=== PATIENT | female | born 1970 | race Caucasian/White ===

== ENCOUNTER 2024-05-28 20:03 | Inpatient (IN) ==
--- OUTSIDE RECORDS SUMMARY | 2024-05-28 20:19 | External Medical Summary | Summary of Care ---
Author Name Unknown Organization [facility] Address [address] [place] [address] Phone [phone] Care Team Providers Care City Planning Engineer Name Role Phone Karlie Thrasher DO Primary Care Provider Reason for Visit * Reason Comments eRx-Medication Refill Encounter Details Date Type Department Care Team (Late st Contact Info) Description 05/20/2024 Refill Family Practice [facility] [address] [place] [address] Karlie Thrasher DO [address] [facility] [place] [address] Allergies Active Allergy Reactions Criticality Noted Date Comments Clindamycin Hives 02/19/2014 documented as of this encounter (statuses as of 05/22/2024) Medications Medication Sig Dispensed Refills Start Date End Date Status Lisinopril-hydro CHLOROthiazide 10-12.5 MG Oral Tablet 1 Tablet. 04/23/2023 Active Folic Acid 1 MG Oral TabletIndication s:Polymyositis with myopathy (HCC),Folic acid deficiency Take 1 Tablet by mouth in the morning. 90 Tablet 3 01/12/2024 Active Zinc 15 66 MG Oral Tablet (Zinc Sulfate)Indicati ons:Zinc deficiency 1 tablet daily 90 Tablet 1 01/12/2024 Active rOPINIRole HCl 1 MG Oral Tablet (Requip)Indicati ons:RLS (restless legs syndrome) TAKE 1 TABLET BY MOUTH TWICE DAILY 180 Tablet 1 04/19/2024 Active Methotrexate Sodium 2.5 MG Oral TabletIndication s:Polymyositis with myopathy (HCC) TAKE 6 TABLET BY MOUTH ONCE WEEKLY 24 Tablet 04/25/2024 Active Vitamin D3 1.25 MG (39561 UT) Oral CapsuleIndicatio ns:Vitamin D deficiency Take 1 Capsule by mouth once a week. 6 Capsule 1 05/08/2024 Active Gabapentin 300 MG Oral Capsule (Neurontin)Indic ations:Polymyosi tis with myopathy (HCC),Myalgia Take 2 Capsules by mouth in the morning and 2 Capsules at noon and 2 Capsules before bedtime. 180 Capsule 5 05/08/2024 Active LORazepam 0.5 MG Oral Tablet (Ativan)Indicati ons:Severe anxiety with panic Take 1 Tablet by mouth daily as needed for Anxiety. 30 Tablet 05/08/2024 Active Pantoprazole Sodium 40 MG Oral Tablet Delayed Release (Protonix)Indica tions:Polymyosit is with myopathy (HCC),Proximal muscle weakness TAKE 1 TABLET BY MOUTH EVERY MORNING 90 Tablet 05/22/2024 Active DULoxetine HCl 60 MG Oral Capsule Delayed Release Particles (Cymbalta) TAKE 1 CAPSULE BY MOUTH ONCE DAILY DO NOT CRUSH, CHEW, AND/OR DIVIDE 30 Capsule 5 05/22/2024 Active DULoxetine HCl 60 MG Oral Capsule Delayed Release Particles (Cymbalta) TAKE 1 CAPSULE BY MOUTH ONCE DAILY DO NOT CRUSH, CHEW, AND/OR DIVIDE 30 Capsule 1 03/20/2024 4 Discontinued documented as of this encounter (statuses as of 05/22/2024) Active Problems Problem Noted Date Diagnosed Date 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 On prednisone therapy 07/16/2022 Leukocytosis 07/16/2022 Elevated alkaline phosphatase level 07/16/2022 Varicose veins of both lower extremities Hyperlipidemia 07/16/2022 Unspecified adrenocortical insufficiency Vitamin D deficiency 07/16/2022 Moderate episode of recurrent major depressive d isorder 07/16/2022 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 Primary osteoarthritis of both first carpometaca rpal joints 07/06/2018 HTN, goal below 140/90 12/17/2015 History of tobacco use 06/19/2011 Family history of cardiovascular disease 003 Overview: ICD-10 update of inactive term FAM HX-DIABETES MELLITUS 01/22/2003 documented as of this encounter (statuses as of 05/22/2024) Resolved Problems Problem Noted Date Diagnosed Date Resolved Date Prediabetes 07/16/2022 09/16/2023 Whiplash 04/21/2017 10/11/2017 Lightheaded 06/19/2011 10/11/2017 Depression 01/22/2003 08/05/2020 documented as of this encounter (statuses as of 05/22/2024) Immunizations Name Administration Dates Next Due PPD 02/10/2010,08/15/2009 documented as of this encounter Social History Tobacco Use Types Packs/Day Years Used Date Smoking Tobacco: Former Cigarettes 1 20 Smokeless Tobacco: Never Comments:started age 23 Alcohol Use Standard Drinks/Week Comments Yes 0 (1 standard drink = 0.6 oz pur e alcohol) 1-2 /week PHQ-2 Answer Date Recorded PHQ-2 Score -1 08/07/2018 Utilities Answer Date Recorded Do you have trouble paying y our heating, water, or electric bill? (Adult - for ages 18 years and over) Not on file 03/21/2024 Is your family able to pay t he heat, water, or electric bill? (Household - for ages 0-17 years) Not on file 03/21/2024 Does your family have access to good internet? (Household - for ages 0-17 years) Not on file 03/21/2024 Social Connections Answer Date Recorded How often do you feel lonely or isolated from those around you? (Adult - for ages 18 years and over) Not on file 03/21/2024 Sex and Gender Information Value Date Recorded Sex Assigned at Not on file Gender Identity Not on file Sexual Orientation Not on file Job Start Date Occupation Industry Not on file Not on file Not on file documented as of this encounter Functional Status Functional Status Response Date of Assess ment Do you have serious difficul ty walking or climbing stairs? (5 years old or older) Yes 03/16/2023 documented as of this encounter Miscellaneous Notes * Telephone Encounter - Sindhu Esquivel [facility] - 05/22/2024 8:39 PM EDTSigned Prescriptions: Disp Refills DULoxetine HCl 60 MG Oral Capsule Delayed *30 Cap*5 Sig: TAKE 1 CAPSULE BY MOUTH ONCE DAILY DO NOT CRUSH, CHEW, AND/OR DIVIDE Authorizing Provider: KARLIE THRASHER Ordering User: SINDHU ESQUIVEL * Telephone Encounter - Interface, [facility] - 05/22/2024 5:54 PM EDT Pending Prescriptions: Disp Refills DULoxetine HCl 60 MG Oral Capsule Delayed *30 Cap*0 Sig: TAKE 1CAPSULE BY MOUTH ONCE DAILY DO NOT CRUSH, CHEW, AND/OR DIVIDE documented in this encounter Plan of Treatment Upcoming Encounters Date Type Department Care Team (Late st Contact Info) Description 11/09/2024 9:40 AM EST Office Visit [facility] [address] [address] Anika Cervantes CRNP [address] [place] [address] 05/08/2025 11:40 AM EDT Office Visit [facility] [address] [address] Karlie Thrasher, [address] [place] [address] Health Maintenance Due Date Last Done Comments COVID-19 Vaccine (#1) 1975 Pneumococcal Vaccine: Pediatrics (0 to 5 Years) and At-Risk Patients (6 to 64 Years) (1 of 2 - PCV) 1976 Hepatitis B Vaccine (1 of 3 - 19+ 3-dose series) 1989 Zoster Vaccines (1 of 2) 1989 HPV/Co-Test 2000 DTaP,Tdap,and Td Vaccines (1 - Tdap) 07/13/2003 07/12/2003 Mammogram 2010 Cervical Cancer Screening 12/31/2012 Pap Smear 12/31/2012 12/31/2009, 12/31/2009 Cologuard 2015 Colonoscopy 2015 Colorectal Cancer Screening 2015 Fecal Occult Blood Test 2015 Sigmoidoscopy 2015 Depression Monitoring 10/11/2018 10/11/2017 Albumin/Creatinine Ratio 09/02/2023 09/02/2020 Influenza Vaccine (FLU shot) (#1) 2024 GFR 12/20/2024 12/21/2023, 09/04, 08/30/2023, Additional history exists Diabetes Screening 12/20/2026 12/21/2023, 0 12/21/2023, 09/28/2023, Additional history exists Lipid Panel 10/14/2027 10/14/2022, 08/06, 02/19/2003 HPV (Gardasil) Vaccine Aged Out No lo nger eligible based on patient's age to complete this topic MENINGOCOCCAL (MENACTRA/MENVEO) Aged Out No longer eligible based on patient's age to complete this topic documented as of this encounter Medical Devices Not on filedocumented as of this encounter Advance Directives * Full Code (Latest Code Status on File) Date Activated Date Inactivated Comments 03/15/2023 6:23 PM 03/16/2023 9:54 PM This order r eflects the patients wishes and were consensually agreed upon. Question Answer Comments Discussion of Advance Directives occurred with: Patient * Full Code Date Activated Date Inactivated Comments 09/13/2020 1:50 PM 09/13/2020 6:30 PM This order reflects the patients wishes and were consensually agreed upon. Question Answer Comments Discussion of Advance Directives occurred with: Patient Does the patient have a Living Will? No Does the patient have Health Care Power of Attor solo? No Care Teams City Planning Engineer Relationship Specialty Start Date End Date Karlie Thrasher DO [address] [place] [address] PCP - General Family Medicine 09/12/22 documented as of this encounter
--- OUTSIDE RECORDS SUMMARY | 2024-05-28 20:19 | External Medical Summary | Summary of Care ---
Author Name Unknown Organization [facility] Address [address] [place] [address] Phone [phone] Care Team Providers Care Manager Customer Name Role Phone Karlie Thrasher DO Primary Care Provider Reason for Referral * Evaluate & Treat - Unlimited Visits (Within 3 days (urgent)) - Authorized Specialty Diagnoses / Procedures Referred By Russell crandall Referred To Contact Physical Therapy / Physical Medicine And Rehab Diagnoses Polymyositis with myopathy (HCC) Bilateral foot-drop Ambulatory dysfunction Karlie Thrasher DO [address] [place] [address] Referral ID Status Reason Start Date Expiration Date Visits Requested Visits Authorized [id number] Authorized Specialty Services Required 05/08/[phone] Question Answer Referral Priority Within 3 days (urgent) Where should this appointment be scheduled? Leila Comments Needs home based PT for now as she is non-ambulatory Please refer to energy rehab Encounter Details Date Type Department Care Team (Latest Contact Info) Description 05/08/2024 9:40 AM EDT Telemedicine Family Practice [facility] [address] [place] [address] Karlie Thrasher DO [address] [place] [address] Polymyositis with myopathy (HCC)*; Iatrogenic Laya's syndrome (HCC); Mixed hyperlipidemia; HTN, goal below 140/90; Unspecified adrenocortical insufficiency (HCC); Moderate episode of recurrent major depressive disorder (HCC); Bilateral foot-drop; Ambulatory dysfunction; Vitamin D deficiency; Myalgia; Severe anxiety with panic Allergies Active Allergy Reactions Criticality Noted Date Comments Clindamycin Hives 02/19/2014 documented as of this encounter (statuses as of 05/08/2024) Medications Medication Sig Dispensed Refills Start Date End Date Status Lisinopril-hydro CHLOROthiazide 10-12.5 MG Oral Tablet 1 Tablet. 04/23/2023 Active Folic Acid 1 MG Oral TabletIndication s:Polymyositis with myopathy (HCC),Folic acid deficiency Take 1 Tablet by mouth in the morning. 90 Tablet 3 01/12/2024 Active Zinc 15 66 MG Oral Tablet (Zinc Sulfate)Indicati ons:Zinc deficiency 1 tablet daily 90 Tablet 1 01/12/2024 Active Pantoprazole Sodium 40 MG Oral Tablet Delayed Release (Protonix)Indica tions:Polymyosit is with myopathy (HCC),Proximal muscle weakness TAKE 1 TABLET BY MOUTH EVERY MORNING 90 Tablet 02/17/2024 Active DULoxetine HCl 60 MG Oral Capsule Delayed Release Particles (Cymbalta) TAKE 1 CAPSULE BY MOUTH ONCE DAILY DO NOT CRUSH, CHEW, AND/OR DIVIDE 30 Capsule 1 03/20/2024 Active rOPINIRole HCl 1 MG Oral Tablet (Requip)Indicati ons:RLS (restless legs syndrome) TAKE 1 TABLET BY MOUTH TWICE DAILY 180 Tablet 1 04/19/2024 Active Methotrexate Sodium 2.5 MG Oral TabletIndication s:Polymyositis with myopathy (HCC) TAKE 6 TABLET BY MOUTH ONCE WEEKLY 24 Tablet 04/25/2024 Active Vitamin D3 1.25 MG (11061 UT) Oral CapsuleIndicatio ns:Vitamin D deficiency Take [...] needed for Anxiety. 30 Tablet 05/08/2024 Active Gabapentin 300 MG Oral Capsule (Neurontin)Indic ations:Polymyosi tis with myopathy (HCC),Myalgia Take 1 Capsule by mouth in the morning and 1 Capsule at noon and 1 Capsule before bedtime. 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 On prednisone therapy 07/16/2022 Leukocytosis [...] as of this encounter (statuses as of 05/08/2024) Resolved Problems Problem Noted Date Diagnosed Date Resolved Date Prediabetes 07/16/2022 09/16/2023 Whiplash 04/21/2017 10/11/2017 Lightheaded 06/19/2011 10/11/2017 Depression 01/22/2003 08/05/2020 documented as of this encounter (statuses as of 05/08/2024) Immunizations Name Administration Dates Next Due PPD 02/10/2010,08/15/2009 TD - Tetanus/Diptheria (ADULT) 07/12/2003 documented as of this encounter Social History [...] Yes 03/16/2023 documented as of this encounter Progress Notes * Karlie Thrasher, - 05/08/2024 9:32 AM EDT Images from the original note were not included. Assessment and Plan Polymyositis with myopathy (HCC) Ongoing and difficult for her From a pain and function standpoint Needs ankle braces, PT and f/u with neuro - DURABLE MEDICAL EQUIPMENT - PHYSICAL THERAPY REFERRAL OP - Gabapentin 300 MG Oral Capsule (Neurontin); Take 2 Capsules by mouth in the morning and 2 Capsules at noon and 2 Capsules before bedtime. Iatrogenic Laya's syndrome (HCC) stable Mixed hyperlipidemia monitoring HTN, goal below 140/90 Stable at home Unspecified adrenocortical insufficiency (HCC) stable Moderate episode of recurrent major depressive disorder (HCC) Doing well on current dosing of cymbalta Which has helped with mood and pain Bilateral foot-drop - DURABLE MEDICAL EQUIPMENT - PHYSICAL THERAPY REFERRAL OP Ambulatory dysfunction - DURABLE MEDICAL EQUIPMENT - PHYSICAL THERAPY REFERRAL OP Vitamin D deficiency - Vitamin D3 1.25 MG (69181 UT) Oral Capsule; Take 1 Capsule by mouth once a week. Myalgia - Gabapentin 300 MG Oral Capsule (Neurontin); Take 2 Capsules by mouth in the morning and 2 Capsules at noon and 2 Capsules before bedtime. History of Present Illness Kaylin Caban is a 54 year old female that presents for No chief complaint on file. Has been having significant ongoing weakness And inability to walk lately given the bad foot drop And overall weakness - on methotrexate still Still off of prednisone Pain is mostly in the knee where she has the hardware in her leg Will be following up with neurology in May Knows she needs to restart physical therapy Because she is homebound right now But the pain is so significant after therapy Will need home bound PT Was measured for ankle braces at the hospital But never got the AFO ankle braces for her foot drop Overall pain is hard to deal with on a daily basis Wondering if she can take 2 of the gabapentin 3 times daily Physical Exam There were no vitals filed for this visit. Wrap-Up Follow-up: Return in about 6 months (around 11/08/2024). | Check-out note: Every 6 month f/u Every other with AP is ok Needs DME referral for braces Time: Total time today was 42 minutes excluding any time spent in the performance of separately billed services. Telemedicine: Patient location: HOME. I was in a hospital or clinic location. After connecting through televideo,patient was verified with two unique identifiers. Patient (or authorized legal help desk representative) was then informed that this was a Telemedicine visit and being conducted confidentially over secure lines. Methods to assure confidentiality were taken. Patient acknowledged consent and understanding of pr ivacy and security of the Telemedicine visit. The patient agreed to participate. documented in this encounter Miscellaneous Notes * Addendum Note - Karlie Thrasher DO - 05/08/2024 9:54 AM EDTAddended by: KARLIE THRASHER on: 05/08/2024 09:54 AM Modules accepted: Orders documented in this encounter Plan of Treatment Upcoming Encounters Date Type Department Care Team (Late st Contact Info) Description 05/16/2024 1:40 PM EDT [facility] [address] [place] [place] [address] Saulo Lal, DO [address] [place] [address] 05/22/2024 2:30 PM EDT Imaging Radiology, [place] [id number] [facility] [place] [address] Scheduled Referrals Name Type Priority Associated Diagnoses Orde r Schedule PHYSICAL THERAPY REFERRAL OP Referral Within 3 days (urgent) Polymyositis with myopathy (HCC) Bilateral foot-drop Ambulatory dysfunction Ordered: 05/08/2024 Health Maintenance Due Date Last Done Comments [...] Not on filedocumented as of this encounter Visit Diagnoses Diagnosis Polymyositis with myopathy (HCC)- Primary Polymyositis Iatrogenic Laya's syndrome (HCC) Laya's syndrome Mixed hyperlipidemia HTN, goal below 140/90 Unspecified essential hypertension Unspecified adrenocortical insufficiency (HCC) Moderate episode of recurrent major depressive disorder (HCC) Bilateral foot-drop Other acquired deformity of ankle and foot Ambulatory dysfunction Vitamin D deficiency Unspecified vitamin D deficiency Myalgia Mylagia and myositis, unspecified Severe anxiety with panic documented in this encounter Advance Directives * Full Code [...] Power of Attor solo? No Care Teams Manager Customer Relationship Specialty Start Date End Date Karlie Thrasher DO [address] [place] [address] PCP - General Family Medicine 09/12/22 documented as of this encounter"
--- OUTSIDE RECORDS SUMMARY | 2024-05-28 20:19 | External Medical Summary | Summary of Care ---
Author Name Unknown Organization [facility] Address [address] [place] [address] Phone [phone] Care Team Providers Care Legal Stenographer Name Role Phone Petey Thrasher Primary Care Provider Reason for Visit * Reason Onset Date Comments Appointment 05/19/2024 dexa Encounter Details Date Type Department Care Team (Late st Contact Info) Description 05/19/2024 [facility] [address] [facility] [place] [address] Junior Peralta MD [address] [place], [place] [address] Appointment (dexa) Allergies Active Allergy Reactions Criticality Noted Date Comments Clindamycin Hives 02/19/2014 documented as of this encounter (statuses as of 05/19/2024) Medications Medication Sig Dispensed Refills Start Date End Date Status Lisinopril-hydroCHL OROthiazide 10-12.5 MG Oral Tablet 1 Tablet. 04/23/2023 Active Folic Acid 1 MG Oral TabletIndications:P olymyositis with myopathy (HCC),Folic acid deficiency Take 1 Tablet by mouth in the morning. 90 Tablet 3 01/12/2024 Active Zinc 15 66 MG Oral Tablet (Zinc Sulfate)Indications :Zinc deficiency 1 tablet daily 90 Tablet 1 01/12/2024 Active Pantoprazole Sodium 40 MG Oral Tablet Delayed Release (Protonix)Indicatio ns:Polymyositis with myopathy (HCC),Proximal muscle weakness TAKE 1 TABLET BY MOUTH EVERY MORNING 90 Tablet 02/17/2024 Active DULoxetine HCl 60 MG Oral Capsule Delayed Release Particles (Cymbalta) TAKE 1 CAPSULE BY MOUTH ONCE DAILY DO NOT CRUSH, CHEW, AND/OR DIVIDE 30 Capsule 1 03/20/2024 Active rOPINIRole HCl 1 MG Oral Tablet (Requip)Indications :RLS (restless legs syndrome) TAKE 1 TABLET BY MOUTH TWICE DAILY 180 Tablet 1 04/19/2024 Active Methotrexate Sodium 2.5 MG Oral TabletIndications:P olymyositis with myopathy (HCC) TAKE 6 TABLET BY MOUTH ONCE WEEKLY 24 Tablet 04/25/2024 Active Vitamin D3 1.25 MG (18107 UT) Oral CapsuleIndications: Vitamin D deficiency Take 1 Capsule by mouth once a week. 6 Capsule 1 05/08/2024 Active Gabapentin 300 MG Oral Capsule (Neurontin)Indicati ons:Polymyositis with myopathy (HCC),Myalgia Take 2 Capsules by mouth in the morning and 2 Capsules at noon and 2 Capsules before bedtime. 180 Capsule 5 05/08/2024 Active LORazepam 0.5 MG Oral Tablet (Ativan)Indications :Severe anxiety with panic Take 1 Tablet by mouth daily as needed for Anxiety. 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 Primary osteoarthritis of both first carpometaca rpal joints 07/06/2018 HTN, goal below 140/90 12/17/2015 History of tobacco use 06/19/2011 Family history of cardiovascular disease 003 Overview: ICD-10 update of inactive term FAM HX-DIABETES MELLITUS 01/22/2003 documented as of this encounter (statuses as of 05/19/2024) Resolved Problems Problem Noted Date Diagnosed Date Resolved Date Prediabetes 07/16/2022 09/16/2023 Whiplash 04/21/2017 10/11/2017 Lightheaded 06/19/2011 10/11/2017 Depression 01/22/2003 08/05/2020 documented as of this encounter (statuses as of 05/19/2024) Immunizations Name Administration Dates Next Due PPD [...] encounter Miscellaneous Notes * Telephone Encounter - Sandrita Lang, [place] - 05/19/2024 2:38 PM EDT Patient is returning a call to say that she doesn't have a pacemaker or anything like that in her, but she is in a wheelchair and cannot walk at all and has anxiety about getting up on the table. I spoke to jermaine who is here today and relayed message. The tech informed me that they do not have a lift or anything to help get patient up on the table. She would need to provide help to get her on table, or needs to be scheduled at a hospital where they have a lift. I called patient and didn't get ananswer, so left a detailed message with all this information on vmail and gave her the appointment line to cancel/reschedule appointment as needed. documented in this encounter Plan of Treatment Upcoming Encounters Date Type Department Care Team (Late st Contact Info) Description 05/22/2024 2:30 PM EDT Imaging Radiology, [address] [place] [address] 11/09/2024 9:40 AM EST Office Visit [facility] [address] [place] [address] Anika Cervantes CRNP [address] [place] [address] 05/08/2025 11:40 AM EDT Office Visit [facility] [address] [place] [address] Petey Thrasher DO [address] [place] [address] Health Maintenance Due Date Last Done Comments [...] Power of Attor solo? No Care Teams Legal Stenographer Relationship Specialty Start Date End Date Petey Thrasher DO [address] [place] [address] PCP - General Family Medicine 09/12/22 documented as of this encounter
--- OUTSIDE RECORDS SUMMARY | 2024-05-28 20:19 | External Medical Summary | Summary of Care ---
Author Name Unknown Organization [facility] Address [address] [place] [address] Phone [phone] Care Team Providers Care Cnc Machinist Name Role Phone Petey Thrasher Primary Care Provider Reason for Visit * Reason Comments eRx-Medication Refill Encounter Details Date Type Department Care Team (Late st Contact Info) Description 04/24/2024 Refill Neurology [facility] Natalie [place] [address] [place] [address] Saulo Lal DO [address] [place] [address] Polymyositis with myopathy (HCC) Allergies Active Allergy Reactions Criticality Noted Date Comments Clindamycin Hives 02/19/2014 documented as of this encounter (statuses as of 04/25/2024) Medications Medication Sig Dispensed Refills Start Date End Date Status Lisinopril-hydroC HLOROthiazide 10-12.5 MG Oral Tablet 1 Tablet. 04/23/2023 Active Folic Acid 1 MG Oral TabletIndications :Polymyositis with myopathy (HCC),Folic acid deficiency Take 1 Tablet by mouth in the morning. 90 Tablet 3 01/12/2024 Active Zinc 15 66 MG Oral Tablet (Zinc Sulfate)Indicatio ns:Zinc deficiency 1 tablet daily 90 Tablet 1 01/12/2024 Active Pantoprazole Sodium 40 MG Oral Tablet Delayed Release (Protonix)Indicat ions:Polymyositis with myopathy (HCC),Proximal muscle weakness TAKE 1 TABLET BY MOUTH EVERY MORNING 90 Tablet 02/17/2024 Active DULoxetine HCl 60 MG Oral Capsule Delayed Release Particles (Cymbalta) TAKE 1 CAPSULE BY MOUTH ONCE DAILY DO NOT CRUSH, CHEW, AND/OR DIVIDE 30 Capsule 1 03/20/2024 Active Gabapentin 300 MG Oral Capsule (Neurontin)Indica tions:Polymyositi s with myopathy (HCC),Myalgia Take 1 Capsule by mouth in the morning and 1 Capsule at noon and 1 Capsule before bedtime. 90 Capsule 04/18/2024 Active rOPINIRole HCl 1 MG Oral Tablet (Requip)Indicatio ns:RLS (restless legs syndrome) TAKE 1 TABLET BY MOUTH TWICE DAILY 180 Tablet 1 04/19/2024 Active Methotrexate Sodium 2.5 MG Oral TabletIndications :Polymyositis with myopathy (HCC) TAKE 6 TABLET BY MOUTH ONCE WEEKLY 24 Tablet 04/25/2024 Active Methotrexate Sodium 2.5 MG Oral TabletIndications :Polymyositis with myopathy (HCC) Take 6 Tablets by mouth once a week. 24 Tablet 2 01/26/2024 04/25/2024 Discontinued documented as of this encounter (statuses as of 04/25/2024) Active Problems Problem Noted Date Diagnosed Date [...] as of this encounter (statuses as of 04/25/2024) Resolved Problems Problem Noted Date Diagnosed Date Resolved Date Prediabetes 07/16/2022 09/16/2023 Whiplash 04/21/2017 10/11/2017 Lightheaded 06/19/2011 10/11/2017 Depression 01/22/2003 08/05/2020 documented as of this encounter (statuses as of 04/25/2024) Immunizations Name Administration Dates Next Due PPD [...] encounter Miscellaneous Notes * Telephone Encounter - Saulo Lal DO - 04/25/2024 1:37 PM EDT Signed Prescriptions: Disp Refills Methotrexate Sodium 2.5 MG Oral Tablet 24 Tab*0 Sig: TAKE 6 TABLET BY MOUTH ONCE WEEKLY Authorizing Provider: SAULO LAL * Telephone Encounter - Meghan Woodruff, [facility] - 04/25/2024 1:22 PM EDT Pending Prescriptions: Disp Refills Methotrexate Sodium 2.5 MG Oral Tablet [Ph*24 Tab*0 Sig: TAKE 6 TABLET BY MOUTH ONCE WEEKLY * Telephone Encounter - Cristian Nguyen, [facility] - 04/25/2024 1:18 PM EDTPending Prescriptions: Disp Refills Methotrexate Sodium 2.5 MG Oral Tablet [Ph*24 Tab*0 Sig: TAKE 6TABLET BY MOUTH ONCE WEEKLY documented in this encounter Plan of Treatment Upcoming Encounters Date Type Department Care Team (Late st Contact Info) Description 04/29/2024 4:00 PM EDT Telemedicine Family Practice [facility] [address] [address] Petey Thrasher DO [address] [place] [address] 05/16/2024 1:40 PM EDT Office Visit Neurology [facility] [place] [address] [place] [address] Saulo Lal DO [address] [place] [address] 05/22/2024 2:30 PM EDT Imaging Radiology, [address] [place] [address] Health Maintenance Due Date Last Done Comments [...] encounter Visit Diagnoses Diagnosis Polymyositis with myopathy (HCC) Polymyositis documented in this encounter Advance Directives * [...] Power of Attor solo? No Care Teams Cnc Machinist Relationship Specialty Start Date End Date Petey Thrasher DO [address] [address] PCP - General Family Medicine 09/12/22 documented as of this encounter
--- OUTSIDE RECORDS SUMMARY | 2024-05-28 20:19 | External Medical Summary | Summary of Care ---
Author Name Unknown Organization [facility] Address [address] [place] [address] Phone [phone] Care Team Providers Care Revenue Cycle Specialist Name Role Phone Petey Thrasher Primary Care Provider Reason for Visit * Reason Comments eRx-Medication Refill Encounter Details Date Type Department Care Team (Late st Contact Info) Description 05/20/2024 Refill Neurology [facility] [address] [place] [address] Saulo Lal DO [address] [place] [address] Polymyositis with myopathy (HCC); Proximal muscle weakness Allergies Active Allergy Reactions Criticality Noted Date [...] tablet daily 90 Tablet 1 01/12/2024 Active DULoxetine HCl 60 MG Oral Capsule [...] Tablet 04/25/2024 Active Vitamin D3 1.25 MG (24392 UT) Oral CapsuleIndicatio ns:Vitamin D deficiency Take [...] MOUTH EVERY MORNING 90 Tablet 05/22/2024 Active Pantoprazole Sodium 40 MG Oral Tablet Delayed Release (Protonix)Indica tions:Polymyosit is with myopathy (HCC),Proximal muscle weakness TAKE 1 TABLET BY MOUTH EVERY MORNING 90 Tablet 02/17/2024 4 Discontinued documented as of this encounter (statuses as of 05/22/2024) Active Problems Problem Noted Date Diagnosed Date 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 On prednisone therapy 07/16/2022 Leukocytosis [...] Telephone Encounter - Saulo Lal DO - 05/22/2024 12:41 PM EDT Signed Prescriptions: Disp Refills Pantoprazole Sodium 40 MG Oral Tablet Lashae*90 Tab*0 Sig: TAKE 1 TABLET BY MOUTH EVERY MORNING Authorizing Provider: SAULO LAL * Telephone Encounter - Pam Bowens LPN - 05/22/2024 9:02 AM EDTPending Prescriptions: Disp Refills Pantoprazole Sodium 40 MG Oral Tablet Lashae*90 Tab*0 Sig: TAKE 1 TABLET BY MOUTH EVERY MORNING * Telephone Encounter - Kerrie Diez - 05/20/2024 7:09 PM EDTPending Prescriptions: Disp Refills Pantoprazole Sodium 40 MG Oral Tablet Lashae*90 Tab*0 Sig: TAKE 1 TABLET BY MOUTH EVERY MORNING * Telephone Encounter - Kerrie Diez - 05/20/2024 7:07 PM EDT Did you pend patient's preferred pharmacy and medication before forwarding?yes [id number] [address] Pending Prescriptions: Disp Refills Pantoprazole Sodium 40 MG Oral Tablet Del*90 Tab*0 Sig: TAKE 1 TABLET BY MOUTH EVERY MORNING Last Visit: 01/12/2024 (in office), 09/07/2023 (telemedicine) Next Visit: Visit date not found If no future appointments scheduled, and last appointment is greater than a year ago, please schedule patient for a follow-up appointment Last date the medication was ordered: 02/17/2024 Is this request for a controlled substance?No Urine Drug Screen:No results found for this or any previous visit. Patient Phone Numbers Labs: Lab Results Component Value Date/Time CREAT 0.6 12/21/2023 12:24 PM CREAT 0.7 09/02/2020 09:53 AM POTASSIUM 4.3 12/21/2023 12:24 PM POTASSIUM 3.0 (L) 09/02/2020 09:52 AM TSH 2.61 05/25/2022 11:01 AM LDLCALC 135 (H) 10/14/2022 10:05 AM LDLCALC 169 (H) 09/02/2020 09:52 AM LDLDIRECT NOT APPLICABLE 09/02/2020 09:52 AM ALT 16 12/21/2023 12:24 PM HGBA1C 4.5 12/21/2023 12:24 PM HGBA1C 4.8 09/02/2020 09:52 AM documented in this encounter Plan of Treatment Upcoming Encounters Date Type Department Care Team (Late st Contact Info) Description 11/09/2024 9:40 AM EST Office Visit [facility] [address] [address] Anika Cervantes CRNP [address] [place] [address] 05/08/2025 11:40 AM EDT Office Visit [facility] [address] [address] Petey Thrasher, DO [address] [place] [address] Health Maintenance Due Date Last Done Comments [...] Diagnoses Diagnosis Polymyositis with myopathy (HCC) Polymyositis Proximal muscle weakness Muscle weakness (generalized) documented in this encounter Advance Directives * [...] Power of Attor solo? No Care Teams Revenue Cycle Specialist Relationship Specialty Start Date End Date Petey Thrasher DO [address] [place] [address] PCP - General Family Medicine 09/12/22 documented as of this encounter
--- OUTSIDE RECORDS SUMMARY | 2024-05-28 20:19 | External Medical Summary | Summary of Care ---
Author Name Unknown Organization [facility] Address [address] [place] [address] Phone [phone] Care Team Providers Care Timber Watchman Name Role Phone Karlie Thrasher DO Primary Care Provider Reason for Referral * Evaluate & Treat - Unlimited Visits (Within 3 days (urgent)) - Authorized Specialty Diagnoses / Procedures Referred By Russell crandall Referred To Contact Physical Therapy / Physical Medicine And Rehab Diagnoses Polymyositis with myopathy (HCC) Bilateral foot-drop Ambulatory dysfunction Karlie Thrasher DO [address] [place] [address] Referral ID Status Reason Start Date Expiration Date Visits Requested Visits Authorized [id number] Authorized Specialty Services Required 05/08/[phone] Question Answer Referral Priority Within 3 days (urgent) Where should this appointment be scheduled? Leila Comments Needs home based PT for now as she is non-ambulatory Please refer to energy rehab Encounter Details Date Type Department Care Team (Latest Contact Info) Description 05/08/2024 9:40 AM EDT Telemedicine Family Practice [facility] [address] [place] [address] Karlie Thrasher DO [address] [place] [address] Polymyositis with myopathy (HCC)*; Iatrogenic Laya's syndrome [...] Tablet 04/25/2024 Active Vitamin D3 1.25 MG (68871 UT) Oral CapsuleIndicatio ns:Vitamin D deficiency Take [...] D deficiency - Vitamin D3 1.25 MG (23195 UT) Oral Capsule; Take 1 Capsule by [...] two unique identifiers. Patient (or authorized legal screening representative) was then informed that this was [...] 05/16/2024 1:40 PM EDT [facility] [address] [place] [address] Saulo Lal, DO [address] [place], [place] [address] 05/22/2024 2:30 PM EDT Imaging Radiology, [place] [id number] [facility] [place] [address] Scheduled Referrals Name Type Priority Associated Diagnoses [...] Power of Attor solo? No Care Teams Timber Watchman Relationship Specialty Start Date End Date Karlie Thrasher DO [address] [place] [address] PCP - General Family Medicine 09/12/22 documented as of this encounter"
--- OUTSIDE RECORDS SUMMARY | 2024-05-28 20:19 | External Medical Summary | Summary of Care ---
Author Name Unknown Organization [facility] Address [address] [place] [address] Phone [phone] Care Team Providers Care Card Folder Name Role Phone Petey Thrasher Primary Care Provider Reason for Visit * Reason Comments eRx-Medication Refill Encounter Details Date Type Department Care Team (Late st Contact Info) Description 05/23/2024 Refill Neurology [facility] [address] [place] [address] Saulo Lal DO [address] [place] [address] Polymyositis with myopathy (HCC) Allergies Active Allergy Reactions Criticality Noted Date Comments Clindamycin Hives 02/19/2014 documented as of this encounter (statuses as of 05/24/2024) Medications Medication Sig Dispensed Refills Start Date [...] TWICE DAILY 180 Tablet 1 04/19/2024 Active Vitamin D3 1.25 MG (18817 UT) Oral CapsuleIndicatio ns:Vitamin D deficiency Take [...] AND/OR DIVIDE 30 Capsule 5 05/22/2024 Active Methotrexate Sodium 2.5 MG Oral TabletIndication s:Polymyositis with myopathy (HCC) TAKE 6 TABLET BY MOUTH ONCE WEEKLY 24 Tablet 5 05/24/2024 Active Methotrexate Sodium 2.5 MG Oral TabletIndication s:Polymyositis with myopathy (HCC) TAKE 6 TABLET BY MOUTH ONCE WEEKLY 24 Tablet 04/25/2024 4 Discontinued documented as of this encounter (statuses as of 05/24/2024) Active Problems Problem Noted Date Diagnosed Date [...] as of this encounter (statuses as of 05/24/2024) Resolved Problems Problem Noted Date Diagnosed Date Resolved Date Prediabetes 07/16/2022 09/16/2023 Whiplash 04/21/2017 10/11/2017 Lightheaded 06/19/2011 10/11/2017 Depression 01/22/2003 08/05/2020 documented as of this encounter (statuses as of 05/24/2024) Immunizations Name Administration Dates Next Due PPD [...] Telephone Encounter - Saulo Lal DO - 05/24/2024 2:04 PM EDT Signed Prescriptions: Disp Refills Methotrexate Sodium 2.5 MG Oral Tablet 24 Tab*5 Sig: TAKE 6 TABLET BY MOUTH ONCE WEEKLY Authorizing Provider: SAULO LAL * Telephone Encounter - Meghan Woodruff, [facility] - 05/24/2024 2:00 PM EDT Pending Prescriptions: Disp Refills Methotrexate Sodium 2.5 MG Oral Tablet 24 Tab*5 Sig: TAKE 6 TABLET BY MOUTH ONCE WEEKLY * Telephone Encounter - Lynda Mckinnon [facility] - 05/24/2024 1:19 PM EDTPending Prescriptions: Disp Refills Methotrexate Sodium 2.5 MG Oral Tablet [Ph*24 Tab*0 Sig: TAKE 6TABLET BY MOUTH ONCE WEEKLY documented in this encounter Plan of Treatment Upcoming Encounters Date Type Department Care Team (Late st Contact Info) Description 11/09/2024 9:40 AM EST Office Visit [address] [place] [address] Anika Cervantes CRNP [address] [place] [address] 05/08/2025 11:40 AM EDT Office Visit Family [facility] [address] [place] [address] Petey Thrasher DO [address] [place] [address] Health Maintenance Due Date Last Done Comments [...] Power of Attor solo? No Care Teams Card Folder Relationship Specialty Start Date End Date Petey Thrasher DO [address] [place] [address] PCP - General Family Medicine 09/12/22 documented as of this encounter
--- OUTSIDE RECORDS SUMMARY | 2024-05-28 20:20 | External Medical Summary | Summary of Care ---
Author Name Unknown Organization [facility] Address [address] [place] [address] Phone [phone] Care Team Providers Care In Home Aide Name Role Phone Petey Thrasher Primary Care Provider Reason for Visit * Reason Comments eRx-Medication Refill Encounter Details Date Type Department Care Team (Late st Contact Info) Description 04/18/2024 Refill Neurology [facility] [place] [address] [place] [address] Saulo Lal DO [address] [place] [address] Polymyositis with myopathy (HCC); Myalgia Allergies Active Allergy Reactions Criticality Noted Date Comments Clindamycin Hives 02/19/2014 documented as of this encounter (statuses as of 04/18/2024) Medications Medication Sig Dispensed Refills Start Date [...] Oral Tablet (Requip)Indicatio ns:RLS (restless legs syndrome) 1 tablet twice daily 60 Tablet 2 01/12/2024 Active Methotrexate Sodium 2.5 MG Oral TabletIndications :Polymyositis with myopathy (HCC) Take 6 Tablets by mouth once a week. 24 Tablet 2 01/26/2024 Active Pantoprazole Sodium 40 MG Oral Tablet [...] Capsule before bedtime. 90 Capsule 04/18/2024 Active Gabapentin 300 MG Oral Capsule (Neurontin)Indica tions:Polymyositi s with myopathy (HCC),Myalgia Take 1 Capsule by mouth in the morning and 1 Capsule at noon and 1 Capsule before bedtime. 90 Capsule 1 01/25/2024 04/18/2024 Discontinued documented as of this encounter (statuses as of 04/18/2024) Active Problems Problem Noted Date Diagnosed Date Iatrogenic Shickshinny's syndrome 07/16/2022 On prednisone therapy 07/16/2022 Leukocytosis [...] as of this encounter (statuses as of 04/18/2024) Resolved Problems Problem Noted Date Diagnosed Date Resolved Date Prediabetes 07/16/2022 09/16/2023 Whiplash 04/21/2017 10/11/2017 Lightheaded 06/19/2011 10/11/2017 Depression 01/22/2003 08/05/2020 documented as of this encounter (statuses as of 04/18/2024) Immunizations Name Administration Dates Next Due PPD [...] Telephone Encounter - Saulo Lal DO - 04/18/2024 5:19 PM EDT Signed Prescriptions: Disp Refills Gabapentin 300 MG Oral Capsule (Neurontin) 90 Cap*0 Sig: Take 1 Capsule by mouth in the morning and 1 Capsule at noon and 1 Capsule before bedtime. Authorizing Provider: SAULO LAL * Telephone Encounter - Pam Bowens LPN - 04/18/2024 2:22 PM EDTPending Prescriptions: Disp Refills Gabapentin 300 MG Oral Capsule [Pharmacy M*90 Cap*0 Sig: Take 1 Capsule by mouth in the morning and 1 Capsule at noon and 1 Capsule before bedtime. * Telephone Encounter - Kerrie Diez two - 04/18/2024 2:02 PM EDTPending Prescriptions: Disp Refills Gabapentin 300 MG Oral Capsule [Pharmacy M*90 Cap*0 Sig: Take 1 Capsule by mouth in the morning and 1 Capsule at noon and 1 Capsule before bedtime. * Telephone Encounter - Chary Inaurelia two - 04/18/2024 2:01 PM EDT Did you pend patient's preferred pharmacy and medication before forwarding?yes Pharmacy: [id number] [facility] Pending Prescriptions: Disp Refills Gabapentin 300 MG Oral Capsule (Neurontin*90 Cap*0 Sig: Take 1 Capsule by mouth in the morning and 1 Capsule at noon and 1 Capsule before bedtime. Last Visit: 01/12/2024 (in office), 09/07/2023 (telemedicine) Next Visit: 05/16/2024 If no future appointments scheduled, and last appointment is greater than a year ago, please schedule patient for a follow-up appointment Last date the medication was ordered: 01/25/2024 Is this request for a controlled substance?No [...] 04/29/2024 4:00 PM EDT Telemedicine Family Practice [facility] [address] [address] Petey Thrasher, [address] [address] 05/16/2024 1:40 PM EDT [facility] [address] [place] [address] Saulo Lal, [address] [place] [address] 05/22/2024 2:30 PM EDT Imaging Radiology, [facility] [address] [facility] [place] [address] Health Maintenance Due Date Last Done Comments [...] Diagnoses Diagnosis Polymyositis with myopathy (HCC) Polymyositis Myalgia Mylagia and myositis, unspecified documented in this encounter Advance Directives * [...] Power of Attor solo? No Care Teams In Home Aide Relationship Specialty Start Date End Date Petey Thrasher DO [address] [place] [address] PCP - General Family Medicine 09/12/22 documented as of this encounter
--- OUTSIDE RECORDS SUMMARY | 2024-05-28 20:20 | External Medical Summary | Summary of Care ---
Author Name Unknown Organization [facility] Address [address] [place] [address] Phone [phone] Care Team Providers Care Logging Engineer Name Role Phone Petey Thrasher Primary Care Provider Reason for Visit * Reason Comments eRx-Medication Refill Encounter Details Date Type Department Care Team (Late st Contact Info) Description 02/15/2024 Refill Neurology [place] [facility] [place] [address] [place] [address] Saulo Lal DO [address] [place] [address] Polymyositis with myopathy (HCC); Proximal muscle weakness Allergies Active Allergy Reactions Criticality Noted Date Comments Clindamycin Hives 02/19/2014 documented as of this encounter (statuses as of 02/17/2024) Medications Medication Sig Dispensed Refills Start Date End Date Status Lisinopril-hydroC HLOROthiazide 10-12.5 MG Oral Tablet 1 Tablet. 0 04/23/2023 Active Folic Acid 1 MG Oral [...] twice daily 60 Tablet 2 01/12/2024 Active DULoxetine HCl 60 MG Oral Capsule Delayed Release Particles (Cymbalta) TAKE 1 CAPSULE BY MOUTH ONCE DAILY DO NOT CRUSH, CHEW, AND/OR DIVIDE 30 Capsule 0 01/24/2024 Active Gabapentin 300 MG Oral Capsule (Neurontin)Indica tions:Polymyositi s with myopathy (HCC),Myalgia Take 1 Capsule by mouth in the morning and 1 Capsule at noon and 1 Capsule before bedtime. 90 Capsule 1 01/25/2024 Active Methotrexate Sodium 2.5 MG Oral TabletIndications :Polymyositis with myopathy (HCC) Take 6 Tablets by mouth once a week. 24 Tablet 2 01/26/2024 Active Pantoprazole Sodium 40 MG Oral Tablet Delayed Release (Protonix)Indicat ions:Polymyositis with myopathy (HCC),Proximal muscle weakness TAKE 1 TABLET BY MOUTH EVERY MORNING 90 Tablet 0 02/17/2024 Active Pantoprazole Sodium 40 MG Oral Tablet Delayed Release (Protonix)Indicat ions:Polymyositis with myopathy (HCC),Proximal muscle weakness take 1 tablet by mouth every morning 90 Tablet 3 02/15/2023 02/17/2024 Discontinued documented as of this encounter (statuses as of 02/17/2024) Active Problems Problem Noted Date Diagnosed Date Iatrogenic [employer]'s syndrome 07/16/2022 On prednisone therapy 07/16/2022 Leukocytosis [...] as of this encounter (statuses as of 02/17/2024) Resolved Problems Problem Noted Date Diagnosed Date Resolved Date Prediabetes 07/16/2022 09/16/2023 Whiplash 04/21/2017 10/11/2017 Lightheaded 06/19/2011 10/11/2017 Depression 01/22/2003 08/05/2020 documented as of this encounter (statuses as of 02/17/2024) Immunizations Name Administration Dates Next Due PPD 02/10/2010,08/15/2009 documented as of this encounter Social History Tobacco Use Types Packs/Day Years Used Date Smoking Tobacco: Former Cigarettes 1 20 Smokeless Tobacco: Never Comments:started age 23 Alcohol Use Standard Drinks/Week Comments Yes 0 (1 standard drink = 0.6 oz pur e alcohol) 1-2 /week PHQ-2 Answer Date Recorded PHQ-2 Score -1 08/07/2018 Sex and Gender Information Value Date Recorded [...] Telephone Encounter - Saulo Lal DO - 02/17/2024 12:37 PM EDT Signed Prescriptions: Disp Refills Pantoprazole Sodium 40 MG Oral Tablet Lashae*90 Tab*0 Sig: TAKE 1 TABLET BY MOUTH EVERY MORNING Authorizing Provider: SAULO LAL * Telephone Encounter - Pam Bowens LPN - 02/17/2024 7:46 AM EDTPending Prescriptions: Disp Refills Pantoprazole Sodium 40 MG Oral Tablet Lashae*90 Tab*0 Sig: take 1 tablet by mouth every morning * Telephone Encounter - Kerrie Diez - 02/16/2024 4:08 PM EDTPending Prescriptions: Disp Refills Pantoprazole Sodium 40 MG Oral Tablet Lashae*90 Tab*0 Sig: take 1 tablet by mouth every morning * Telephone Encounter - Kerrie Diez - 02/16/2024 4:06 PM EDT Did you pend patient's preferred pharmacy and medication before forwarding?yes Pharmacy: [id number] [facility] Pending Prescriptions: Disp Refills Pantoprazole Sodium 40 MG Oral Tablet Del*90 Tab*0 Sig: TAKE 1 TABLET BY MOUTH EVERY MORNING Last Visit: 01/12/2024 (in office), 09/07/2023 (telemedicine) Next Visit: 05/16/2024 If no future appointments scheduled, and last appointment is greater than a year ago, please schedule patient for a follow-up appointment Last date the medication was ordered: 02/15/2023 Is this request for a controlled substance?No [...] 05/16/2024 1:40 PM EDT Office Visit Neurology [facility] [address] [place] [address] Saulo Lal, [address] [place] [address] 05/22/2024 2:30 PM EDT Imaging Radiology, [place] [id number] [facility] [place] [address] Health Maintenance Due Date Last Done Comments COVID-19 Vaccine (#1) 1975 Pneumococcal Vaccine: Pediatrics (0 to 5 Years) and At-Risk Patients (6 to 64 Years) (1 of 2 - PCV) 1976 Hepatitis B (1 of 3 - 19+ 3-dose series) 1989 Zoster Vaccines (1 of 2) 1989 HPV/Co-Test 2000 DTaP,Tdap,and Td Vaccines (1 - Tdap) 07/13/2003 07/12/2003 Mammogram 2010 Cervical Cancer Screening 12/31/2012 Pap Smear 12/31/2012 12/31/2009, 12/31/2009 Cologuard 2015 Colonoscopy 2015 Colorectal Cancer Screening 2015 Fecal Occult Blood Test 2015 Sigmoidoscopy 2015 Albumin/Creatinine Ratio 09/02/2023 09/02/2020 Influenza Vaccine (FLU shot) (Season Ended) 2024 GFR 12/20/2024 12/21/2023, 12/2 03/2023, 08/30/2023, Additional history exists Diabetes Screening 12/20/2026 12/21/2023, 0 12/21/2023, 09/28/2023, Additional history exists Lipid Panel 10/14/2027 10/14/2022, 08/06, 02/19/2003 GARDASIL-HPV IMMUNIZATION SERIES Aged Out No longer eligible based on patient's age to complete this topic MENINGOCOCCAL (MENACTRA/MENVEO) Aged Out No longer eligible based on patient's age to complete this topic documented as of this encounter Medical Devices Not on filedocumented as of this encounter Visit Diagnoses Diagnosis Polymyositis with myopathy (HCC) Polymyositis Proximal muscle weakness Muscle weakness (generalized) documented in this encounter Advance Directives Latest Code Status on File Code Status Date Activated Date Inactivated Comments Full Code 03/15/2023 6:23 PM 03/16/2023 9:54 PM This order reflects the patients wishes and were consensually agreed upon. Question Answer Comments Discussion of Advance Directives occurred with: Patient Code Status History Code Status Date Activated Date Inactivated Comments Full Code 09/13/2020 1:50 PM 09/13/2020 6:30 PM Thi s order reflects the patients wishes and were consensually agreed upon. Question Answer Comments Discussion of Advance Directives occurred with: Patient Does the patient have a Living Will? No Does the patient have Health Care Power of Assistant Kitchen Manager? No Care Teams Logging Engineer Relationship Specialty Start Date End Date Petey Thrasher DO [address] [place] [address] PCP - General Family Medicine 09/12/22 documented as of this encounter
--- OUTSIDE RECORDS SUMMARY | 2024-05-28 20:20 | External Medical Summary | Summary of Care ---
Author Name Unknown Organization [facility] Address [address] [place] [address] Phone [phone] Care Team Providers Care Merchant Tailor Name Role Phone Petey Thrasher Primary Care Provider Reason for Visit * Reason Comments Follow Up Encounter Details Date Type Department Care Team (Late st Contact Info) Description 01/12/2024 11:20 AM EDT Office Visit Neurology [facility] [place] [address] [facility] [place] [address] Saulo Lal DO [address] [facility] [place] [address] Polymyositis with myopathy (HCC)*; Folic acid deficiency; Foot drop, bilateral; Osteoporosis, unspecified osteoporosis type, unspecified pathological fracture presence; Vitamin D deficiency; Zinc deficiency; RLS (restless legs syndrome) Allergies Active Allergy Reactions Criticality Noted Date Comments Clindamycin Hives 02/19/2014 documented as of this encounter (statuses as of 01/12/2024) Medications Medication Sig Dispensed Refills Start Date End Date Status Pantoprazole Sodium 40 MG Oral Tablet Delayed Release (Protonix)Indicat ions:Polymyositis with myopathy (HCC),Proximal muscle weakness take 1 tablet by mouth every morning 90 Tablet 3 02/15/2023 Active Methotrexate Sodium 2.5 MG Oral TabletIndications :Polymyositis with myopathy (HCC) Take 6 Tablets by mouth once a week. 24 Tablet 2 10/27/2023 Active DULoxetine HCl 60 MG Oral Capsule Delayed Release Particles (Cymbalta) TAKE 1 CAPSULE BY MOUTH ONCE DAILY DO NOT CRUSH, CHEW, AND/OR DIVIDE 30 Capsule 0 12/21/2023 Active Gabapentin 300 MG Oral Capsule (Neurontin)Indica tions:Polymyositi s with myopathy (HCC),Myalgia Take 1 Capsule by mouth in the morning and 1 Capsule at noon and 1 Capsule before bedtime. 90 Capsule 0 12/21/2023 Active Lisinopril-hydroC HLOROthiazide 10-12.5 MG Oral Tablet 1 [...] twice daily 60 Tablet 2 01/12/2024 Active Potassium Chloride 20 MEQ Oral PacketIndications :Hypokalemia Take by mouth 40 mEq in the morning. 30 Packet 1 05/01/2022 01/12/2024 Discontinued (Medication List Clean Up) Vitamin D 50 MCG (1999 UT) Oral TabletIndications :Vitamin D deficiency 1 tablet daily 90 Tablet 3 07/16/2022 01/12/2024 Discontinued (Medication List Clean Up) Clotrimazole 10 MG Mouth/Throat Tashi (Mycelex Tashi)Indication s:Oral thrush Take 1 Lozenge by mouth in the morning and 1 Lozenge at noon and 1 Lozenge before bedtime. Allow tablet to slowly dissolve in your mouth. 90 Tashi 3 10/28/2022 01/12/2024 Discontinued (Medication List Clean Up) Triamterene-HCTZ 37.5-25 MG Oral Tablet (Maxzide-25)Indic ations:Polymyosit is with myopathy (HCC),Leg swelling Take 1/2 tablet by mouth daily for 2 weeks then increase to 1 tablet by mouth daily. 90 Tablet 3 03/02/2023 01/12/2024 Discontinued (Medication List Clean Up) predniSONE 10 MG Oral Tablet (Deltasone) Take 3 Tablets by mouth in the morning. Do not start before March 17, 2023. 30 Tablet 1 03/17/2023 01/12/2024 Discontinued (Medication List Clean Up) Vitamin B-12 1000 MCG Oral Tablet (Cyanocobalamin) Take 1 Tablet by mouth in the morning. Do not start before March 17, 2023. 90 Tablet 0 03/17/2023 01/12/2024 Discontinued (Medication List Clean Up) LORazepam 0.5 MG Oral Tablet (Ativan)Indicatio ns:Anxiety state Take 1 Tablet by mouth in the morning and 1 Tablet at noon and 1 Tablet before bedtime. 8 Tablet 0 09/13/2023 01/12/2024 Discontinued (Medication List Clean Up) Lisinopril 10 MG Oral Tablet (Prinivil)Indicat ions:HTN, goal below 140/80 Take 1 Tablet by mouth daily. In the morning. 90 Tablet 3 11/03/2023 01/12/2024 Discontinued (Medication List Clean Up) documented as of this encounter (statuses as of 01/12/2024) Active Problems Problem Noted Date Diagnosed Date [...] as of this encounter (statuses as of 01/12/2024) Resolved Problems Problem Noted Date Diagnosed Date Resolved Date Prediabetes 07/16/2022 09/16/2023 Whiplash 04/21/2017 10/11/2017 Lightheaded 06/19/2011 10/11/2017 Depression 01/22/2003 08/05/2020 documented as of this encounter (statuses as of 01/12/2024) Immunizations Name Administration Dates Next Due PPD 02/10/2010,08/15/2009 documented as of this encounter Social History Tobacco Use Types Packs/Day Years Used Date Smoking Tobacco: Former Cigarettes 1 20 Smokeless Tobacco: Never Tobacco Cessation:Counseling Given: Not Answered Comments:started age 23 Alcohol Use Standard Drinks/Week [...] on file documented as of this encounter Last Filed Vital Signs Vital Sign Reading Time Taken Comments Blood Pressure 148/98 01/12/2024 11:25 AM EDT Pulse 102 01/12/2024 11:25 AM EDT Temperature 36.4 C (97.6 F) 01/12/2024 11:25 AM E DT Respiratory Rate 20 01/12/2024 11:25 AM EDT Oxygen Saturation 99% 01/12/2024 11:25 AM EDT Inhaled Oxygen Concentration - - Weight - - Height - - Body Mass Index - - documented in this encounter Functional Status Functional Status Response Date of Assess ment Do you have serious difficul ty walking or climbing stairs? 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 She presents alone today. I last saw her in September of 2023. She was admitted to the hospital in 2022 hospital for acuterespiratory failure/septic shock and was intubated. This was a prolonged hospital stay in which shewas discharged to acute rehab. I have not yet seen her since she was discharged. In the interim perhospital chart review she did develop worsening weakness in her legs which was presumed due to a critical illness polyneuropathy/myopathy. She is no longer on prednisone. She is on methotrexate and following with [facility]. She remains on methotrexate. Her speech and swallowing are good. Her strength in her upper extremities is also good. She had recent lab work which showed a normal CK level. She has in a wheelchair unable to walk due to bilateral footdrop. She does have persistent pain in her lower extremities as well that is worse at night and improved with moving. She is on gabapentin for pain. Physical therapy does seem to help or exacerbates pain per discussion with the patient thisafternoon. She has not taking folic acid with her methotrexate unclear why this was stopped. HOME MEDICATIONS : Current Outpatient Medications Medication Sig Dispense Refill Potassium Chloride 20 MEQ Oral Packet Take by mouth 40 mEq in the morning. 30 Packet 1 Vitamin D 50 MCG (1999 UT) Oral Tablet 1 tablet daily 90 Tablet 3 Clotrimazole 10 MG Mouth/Throat Tashi (Mycelex Tashi) Take 1 Lozenge by mouth in the morning and 1 Lozenge at noon and 1 Lozenge before bedtime. Allow tablet to slowly dissolve in your mouth. 90 Tashi 3 Pantoprazole Sodium 40 MG Oral Tablet Delayed Release (Protonix) take 1 tablet by mouth every morning 90 Tablet 3 Triamterene-HCTZ 37.5-25 MG Oral Tablet (Maxzide-25) Take 1/2 tablet by mouth daily for 2 weeks then increase to 1 tablet by mouth daily. 90 Tablet 3 predniSONE 10 MG Oral Tablet (Deltasone) Take 3 Tablets by mouth in the morning. Do not start before March 17, 2023. 30 Tablet 1 Vitamin B-12 1000 MCG Oral Tablet (Cyanocobalamin) Take 1 Tablet by mouth in the morning. Do not start before March 17, 2023. 90 Tablet 0 LORazepam 0.5 MG Oral Tablet (Ativan) Take 1 Tablet by mouth in the morning and 1 Tablet at noon and 1 Tablet before bedtime. 8 Tablet 0 Methotrexate Sodium 2.5 MG Oral Tablet Take 6 Tablets by mouth once a week. 24 Tablet 2 Lisinopril 10 MG Oral Tablet (Prinivil) Take 1 Tablet by mouth daily. In the morning. 90 Tablet 3 DULoxetine HCl 60 MG Oral Capsule Delayed Release Particles (Cymbalta) TAKE 1 CAPSULE BY MOUTH ONCEDAILY DO NOT CRUSH, CHEW, AND/OR DIVIDE 30 Capsule 0 Gabapentin 300 MG Oral Capsule (Neurontin) Take 1 Capsule by mouth in the morning and 1 Capsule at noon and 1 Capsule before bedtime. 90 Capsule 0 No current facility-administered medications for this visit. Review of patient's allergies indicates: Allergen Reactions Clindamycin Hives PHYSICAL EXAMINATION: BP 148/98 (BP Site: Left Arm, BP Position: Sitting, BP Cuff Size: Regular) | Pulse 102 | Temp 36.4C (97.6 F) (Tympanic) | Resp 20 | LMP 02/05/2010 | SpO2 99% Patient was seen and examined this morning in clinic. She is awake alert oriented person place and time. She appears in no acute distress. She is sitting upright in her wheelchair. She is following all commands. Her speech is clear. Her face symmetric. No ptosis eyes are midline. Extraocular muscles are intact. Tongue is midline without abrasion. No skin rash. She is moving her upper extremities well with no limited range of motion. Muscle strength testing in the upper extremities 5/5 with negative Juliano sign. She has no ataxia with [id number] testing. Sensation is intact to light touch. Her neck is supple. She is normal breathing effort. She is severe bilateral footdrop as well as some muscle atrophy involving the legs. She is hip flexion weakness in his 4+ out of 5 which appears improved since previous. Sensation is reduced to light touch below the knees. She is unable to ambulate. LABORATORY: Labs reviewed and pertinent findings are indicated below: Component Latest Ref Rng & Units 12/02/2021 JOANNE-1 AB <11 SI <11 PL-7 AB <11 SI <11 PL-12 AB <11 SI <11 EJ AB <11 SI <11 OJ AB <11 SI <11 SRP AB <11 SI <11 NY-2 ALPHA AB <11 SI <11 NY-2 BETA AB <11 SI <11 MDA5 Ab <11 SI <11 TIF1 Gamma Ab <11 SI <11 NXP-2 AB <11 SI <11 CK 26 - 192 U/L 504 (H) 25-Hydroxy Vitamin D >19 ng/mL 25 ANTI-PM/SCL-100 (EIA) SEE BELOW HMGCR AB (IGG) <20 CU <2 Component Latest Ref Rng 12/21/2023 BUN 6 - 20 mg/dL 12 Creatinine 0.5 - 1.0 mg/dL 0.6 Estimated Glomerular Filtration Rate >=60 mL/min >90 Sodium 135 - 146 mmol/L 135 Potassium 3.5 - 5.1 mmol/L 4.3 Chloride 98 - 107 mmol/L 99 CO2 22 - 32 mmol/L 19 (L) Anion Gap 7 - 15 mmol/L 17 (H) Glucose 70 - 120 mg/dL 104 Albumin 3.8 - 5.0 g/dL 4.2 AST 10 - 35 U/L 23 Alkaline Phosphatase 35 - 130 U/L 85 Bilirubin, Total <=1.2 mg/dL 0.3 Calcium 8.4 - 10.2 mg/dL 9.9 Protein 6.0 - 8.3 g/dL 6.9 ALT 10 - 35 U/L 16 JOANNE-1 AB <11 SI <11 PL-7 AB <11 SI <11 PL-12 AB <11 SI <11 EJ AB <11 SI <11 OJ AB <11 SI <11 SRP AB <11 SI <11 NY-2 Alpha AB <11 SI <11 NY-2 Beta AB <11 SI <11 MDA5 Ab <11 SI <11 TIF1 Gamma Ab <11 SI <11 NXP-2 AB <11 SI <11 Normal/Abnormal Normal Normal Immunofixation Interpretation This result contains rich text formatting which cannot be displayed here. Hemoglobin A1C 4.0 - 5.6 % 4.5 Estimated Average Glucose <126 mg/dL 82 c-ANCA Negative Negative p-ANCA Negative Negative ESR <30 mm/hour 16 CK 26 - 192 U/L 29 Cortisol 2.5 - 19.5 ug/dL 5.8 COPPER 70 - 175 mcg/dL 64 (L) ZINC 60 - 130 mcg/dL 74 Magnesium 1.5 - 2.6 mg/dL 1.7 Phosphorus 2.5 - 4.8 mg/dL 3.2 Legend: (L) Low (H) High Review of prior Diagnostic Tests: EMG performed on 12/23/2022: Abnormal study. This electrodiagnostic study Is most consistent with followin. Small motor unit action potentials with early recruitment pattern with fibrillation potentials and/or positive sharp wave seen in the right tibialis anterior muscle are consistent with patient's known inflammatory polymyositis/myopathy. 2. Suggestive of a mild axonal sensory polyneuropathy. 3. Focal slowing (ie focal demyelination) of the right ulnar nerve across the elbow. Muscle biopsy performed on 09/13/2020: Abnormal. This was performed of the right quadriceps muscle.Biopsy showed myopathic changes with rare foci of inflammation suggestive of polymyositis. EMG on 08/28/2020 Per Report: Impression: Abnormal study. This electrodiagnostic study shows evidence of followin. Suggestive of a possible myopathy as there was increased insertional activity noted in several muscles as well as low amplitude motor unit action potentials and early recruitment in the iliopsoas muscle. 2. Mild focal slowing of the left ulnar nerve across the elbow consistent with focal demyelination. 3. Suggestive of mild axonal length-dependent polyneuropathy. EMG on 04/30/2021 Per Report: Impression: Abnormal study. This electrodiagnostic study shows evidence of followin. Several muscles in the left lower extremity demonstrated small motor unit action potentials withearly recruitment suggestive of a myopathy. 2. Mild focal slowing of the left ulnar nerve across the elbow consistent with focal demyelination. Review of prior Radiology Studies: IMPRESSION / PLAN: Kaylin was seen today for follow up. Diagnoses and all orders for this visit: Polymyositis with myopathy (HCC) - Folic Acid 1 MG Oral Tablet; Take 1 Tablet by mouth in the morning. - CBC WITH WBC DIFFERENTIAL - FOLIC ACID - DURABLE MEDICAL EQUIPMENT - XR KNEE 1-2 VIEWS - CYTOSOLIC 5'-NUCLEOTIDASE 1A (CN-1A) ANTIBODY (IGG) Folic acid deficiency - Folic Acid 1 MG Oral Tablet; Take 1 Tablet by mouth in the morning. 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 She is no longer on prednisone due to some complications including weight gain as well as elevated bloodsugars. There was also concern about prednisone contributing to a steroid myopathy. She also was tried on IVIG in the past with no improvement. Genetic testing was negative for limb-girdle muscular dystrophy. Paraneoplastic panel was negative. Patient previously had CT chest abdomen pelvis which showed no signs of malignancy. Plan: 1. Recommend continue methotrexate 15 mg weekly for polymyositis which appears well-controlled as her hip flexion weakness appears improved from previous as well as her muscle strength testing in theupper extremities is reassuring. Recent CK level was normal. Will defer on restarting steroids. Recommend restarting folic acid as it was unclear why this was stopped particularly while using methotrexate. 2. Will obtain an x-ray of the right knee due to a painful or possible bone fragment versus lipoma versus calcium deposit on the medial border of the right knee. Pending results of the x-ray may needto consider referral to orthopedics. 3. In regards to her pain/paresthesias or myalgias will continue current dose of gabapentin. I am concerned that restless leg may be contributing. Will start Requip 1 mg twice daily. 4. Recent lab work showed zinc deficiency will start a zinc tablet daily for a few months. Will recheck seeing when I see her back in clinic. 5. Vitamin-D deficiency which was previously noted. She was previously on vitamin-D supplement although stopped. Will recheck a vitamin-D level. Will also arrange for a DEXA scan given the prolonged use of steroids in the past as well as vitamin-D deficiency. 6. Neuropathy with bilateral footdrop presumed secondary to critical illness. Recommend AFOs. Will defer on follow-up EMG at this point. Will get labs today including a folic acid level. Will arrange for follow-up in 4-5 months. Saulo Lal DO After connecting to the patient via telephone, the patient was identified by name and date of . Patient was then informed that this was a telephone call only visit. The patient agreed to participate. Total call duration was 65 minutes. documented in this encounter Nursing Notes * Pam Bowens LPN - 01/12/2024 11:22 AM EDT Patient verified identity by spelling of last name and date. Chief Complaint Patient presents with Follow Up documented in this encounter Plan of Treatment Upcoming Encounters Date Type Department Care Team (Late st Contact Info) Description 05/16/2024 1:40 PM EDT Office Visit Neurology [facility] [address] [place] [address] Saulo Lal, DO [address] [place] [address] 05/22/2024 2:30 PM EDT Imaging Radiology, [place] [id number] [facility] [place] [address] Pending Results Name Type Priority Associated Diagnoses Date /Time FOLIC ACID Lab Routine Polymyositis with myopathy (HCC) Folic acid deficiency Foot drop, bilateral 01/12/2024 12:25 PM EDT XR KNEE 1-2 VIEWS Medical Imaging Routine Polymyositis with myopathy (HCC) Folic acid deficiency Foot drop, bilateral 01/12/2024 12:20 PM EDT 25-HYDROXY VITAMIN D Lab Routine Vitamin D deficiency 01/12/2024 12:25 PM EDT CYTOSOLIC 5'-NUCLEOTIDASE 1A (CN-1A) ANTIBODY (IGG) Lab Routine Polymyositis with myopathy (HCC) 01/12/2024 12:25 PM EDT Scheduled Orders Name Type Priority Associated Diagnoses Orde r Schedule DEXA SCAN/BONE MINERAL AXIAL Medical Imaging Routine Osteoporosis, unspecified osteoporosis type, unspecified pathological fracture presence Ordered: 01/12/2024 Health Maintenance Due Date Last Done Comments [...] shot) (Season Ended) 2024 GFR 12/20/2024 12/21/2023, 09/04, 08/30/2023, Additional [...] Not on filedocumented as of this encounter Procedures Procedure Name Priority Date/Time Associated Diagnosis Comments DIFFERENTIAL, AUTOMATED Routine 01/12/2024 12:25 PM EDT Polymyositis with myopathy (HCC) Folic acid deficiency Foot drop, bilateral CBC Routine 01/12/2024 12:25 PM EDT Polymyositis with myopathy (HCC) Folic acid deficiency Foot drop, bilateral CBC Routine 01/12/2024 12:25 PM EDT Polymyositis with myopathy (HCC) Folic acid deficiency Foot drop, bilateral documented in this encounter Results * (ABNORMAL) DIFFERENTIAL, AUTOMATED (01/12/2024 12:25 PM EDT) WBC 7.25 4.00 - 10.80 K/uL 01/12/2024 12:32 PM EDT [facility] 56-02 Neutrophils % 35.8(L) 40.0 - 75.0 % 01/12/2024 12:32 PM EDT [facility] 56- Lymphocytes % 57.8(H) 18.0 - 42.0 % 01/12/2024 12:32 PM EDT [facility] 56- Monocytes % 4.4 1.0 - 11.0 % 01/12/2024 12:32 PM EDT [facility] 56- Eosinophils % 1.7 0.0 - 6.0 % 01/12/2024 12:32 PM EDT [facility] 56- Basophils % 0.3 0.0 - 2.0 % 01/12/2024 12:32 PM EDT [facility] 56- Absolute Neutrophils 2.60 1.80 - 7.70 K/uL 01/12/2024 12:32 PM EDT [facility] 56- Absolute Lymphocytes 4.19 1.00 - 4.80 K/ul 01/12/2024 12:32 PM EDT [facility] 56- Absolute Monocytes 0.32 0.00 - 1.10 K/uL 01/12/2024 12:32 PM EDT [facility] 56-02 Absolute Eosinophils 0.12 0.00 - 0.70 K/uL 01/12/2024 12:32 PM EDT [facility] 56-02 Absolute Basophils 0.02 0.00 - 0.20 K/uL 01/12/2024 12:32 PM EDT [facility] 56-02 Blood Venous blood specimen / Unknown Venipuncture / Unknown 01/12/2024 12:25 PM EDT 01/12/2024 12:25 PM EDT Saulo Lal DO LAB BLOOD OR DERABLES [facility] [address]- [address] [place] [address] * CBC (01/12/2024 12:25 PM EDT) WBC 7.25 4.00 - 10.80 K/uL 01/12/2024 12:32 PM EDT [facility] 56- RBC 3.62 3.85 - 5.15 M/uL 01/12/2024 12:32 PM EDT [facility] 56 HGB 12.9 12.0 - 15.3 g/dL 01/12/2024 12:[address]T [address] HCT 37.8 36.0 - 45.2 % 01/12/2024 12:32 PM EDT [facility] 56 MCV 104.4 81.5 - 97.5 fL 01/12/2024 12:[address]T [address] MCH 35.6 27.0 - 34.0 pg 01/12/2024 12:32 PM EDT [address] MCHC 34.1 32.0 - 36.0 g/dL 01/12/2024 12:32 PM EDT [address] RDW 14.0 11.5 - 15.5 % 01/12/2024 12:[address]T [address] PLT 204 140 - 400 K/uL 01/12/2024 12:32 PM EDT [address] MPV 8.8 6.6 - 11.1 fL 01/12/2024 12:32 PM EDT [place] [id number] Blood Venous blood specimen / Unknown Venipuncture / Unknown 01/12/2024 12:25 PM EDT 01/12/2024 12:25 PM EDT Saulo Lal DO LAB BLOOD OR DERABLES [place] [address] [place], [place] [id number] documented in this encounter Visit Diagnoses Diagnosis Polymyositis with myopathy (HCC)- Primary Polymyositis Folic acid deficiency Other B-complex deficiencies Foot drop, bilateral Other acquired deformity of ankle and foot Osteoporosis, unspecified osteoporosis type, unspecified pathological fracture presence Vitamin D deficiency Unspecified vitamin D deficiency Zinc deficiency Mineral deficiency, not elsewhere classified RLS (restless legs syndrome) Restless legs syndrome (RLS) documented in this encounter Advance Directives Latest [...] the patient have Health Care Power of Survey Research Manager? No Care Teams Merchant Tailor Relationship Specialty Start Date End Date Petey Thrasher DO [address] [place] [address] PCP - General Family Medicine 09/12/22 documented as of this encounter"
--- OUTSIDE RECORDS SUMMARY | 2024-05-28 20:20 | External Medical Summary | Summary of Care ---
Author Name Unknown Organization [facility] Address [address] [place] [address] Phone [phone] Care Team Providers Care Hearing Aid Consultant Name Role Phone Petye Thrasher Primary Care Provider Encounter Details Date Type Department Care Team (Late st Contact Info) Description 01/18/2024 Patient Reported Data Patient Survey Ortho [facility] Allergies Active Allergy Reactions Criticality Noted Date Comments Clindamycin Hives 02/19/2014 documented as of this encounter (statuses as of 01/18/2024) Medications Medication Sig Dispensed Refills Start Date End Date Status Pantoprazole Sodium 40 MG Oral Tablet Delayed Release (Protonix)Indication s:Polymyositis with myopathy (HCC),Proximal muscle weakness take 1 tablet by mouth every morning 90 Tablet 3 02/15/2023 Active Methotrexate Sodium 2.5 MG Oral TabletIndications:Po lymyositis with myopathy (HCC) Take 6 Tablets by mouth once a week. 24 Tablet 2 10/27/2023 Active DULoxetine HCl 60 MG Oral Capsule Delayed Release Particles (Cymbalta) TAKE 1 CAPSULE BY MOUTH ONCE DAILY DO NOT CRUSH, CHEW, AND/OR DIVIDE 30 Capsule 0 12/21/2023 Active Gabapentin 300 MG Oral Capsule (Neurontin)Indicatio ns:Polymyositis with myopathy (HCC),Myalgia Take 1 Capsule by mouth in the morning and 1 Capsule at noon and 1 Capsule before bedtime. 90 Capsule 0 12/21/2023 Active Lisinopril-hydroCHLO ROthiazide 10-12.5 MG Oral Tablet 1 Tablet. 0 04/23/2023 Active Folic Acid 1 MG Oral TabletIndications:Po lymyositis with myopathy (HCC),Folic acid deficiency Take 1 Tablet by mouth in the morning. 90 Tablet 3 01/12/2024 Active Zinc 15 66 MG Oral Tablet (Zinc Sulfate)Indications: Zinc deficiency 1 tablet daily 90 Tablet 1 01/12/2024 Active rOPINIRole HCl 1 MG Oral Tablet (Requip)Indications: RLS (restless legs syndrome) 1 tablet twice daily 60 Tablet 2 01/12/2024 Active documented as of this encounter (statuses as of 01/18/2024) Active Problems Problem Noted Date Diagnosed Date [...] as of this encounter (statuses as of 01/18/2024) Resolved Problems Problem Noted Date Diagnosed Date Resolved Date Prediabetes 07/16/2022 09/16/2023 Whiplash 04/21/2017 10/11/2017 Lightheaded 06/19/2011 10/11/2017 Depression 01/22/2003 08/05/2020 documented as of this encounter (statuses as of 01/18/2024) Immunizations Name Administration Dates Next Due PPD [...] Yes 03/16/2023 documented as of this encounter Plan of Treatment Upcoming Encounters Date Type Department Care Team (Late st Contact Info) Description 01/20/2024 10:30 AM EDT Office Visit Orthopaedics [facility] [address] [place] [address] William Del Rio PA-C [address] [place] [address] 05/16/2024 1:40 PM EDT Office Visit Neurology [facility] [address] [place] [address] Saulo Lal, [address] [place] [address] 05/22/2024 2:30 PM EDT Imaging Radiology, [place] [address] [facility] [place] [address] Health Maintenance Due Date Last Done Comments [...] filedocumented as of this encounter Advance Directives Latest Code Status [...] the patient have Health Care Power of Mail Sorter? No Care Teams Hearing Aid Consultant Relationship Specialty Start Date End Date Petey Thrasher DO [address] [place] [address] PCP - General Family Medicine 09/12/22 documented as of this encounter
--- OUTSIDE RECORDS SUMMARY | 2024-05-28 20:20 | External Medical Summary | Summary of Care ---
Author Name Unknown Organization [facility] Address [address] [place] [address] Phone [phone] Care Team Providers Care Operations Associate Name Role Phone Petey Thrasher Primary Care Provider Reason for Visit * Reason Comments Outpatient Testing Encounter Details Date Type Department Care Team (Late st Contact Info) Description 01/12/2024 11:50 AM EDT Laboratory Laboratory [facility] [place] [address] [place] [address] [place], [address] [place] [address] Arrived Allergies Active Allergy Reactions Criticality Noted Date [...] 05/16/2024 1:40 PM EDT Office Visit Neurology [facility] [place] [address] Saulo Lal, DO [facility] [place] [address] 05/22/2024 2:30 PM EDT Imaging Radiology, [place] [address]6880 [facility] [place] [address] Health Maintenance Due Date Last Done Comments [...] the patient have Health Care Power of Communications Assistant? No Care Teams Operations Associate Relationship Specialty Start Date End Date Petey Thrasher DO [address] [place] [address] PCP - General Family Medicine 09/12/22 documented as of this encounter
--- OUTSIDE RECORDS SUMMARY | 2024-05-28 20:20 | External Medical Summary | Summary of Care ---
Author Name Unknown Organization [facility] Address [address] [place] [address] Phone [phone] Care Team Providers Care Scrap Drop Engineer Name Role Phone Karlie Thrasher DO Primary Care Provider Reason for Visit * Reason Comments eRx-Medication Refill Encounter Details Date Type Department Care Team (Late st Contact Info) Description 03/19/2024 Refill Family Practice [facility] [place] [address] Karlie Thrasher DO 132 [facility] [place] [address] Allergies Active Allergy Reactions Criticality Noted Date Comments Clindamycin Hives 02/19/2014 documented as of this encounter (statuses as of 03/20/2024) Medications Medication Sig Dispensed Refills Start Date [...] twice daily 60 Tablet 2 01/12/2024 Active Gabapentin 300 MG Oral Capsule (Neurontin)Indica [...] AND/OR DIVIDE 30 Capsule 1 03/20/2024 Active DULoxetine HCl 60 MG Oral Capsule Delayed Release Particles (Cymbalta) TAKE 1 CAPSULE BY MOUTH ONCE DAILY DO NOT CRUSH, CHEW, AND/OR DIVIDE 30 Capsule 02/21/2024 03/20/2024 Discontinued documented as of this encounter (statuses as of 03/20/2024) Active Problems Problem Noted Date Diagnosed Date 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 07/16/2022 Leukocytosis [...] as of this encounter (statuses as of 03/20/2024) Resolved Problems Problem Noted Date Diagnosed Date Resolved Date Prediabetes 07/16/2022 09/16/2023 Whiplash 04/21/2017 10/11/2017 Lightheaded 06/19/2011 10/11/2017 Depression 01/22/2003 08/05/2020 documented as of this encounter (statuses as of 03/20/2024) Immunizations Name Administration Dates Next Due PPD [...] encounter Miscellaneous Notes * Telephone Encounter - Dariana Watkins RPh - 03/20/2024 12:15 PM EDTSigned Prescriptions: Disp Refills DULoxetine HCl 60 MG Oral Capsule Delayed *30 Cap*1 Sig: TAKE 1 CAPSULE BY MOUTH ONCE DAILY DO NOT CRUSH, CHEW, AND/OR DIVIDEAuthorizing Provider: KARLIE THRASHER User: DARIANA WATKINS * Telephone Encounter - Dariana Watkins RPh - 03/20/2024 12:15 PM EDT RX authorized. 1 refills given until upcoming appt. 04/29/2024 Dariana Alfaro, PharmD Clinical Pharmacist [facility] ([facility]) [phone] 03/20/2024 12:15 PM documented in this encounter Plan of Treatment Upcoming Encounters Date Type Department Care Team (Late st Contact Info) Description 04/29/2024 4:00 PM EDT Telemedicine [facility] [address] [place] [address] Karlie Thrasher, DO [address] [place] [address] 05/16/2024 1:40 PM EDT Office Visit Neurology [facility] [address] [place] [address] Saulo Lal, DO [address] [place] [address] 05/22/2024 2:30 PM EDT Imaging Radiology, [place] [address] [facility] [place] [address] Health Maintenance Due Date Last Done Comments [...] Power of Attor solo? No Care Teams Scrap Drop Engineer Relationship Specialty Start Date End Date Karlie Thrasher DO [address] [place] [address] PCP - General Family Medicine 09/12/22 documented as of this encounter
--- OUTSIDE RECORDS SUMMARY | 2024-05-28 20:20 | External Medical Summary | Summary of Care ---
Author Name Unknown Organization [facility] Address [address] [place] [address] Phone [phone] Care Team Providers Care Manager Of Procurement Name Role Phone Petey Thrasher DO Primary Care Provider Reason for Visit * Reason Onset Date Comments Forms Request 10/25/2023 Encounter Details Date Type Department Care Team (Late st Contact Info) Description 10/25/[address] [facility] [address] [facility] [place] [address] Petey Thrasher DO 132 [facility] [place] [address] Forms Request Allergies Active Allergy Reactions Criticality Noted Date Comments Clindamycin Hives 02/19/2014 documented as of this encounter (statuses as of 01/24/2024) Medications Medication Sig Dispensed Refills Start Date End Date Status Pantoprazole Sodium 40 MG Oral Tablet Delayed Release (Protonix)Indications :Polymyositis with myopathy (HCC),Proximal muscle weakness take 1 tablet by mouth every morning 90 Tablet 3 02/15/2023 Active documented as of this encounter (statuses as of 01/24/2024) Active Problems Problem Noted Date Diagnosed Date 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 07/16/2022 Leukocytosis [...] as of this encounter (statuses as of 01/24/2024) Resolved Problems Problem Noted Date Diagnosed Date Resolved Date Prediabetes 07/16/2022 09/16/2023 Whiplash 04/21/2017 10/11/2017 Lightheaded 06/19/2011 10/11/2017 Depression 01/22/2003 08/05/2020 documented as of this encounter (statuses as of 01/24/2024) Immunizations Name Administration Dates Next Due PPD 02/10/2010,08/15/2009 documented as of this encounter Social History Tobacco Use Types Packs/Day Years Used Date Smoking Tobacco: Every Day Cigarettes 1 20 Smokeless Tobacco: Never Comments:started [...] encounter Miscellaneous Notes * Telephone Encounter - Vicki Hi LPN - 11/01/2023 2:30 PM EST Received FMLA forms. Pt along with her , Junior Caban FMLA placed on Dr. Thrasher's desk for review. * Telephone Encounter - Anitra Walton LPN - 10/28/2023 4:31 PM EST These were to be sent to [facility]. Have you received? * Telephone Encounter - Sandrita Mendez OSA - 10/25/2023 5:29 PM EST Please fill out Forms for FMLA. Please fax to [phone]. When complete. I will be sending them through the varnishing unit tool setter. documented in this encounter Plan of Treatment Upcoming Encounters Date Type Department Care Team (Late st Contact Info) Description 05/16/2024 1:40 PM EDT Office Visit Neurology [facility] [address] [facility] [place], [place] [address] Saulo Lal, DO 200 [facility] [place] [address] 05/22/2024 2:30 PM EDT Imaging Radiology, [place] [address] [facility] [place] [address] Health Maintenance Due Date Last Done Comments [...] the patient have Health Care Power of Outpatient Case Manager? No Care Teams Manager Of Procurement Relationship Specialty Start Date End Date Petey Thrasher DO [address] [place] [address] PCP - General Family Medicine 09/12/22 documented as of this encounter
--- OUTSIDE RECORDS SUMMARY | 2024-05-28 20:20 | External Medical Summary | Summary of Care ---
Author Name Unknown Organization [facility] Address [address] [place] [address] Phone [phone] Care Team Providers Care Matcher Leather Parts Name Role Phone Petey Thrasher Primary Care Provider Encounter Details Date [...] 01/20/2024 10:30 AM EDT Office Visit Orthopaedics [facility] [address] [place] [address] William Del Rio PA-C [address] [place] [address] 05/16/2024 1:40 PM EDT Office Visit Neurology [facility] [address] [place] [address] Saulo Lal, [address] [place] [address] 05/22/2024 2:30 PM EDT Imaging Radiology, [place] [id number] [facility] [place] [address] Health Maintenance Due Date Last Done Comments [...] the patient have Health Care Power of Training Professional? No Care Teams Matcher Leather Parts Relationship Specialty Start Date End Date Petey Thrasher DO [address] [place] [address] PCP - General Family Medicine 09/12/22 documented as of this encounter
--- OUTSIDE RECORDS SUMMARY | 2024-05-28 20:20 | External Medical Summary | Summary of Care ---
Author Name Unknown Organization [facility] Address [address] [place] [address] Phone [phone] Care Team Providers Care Dye Weigher Helper Name Role Phone Petey Thrasher Primary Care Provider Reason for Visit * Reason Comments eRx-Medication Refill Encounter Details Date Type Department Care Team (Late st Contact Info) Description 01/26/2024 Refill Neurology [facility] [place] [address] [place] [address] Saulo Lal DO [address] [place] [address] Polymyositis with myopathy (HCC) Allergies Active Allergy Reactions Criticality Noted Date Comments Clindamycin Hives 02/19/2014 documented as of this encounter (statuses as of 01/27/2024) Medications Medication Sig Dispensed Refills Start Date End Date Status Pantoprazole Sodium 40 MG Oral Tablet Delayed Release (Protonix)Indication s:Polymyositis with myopathy (HCC),Proximal muscle weakness take 1 tablet by mouth every morning 90 Tablet 3 02/15/2023 Active Lisinopril-hydroCHLO ROthiazide 10-12.5 MG Oral Tablet [...] 01/24/2024 Active Gabapentin 300 MG Oral Capsule (Neurontin)Indicatio ns:Polymyositis with myopathy (HCC),Myalgia Take 1 Capsule by mouth in the morning and 1 Capsule at noon and 1 Capsule before bedtime. 90 Capsule 1 01/25/2024 Active Methotrexate Sodium 2.5 MG Oral TabletIndications:Po lymyositis with myopathy (HCC) Take 6 Tablets by mouth once a week. 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 07/16/2022 Leukocytosis [...] as of this encounter (statuses as of 01/27/2024) Resolved Problems Problem Noted Date Diagnosed Date Resolved Date Prediabetes 07/16/2022 09/16/2023 Whiplash 04/21/2017 10/11/2017 Lightheaded 06/19/2011 10/11/2017 Depression 01/22/2003 08/05/2020 documented as of this encounter (statuses as of 01/27/2024) Immunizations Name Administration Dates Next Due PPD [...] encounter Miscellaneous Notes * Telephone Encounter - Esau Olson RPh - 01/27/2024 10:46 AM EDT Refused Prescriptions: Disp Refills Methotrexate Sodium 2.5 MG Oral Tablet 24 Tab*0 Sig: Take 6 Tablets by mouth once a week.Refused By: ESAU OLSON for Refusal: Too soon documented in this encounter Plan of Treatment Upcoming Encounters Date Type Department Care Team (Late st Contact Info) Description 05/16/2024 1:40 PM EDT Office Visit Neurology [facility] [address] [place] [address] [address] Saulo Lal DO [address] [place] [address] [address] 05/22/2024 2:30 PM EDT Imaging Radiology, [place] [address] [facility] [place] [address] Health Maintenance Due Date Last Done Comments [...] Polymyositis documented in this encounter Advance Directives Latest [...] the patient have Health Care Power of Optical Fabrication Technician? No Care Teams Dye Weigher Helper Relationship Specialty Start Date End Date Petey Thrasher DO [address] [place] [address] PCP - General Family Medicine 09/12/22 documented as of this encounter
--- OUTSIDE RECORDS SUMMARY | 2024-05-28 20:20 | External Medical Summary | Summary of Care ---
Author Name Unknown Organization [facility] Address [address] [place] [address] Phone [phone] Care Team Providers Care Appliance Service Supervisor Name Role Phone Petey Thrasher Primary Care Provider Encounter Details Date Type Department Care Team (Late st Contact Info) Description 01/25/2024 Refill Neurology [facility] [place] [address] [place] [address] Saulo Lal DO [address] [place] [address] Polymyositis with myopathy (HCC); Myalgia Allergies Active Allergy Reactions Criticality Noted Date Comments Clindamycin Hives 02/19/2014 documented as of this encounter (statuses as of 01/25/2024) Medications Medication Sig Dispensed Refills Start Date End Date Status Pantoprazole Sodium 40 MG Oral Tablet Delayed Release (Protonix)Indicat ions:Polymyositis with myopathy (HCC),Proximal muscle weakness take 1 tablet by mouth every morning 90 Tablet 3 02/15/2023 Active Methotrexate Sodium 2.5 MG Oral TabletIndications :Polymyositis with myopathy (HCC) Take 6 Tablets by mouth once a week. 24 Tablet 2 10/27/2023 Active Lisinopril-hydroC HLOROthiazide 10-12.5 MG Oral Tablet [...] before bedtime. 90 Capsule 1 01/25/2024 Active Gabapentin 300 MG Oral Capsule (Neurontin)Indica tions:Polymyositi s with myopathy (HCC),Myalgia Take 1 Capsule by mouth in the morning and 1 Capsule at noon and 1 Capsule before bedtime. 90 Capsule 0 12/21/2023 01/25/2024 Discontinued (Refill) documented as of this encounter (statuses as of 01/25/2024) Active Problems Problem Noted Date Diagnosed Date [...] as of this encounter (statuses as of 01/25/2024) Resolved Problems Problem Noted Date Diagnosed Date Resolved Date Prediabetes 07/16/2022 09/16/2023 Whiplash 04/21/2017 10/11/2017 Lightheaded 06/19/2011 10/11/2017 Depression 01/22/2003 08/05/2020 documented as of this encounter (statuses as of 01/25/2024) Immunizations Name Administration Dates Next Due PPD [...] Telephone Encounter - Saulo Lal DO - 01/25/2024 3:15 PM EDT Signed Prescriptions: Disp Refills Gabapentin 300 MG Oral Capsule (Neurontin) 90 Cap*1 Sig: Take 1Capsule by mouth in the morning and 1 Capsule at noon and 1 Capsule before bedtime.Authorizing Provider: SAULO LAL documented in this encounter Plan of Treatment Upcoming Encounters Date Type Department Care Team (Late st Contact Info) Description 05/16/2024 1:40 PM EDT Office Visit Neurology [facility] [address] [place] [address] [address] Saulo Lal DO [address] [place] [address] [address] 05/22/2024 2:30 PM EDT Imaging Radiology, [place] [address] [facility] [place] [address] Health Maintenance Due Date Last Done Comments [...] unspecified documented in this encounter Advance Directives Latest [...] the patient have Health Care Power of Gas Combustion Engineer? No Care Teams Appliance Service Supervisor Relationship Specialty Start Date End Date Petey Thrasher DO [address] [place] [address] PCP - General Family Medicine 09/12/22 documented as of this encounter
--- OUTSIDE RECORDS SUMMARY | 2024-05-28 20:20 | External Medical Summary | Summary of Care ---
Author Name Unknown Organization [facility] Address [address] [place] [address] Phone [phone] Care Team Providers Care Electronic Equipment Repairmen Name Role Phone Karlie Thrasher DO Primary Care Provider Reason for Visit * Reason Comments eRx-Medication Refill Encounter Details Date Type Department Care Team (Late st Contact Info) Description 01/21/2024 Refill [facility] [place] [address] Karlie Thrasher DO [address] [place] [address] Allergies Active Allergy Reactions Criticality Noted Date [...] a week. 24 Tablet 2 10/27/2023 Active Gabapentin 300 MG Oral Capsule (Neurontin)Indica [...] AND/OR DIVIDE 30 Capsule 0 01/24/2024 Active DULoxetine HCl 60 MG Oral Capsule Delayed Release Particles (Cymbalta) TAKE 1 CAPSULE BY MOUTH ONCE DAILY DO NOT CRUSH, CHEW, AND/OR DIVIDE 30 Capsule 0 12/21/2023 01/24/2024 Discontinued documented as of this encounter (statuses [...] encounter Miscellaneous Notes * Telephone Encounter - Breanne Brown plisse machine operator - 01/24/2024 10:01 AM EDT Received message from [facility] regarding patient needing appointment. Call Placed, Left message on voicemail to call back and schedule appointment. Thank you, Breanne Brown Truck Loader And Unloader [facility] 01/24/2024, 10:01 AM * Telephone Encounter - Amy Raphael [facility] - 01/24/2024 7:00 AM EDTSigned Prescriptions: Disp Refills DULoxetine HCl 60 MG Oral Capsule Delayed *30 Cap*0 Sig: TAKE 1 CAPSULE BY MOUTH ONCE DAILY DO NOT CRUSH, CHEW, AND/OR DIVIDE Authorizing Provider: KARLIE THRASHER Ordering User: AMY RAPHAEL * Telephone Encounter - Amy Raphael RPh - 01/24/2024 7:00 AM EDT 2nd attempt Please contact patient so that an appointment can be scheduled with her PRIMARY CARE provider. Refill authorized to hold patient over in the mean time. Last Visit: 11/22/2018 (in office), 10/28/2022 (telemedicine) Next Visit: Visit date not found Thank you, Amy Raphael, PharmD. Clinical Pharmacist [facility] ([facility]) (formerly Telepharmacy) 01/24/2024, 7:00 AM * Telephone Encounter - Interface, E-Rx Ss Inbound - 01/23/2024 4:15 PM EDT Pending Prescriptions: Disp Refills DULoxetine HCl 60 MG Oral Capsule Delayed *30 Cap*0 Sig: TAKE 1CAPSULE BY MOUTH ONCE DAILY DO NOT CRUSH, CHEW, AND/OR DIVIDE documented in this encounter Plan of Treatment Upcoming Encounters Date Type Department Care Team (Late st Contact Info) Description 05/16/2024 1:40 PM EDT Office Visit Neurology [facility] [address] [place], [place] [address] Saulo Lal DO [address] [place] [address] 05/22/2024 2:30 PM EDT Imaging Radiology, [address] [place] [address] Health Maintenance Due Date Last Done Comments [...] the patient have Health Care Power of Steam Shovel Oiler? No Care Teams Electronic Equipment Repairmen Relationship Specialty Start Date End Date Karlie Thrasher DO [address] [place] [address] PCP - General Family Medicine 09/12/22 documented as of this encounter
--- OUTSIDE RECORDS SUMMARY | 2024-05-28 20:20 | External Medical Summary | Summary of Care ---
Author Name Unknown Organization [facility] Address [address] [place] [address] Phone [phone] Care Team Providers Care Mobile Home Park Manager Name Role Phone Petey Thrasher Primary Care [...] 01/20/2024 10:30 AM EDT Office Visit Orthopaedics [facility] [address] [place] [address] William Del Rio PA-C [address] [place] [address] 05/16/2024 1:40 PM EDT Office Visit Neurology [facility] [address] [place] [address] Saulo Lal, [address] [place] [address] 05/22/2024 2:30 PM EDT Imaging Radiology, [place] [id number] [facility] [place] [address] Health Maintenance Due Date Last Done Comments [...] the patient have Health Care Power of Credit Charge Authorizer? No Care Teams Mobile Home Park Manager Relationship Specialty Start Date End Date Petey Thrasher DO [address] [place] [address] PCP - General Family Medicine 09/12/22 documented as of this encounter
--- OUTSIDE RECORDS SUMMARY | 2024-05-28 20:20 | External Medical Summary | Summary of Care ---
Author Name Unknown Organization [facility] Address [address] [place] [address] Phone [phone] Care Team Providers Care Home Fire Alarm Installer Name Role Phone Karlie Thrasher DO Primary Care Provider Reason for Visit * Reason Comments eRx-Medication Refill Encounter Details Date Type Department Care Team (Late st Contact Info) Description 02/18/2024 Refill Family Practice [facility] [address] [place] [address] Karlie Thrasher DO [address] [place] [address] HTN, goal below 140/90* Allergies Active Allergy Reactions Criticality Noted Date Comments Clindamycin Hives 02/19/2014 documented as of this encounter (statuses as of 02/21/2024) Medications Medication Sig Dispensed Refills Start Date [...] CRUSH, CHEW, AND/OR DIVIDE 30 Capsule 02/21/2024 Active DULoxetine HCl 60 MG Oral Capsule Delayed Release Particles (Cymbalta) TAKE 1 CAPSULE BY MOUTH ONCE DAILY DO NOT CRUSH, CHEW, AND/OR DIVIDE 30 Capsule 01/24/2024 02/21/2024 Discontinued documented as of this encounter (statuses as of 02/21/2024) Active Problems Problem Noted Date Diagnosed Date [...] as of this encounter (statuses as of 02/21/2024) Resolved Problems Problem Noted Date Diagnosed Date Resolved Date Prediabetes 07/16/2022 09/16/2023 Whiplash 04/21/2017 10/11/2017 Lightheaded 06/19/2011 10/11/2017 Depression 01/22/2003 08/05/2020 documented as of this encounter (statuses as of 02/21/2024) Immunizations Name Administration Dates Next Due PPD [...] encounter Miscellaneous Notes * Telephone Encounter - Tracie Perkins truck unloader - 02/21/2024 8:08 AM EDT Received message from [facility] regarding patient needing appointment and labs. Call Placed, Left messageon voicemail advising of required labs and to call back for an appointment. Thank you for your assistance Tracie Perkins Consultant [employer] [facility] (Former[facility]) 02/21/2024,8:08 AM * Telephone Encounter - Sindhu Esquivel [facility] - 02/21/2024 6:46 AM EDTSigned Prescriptions: Disp Refills DULoxetine HCl 60 MG Oral Capsule Delayed *30 Cap*0 Sig: TAKE 1 CAPSULE BY MOUTH ONCE DAILY DO NOT CRUSH, CHEW, AND/OR DIVIDE Authorizing Provider: KARLIE THRASHER Ordering User: SINDHU ESQUIVEL * Telephone Encounter - Sindhu Esquivel RPh - 02/21/2024 6:45 AM EDT 3rd attempt Provided 30 days supply with 0 refill. Per refill protocol patient should have albumin/creatinine on file within past year. Reviewed AMP report, Care Gaps/Health Maintenance, medications list, and for any routine labs typically ordered for this patient. Lab orders placed. Please contact patient to schedule office visit with PRIMARY CARE and advise of labs for URINE specimen (patient will have to be able to void to provide sample). Last Visit: 11/22/2018 (in office), 10/28/2022 (telemedicine) Next Visit: Visit date not found Thank you, Sindhu Esquivel, PharmD Clinical Pharmacist [facility] ([facility] (Former[facility]) [phone] 02/21/2024, 6:45 AM * Telephone Encounter - Interface, [facility] - 02/20/2024 4:18 PM EDT Pending Prescriptions: Disp Refills DULoxetine HCl 60 MG Oral Capsule Delayed *30 Cap*0 Sig: TAKE 1CAPSULE BY MOUTH ONCE DAILY DO NOT CRUSH, CHEW, AND/OR DIVIDE documented in this encounter Plan of Treatment Upcoming Encounters Date Type Department Care Team (Late st Contact Info) Description 05/16/2024 1:40 PM EDT Office Visit Neurology [facility] [address] [facility] [place] [address] Saulo Lal, DO [address] [place] [address] 05/22/2024 2:30 PM EDT Imaging Radiology, [facility] [address] [facility] [place] [address] Scheduled Orders Name Type Priority Associated Diagnoses Orde r Schedule ALBUMIN / CREATININE RATIO, URINE Lab Routine HTN, goal below 140/90 Expected: 02/21/2024, Expires: 02/20/2025 Health Maintenance Due Date Last Done Comments [...] as of this encounter Visit Diagnoses Diagnosis HTN, goal below 140/90- Primary Unspecified essential hypertension documented in this encounter Advance Directives * [...] Power of Attor solo? No Care Teams Home Fire Alarm Installer Relationship Specialty Start Date End Date Karlie Thrasher DO [address] [place] [address] PCP - General Family Medicine 09/12/22 documented as of this encounter
--- OUTSIDE RECORDS SUMMARY | 2024-05-28 20:20 | External Medical Summary | Summary of Care ---
Author Name Unknown Organization [facility] Address [address] [place] [address] Phone [phone] Care Team Providers Care After School Teacher Name Role Phone Petey Thrasher Primary Care Provider Reason for Visit * Reason Onset Date Comments MyCode Consent 01/12/2024 Encounter Details Date Type Department Care Team (Late st Contact Info) Description 01/12/2024 Orders Only Outcomes Research Department [address] [place], [place] [id number] Reynaldo Wolff CHRA MyCode Research Other*[id number]* Allergies Active Allergy Reactions Criticality Noted Date Comments Clindamycin Hives 02/19/2014 documented as of this encounter (statuses as of 01/12/2024) Medications Medication Sig Dispensed Refills Start Date End Date Status Potassium Chloride 20 MEQ Oral PacketIndications:Hy pokalemia Take by mouth 40 mEq in the morning. 30 Packet 1 05/01/2022 Active Vitamin D 50 MCG (1999) Oral TabletIndications:Vi tamin D deficiency 1 tablet daily 90 Tablet 3 07/16/2022 Active Clotrimazole 10 MG Mouth/Throat Tashi (Mycelex Tashi)Indications:O ral thrush Take 1 Lozenge by mouth in the morning and 1 Lozenge at noon and 1 Lozenge before bedtime. Allow tablet to slowly dissolve in your mouth. 90 Tashi 3 10/28/2022 Active Pantoprazole Sodium 40 MG Oral Tablet Delayed Release (Protonix)Indication s:Polymyositis with myopathy (HCC),Proximal muscle weakness take 1 tablet by mouth every morning 90 Tablet 3 02/15/2023 Active Triamterene-HCTZ 37.5-25 MG Oral Tablet (Maxzide-25)Indicati ons:Polymyositis with myopathy (HCC),Leg swelling Take 1/2 tablet by mouth daily for 2 weeks then increase to 1 tablet by mouth daily. 90 Tablet 3 03/02/2023 Active predniSONE 10 MG Oral Tablet (Deltasone) Take 3 Tablets by mouth in the morning. Do not start before March 17, 2023. 30 Tablet 1 03/17/2023 Active Vitamin B-12 1000 MCG Oral Tablet (Cyanocobalamin) Take 1 Tablet by mouth in the morning. Do not start before March 17, 2023. 90 Tablet 0 03/17/2023 Active LORazepam 0.5 MG Oral Tablet (Ativan)Indications: Anxiety state Take 1 Tablet by mouth in the morning and 1 Tablet at noon and 1 Tablet before bedtime. 8 Tablet 0 09/13/2023 Active Methotrexate Sodium 2.5 MG Oral TabletIndications:Po lymyositis with myopathy (HCC) Take 6 Tablets by mouth once a week. 24 Tablet 2 10/27/2023 Active Lisinopril 10 MG Oral Tablet (Prinivil)Indication s:HTN, goal below 140/80 Take 1 Tablet by mouth daily. In the morning. 90 Tablet 3 11/03/2023 Active DULoxetine HCl 60 MG Oral Capsule Delayed Release Particles (Cymbalta) TAKE 1 CAPSULE BY MOUTH ONCE DAILY DO NOT CRUSH, CHEW, AND/OR DIVIDE 30 Capsule 0 12/21/2023 Active Gabapentin 300 MG Oral Capsule (Neurontin)Indicatio ns:Polymyositis with myopathy (HCC),Myalgia Take 1 Capsule by mouth in the morning and 1 Capsule at noon and 1 Capsule before bedtime. 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 documented in this encounter Plan of Treatment Upcoming Encounters Date Type Department Care Team (Late st Contact Info) Description 01/12/2024 11:20 AM EDT Office Visit Neurology [facility] [place] [address] [place] [address] Saluo Lal, [address] [facility] [place] [address] Arrived Scheduled Orders Name Type Priority Associated Diagnoses Orde r Schedule MYCODE INITIAL ADULT Lab Routine MyCode Research Other*[id number] Expected: 01/12/2024 (Approximate), Expires: 01/31/2025 Health Maintenance Due Date Last Done Comments [...] exists Lipid Panel 10/14/2027 10/14/2022, 08/06, 02/19/2003 LUNG CANCER SCREENING - USE SMARTSET [id number] Completed 09/04/2020 GARDASIL-HPV IMMUNIZATION SERIES Aged Out No longer eligible based on patient's age to complete this topic MENINGOCOCCAL (MENACTRA/MENVEO) Aged Out No longer eligible based on patient's age to complete this topic documented as of this encounter Medical Devices Not on filedocumented as of this encounter Visit Diagnoses Diagnosis MyCode Research Other*[id number]- Primary documented in this encounter Advance Directives Latest [...] the patient have Health Care Power of Purchasing Administrative Assistant? No Care Teams After School Teacher Relationship Specialty Start Date End Date Petey Thrasher DO [address] [place] [address] PCP - General Family Medicine 09/12/22 documented as of this encounter
--- OUTSIDE RECORDS SUMMARY | 2024-05-28 20:20 | External Medical Summary | Summary of Care ---
Author Name Unknown Organization [facility] Address [address] [place] [address] Phone [phone] Care Team Providers Care Director Of Hemophilia Name Role Phone Petey Thrasher Primary Care Provider Reason for Visit * Reason Onset Date Comments Forms Request 03/22/2024 Encounter Details Date Type Department Care Team (Late st Contact Info) Description 03/22/2024 Telephone Neurology [facility] [place] [address] [place] [address] Saulo Lal DO [address] [place] [address] Forms Request Allergies Active Allergy Reactions Criticality Noted Date Comments Clindamycin Hives 02/19/2014 documented as of this encounter (statuses as of 03/27/2024) Medications Medication Sig Dispensed Refills Start Date End Date Status Lisinopril-hydroCHLO ROthiazide 10-12.5 MG Oral Tablet 1 Tablet. 04/23/2023 [...] 01/12/2024 Active Gabapentin 300 MG Oral Capsule (Neurontin)Indicatio [...] (Protonix)Indication s:Polymyositis with myopathy (HCC),Proximal muscle weakness TAKE 1 TABLET BY MOUTH EVERY MORNING 90 Tablet 02/17/2024 Active DULoxetine HCl 60 MG Oral Capsule Delayed Release Particles (Cymbalta) TAKE 1 CAPSULE BY MOUTH ONCE DAILY DO NOT CRUSH, CHEW, AND/OR DIVIDE 30 Capsule 1 03/20/2024 Active documented as of this encounter (statuses as of 03/27/2024) Active Problems Problem Noted Date Diagnosed Date Iatrogenic Parlin's syndrome 07/16/2022 On prednisone therapy 07/16/2022 Leukocytosis [...] as of this encounter (statuses as of 03/27/2024) Resolved Problems Problem Noted Date Diagnosed Date Resolved Date Prediabetes 07/16/2022 09/16/2023 Whiplash 04/21/2017 10/11/2017 Lightheaded 06/19/2011 10/11/2017 Depression 01/22/2003 08/05/2020 documented as of this encounter (statuses as of 03/27/2024) Immunizations Name Administration Dates Next Due PPD [...] Telephone Encounter - Saulo Lal DO - 03/27/2024 1:53 PM EDT Completed on 03/24/24. * Telephone Encounter - Pam Bowens LPN - 03/22/2024 8:22 AM EDT Disability paperwork received. Filled out and placed on Dr. Lal's desk for completion and signature. documented in this encounter Plan of Treatment Upcoming Encounters Date Type Department Care Team (Late st Contact Info) Description 04/29/2024 4:00 PM EDT Telemedicine Family Practice [facility] [address] [place] [address] Petey Thrasher, DO [address] [place] [address] 05/16/2024 1:40 PM EDT Office Visit Neurology [facility] [address] [place] [address] Saulo Lal, DO [address] [place] [address] 05/22/2024 2:30 PM EDT Imaging Radiology, [facility] [address] [facility] [place] [address] Health Maintenance Due Date Last Done Comments [...] Power of Attor solo? No Care Teams Director Of Hemophilia Relationship Specialty Start Date End Date Petey Thrasher DO [address] [place] [address] PCP - General Family Medicine 09/12/22 documented as of this encounter
--- OUTSIDE RECORDS SUMMARY | 2024-05-28 20:20 | External Medical Summary | Summary of Care ---
Author Name Unknown Organization [facility] Address [address] [place] [address] Phone [phone] Care Team Providers Care Subassembler Name Role Phone Petey Thrasher Primary Care Provider Reason for Visit * Reason Comments NEW PATIENT Right knee * Evaluate & Treat - Unlimited Visits (Within 10 days (routine)) - Pending Review Specialty Diagnoses / Procedures Referred By Russell crandall Referred To Contact Orthopaedic Surgery / Orthopedics Diagnoses Chronic pain of right knee Osteonecrosis (HCC) Saulo Lal DO [address] [place] [address] Referral ID Status Reason Start Date Expiration Date Visits Requested Visits Authorized [id number] Pending Review Specialty Services Required 01/18/[phone] Encounter Details Date Type Department Care Team (Late st Contact Info) Description 01/20/2024 10:30 AM EDT Office Visit Orthopaed[facility] [address] [facility] [address] William Del Rio PA-C [address] [place] [address] Exposed orthopaedic hardware (HCC)* Allergies Active Allergy Reactions Criticality Noted Date Comments Clindamycin Hives 02/19/2014 documented as of this encounter (statuses as of 01/20/2024) Medications Medication Sig Dispensed Refills Start Date [...] as of this encounter (statuses as of 01/20/2024) Active Problems Problem Noted Date Diagnosed Date [...] as of this encounter (statuses as of 01/20/2024) Resolved Problems Problem Noted Date Diagnosed Date Resolved Date Prediabetes 07/16/2022 09/16/2023 Whiplash 04/21/2017 10/11/2017 Lightheaded 06/19/2011 10/11/2017 Depression 01/22/2003 08/05/2020 documented as of this encounter (statuses as of 01/20/2024) Immunizations Name Administration Dates Next Due PPD [...] as of this encounter Progress Notes * William Del Rio PA-C - 01/20/2024 10:29 AM EDT Subjective Kaylin Caban is a 53 year old female. Chief Complaint Patient presents with NEW PATIENT Right knee HPI: New patient referred regarding right knee pain. Has a history of ACL reconstruction [address] Jacqueline perez from [facility]. States she had an uneventful postoperative course. She does state that she feels a localized area that is protruding on the anteromedial aspect of her proximal tibia. Reviewing her radiographs this is likely consistent with her tibial screw fixation. She denies little discomfort of the actual joint line. Denies any swelling or redness. She ishistory of polymyositis and has been wheelchair bound over the past year and nonweightbearing. She states she has not lost her range of motion but has lost a notable amount of muscle mass therefore his just now appreciating the protruding screw head. States it is painful for her at rest. She is inquiring about treatment possibilities. Denies any calf pain. We did update x-rays today as we only had two views previously and require a total of four views for the knee. The patient is in agreement. 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 24 Tablet 2 DULoxetine HCl 60 MG Oral Capsule Delayed Release Particles (Cymbalta) TAKE 1 CAPSULE BY MOUTH ONCEDAILY DO NOT CRUSH, CHEW, AND/OR DIVIDE 30 Capsule 0 Gabapentin 300 MG Oral Capsule (Neurontin) Take 1 Capsule by mouth in the morning and 1 Capsule at noon and 1 Capsule before bedtime. 90 Capsule 0 Lisinopril-hydroCHLOROthiazide 10-12.5 MG Oral Tablet 1 Tablet. Folic Acid 1 MG Oral Tablet Take 1 Tablet by mouth in the morning. 90 Tablet 3 Zinc 15 66 MG Oral Tablet (Zinc Sulfate) 1 tablet daily 90 Tablet 1 rOPINIRole HCl 1 MG Oral Tablet (Requip) 1 tablet twice daily 60 Tablet 2 No current facility-administered medications for this visit. Past Medical History: Diagnosis Date Anxiety state Depression 01/22/2003 Depressive disorder, not elsewhere classified Fam hx-cardiovas dis NEC Family history of diabetes mellitus History of tobacco use 06/19/2011 S/P ACL repair right knee Past Surgical History: Procedure Laterality Date CARPAL TUNNEL SURGERY 12/02/2014 bilateral DENTAL SURGERY PROCEDURE NEC Dental Surgery Procedure LAPAROSCOPY; CHOLECYSTECTOMY 10/04/1991 Cholecystectomy, Laproscopic LIGATE/CUT OVIDUCT(S) MUSCLE BIOPSY, DEEP 09/13/2020 right upper leg MUSCLE BIOPSY, DEEP Right 09/13/2020 BIOPSY MUSCLE DEEP performed by Desi Hickman MD at [facility] PAP SCREEN 01/29/2004 WNL REPAIR OF KNEE LIGAMENT/CAPSULE 10/04/1993 Knee Repair Cruciate Ligament Review of patient's allergies indicates: Allergen Reactions Clindamycin Hives Family History Problem Relation Age of Onset Heart Disorder Mother Valve problem Heart Disorder Father CAD, CABG @ 62--- 02/17 at 82. Heart Disorder Brother CAD, [place] @ 38 & 54. No Past Hx Sister Cancer Aunt (Unspecified) Heart Disorder Grandfather (Paternal) Diabetes Father Cancer Mother leukemia, AML Arthritis Mother Family Status Relation Status Mo Fa Bro Alive Sis Alive Ezio Alive Son Alive Bro (Not Specified) Sis (Not Specified) AUNT (Not Specified) PGFA (Not Specified) Social History Socioeconomic History Marital status: Spouse name: Junior Number of children: 2 Years of education: 14 Highest education level: Not on file Occupational History Comment: [employer] Tobacco Use Smoking status: Former Current packs/day: 1.00 Average packs/day: 1 pack/day for 20.0 years (20.0 ttl pk-yrs) Types: Cigarettes Smokeless tobacco: Never Tobacco comments: started age 23 Substance and Sexual Activity Alcohol use: Yes Comment: 1-2 /week Drug use: No Sexual activity: Yes Partners: Male control/protection: Surgical Other Topics Concern Not on file Social History Narrative Bankruptcy family 2016. Social Determinants of Health Financial Resource Strain: Not on file Food Insecurity: Not on file Transportation Needs: Not on file Physical Activity: Not on file Stress: Not on file Social Connections: Not on file Intimate Partner Violence: Not on file Housing Stability: Not on file Objective LMP 02/05/2010 complete review of systems negative General: alert and oriented x3 female, no acute distress, appears currently stated age, pleasant, well nourished, utilizing a wheelchair Skin: Right knee and lower extremity does reveal rather notable amount of atrophy throughout the thigh and lower leg, the right knee does not reveal any erythema, effusion, ecchymosis, abrasion, laceration, skin breakdown otherwise. Surgical scars from her ACL are well healed over Neurovascular: Right lower extremity is neurovascularly intact with good sensation strength throughout, calf supple nontender, toes were mobile, noted footdrop patient reports has been present over the past year secondary to her polymyositis Musculoskeletal: Right knee ROM 0-120, minimal jointline tenderness, subtle crepitation noted in PFJ, femoral condyles and tibial plateau are not overly tender. I do appreciate a localized area protrusion over the anteromedial aspect of the tibia consistent with the location of tibial screw fixation for bone plug. I do not appreciate any loosening. Ligamentously stable regarding cruciate and collateral ligaments. Extensor mechanism intact. No obvious cystic change or masses the popliteal fossa.Pes anserine bursa and patellar tendon nontender. Hip and ankle atraumatic X-rays of the right knee three views including AP lateral and sunrise view reveal well-preserved joint spaces tricompartmental. There is no evidence of loose bodies. Plain film radiographs do not reveal any type of advanced degeneration such as osteoarthritis. No acute findings such as fracture disl ocation or subluxation. Unable to identify any type of obvious cystic changes or masses in the bone. Official radiology report to follow accordingly and we listed in the patient's chart under imaging. ASSESSMENT/PLAN: Chronic pain of right knee (Primary) - XR KNEE 4 OR MORE VIEWS Impression: History of right knee ACL reconstruction, protruding tibial screw, underlying secondaryosteoarthritis Plan: Today 's findings were discussed with the patient. They were educated regarding their diagnosis. Multiple treatment options discussed and agreed upon, including utilizing conservative treatments with topical modalities, including lidocaine patches and topical Voltaren gel. Patient may also benefit from thermal modalities and continued physical therapy. Again, the patient is working towards improving some of the affects from the polymyositis with physical therapy. There was concern for removing the tibial screw, such as fracture of hardware, bony injury and worsening of current symptoms.The patient is in agreement. She would like to follow up on as-needed basis and I feel that is appropriate. Continue with Neurology in terms of investigating and or treating the weakness and atrophy in her lower extremities. The patient has no other questions or concerns. Pleased with today 's care. Call sooner if needed. This chart was completed in part utilizing [employer] Speech Voice Recognition Software. Grammatical errors, random word insertions, prounoun errors, and incomplete sentences are an occasional consequence of this system due to software limitations, ambient noise, and hardware issues. Any formal questions or concerns about the content, text, or information contained within the body of this dictation should be directly addressed to the provider for clarification. William Del Rio PA-C documented in this encounter Nursing Notes * Tracey Almaraz MED ASSIST - 01/20/2024 10:14 AM EDT Patient presents today for right knee pain for 2 years. documented in this encounter Plan of Treatment Upcoming Encounters Date Type Department Care Team (Late st Contact Info) Description 05/16/2024 1:40 PM EDT Office Visit Neurology [facility] [address] [place] [address] Saulo Lal, DO [address] [place] [address] 05/22/2024 2:30 PM EDT Imaging Radiology, [address] [place] [address] Health Maintenance Due Date Last Done Comments [...] Procedure Name Priority Date/Time Associated Diagnosis Comments XR KNEE 4 OR MORE VIEWS Routine 01/20/2024 10:28 AM EDT documented in this encounter Results * XR KNEE 4 OR MORE VIEWS (01/20/2024 10:28 AM EDT) Anatomical Region Laterality Modality Knee, Lower Extremity Computed R adiography 01/20/2024 10:4 2 AM EDT Impressions 01/20/2024 10:39 AM EDT IMPRESSION Postoperative and degenerative findings as above. Narrative 01/20/2024 10:39 AM EDT EXAM XR KNEE 4 OR MORE VIEWS-RT 01/20/2024 10:28 am HISTORY Provided clinical history: "pain" TECHNIQUE Four views of the right knee were obtained. The left knee is also included on the Merchant view. COMPARISON Right knee radiographs dated January 12, 2024. FINDINGS Right knee: Status post anterior cruciate ligament reconstruction, with metallic interference screws in the tibial and femoral tunnels. Tricompartmental osteoarthritis, fnvn-dy-qswmysrm in the medial and patellofemoral compartments. Patchy areas of mixed subchondral sclerosis and lucency in the femoral condyles, tibial plateau, and patella appear degenerative in nature. There is no fracture or bone lesion. No joint effusion. Left knee: Lmzm-qo-iujlhydf patellofemoral osteoarthritis on the Merchant view. Patchy subchondral sclerosis and lucency is similar to the contralateral side and likely degenerative. No visible fracture or bone lesion. Procedure Note Montana Kraft MD - 01/20/2024 EXAM XR KNEE 4 OR MORE VIEWS-RT 01/20/2024 10:28 am HISTORY Provided clinical history: "pain" TECHNIQUE Four views of the right knee were obtained. The left knee is alsoincluded on the Merchant view. COMPARISON Right knee radiographs dated January 12, 2024. FINDINGS Right knee: Status post anterior cruciate ligament reconstruction, with metallicinterference screws in the tibial and femoral tunnels. Tricompartmentalosteoarthritis, mfls-al-jdqvzvwb in the medial and patellofemoralcompartments. Patchy areas of mixed subchondral sclerosis and lucency inthe femoral condyles, tibial plateau, and patella appear degenerative innature. There is no fracture or bone lesion. No joint effusion. Left knee: Axut-ys-ubmtjomp patellofemoral osteoarthritis on the Merchant view.Patchy subchondral sclerosis and lucency is similar to the contralateralside and likely degenerative. No visible fracture or bone lesion. IMPRESSION IMPRESSION Postoperative and degenerative findings as above. William Del Rio PA-C RADIOLOGY (RAD GENERAL) documented in this encounter Visit Diagnoses Diagnosis Exposed orthopaedic hardware (HCC)- Primary Other mechanical complication of other internal orthopedic device, implant, and graft documented in this encounter Advance Directives Latest [...] the patient have Health Care Power of Oncology Coordinator? No Care Teams Subassembler Relationship Specialty Start Date End Date Petey Thrasher DO [address] [place] [address] PCP - General Family Medicine 09/12/22 documented as of this encounter
--- OUTSIDE RECORDS SUMMARY | 2024-05-28 20:20 | External Medical Summary | Summary of Care ---
Author Name Unknown Organization [facility] Address [address] [place] [address] Phone [phone] Care Team Providers Care Cost Control Analyst Name Role Phone Petey Thrasher Primary Care [...] 01/20/2024 10:30 AM EDT Office Visit Orthopaedics [facility] [address] [place] [address] William Del Rio PA-C [address] [place] [address] 05/16/2024 1:40 PM EDT Office Visit Neurology [facility] [address] [place] [address] Saulo Lal, [address] [place] [address] 05/22/2024 2:30 PM EDT Imaging Radiology, [place] [address] [facility] [place] [address] Health Maintenance Due Date Last Done Comments [...] the patient have Health Care Power of Packing Room Inspector? No Care Teams Cost Control Analyst Relationship Specialty Start Date End Date Petey Thrasher DO [address] [place] [address] PCP - General Family Medicine 09/12/22 documented as of this encounter
--- OUTSIDE RECORDS SUMMARY | 2024-05-28 20:20 | External Medical Summary | Summary of Care ---
Author Name Unknown Organization [facility] Address [address] [place] [address] Phone [phone] Care Team Providers Care Utility Manager Name Role Phone Petey Thrasher Primary Care Provider Reason for Visit * Reason Comments eRx-Medication Refill Encounter Details Date Type Department Care Team (Late st Contact Info) Description 04/18/2024 Refill Neurology [facility] [place] [address] [place] [address] Saulo Lal DO [address] [place] [address] RLS (restless legs syndrome) Allergies Active Allergy Reactions Criticality Noted Date Comments Clindamycin Hives 02/19/2014 documented as of this encounter (statuses as of 04/19/2024) Medications Medication Sig Dispensed Refills Start Date End Date Status Lisinopril-hydroC HLOROthiazide 10-12.5 MG Oral Tablet 1 Tablet. 04/23/2023 Active Folic Acid 1 MG Oral TabletIndications :Polymyositis with myopathy (HCC),Folic acid deficiency Take 1 Tablet by mouth in the morning. 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 07/16/2022 Leukocytosis [...] as of this encounter (statuses as of 04/19/2024) Resolved Problems Problem Noted Date Diagnosed Date Resolved Date Prediabetes 07/16/2022 09/16/2023 Whiplash 04/21/2017 10/11/2017 Lightheaded 06/19/2011 10/11/2017 Depression 01/22/2003 08/05/2020 documented as of this encounter (statuses as of 04/19/2024) Immunizations Name Administration Dates Next Due PPD [...] encounter Miscellaneous Notes * Telephone Encounter - Lynda Mckinnon [facility] - 04/19/2024 1:28 PM EDTSigned Prescriptions: Disp Refills rOPINIRole HCl 1 MG Oral Tablet (Requip) 180 Ta*1 Sig: TAKE 1 TABLET BY MOUTH TWICE DAILYAuthorizing Provider: SAULO LAL User: LYNDA MCKINNON N * Telephone Encounter - Kerrie Diez sherry - 04/18/2024 7:34 PM EDTPending Prescriptions: Disp Refills rOPINIRole HCl 1 MG Oral Tablet [Pharmacy *60 Tab*0 Sig: TAKE 1 TABLET BY MOUTH TWICE DAILY * Telephone Encounter - Kerrie Diez [facility] - 04/18/2024 7:33 PM EDT Did you pend patient's preferred pharmacy and medication before forwarding?yes Pharmacy: [id number] [address] [facility] Pending Prescriptions: Disp Refills rOPINIRole HCl 1 MG Oral Tablet (Requip) *60 Tab*0 Sig: TAKE 1 TABLET BY MOUTH TWICE DAILY Last Visit: 01/12/2024 (in office), 09/07/2023 (telemedicine) Next Visit: 05/16/2024 If no future appointments scheduled, and last appointment is greater than a year ago, please schedule patient for a follow-up appointment Last date the medication was ordered: 01/12/2024 Is this request for a controlled substance?No [...] 04/29/2024 4:00 PM EDT Telemedicine Family Practice [facility] [address] [place] [address] Petey Thrasher, DO [address] [place] [address] 05/16/2024 1:40 PM EDT Office Visit Neurology [facility] [address] [place] [address] Saulo Lal, DO [address] [facility] [place] [address] 05/22/2024 2:30 PM EDT Imaging Radiology, [place] [id number] [facility] [place] [address] Health Maintenance Due Date Last Done Comments [...] as of this encounter Visit Diagnoses Diagnosis RLS (restless legs syndrome) Restless legs syndrome (RLS) documented in this encounter Advance Directives * [...] Power of Attor solo? No Care Teams Utility Manager Relationship Specialty Start Date End Date Petey Thrasher DO [address] [place] [address] PCP - General Family Medicine 09/12/22 documented as of this encounter
--- OUTSIDE RECORDS SUMMARY | 2024-05-28 20:20 | External Medical Summary ---
Author Name Unknown Address Unknown Organization : Laboratory Report Ordering Provider Test Date Status DORITA HBUBARD 01/12/2024 12:25:50 Final Observation Date Value Abnormality Reference (Units ) Status CN 1A AB (IGG) 01/12/2024 12:25:50 <5 (Unit s) Final Reference Range:
<15: NEGATIVE
15-19: BORDERLINE
> OR = 20: POSITIVE
The cN-1A Ab assay is a useful aid for the
diagnosis of inclusion body myositis (IBM). The
analytical sensitivity of this assay is 35-70%,
based on published reports. In our internal
validation study with 120 healthy adult subjects,
1.7% had a positive cN-1A Ab result and 6.7% had
an equivocal result. However, published reports
and our own internal studies suggest that patients
with Sjogren's syndrome, systemic lupus
erythematosus, dermatomyositis (DM), or
polymyositis (PM), are significantly more likely
to have a positive cN-1A Ab result. In contrast,
patients presenting clinically with IBM rarely
produce autoantibodies associated with a diagnosis
of DM or PM. Therefore, cN-1A Ab results must be
interpreted in context with other details of the
patient's clinical evaluation.
This test was developed and its analytical
performance characteristics have been determined
by [employer]. It has not been cleared or
approved by FDA. This assay has been validated
pursuant to the CLIA regulations and is used for
clinical purposes.
Test performed by [employer] [facility]
[address],
[place] [address]

Electrical Accessories I Assembler: Toyin Ochoa MD,PHD,BONNIE
Test Reported by Joanie Whiteside,
[facility],
[address] [place], [place]
Alok Pacheco M.D., Ph.D., Director of Laboratories
, [facility] [id number] Performing Location
--- OUTSIDE RECORDS SUMMARY | 2024-05-28 20:20 | External Medical Summary | Summary of Care ---
Author Name Unknown Organization [facility] Address [address] [place] [address] Phone [phone] Care Team Providers Care Bight Maker Name Role Phone Peety Thrasher Primary Care Provider Reason for Visit * Reason Onset Date Comments Medication Refill 01/26/2024 Encounter Details Date Type Department Care Team (Late st Contact Info) Description 01/26/2024 Refill Neurology [facility] [address] [place] [address] Sauol Lal DO [address] [place] [address] Polymyositis with myopathy (HCC) Allergies Active Allergy Reactions Criticality Noted Date Comments Clindamycin Hives 02/19/2014 documented as of this encounter (statuses as of 01/26/2024) Medications Medication Sig Dispensed Refills Start Date End Date Status Pantoprazole Sodium 40 MG Oral Tablet Delayed Release (Protonix)Indicat ions:Polymyositis with myopathy (HCC),Proximal muscle weakness take 1 tablet by mouth every morning 90 Tablet 3 02/15/2023 Active Lisinopril-hydroC HLOROthiazide 10-12.5 MG Oral Tablet [...] a week. 24 Tablet 2 01/26/2024 Active Methotrexate Sodium 2.5 MG Oral TabletIndications :Polymyositis with myopathy (HCC) Take 6 Tablets by mouth once a week. 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 On prednisone therapy 07/16/2022 Leukocytosis [...] as of this encounter (statuses as of 01/26/2024) Resolved Problems Problem Noted Date Diagnosed Date Resolved Date Prediabetes 07/16/2022 09/16/2023 Whiplash 04/21/2017 10/11/2017 Lightheaded 06/19/2011 10/11/2017 Depression 01/22/2003 08/05/2020 documented as of this encounter (statuses as of 01/26/2024) Immunizations Name Administration Dates Next Due PPD [...] Telephone Encounter - Saulo Lal DO - 01/26/2024 8:40 AM EDT Signed Prescriptions: Disp Refills Methotrexate Sodium 2.5 MG Oral Tablet 24 Tab*2 Sig: Take 6 Tablets by mouth once a week. Authorizing Provider: SAULO LAL * Telephone Encounter - Pam Bowens LPN - 01/26/2024 8:07 AM EDTPending Prescriptions: Disp Refills Methotrexate Sodium 2.5 MG Oral Tablet 24 Tab*2 Sig: Take 6 Tablets by mouth once a week. documented in this encounter Plan of Treatment Upcoming Encounters Date Type Department Care Team (Late st Contact Info) Description 05/16/2024 1:40 PM EDT Office Visit Neurology [facility] [address] [facility] [place] [address] Saulo Lal, DO [address] [facility] [place] [address] 05/22/2024 2:30 PM EDT Imaging Radiology, [address] [place] [address] Health Maintenance Due Date Last Done Comments [...] the patient have Health Care Power of Contract Technical Writer? No Care Teams Bight Maker Relationship Specialty Start Date End Date Petey Thrasher DO [address] [place] [address] PCP - General Family Medicine 09/12/22 documented as of this encounter
--- OUTSIDE RECORDS SUMMARY | 2024-05-28 20:21 | External Medical Summary ---
Author Name Unknown Address Unknown Organization : Laboratory Report Ordering Provider Test Date Status DORITA HUBBARD 12/21/2023 12:24:29 Final Observation Date Value Abnormality Reference (Units ) Status JOANNE-1 AB 12/21/2023 12:24:29 <11 <11 (SI) Final PL-7 AB 12/21/2023 12:24:29 <11 <11 (SI) Final PL-12 AB 12/21/2023 12:24:29 <11 <11 (SI) Final EJ AB 12/21/2023 12:24:29 <11 <11 (SI) Final OJ AB 12/21/2023 12:24:29 <11 <11 (SI) Final SRP AB 12/21/2023 12:24:29 <11 <11 (SI) Final WI-2 ALPHA AB 12/21/2023 12:24:29 <11 <11 (S I) Final WI-2 BETA AB 12/21/2023 12:24:29 <11 <11 (SI ) Final MDA5 AB 12/21/2023 12:24:29 <11 <11 (SI) Final TIF1 GAMMA AB 12/21/2023 12:24:29 <11 <11 (S I) Final NXP-2 AB 12/21/2023 12:24:29 <11 <11 (SI) Final Myositis-specific autoantibo dies (MSAs) are highly
selective, generally mutually exclusive, and are
associated with a particular clinical phenotype
within the myositis spectrum.
Anti-synthetase syndrome is associated with MSAs
to cytoplasmic enzymes and tRNAs involved with the
synthesis of proteins. Target antigens include
Joanne-1, PL-7, PL-12, EJ, and OJ. Clinically,
anti-synthetase syndrome is primarily
characterized by myositis and lung inflammation.
Dermatomyositis is associated with MSAs to SRP,
Mi-2A, Mi- 2B, and clinically this disease is
characterized by myositis in association with a
rash. Additionally, MSAs to MDA5 (MYVT219) have
been identified in patients with clinically
amyopathic dermatomyositis and rapidly progressive
lung disease. MSAs to TIF1-y and NXP-2,
collectively, are seen in >40% of children with
dermatomyositis and appear to identify those with
more severe disease. Finally, TIF1-y Ab has been
reported in adults with dermatomyositis and is
associated with malignancy, but not in children.
SRP Ab has also been associated with necrotizing
myopathy, a disease with unique histological
features and an aggressive clinical course.
This test was developed and its analytical
performance characteristics have been determined
by [facility]. It has not been cleared or
approved by the FDA. This assay has been validated
pursuant to the CLIA regulations and is used for
clinical purposes.
Test performed by:
[facility]
[address] [facility]
[place] [address]

[phone]
Avionics Integration Engineer: Toni Soto M.D.
Test Reported by [employer] [employer],
[facility],
[address] [place], [place]
Alok Pacheco M.D., Ph.D., Director of Laboratories
, CLIA [id number] Performing Location
--- OUTSIDE RECORDS SUMMARY | 2024-05-28 20:21 | External Medical Summary | Summary of Care ---
Author Name Unknown Organization [facility] Address [address] [place] [address] Phone [phone] Care Team Providers Care Primary Care Nurse Practitioner Name Role Phone Petey Thrasher Primary Care Provider Encounter Details Date Type Department Care Team (Late st Contact Info) Description 12/14/2023 Orders Only PATIENT PORTAL DO NOT DELETE THIS DEPT USED BY [facility] [id number] Allergies Active Allergy Reactions Criticality Noted Date Comments Clindamycin Hives 02/19/2014 documented as of this encounter (statuses as of 12/14/2023) Medications Medication Sig Dispensed Refills Start Date End Date Status Potassium Chloride 20 MEQ Oral PacketIndications:Hy pokalemia Take by mouth 40 mEq in the morning. 30 Packet 1 05/01/2022 Active Vitamin D 50 MCG (1999 [place]) Oral TabletIndications:Vi tamin D deficiency 1 tablet [...] 17, 2023. 90 Tablet 0 03/17/2023 Active DULoxetine HCl 60 MG Oral Capsule Delayed Release Particles (Cymbalta) Take 1 Capsule by mouth in the morning. Do not cut, crush or chew. 30 Capsule 5 03/22/2023 Active LORazepam 0.5 MG Oral Tablet (Ativan)Indications: [...] the morning. 90 Tablet 3 11/03/2023 Active Gabapentin 300 MG Oral Capsule (Neurontin)Indicatio ns:Polymyositis with myopathy (HCC),Myalgia TAKE 1 CAPSULE BY MOUTH THREE TIMES A DAY 90 Capsule 0 11/04/2023 Active documented as of this encounter (statuses as of 12/14/2023) Active Problems Problem Noted Date Diagnosed Date Iatrogenic [place]'s syndrome 07/16/2022 On prednisone therapy 07/16/2022 Leukocytosis [...] as of this encounter (statuses as of 12/14/2023) Resolved Problems Problem Noted Date Diagnosed Date Resolved Date Prediabetes 07/16/2022 09/16/2023 Whiplash 04/21/2017 10/11/2017 Lightheaded 06/19/2011 10/11/2017 Depression 01/22/2003 08/05/2020 documented as of this encounter (statuses as of 12/14/2023) Immunizations Name Administration Dates Next Due PPD [...] as of this encounter Plan of Treatment Health Maintenance Due Date Last Done Comments [...] Occult Blood Test 2015 Sigmoidoscopy 2015 Depression Screening 10/11/2018 10/11/2017 Influenza Vaccine (FLU shot) (#1) 2023 Albumin/Creatinine Ratio 09/02/2023 09/02/2020 GFR 09/28/2024 09/28/2023, 08/05, 08/16/2023, Additional history exists Diabetes Screening 09/28/2026 09/28/2023, 1 10/30/2022, 08/16/2023, Additional history exists Lipid Panel 10/14/2027 10/14/2022, 08/06, 02/19/2003 LUNG CANCER SCREENING - USE SMARTSET 60586 Completed 09/04/2020 GARDASIL-HPV IMMUNIZATION SERIES Aged Out [...] the patient have Health Care Power of Shrimp Header? No Care Teams Primary Care Nurse Practitioner Relationship Specialty Start Date End Date Petey Thrasher DO [address] [address] PCP - General Family Medicine 09/12/22 documented as of this encounter
--- OUTSIDE RECORDS SUMMARY | 2024-05-28 20:21 | External Medical Summary ---
Author Name Unknown Address Unknown Organization K01:[place] [facility] [place] [address] [place] [address] Laboratory Report Ordering Provider Test Date Status DORITA HUBBARD 12/21/2023 12:24:29 Final Observation Date Value Abnormality Reference (Units ) Status Neutrophil cytoplasmic Ab [Presence] in Serum by Immunofluorescence 12/21/2023 12:24:29 Negative Negative Final Neutrophil cytoplasmic Ab [Presence] in Serum by Immunofluorescence 12/21/2023 12:24:29 Negative Negative Final Negative for ANCA. Performing Location LABORATORY [facility] - [address] [place] [address]
--- OUTSIDE RECORDS SUMMARY | 2024-05-28 20:21 | External Medical Summary ---
Author Name Unknown Address Unknown Organization K09:LABORATORY [facility] [address] [place] [address] Laboratory Report Ordering Provider Test Date Status DORITA HUBBARD 12/21/2023 12:24:29 Final Observation Date Value Abnormality Reference (Units ) Status BUN 12/21/2023 12:24:29 12 6-20 (mg/dL) Final Creatinine 12/21/2023 12:24:29 0.6 0.5-1.0 (mg/dL) Final Glomerular filtration rate/1.73 sq M.predicted [Volume Rate/Area] in Serum, Plasma or Blood by Creatinine-based formula (CKD-EPI) 12/21/2023 12:24:29 >90 >=60 (mL/min) Final eGFR is calculated based on the CKD-EPI 2020 equation SODIUM 12/21/2023 12:24:29 135 135-146 (m mol/L) Final Potassium 12/21/2023 12:24:29 4.3 3.5-5.1 (m mol/L) Final Cl 12/21/2023 12:24:29 99 98-107 (mm ol/L) Final CO2 12/21/2023 12:24:29 19 Below low normal 22- 32 (mmol/L) Final Anion gap 12/21/2023 12:24:29 17 Above high normal 7- 15 (mmol/L) Final Glucose 12/21/2023 12:24:29 104 70-120 (mg /dL) Final Albumin 12/21/2023 12:24:29 4.2 3.8-5.0 (g /dL) Final AST (Aspartate aminotransferase) 12/21/2023 12:24:29 23 10-35 (U/L) Fin al Alk Phos 12/21/2023 12:24:29 85 35-130 (U/ L) Final Bilirubin, Total 12/21/2023 12:24:29 0.3 <=1 .2 (mg/dL) Final Calcium 12/21/2023 12:24:29 9.9 8.4-10.2 ( mg/dL) Final Protein 12/21/2023 12:24:29 6.9 6.0-8.3 (g /dL) Final ALT (Alanine aminotransferase) 12/21/2023 12:24:29 16 10-35 (U/L) Jean weinstein Performing Location LABORATORY [facility] [address] [place] [address]
--- OUTSIDE RECORDS SUMMARY | 2024-05-28 20:21 | External Medical Summary ---
Author Name Unknown Address Unknown Organization : Laboratory Report Ordering Provider Test Date Status DORITA HUBBARD 12/21/2023 12:24:29 Final Observation Date Value Abnormality Reference (Units ) Status Zinc, level 12/21/2023 12:24:29 74 60-130 ( mcg/dL) Final This test was developed and its analytical performance
characteristics have been determined by [facility] [place]. It has
not been cleared or approved by the U.S. Food and Drug
Administration. This assay has been validated pursuant
to the CLIA regulations and is used for clinical
purposes.

Test Performed at:
[facility]
[address] [facility]
[place] [address]
Alok Pacheco M.D., Ph.D.,Director of Laboratories Performing Location
--- OUTSIDE RECORDS SUMMARY | 2024-05-28 20:21 | External Medical Summary | Summary of Care ---
Author Name Unknown Organization [facility] Address [address] [place] [address] Phone [phone] Care Team Providers Care Environmental Engineer Scientist Name Role Phone ePtey Thrasher DO Primary Care Provider Reason for Visit * Reason Onset Date Comments Advice 12/20/2023 [facility] paperwork Encounter Details Date Type Department Care Team ([facility] st Contact Info) Description 12/20/2023 Telephone [facility] Practice [facility] [address] [facility] [address] [facility] [address] [facility] [address] Advice ([facility] paperwork) Allergies Active Allergy Reactions Criticality Noted Date Comments Clindamycin Hives 02/19/2014 documented as of this encounter (statuses as of 12/20/2023) Medications Medication Sig Dispensed Refills Start Date [...] as of this encounter (statuses as of 12/20/2023) Active Problems Problem Noted Date Diagnosed Date [...] as of this encounter (statuses as of 12/20/2023) Resolved Problems Problem Noted Date Diagnosed Date Resolved Date Prediabetes 07/16/2022 09/16/2023 Whiplash 04/21/2017 10/11/2017 Lightheaded 06/19/2011 10/11/2017 Depression 01/22/2003 08/05/2020 documented as of this encounter (statuses as of 12/20/2023) Immunizations Name Administration Dates Next Due PPD [...] Telephone Encounter - Vicki Hi LPN - 12/20/2023 4:33 PM EDT Spoke with Kaylin clemente: FMLA forms. Per Dr. Thrasher, FMLA has been done in past through Dr. Lal for Polymyositis as she sees him for this. Contacted his nurse, Tomasa Valenzuela and she gave fax # [phone] Lal to complete. Also contacted pt's Junior's PCP for his FMLA as pt may need completed by his PCP, Dr. Desai for Hx ofCaesar Urbanet . Spoke with Bailey Oneal, Dr. Desai's nurse and form faxed to [phone] for completion through PCP. Pt notified. * Telephone Encounter - Vicki Hi LPN - 12/20/2023 1:22 PM EDT Attempted to contact pt's , Junior. Unable to leave message. /No voice mailbox set up Contacted to discuss need/clarification for FMLA paperwork. Will discuss with Dr. Thrasher. * Telephone Encounter - Ester Tabares RN - 12/20/2023 12:03 PM EDT Pt transferred to me with questions about FMLA paperwork. It looks the like it was sent over along with his paperwork for Dr Thrasher to sign on 11/01. He reports it never made it to HR and now he is in danger of losing his job. documented in this encounter Plan of Treatment Upcoming Encounters Date Type Department Care Team (Late st Contact Info) Description 12/21/2023 8:50 AM EDT Laboratory Lab [place] [place] [address] [place] [address] [facility] [place] [address] [place] [address] Health Maintenance Due Date Last Done Comments [...] 02/19/2003 LUNG CANCER SCREENING - USE SMARTSET 23467 Completed 09/04/2020 GARDASIL-HPV IMMUNIZATION SERIES Aged Out [...] the patient have Health Care Power of Garment Manufacturer? No Care Teams Environmental Engineer Scientist Relationship Specialty Start Date End Date Petey Thrasher DO [address] [address] PCP - General Family Medicine 09/12/22 documented as of this encounter
--- OUTSIDE RECORDS SUMMARY | 2024-05-28 20:21 | External Medical Summary ---
Author Name Unknown Address Unknown Organization K01:LABORATORY [facility] [place] [facility] [address] [facility] [address] Laboratory Report Ordering Provider Test Date Status DORITA HUBBARD 12/21/2023 12:24:29 Final Observation Date Value Abnormality Reference (Units ) Status Erythrocyte sedimentation rate by Photometric method 12/21/2023 12:24:29 16 <30 (mm/hour) Final Performing Location LABORATORY [facility] [place] - [address] [place] [address]
--- OUTSIDE RECORDS SUMMARY | 2024-05-28 20:21 | External Medical Summary ---
Author Name Unknown Address Unknown Organization : Laboratory Report Ordering Provider Test Date Status DORITA HUBBARD 12/21/2023 12:24:29 Final Observation Date Value Abnormality Reference (Units ) Status SENSORIMOTOR NEUROPATHY PROFILE W/ RECOMBX(R)-COMP 12/21/2023 12:24:29 SEE BELOW Final TESTS--------- ----RESULTS--------UNITS--REF. RANGE---
SUMMARY INTERPRETATION
NEGATIVE
This panel of tests did not identify any positive results.
INTERPRETIVE RESULTS TABLE

Inter pretive Result Table

TEST: anti-GALOP
METHODOLOGY: TRISHA
INTERPRETATION: Negative
TECHNICAL RESULT: 2406
REFERENCE RANGE: Negative <10,000 Positive >=10,[address]: anti-GM1
METHODOLOGY: RTISHA
INTERPRETATION: Negative
TECHNICAL RESULT: 1:3,200
REFERENCE RANGE: Negative <=1:3200, Positive >1:3200

NARGIS T: anti-asialo GM1
METHODOLOGY: TRISHA
INTERPRETATION: Negative
TECHNICAL RESULT: <1:6,400
REFERENCE RANGE: Negative <=1:6400, Positive >1:6400

NARGIS T: anti-GD1b
METHODOLOGY: TRISHA
INTERPRETATION: Negative
TECHNICAL RESULT: <1:6,400
REFERENCE RANGE: Negative <=1:6400, Positive >1:6400

NARGIS T: anti-GD1a
METHODOLOGY: TRISHA
INTERPRETATION: Negative
TECHNICAL RESULT: <1:100
REFERENCE RANGE: Negative <1:100, Positive >=1:100

NARGIS T: anti-Hu
METHODOLOGY: Nanoliter scale immunoassay
INTERPRETATION: Negative
TECHNICAL RESULT: <1:100
REFERENCE RANGE: Serum <1:100

TEST : anti-Sulfatide
METHODOLOGY: TRISHA
INTERPRETATION: Negative
TECHN ICAL RESULT: anti-Sulfatide IgG <1:2,000;
anti-Sulfatide IgM <1:2,000
REFERENCE RANGE: Negative <1:2000, Borderline, Positive
>=1:2000
---------
TEST: anti-SGPG
METHODOLOGY: TRISHA
INTERPRETATION: Positive
TECHNICAL RESULT: 1:6,400
REFERENCE RANGE: Negative <=1:3200, Positive >1:3200

NARGIS T: anti-MAG
METHODOLOGY: TRISHA
INTERPRETATION: Negative
TECHNICAL RESULT: <1:1,600
REFERENCE RANGE: Negative <=1:1600, Positive >1:1600

TEST: anti-MAG
METHODOLOGY: Western
INTERPRETATION: Negative
TECHNICAL RESULT: No abnormal levels of antibodies detected
REFERENCE RANGE: Negative

--
COMMENTS
Comm ents: The likelihood that this individual's clinical
symptoms are associated with these antibodies has been
reduced. However, this test result does not rule out an
autoimmune etiology for the neurological symptoms associated
with peripheral neuropathy.
If the SGPG and/or MAG TRISHA is positive or inconclusive in
the context of a negative MAG Western blot the result is
considered negative.
Recommendations:
Health care providers, please contact the [facility]
Client Services Department at if you wish to
consult with a Online Producer regarding this test
result.
GD1a Antibody (IgG) was performed by:
[facility]
[address] [place] [address]
Background information: The antibodies in this profile have
been associated with autoimmune peripheral neuropathies
including Guillain-Marble syndrome (GBS), distal acquired
demyelinating symmetric neuropathy (DADS).
Method: Detection of antibodies was performed by Enzyme
Linked Immunosorbent Assay (TRISHA) methodology, automated
nanoliter scale immunoassay, and western blot methodology.
Detection of GALOP autoantibodies was determined by the
evaluation of IgM antibodies to GSC (a physiologic
combination of GM1, sulfatide, and cholesterol), GGC (a
physiologic combination GM1, galactocerebroside and
cholesterol) and histone antigens individually. Elevated
levels of IgM antibodies to GSC are considered specific for
GALOP when the levels of GGC and histone antibodies fall
within the normal reference range. An elevated level of GSC
antibodies in the context of an elevated GGC, and/or histone
is considered polyreactive and may not represent a true
positive result for GALOP (denoted by an asterisk (*) in the
interpretive results table). Samples in the borderline range
for Sulfatide have an elevated level of anti-sulfatide
antibodies on the screen assay, but the level of antibodies
is below the positive cut off value.
Limitations of analysis: Although rare, false positive or
false negative results may occur in any of the methods used.
Specifically the western blot allows only for discriminating
between presence and absence of non-conformational
antibodies targeted against the antigen. Also, the variable
transfer rates and reagent effectiveness may affect the
signal intensity of the response; and affinity of
individuals' antibodies for any given antigen cannot be
measured using western blot methodology. All results should
be interpreted in the context of clinical findings, relevant
history, and other laboratory data.
Background References:
1. Tess, T, et al. (2005) J Neurosci Res 80: 1-17. (PMID:
71910848)
2. Alfred K, et al. (2009) Glycobiology 19: 676-92. (PMID:
23060727)
3. Blanca, N, et al. (1999) J Neurol Sci 168: 121-6. (PMID:
68072650)
4. Scarlet H, et al. (1992) Eur Neurol 32: 28-31. (PMID:
[id number])
5. David Camara et al. (1994) J Neurosci Res 38: 134-41.
(PMID: [id number])
6. Kashif N, et al. (1979) N Engl J Med 303: 618-21. (PMID:
4176823)
7. MATEUSZ Ahmadi et al. (2010) Neurology 74: 406- 12.
(PMID: 57871278)
GD1a Antibody (IgG) was developed and its analytical
performance characteristics have been determined by [facility]. It has
not been cleared or approved by FDA. This assay has been
validated pursuant to the CLIA regulations and is used for
clinical purposes.
This test was developed and its analytical performance
characteristics have been determined by [facility].
It has not been cleared or approved by the U.S. Food and
Drug Administration. This assay has been validated pursuant
to the CLIA regulations and is used for clinical purposes.
Laboratory oversight provided by Anshul Manuel M.D.,
Ph.D., CLIA license cas[place], [facility] (CLIA#
[id number])
Testing performed at:
[facility] [address] [place] [id number]
Test performed by [facility]
[address] [place] [address]
[address] [place] [address]

Wooden Boat Builder: Anshul Manuel M.D., Ph.D. Performing Location
--- OUTSIDE RECORDS SUMMARY | 2024-05-28 20:21 | External Medical Summary ---
Author Name Unknown Address Unknown Organization : Laboratory Report Ordering Provider Test Date Status DORITA HUBBARD 12/21/2023 12:24:29 Final Observation Date Value Abnormality Reference (Units ) Status Copper 12/21/2023 12:24:29 64 Below low normal 70- 175 (mcg/dL) Final This test was developed and its analytical performance
characteristics have been determined by [facility]
[place] It has
not been cleared or approved by the U.S. Food and Drug
Administration. This assay has been validated pursuant
to the CLIA regulations and is used for clinical
purposes.

Test Performed at:
[facility]
[address] [facility]
[place] [address]
Alok Pacheco M.D., Ph.D.,Director of Laboratories Performing Location
--- OUTSIDE RECORDS SUMMARY | 2024-05-28 20:21 | External Medical Summary | Summary of Care ---
Author Name Unknown Organization [facility] Address [address] [place] [address] Phone [phone] Care Team Providers Care Telephone Mechanic Name Role Phone Petey Thrasher DO Primary Care Provider Reason for Visit * Reason Onset Date Comments Health Maintenance 12/03/2023 Encounter Details Date Type Department Care Team (Late st Contact Info) Description 12/03/2023 Telephone Family Practice [facility] [address] [facility] [place] [address] Petey Thrasher DO [address] [facility] [place] [address] Health Maintenance Allergies Active Allergy Reactions Criticality Noted Date Comments Clindamycin Hives 02/19/2014 documented as of this encounter (statuses as of 12/03/2023) Medications Medication Sig Dispensed Refills Start Date [...] as of this encounter (statuses as of 12/03/2023) Active Problems Problem Noted Date Diagnosed Date 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 * Telephone Encounter - Nellie Clay LPN - 12/03/2023 9:23 AM EST Care Gaps Comprehensive Care Outreach Last Office/Telemedicine Visit: 11/22/2018 (in office), 10/28/2022 (telemedicine) Next Office Visit: Visit date not found Hemoglobin AIC Results: Lab Results Component Value Date/Time HEMOGLOBIN A1C - [facility] 5.6 08/16/2023 08:41 AM HEMOGLOBIN A1C - [facility] 5.9 (H) 05/18/2023 12:16 PM HEMOGLOBIN A1C - [facility] 6.4 (H) 11/19/2022 01:40 PM HEMOGLOBIN A1C - [facility] 4.8 09/02/2020 09:52 AM BP Readings from Last 1 Encounters: 03/16/23 105/68 Reviewed Health Maintenance below: Health Maintenance Topic Date Due COVID-19 Vaccine (1) Never done Pneumococcal Vaccine: Pediatrics (0 to 5 Years) and At-Risk Patients (6 to 64 Years) (1 of 2 - PCV)Never done Hepatitis B (1 of 3 - 19+ 3-dose series) Never done Zoster Vaccines (1 of 2) Never done DTaP,Tdap,and Td Vaccines (1 - Tdap) 07/13/2003 Mammogram Never done Cervical Cancer Screening 12/31/2012 Colorectal Cancer Screening Never done Depression Screening 10/11/2018 Influenza Vaccine (FLU shot) (1) Never done Albumin/Creatinine Ratio 09/02/2023 Ov Mamm Pap colon Care Gap Outreach Action Taken: Left message documented in this encounter Plan of Treatment Health Maintenance [...] 02/19/2003 LUNG CANCER SCREENING - USE SMARTSET 89799 Completed 09/04/2020 GARDASIL-HPV IMMUNIZATION SERIES Aged Out [...] the patient have Health Care Power of Family Consumer Science Teacher? No Care Teams Telephone Mechanic Relationship Specialty Start Date End Date Petey Thrasher DO [address] [place] [address] PCP - General Family Medicine 09/12/22 documented as of this encounter
--- OUTSIDE RECORDS SUMMARY | 2024-05-28 20:21 | External Medical Summary ---
Author Name Unknown Address Unknown Organization K01:LABORATORY [facility] [place] - [address] [place] [address] Laboratory Report Ordering Provider Test Date Status DORITA HUBBARD 12/21/2023 12:24:29 Final Observation Date Value Abnormality Reference (Units ) Status HbA1C 12/21/2023 12:24:29 4.5 4.0-5.6 (% ) Final The use of HbA1c to monitor glycemic status is based on normal hemoglobin and HbA composition. This test should not be used in patients with abnormal hemoglobin that affects the half life of the red blood cell or the in vivo glycation rates. Glucose, estimated average 12/21/2023 12:24:29 82 <126 (mg/dL) Final Performing Location LABORATORY [facility] [place] - [address] [place] [address]
--- OUTSIDE RECORDS SUMMARY | 2024-05-28 20:21 | External Medical Summary | Summary of Care ---
Author Name Unknown Organization [facility] Address [address] [place] [address] Phone [phone] Care Team Providers Care Veneer Cutter Name Role Phone Petey Thrasher DO Primary Care Provider Reason for Visit * Reason Onset Date Comments Health Maintenance 12/03/2023 Encounter Details Date Type Department Care Team (Late st Contact Info) Description 12/03/[address] [facility] [address] [facility] [place] [address] Petey Thrasher DO [address] [facility] [place] [address] Health Maintenance Allergies Active Allergy Reactions Criticality [...] Problems Problem Noted Date Diagnosed Date Iatrogenic [place]'s syndrome 07/16/2022 On prednisone therapy 07/16/2022 Leukocytosis [...] 02/19/2003 LUNG CANCER SCREENING - USE SMARTSET 31499 Completed 09/04/2020 GARDASIL-HPV IMMUNIZATION SERIES Aged Out [...] the patient have Health Care Power of Advertising Coordinator? No Care Teams Veneer Cutter Relationship Specialty Start Date End Date Petey Thrasher DO [address] [place] [address] PCP - General Family Medicine 09/12/22 documented as of this encounter
--- OUTSIDE RECORDS SUMMARY | 2024-05-28 20:21 | External Medical Summary ---
Author Name Unknown Address Unknown Organization [id number]:[facility] [place] [facility] - [address] [facility] [address] [place] [address] Laboratory Report Ordering Provider Test Date Status DORITA HUBBARD 12/21/2023 12:24:29 Final Observation Date Value Abnormality Reference (Units ) Status CK 12/21/2023 12:24:29 29 26-192 (U/ L) Final Performing Location [facility] - [address] [place] [address]
--- OUTSIDE RECORDS SUMMARY | 2024-05-28 20:21 | External Medical Summary ---
Author Name Unknown Address Unknown Organization K09:[facility] [place] [address] Laboratory Report Ordering Provider Test Date Status DORITA HUBBARD 01/12/2024 12:25:50 Final Observation Date Value Abnormality Reference (Units ) Status SYNC LEUKOCYTES IN BLOOD BY AUTOMATED COUNT 01/12/2024 12:25:50 7.25 4.00-10.80 (K/uL) Final Segs 01/12/2024 12:25:50 35.8 Below low normal 40.0-75.0 (%) Final Lymphs % 01/12/2024 12:25:50 57.8 Above high normal 18.0-42.0 (%) Final Monos 01/12/2024 12:25:50 4.4 1.0-11.0 (%) Final Eosinophils 01/12/2024 12:25:50 1.7 0.0-6.0 (%) Final Basos 01/12/2024 12:25:50 0.3 0.0-2.0 (%) Final Absolute Segs 01/12/2024 12:25:50 2.60 1.80-7.70 (K/uL) Final Lymphs, absolute 01/12/2024 12:25:50 4.19 1.00-4.80 (K/ul) Final Monos, Abs 01/12/2024 12:25:50 0.32 0.00-1.10 (K/uL) Final Eos, Abs 01/12/2024 12:25:50 0.12 0.00-0.70 (K/uL) Final Basos, Abs 01/12/2024 12:25:50 0.02 0.00-0.20 (K/uL) Final Performing Location [facility] [place] [address] [place] [address]
--- OUTSIDE RECORDS SUMMARY | 2024-05-28 20:21 | External Medical Summary | Summary of Care ---
Author Name Unknown Organization [facility] Address [address] [place] [address] Phone [phone] Care Team Providers Care Chalker Soles Name Role Phone Petey Thrasher DO Primary Care Provider Reason for Visit * Reason Onset Date Comments Medication Refill 12/20/2023 Encounter Details Date Type Department Care Team (Late st Contact Info) Description 12/20/2023 Refill Family Practice [facility] [address] [facility] [place] [address] Petey Thrasher DO [address] [facility] [place] [address] Polymyositis with myopathy (HCC); Myalgia Allergies Active Allergy Reactions Criticality Noted Date Comments Clindamycin Hives 02/19/2014 documented as of this encounter (statuses as of 12/21/2023) Medications Medication Sig Dispensed Refills Start Date End Date Status Potassium Chloride 20 MEQ Oral PacketIndications :Hypokalemia Take by mouth 40 mEq in the morning. 30 Packet 1 05/01/2022 Active Vitamin D 50 MCG (1999 UT) Oral TabletIndications :Vitamin D deficiency 1 tablet daily 90 Tablet 3 07/16/2022 Active Clotrimazole 10 MG Mouth/Throat Tashi (Mycelex Tashi)Indication [...] 02/15/2023 Active Triamterene-HCTZ 37.5-25 MG Oral Tablet (Maxzide-25)Indic ations:Polymyosit [...] 03/22/2023 Active LORazepam 0.5 MG Oral Tablet (Ativan)Indicatio ns:Anxiety state Take 1 Tablet by mouth in the morning and 1 Tablet at noon and 1 Tablet before bedtime. 8 Tablet 0 09/13/2023 Active Methotrexate Sodium 2.5 MG Oral TabletIndications :Polymyositis with myopathy (HCC) Take 6 Tablets by mouth once a week. 24 Tablet 2 10/27/2023 Active Lisinopril 10 MG Oral Tablet (Prinivil)Indicat ions:HTN, goal below 140/80 Take 1 Tablet by mouth daily. In the morning. 90 Tablet 3 11/03/2023 Active Gabapentin 300 MG Oral Capsule (Neurontin)Indica tions:Polymyositi s with myopathy (HCC),Myalgia Take 1 Capsule by mouth in the morning and 1 Capsule at noon and 1 Capsule before bedtime. 90 Capsule 0 12/21/2023 Active Gabapentin 300 MG Oral Capsule (Neurontin)Indica tions:Polymyositi s with myopathy (HCC),Myalgia TAKE 1 CAPSULE BY MOUTH THREE TIMES A DAY 90 Capsule 0 11/04/2023 12/20/2023 Discontinued (Refill) documented as of this encounter (statuses as of 12/21/2023) Active Problems Problem Noted Date Diagnosed Date Iatrogenic [place]'s syndrome 07/16/2022 On prednisone therapy 07/16/2022 Leukocytosis [...] as of this encounter (statuses as of 12/21/2023) Resolved Problems Problem Noted Date Diagnosed Date Resolved Date Prediabetes 07/16/2022 09/16/2023 Whiplash 04/21/2017 10/11/2017 Lightheaded 06/19/2011 10/11/2017 Depression 01/22/2003 08/05/2020 documented as of this encounter (statuses as of 12/21/2023) Immunizations Name Administration Dates Next Due PPD [...] Telephone Encounter - Saulo Lal DO - 12/21/2023 6:18 AM EDT Signed Prescriptions: Disp Refills Gabapentin 300 MG Oral Capsule (Neurontin) 90 Cap*0 Sig: Take 1 Capsule by mouth in the morning and 1 Capsule at noon and 1 Capsule before bedtime. Authorizing Provider: SAULO LAL * Telephone Encounter - Belle Gillis LPN - 12/20/2023 6:09 PM EDTPending Prescriptions: Disp Refills Gabapentin 300 MG Oral Capsule (Neurontin) 90 Cap*0 Sig: Take 1 Capsule by mouth in the morning and 1 Capsule at noon and 1 Capsule before bedtime. * Telephone Encounter - Angie Barnard OSA - 12/20/2023 5:31 PM EDT Did you pend patient's preferred pharmacy and medication before forwarding?yes Pharmacy: [id number] [address] [place] Pending Prescriptions: Disp Refills Gabapentin 300 MG Oral Capsule (Neurontin)90 Cap*0 Sig: Take 1 Capsule by mouth in the morning and 1 Capsule at noon and 1 Capsule before bedtime. Last Visit: 11/22/2018 (in office), 10/28/2022 (telemedicine) Next Visit: Visit date not found If no future appointments scheduled, and last appointment is greater than a year ago, please schedule patient for a follow-up appointment Last date the medication was ordered: 11.04.2023 Is this request for a controlled substance?No Urine Drug Screen:No results found for this or any previous visit. Patient Phone Numbers Labs: Lab Results Component Value Date/Time CREAT 0.6 09/28/2023 12:24 PM CREAT 0.7 09/02/2020 09:53 AM POTASSIUM 4.2 09/28/2023 12:24 PM POTASSIUM 3.0 (L) 09/02/2020 09:52 AM TSH 2.61 05/25/2022 11:01 AM LDLCALC 135 (H) 10/14/2022 10:05 AM LDLCALC 169 (H) 09/02/2020 09:52 AM LDLDIRECT NOT APPLICABLE 09/02/2020 09:52 AM ALT 8 (L) 08/30/2023 08:54 AM HGBA1C 5.6 08/16/2023 08:41 AM HGBA1C 4.8 09/02/2020 09:52 AM documented in this encounter Plan of Treatment Upcoming Encounters Date Type Department Care Team (Late st Contact Info) Description 12/21/2023 8:50 AM EDT Laboratory Lab Mobile Phlebotomy [facility] [address] [place] [address] [facility] [place] [facility] Draw [address] [place] [address] Polymyositis with myopathy (HCC); Critical illness neuropathy (HCC) Health Maintenance Due Date Last Done Comments [...] 02/19/2003 LUNG CANCER SCREENING - USE SMARTSET 90862 Completed 09/04/2020 GARDASIL-HPV IMMUNIZATION SERIES Aged Out No longer eligible based on patient's age to complete this topic MENINGOCOCCAL (MENACTRA/MENVEO) Aged Out No longer eligible based on patient's age to complete this topic documented as of this encounter Medical Devices Not on filedocumented as of this encounter Visit Diagnoses Diagnosis Polymyositis with myopathy (HCC) Polymyositis Myalgia Mylagia and myositis, unspecified Polymyositis with myopathy (HCC) Polymyositis Critical illness neuropathy (HCC) Critical illness polyneuropathy documented in this encounter Advance Directives Latest [...] the patient have Health Care Power of Bacon Skinner? No Care Teams Chalker Soles Relationship Specialty Start Date End Date Petey Thrasher DO [address] [place] [address] PCP - General Family Medicine 09/12/22 documented as of this encounter
--- OUTSIDE RECORDS SUMMARY | 2024-05-28 20:21 | External Medical Summary ---
Author Name Unknown Address Unknown Organization K09:[facility] [place] [address] Laboratory Report Ordering Provider Test Date Status DORITA HUBBARD 01/12/2024 12:25:50 Final Observation Date Value Abnormality Reference (Units ) Status WBC, Total 01/12/2024 12:25:50 7.25 4.00-10.8 0 (K/uL) Final RBC 01/12/2024 12:25:50 3.62 3.85-5.15 (M/uL) Final Hemoglobin 01/12/2024 12:25:50 12.9 12.0-15.3 (g/dL) Final HCT 01/12/2024 12:25:50 37.8 36.0-45.2 (%) Final MCV 01/12/2024 12:25:50 104.4 81.5-97.5 (fL) Final MCH 01/12/2024 12:25:50 35.6 27.0-34.0 (pg) Final MCHC 01/12/2024 12:25:50 34.1 32.0-36.0 (g/dL) Final RDW 01/12/2024 12:25:50 14.0 11.5-15.5 (%) Final Platelets 01/12/2024 12:25:50 204 140-400 (K /uL) Final MPV 01/12/2024 12:25:50 8.8 6.6-11.1 ( fL) Final Performing Location [facility] [place] [address]
--- OUTSIDE RECORDS SUMMARY | 2024-05-28 20:21 | External Medical Summary ---
Author Name Unknown Address Unknown Organization K09:[facility] [place] [address] Laboratory Report Ordering Provider Test Date Status DORITA HUBBARD 12/21/2023 12:24:29 Final Observation Date Value Abnormality Reference (Units ) Status Phosphate 12/21/2023 12:24:29 3.2 2.5-4.8 (m g/dL) Final Performing Location [facility] [place] [address] [place] [address]
--- OUTSIDE RECORDS SUMMARY | 2024-05-28 20:21 | External Medical Summary ---
Author Name Unknown Address Unknown Organization K09:[facility] [place] [address] Laboratory Report Ordering Provider Test Date Status DORITA HUBBARD 12/21/2023 12:24:29 Final Observation Date Value Abnormality Reference (Units ) Status Magnesium 12/21/2023 12:24:29 1.7 1.5-2.6 (m g/dL) Final Performing Location [facility] [place] [address]
--- OUTSIDE RECORDS SUMMARY | 2024-05-28 20:21 | External Medical Summary ---
Author Name Unknown Address Unknown Organization K01:LAB[facility]ATORY [facility] [place] - [address] [place] [address] Laboratory Report Ordering Provider Test Date Status DORITA HUBBARD 01/12/2024 12:25:50 Final Observation Date Value Abnormality Reference (Units ) Status Folic Acid 01/12/2024 12:25:50 3.8 Below low normal >4 .5 (ng/mL) Final Performing Location [facility] - [address] [place] [address]
--- OUTSIDE RECORDS SUMMARY | 2024-05-28 20:21 | External Medical Summary | Summary of Care ---
Author Name Unknown Organization [facility] Address [address] [place] [address] Phone [phone] Care Team Providers Care Disposal Operator Name Role Phone Karlie Thrasher DO Primary Care Provider Reason for Visit * Reason Comments eRx-Medication Refill Encounter Details Date Type Department Care Team (Late st Contact Info) Description 12/17/2023 Refill Family Practice [facility] [address] [place] [address] [facility] [place] [address] Allergies Active Allergy Reactions Criticality Noted Date Comments Clindamycin Hives 02/19/2014 documented as of this encounter (statuses as of 12/21/2023) Medications Medication Sig Dispensed Refills Start Date End Date Status Potassium Chloride 20 MEQ Oral PacketIndicatio ns:Hypokalemia Take by mouth 40 mEq in the morning. 30 Packet 1 05/01/2022 Active Vitamin D 50 MCG (1999) Oral TabletIndicatio ns:Vitamin D deficiency 1 tablet daily 90 Tablet 3 07/16/2022 Active Clotrimazole 10 MG Mouth/Throat Tashi (Mycelex Tashi)Indicati ons:Oral thrush Take 1 Lozenge by mouth in the morning and 1 Lozenge at noon and 1 Lozenge before bedtime. Allow tablet to slowly dissolve in your mouth. 90 Tashi 3 10/28/2022 Active Pantoprazole Sodium 40 MG Oral Tablet Delayed Release (Protonix)Indic ations:Polymyos itis with myopathy (HCC),Proximal muscle weakness take 1 tablet by mouth every morning 90 Tablet 3 02/15/2023 Active Triamterene-HCT Z 37.5-25 MG Oral Tablet (Maxzide-25)Ind ications:Polymy ositis with myopathy (HCC),Leg swelling Take 1/2 tablet by mouth daily for 2 weeks then increase to 1 tablet by mouth daily. 90 Tablet 3 03/02/2023 Active predniSONE 10 MG Oral Tablet (Deltasone) Take 3 Tablets by mouth in the morning. Do not start before March 17, 2023. 30 Tablet 1 03/17/2023 Active Vitamin B-12 1000 MCG Oral Tablet (Cyanocobalamin ) Take 1 Tablet by mouth in the morning. Do not start before March 17, 2023. 90 Tablet 0 03/17/2023 Active LORazepam 0.5 MG Oral Tablet (Ativan)Indicat ions:Anxiety state Take 1 Tablet by mouth in the morning and 1 Tablet at noon and 1 Tablet before bedtime. 8 Tablet 0 09/13/2023 Active Methotrexate Sodium 2.5 MG Oral TabletIndicatio ns:Polymyositis with myopathy (HCC) Take 6 Tablets by mouth once a week. 24 Tablet 2 10/27/2023 Active Lisinopril 10 MG Oral Tablet (Prinivil)Indic ations:HTN, goal below 140/80 Take 1 Tablet by mouth daily. In the morning. 90 Tablet 3 11/03/2023 Active DULoxetine HCl 60 MG Oral Capsule Delayed Release Particles (Cymbalta) TAKE 1 CAPSULE BY MOUTH ONCE DAILY DO NOT CRUSH, CHEW, AND/OR DIVIDE 30 Capsule 0 12/21/2023 Active DULoxetine HCl 60 MG Oral Capsule Delayed Release Particles (Cymbalta) Take 1 Capsule by mouth in the morning. Do not cut, crush or chew. 30 Capsule 5 03/22/2023 4 Discontinued Gabapentin 300 MG Oral Capsule (Neurontin)Amira cations:Polymyo sitis with myopathy (HCC),Myalgia TAKE 1 CAPSULE BY MOUTH THREE TIMES A DAY 90 Capsule 0 11/04/2023 4 Discontinued(Refi ll) documented as of this encounter (statuses as [...] encounter Miscellaneous Notes * Telephone Encounter - Karlie Thrasher DO - 12/21/2023 8:02 AM EDT Signed Prescriptions: Disp Refills DULoxetine HCl 60 MG Oral Capsule Delayed *30 Cap*0 Sig: TAKE 1 CAPSULE BY MOUTH ONCE DAILY DO NOT CRUSH, CHEW, AND/OR DIVIDE Authorizing Provider: KARLIE THRASHER * Telephone Encounter - Jayda Gonzalez PHARM Tech - 12/20/2023 12:23 PM EDT Pending Prescriptions: Disp Refills DULoxetine HCl 60 MG Oral Capsule Delayed *30 Cap*0 Sig: TAKE 1 CAPSULE BY MOUTH ONCE DAILY DO NOT CRUSH, CHEW, AND/OR DIVIDE * Telephone Encounter - Jayda Gonzalez collector of internal revenue - 12/20/2023 12:23 PM EDT Received message from [facility] regarding patient needing appointment. Placed call to patient to advise. Pt was agreeable to set up appointment but did not want to schedule at this time. Patient advised they will call back to set up appointment. Thank you, Jadya Gonzalez [facility] Overnight Houseperson II [facility] ([facility] (formerly Telepharmacy) 12/20/2023,12:23 PM * Telephone Encounter - Erika Quigley [facility] - 12/20/2023 9:43 AM EDTPending Prescriptions: Disp Refills DULoxetine HCl 60 MG Oral Capsule Delayed *30 Cap*0 Sig: TAKE 1 CAPSULE BY MOUTH ONCE DAILY DO NOT CRUSH, CHEW, AND/OR DIVIDE * Telephone Encounter - Erika Quigley [facility] - 12/20/2023 9:42 AM EDT Please contact patient so that an appointment can be scheduled with her PRIMARY CARE provider before this refill can be authorized. After contacting patient, please forward request to Karlie Thrasher DO. Pending Prescriptions: Disp Refills DULoxetine HCl 60 MG Oral Capsule Delayed*30 Cap*0 Sig: TAKE 1 CAPSULE BY MOUTH ONCE DAILY DO NOT CRUSH, CHEW, AND/OR DIVIDE Patient has cancelled the last 4 OV Last Visit: 07/16/2022 (in office), 10/28/2022 (telemedicine) Next Visit: Visit date not found Thank you, Erika Quigley [facility] Clinical Pharmacist [facility] ([facility]) (formerly Telepharmacy) 12/20/23 9:42 AM [phone] * Telephone Encounter - Erika Quigley [facility] - 12/20/2023 9:41 AM EDT Did you pend patient's preferred pharmacy and medication before forwarding?yes [id number] [address] Pending Prescriptions: Disp Refills DULoxetine HCl 60 MG Oral Capsule Delayed*30 Cap*0 Sig: TAKE 1 CAPSULE BY MOUTH ONCE DAILY DO NOT CRUSH, CHEW, AND/OR DIVIDE Last Visit: 11/22/2018 (in office), 10/28/2022 (telemedicine) Next Visit: Visit date not found If no future appointments scheduled, and last appointment is greater than a year ago, please schedule patient for a follow-up appointment Last date the medication was ordered: 03/22/2023 Is this request for a controlled substance?No [...] 08:41 AM HGBA1C 4.8 09/02/2020 09:52 AM * Telephone Encounter - Interface, [facility] Inbound - 12/19/2023 4:00 PM EDT Pending Prescriptions: Disp Refills DULoxetine HCl 60 MG Oral Capsule Delayed *30 Cap*0 Sig: TAKE 1CAPSULE BY MOUTH ONCE DAILY DO NOT CRUSH, CHEW, AND/OR DIVIDE documented in this encounter Plan of Treatment Upcoming Encounters Date Type Department Care Team (Late st Contact Info) Description 12/21/2023 8:50 AM EDT Laboratory Lab Mobile Phlebotomy [facility] [address] [place] [address] [facility] [place] Draw [address] [place] [address] Polymyositis with myopathy (HCC); Critical illness neuropathy [...] 02/19/2003 LUNG CANCER SCREENING - USE SMARTSET 80720 Completed 09/04/2020 GARDASIL-HPV IMMUNIZATION SERIES Aged Out [...] the patient have Health Care Power of Dry Plasterer? No Care Teams Disposal Operator Relationship Specialty Start Date End Date Karlie Thrasher DO [address] [place] [address] PCP - General Family Medicine 09/12/22 documented as of this encounter
--- OUTSIDE RECORDS SUMMARY | 2024-05-28 20:21 | External Medical Summary ---
Author Name Unknown Address Unknown Organization K01:LAB[facility]ATORY [facility] [place] [address] [place] [address] Laboratory Report Ordering Provider Test Date Status DORITA HUBBARD 12/21/2023 12:24:29 Final Observation Date Value Abnormality Reference (Units ) Status Cortisol 12/21/2023 12:24:29 5.8 2.5-19.5 ( ug/dL) Final AM Reference Range: 4.8 - 19 .5 ug/dL
PM Reference Range: 2.5 - 11.9 ug/dL Performing Location [facility] [place] [place] [address]
[2024-05-28 20:31] LABS: Basophils # (auto) 0.06 K/uL (0.00-0.20); Basophils % (auto) 0.4 %; Eosinophils # (auto) 0.03 K/uL (0.00-0.50); Eosinophils % (auto) 0.2 %; Hematocrit (blood only) 41.9 % (37.0-47.0); Hemoglobin 13.8 g/dl (12.0-16.0); Immature Granulocytes % (auto) 0.7 %; Lymphocytes # (auto) 4.87 K/uL (1.20-3.40); Mean Corpuscular Hemoglobin 33.3 pg (25.0-34.0); Mean Corpuscular Hgb Conc 32.9 g/dL (32.0-36.0); Mean Platelet Volume 9.2 fL (9.4-12.4); Monocytes # (auto) 1.43 K/uL (0.11-0.59); Neutrophils # (auto) 7.84 K/uL (1.40-6.50); Neutrophils % (auto) 54.7 %; Nucleated RBC # (auto) 0.05 K/uL (0.00-0.12); Nucleated RBC % (auto) 0.3 %; Platelet Count 322 K/uL (130-400); RDW Coefficient of Variation 15.7 % (11.5-14.5); RDW Standard Deviation 58.8 fL (36.4-46.3); Red Blood Count 4.15 M/uL (4.20-5.40); White Blood Count 14.33 K/ul (4.8-10.8)
[2024-05-28 20:38] LABS: INR 1.1 (0.9-1.1); Partial Thromboplastin Ratio 0.8; Partial Thromboplastin Time 22 Seconds (21-31); Prothrombin Time 12.3 Seconds (9.0-12.0)
[2024-05-28 20:47] LABS: Albumin Globulin Ratio 1.1 (0.9-2); Albumin Level 3.8 gm/dl (3.4-5.0); BUN Creatinine Ratio 33.3 (10-20); Bilirubin,Total 1.2 mg/dl (0.2-1.0); Calcium 9.5 mg/dl (8.6-10.3); Creatinine Clr Calc Pharmacy 92.6 ml/min; Est GFR (African American) 95.4 ml/min; Est GFR (Non-African American) 82.3 ml/min; Globulin 3.4 gm/dl (2.5-4.0); Potassium 3.3 mmol/L (3.5-5.1); Total Protein 7.2 gm/dl (6.0-8.3)
[2024-05-28 20:56] LABS: Troponin I High Sensitivity 61.9 pg/ml (0-14)
[2024-05-28 21:01] LABS: iSTAT Creatinine 0.8 mg/dl (0.6-1.3); iSTAT Hemoglobin 15.3 g/dl (12.0-16.0); iSTAT Ionized Calcium 1.06 mmol/l (1.12-1.32); iSTAT Potassium 3.2 mmol/L (3.3-5.0)
[2024-05-28 21:08] LABS: Base Excess VBG 2.3 mEq/L; HCO3 VBG 27 mmol/L; Oxygen Saturation VBG < 60.0 %; PCO2 VBG 39 mmHg (38-50); PO2 VBG 24 mmHg; pH VBG 7.44 (7.36-7.41)
[2024-05-28] MEDS: OPTIRAY 320 125ml IV ONE (21:10)
[2024-05-28 21:30] LABS: Adenovirus PCR Not Detected (NotDetected); Bordetella parapertussis PCR Not Detected (NotDetected); Bordetella pertussis PCR Not Detected (NotDetected); Chlamydia pneumoniae PCR Not Detected (NotDetected); Coronavirus 229E PCR Not Detected (NotDetected); Coronavirus CoV-2 (COVID19)PCR Not Detected (NotDetected); Coronavirus HKU1 PCR Not Detected (NotDetected); Coronavirus NL63 PCR Not Detected (NotDetected); Coronavirus OC43PCR Not Detected (NotDetected); Human Metapneumovirus PCR Not Detected (NotDetected); Influenza A PCR Not Detected (NotDetected); Influenza B PCR Not Detected (NotDetected); Mycoplasma pneumoniae PCR Not Detected (NotDetected); Parainfluenza Virus 1 PCR Not Detected (NotDetected); Parainfluenza Virus 2 PCR Not Detected (NotDetected); Parainfluenza Virus 3 PCR Not Detected (NotDetected); Parainfluenza Virus 4 PCR Not Detected (NotDetected); Respiratory Syncytial VirusPCR Not Detected (NotDetected); Rhinovirus/Enterovirus PCR Not Detected (NotDetected)
[2024-05-28] MEDS: FUROSEMIDE 40 MG/4 ML VIAL IV ONE (21:52)
--- NOTE | 2024-05-28 22:05 | CT Scan Report ---
Exam(s): CTA CHEST IV Amt: 16 ML OPTIRAY 320 EXAM: CT Angiography Chest With Intravenous Contrast CLINICAL HISTORY: Reason for exam: ro PE. TECHNIQUE: Axial computed tomographic angiography images of the chest with intravenous contrast. Automated exposure control was utilized for the study. A dose lowering technique was utilized adhering to the principles of ALARA. MIP reconstructed images were created and reviewed. COMPARISON: No relevant prior studies available. FINDINGS: Limitations: Exam limited secondary to patient respiratory motion. Pulmonary arteries: Unremarkable. No pulmonary embolism. Aorta: No acute findings. No thoracic aortic aneurysm. Lungs: Diffuse groundglass opacity scattered throughout the lungs bilaterally. Pleural space: Unremarkable. No significant effusion. No pneumothorax. Heart: Unremarkable. No cardiomegaly. No significant pericardial effusion. No evidence of RV dysfunction. Mediastinum: Numerous nonpathologically enlarged mediastinal lymph nodes. Right hilar lymphadenopathy measuring 2 cm. Bones/joints: No acute fracture. No dislocation. Soft tissues: Unremarkable. Lymph nodes: See above. IMPRESSION: Exam limited as described above No pulmonary embolus Multifocal pneumonia with reactive lymphadenopathy in the mediastinum and right hilum Electronically signed by: Blaine Betancourt MD 05/28/24 22:04 PM
[2024-05-28] MEDS: PIPERACILLIN/TAZOBACTAM 4.5 GM/120 ML BAG IV ONE (22:26)
--- NOTE | 2024-05-28 22:36 | CT Scan Report ---
Exam(s): CT ABDOMEN + PELVIS With Contrast IV Amt: 116 ML OPTIRAY 320 EXAM: CT Abdomen and Pelvis With Intravenous Contrast CLINICAL HISTORY: Reason for exam: abd pain ro perf. TECHNIQUE: Axial computed tomography images of the abdomen and pelvis with intravenous contrast. Automated exposure control was utilized for the study. A dose lowering technique was utilized adhering to the principles of ALARA. CONTRAST: Patient received 116 ML OPTIRAY 320 of IV contrast COMPARISON: 04/04/2023 FINDINGS: Lung bases: Left lower lobe atelectasis. ABDOMEN: Liver: Fatty infiltration of liver. Gallbladder and bile ducts: Postoperative changes prior cholecystectomy. No ductal dilation. Pancreas: Unremarkable. No mass. No ductal dilation. Spleen: Unremarkable. No splenomegaly. Adrenals: Unremarkable. No mass. Kidneys and ureters: No hydronephrosis. No renal or ureteral calculi. Stomach and bowel: Unremarkable. No obstruction. No mucosal thickening. PELVIS: Appendix: No findings to suggest acute appendicitis. Bladder: Tiny right-sided bladder calculus present new when compared to prior exam may represent a recently passed ureteral stone. Reproductive: Unremarkable as visualized. ABDOMEN and PELVIS: Intraperitoneal space: Unremarkable. No free air. No significant fluid collection. Bones/joints: Chronic L3 and L1 superior endplate compression fractures. No dislocation. Soft tissues: Unremarkable. Vasculature: Unremarkable. No abdominal aortic aneurysm. Lymph nodes: Unremarkable. No enlarged lymph nodes. IMPRESSION: No acute findings in the abdomen or pelvis. Electronically signed by: Blaine Betancourt MD 05/28/24 22:36 PM
[2024-05-28] MEDS ORDERED: methylPREDNISolone 40 MG in SYRINGE 0 ML IV ONE (22:52)
[2024-05-28 23:12] LABS: Troponin I High Sensitivity 61.9 pg/ml (0-14)
[2024-05-28 23:21] LABS: Magnesium 1.8 mg/dl (1.7-2.4)
[2024-05-28] MEDS: methylPREDNISolone 125 MG/2 ML VIAL IV STA (23:41)
[2024-05-28] MEDS: LEVALBUTEROL 1.25 MG/3 ML NEB NEB STA (23:41)
[2024-05-28] MEDS: IPRATROPIUM BROMIDE NEB SOLN 0.02% 0.5MG/2.5ML VIAL INH STA (23:41)
[2024-05-28] MEDS: DOXYCYCLINE HYCLATE 100 MG in DEXTROSE 5% MINI-B 100 ML IV STA (23:42)
[2024-05-28] MEDS: POTASSIUM CHLORIDE / WTR 10 MEQ/100 ML PLCT IV SCH (23:42)
[2024-05-28] MEDS: ALBUMIN 25% 12.5 GM/50 ML VIAL IV STA (23:42)
[2024-05-28] MEDS: BENZONATATE 100 MG CAPSULE PO STA (23:42)
--- NOTE | 2024-05-28 23:52 | History & Physical Report ---
Date of Service May 28, 2024 Assessment & Plan (1) Acute hypoxemic respiratory failure: Plan: Multifactorial Severe sepsis (SIRS plus lactic acidosis) secondary to community-acquired pneumonia, immunocompromised patient (history of polymyositis on methotrexate) Possible CHF, underlying pulmonary hypertension Hypertension, BP stable hyperlipidemia, on statin Rx prediabetes, hemoglobin A1c of 5.4 last March 2024 Hypokalemia secondary to decreased p.o. intake secondary illness past tobacco abuse Admit to PCU Supplemental O2 Solu-Medrol 1 dose for now given hypoxemia resulting from pneumonia, nebs stat CS, cefepime and doxycycline Follow lactic acid response to albumin (Guideline recommended 30 cc/kg IBW fluid bolus administration over 3 hours currently precluded by concomitant pulmonary congestion.) Hold methotrexate for now given active infection TTE, cardiology consult re: possible CHF DVT prophylaxis. Lovenox subcu Full code Patient requests for daughter to be given updates regarding care. Ms. Meghan Caban, contact #[phone]. Total critical care time was 45 minutes. Text document was generated using [employer] voice recognition software. It may contain grammatical or spelling errors. Kindly contact undersigned for clarification of any documentation item in question. History of Present Illness Chief Complaint: Worsening cough, shortness of breath Primary Care Provider: Petey Thrasher DO History obtained from patient and records. Medical history significant for hypertension, hyperlipidemia, pulmonary hypertension, polymyositis currently on methotrexate, prediabetes, anxiety/mood disorder, past tobacco abuse. Last confinement April 2023 for septic shock secondary to infected perianal wounds, multifocal pneumonia. 1 week history of dry cough symptoms later noted to be junky. Not sure about sick contacts. Poor appetite. Denies chest pain or fluid retention. Patient unsure about fluid retention. Worsening shortness of breath. O2 sats 50s upon EMS arrival at home. Patient brought to ER for evaluation. Zosyn and Lasix administered at the ER. Medical History as above Surgical History : Carpal tunnel surgery, dental surgery, cholecystectomy, BTL, muscle biopsy, knee surgery Family History : DM, heart disease, leukemia Personal/Social history : Past tobacco abuse, occasional EtOH intake, disabled Allergies Allergy/AdvReac Type Severity Reaction Status Date / Time clindamycin Allergy Hives Verified 05/28/24 23:44 Home Medications Medication Instructions Recorded Confirmed Type Vitamin D Cap 50,000 unit PO .WEEKLY 05/28/24 05/28/24 History duloxetine 60 mg capsule,delayed 60 mg PO DAILY 05/28/24 05/28/24 History release folic acid 1 mg tablet 1 mg PO DAILY 05/28/24 05/28/24 History gabapentin 300 mg capsule 600 mg PO TID 05/28/24 05/28/24 History lisinopril 10 mg tablet 10 mg PO DAILY 05/28/24 05/28/24 History lorazepam 0.5 mg tablet 0.5 mg PO DAILY PRN Anxiety 05/28/24 05/28/24 History methotrexate sodium 2.5 mg tablet 15 mg PO .QTUES 05/28/24 05/28/24 History pantoprazole 40 mg tablet,delayed 40 mg PO QAM 05/28/24 05/28/24 History release ropinirole 1 mg tablet 1 mg PO BID 05/28/24 05/28/24 History zinc sulfate 66 mg tablet 66 mg PO DAILY 05/28/24 05/28/24 History Past Med/Surg History Problem List (Updated 05/29/24 @ 05:41 by Feliciano Pereira MD) Acute hypoxemic respiratory failure Pneumonia (Acute) CHF (congestive heart failure) (Acute) Hypoxia (Acute) Shock Open wound of female genital organ Diarrhea (Acute) Cellulitis (Acute) Acute hypotension (Acute) History of knee surgery History of dental surgery History of carpal tunnel release Polymyositis Medical History Major depressive disorder Anxiety disorder Hypertension Diverticulitis Urinary tract infection HAL (acute kidney injury) Sepsis Neutropenic fever Surgical History History of laparoscopic cholecystectomy Family History Mother Heart disease Cancer Father Heart disease Diabetes Brother Heart disease Social History Smoking Status: Former smoker Tobacco Type: Cigarettes Cigarettes Per Day: 30; Smoking End Date: 04/04/23; Second Hand Exposure: No; Hx Alcohol Use: No Hx Substance Use: No Preferred Language: Iraqi Communication Ability: Effective Health Program Director Required: No Beliefs That Will Affect Care: None Current Living Situation: Spouse Other Information That Helps Us Care for You: No Feels Safe at Home: Yes Safety Concerns: Feels Safe At This Time Assistive Devices: Wheelchair Review of Systems Review of Systems: As per HPI, all other systems reviewed and negative Physical Exam Physical Exam: GENERAL: Obese, incessant coughing, respiratory distress SKIN: Normal color, warm HEENT: [place] palpebral conjunctivae, no ptosis, dry buccal mucosa, O2 mask in place NECK : Supple, no tenderness CHEST : Decreased breath sounds tachycardic, occasional expiratory wheezes, no tenderness HEART : RRR, no obvious murmurs ABDOMEN: Some distention, nontender EXTREMITIES : No LE swelling/tenderness, no other conspicuous deformities noted NEUROLOGIC : Coherent, no facial asymmetry, no other gross focality Results & Data Results & Data Vital Signs (Past 12 Hours) Vital Signs Temp Pulse Pulse Resp BP BP Pulse Ox 05/28/24 23:00 125 H 24 127/89 92 05/28/24 22:44 90 05/28/24 22:39 96 05/28/24 21:40 98 05/28/24 21:26 97 05/28/24 21:25 98 05/28/24 21:25 98 05/28/24 21:25 113 H 30 H 107/74 98 05/28/24 20:16 37.4 C 131 H 36 H 136/101 H 99 05/28/24 20:16 05/28/24 20:11 124 H O2 Del Method O2 Flow Rate 05/28/24 23:00 Oxymask 05/28/24 22:44 Oxymask 6 05/28/24 22:39 Oxymask 10 05/28/24 21:40 Oxymask, Non-rebreather 15 05/28/24 21:26 Non-rebreather 15 05/28/24 21:25 Non-rebreather 15 05/28/24 21:25 Non-rebreather 15 05/28/24 21:25 Non-rebreather 15 05/28/24 20:16 Non-rebreather 15 05/28/24 20:16 Non-rebreather 15 05/28/24 20:11 Laboratory Results Laboratory Results WBC 14.33 K/ul (4.8-10.8) H 05/28/24 20:12 RBC 4.15 M/uL (4.20-5.40) L 05/28/24 20:12 Hgb 13.8 g/dl (12.0-16.0) 05/28/24 20:12 POC Hgb 15.3 g/dl (12.0-16.0) 05/28/24 20:49 Hct 41.9 % (37.0-47.0) 05/28/24 20:12 POC Hct 45 % (37-47) 05/28/24 20:49 MCV 101.0 fL (80.0-100.0) H 05/28/24 20:12 MCH 33.3 pg (25.0-34.0) 05/28/24 20:12 MCHC 32.9 g/dL (32.0-36.0) 05/28/24 20:12 RDW Std Deviation 58.8 fL (36.4-46.3) H 05/28/24 20:12 RDW Coeff of Kristine 15.7 % (11.5-14.5) H 05/28/24 20:12 Plt Count 322 K/uL (130-400) 05/28/24 20:12 MPV 9.2 fL (9.4-12.4) L 05/28/24 20:12 Immature Gran % (Auto) 0.7 % 05/28/24 20:12 Neut % (Auto) 54.7 % 05/28/24 20:12 Lymph % (Auto) 34.0 % 05/28/24 20:12 [place] % (Auto) 10.0 % 05/28/24 20:12 Eos % (Auto) 0.2 % 05/28/24 20:12 Baso % (Auto) 0.4 % 05/28/24 20:12 Neut # (Auto) 7.84 K/uL (1.40-6.50) H 05/28/24 20:12 Lymph # (Auto) 4.87 K/uL (1.20-3.40) H 05/28/24 20:12 [place] # (Auto) 1.43 K/uL (0.11-0.59) H 05/28/24 20:12 Eos # (Auto) 0.03 K/uL (0.00-0.50) 05/28/24 20:12 Baso # (Auto) 0.06 K/uL (0.00-0.20) 05/28/24 20:12 Immature Gran # (Auto) 0.10 K/uL (0.01-0.20) 05/28/24 20:12 Absolute Nucleated RBC 0.05 K/uL (0.00-0.12) 05/28/24 20:12 Nucleated RBC % (auto) 0.3 % 05/28/24 20:12 PT 12.3 Seconds (9.0-12.0) H 05/28/24 20:12 INR 1.1 (0.9-1.1) 05/28/24 20:12 APTT 22 Seconds (21-31) 05/28/24 20:12 PTT Ratio 0.8 05/28/24 20:12 VBG pH 7.44 (7.36-7.41) H 05/28/24 20:43 VBG pCO2 39 mmHg (38-50) 05/28/24 20:43 VBG pO2 24 mmHg 05/28/24 20:43 VBG HCO3 27 mmol/L 05/28/24 20:43 VBG O2 Saturation < 60.0 % 05/28/24 20:43 VBG Base Excess 2.3 mEq/L 05/28/24 20:43 POC Sodium 134 mmol/L (135-144) L 05/28/24 20:49 Sodium 132 mmol/L (136-145) L 05/28/24 20:12 POC Potassium 3.2 mmol/L (3.3-5.0) L 05/28/24 20:49 Potassium 3.3 mmol/L (3.5-5.1) L 05/28/24 20:12 POC Chloride 96 mmol/L (101-112) L 05/28/24 20:49 Chloride 94 mmol/L (98-107) L 05/28/24 20:12 Carbon Dioxide 24 mmol/L (21-32) 05/28/24 20:12 POC Total CO2 24 mmol/L (24-31) 05/28/24 20:49 Anion Gap 14 (3-11) H 05/28/24 20:12 POC Anion Gap 18.0 mmol/L (16-25) 05/28/24 20:49 POC BUN 24 mg/dl (7-18) H 05/28/24 20:49 BUN 27 mg/dl (6-23) H 05/28/24 20:12 Creatinine 0.81 mg/dl (0.6-1.2) 05/28/24 20:12 POC Creatinine 0.8 mg/dl (0.6-1.3) 05/28/24 20:49 Est Cr Clr Drug Dosing 92.6 ml/min 05/28/24 20:12 Est GFR ( Amer) 95.4 ml/min 05/28/24 20:12 Est GFR (Non-Af Amer) 82.3 ml/min 05/28/24 20:12 BUN/Creatinine Ratio 33.3 (10-20) H 05/28/24 20:12 Glucose 131 mg/dl (70-99(Fasting)) H 05/28/24 20:12 POC Glucose (other) 128 mg/dl (70-99) H 05/28/24 20:49 Calcium 9.5 mg/dl (8.6-10.3) 05/28/24 20:12 POC Ioniz Calcium Tenisha 1.06 mmol/l (1.12-1.32) L 05/28/24 20:49 Magnesium 1.8 mg/dl (1.7-2.4) 05/28/24 22:03 Total Bilirubin 1.2 mg/dl (0.2-1.0) H 05/28/24 20:12 AST 46 U/L (13-39) H 05/28/24 20:12 ALT 19 U/L (7-52) 05/28/24 20:12 Alkaline Phosphatase 149 U/L (34-104) H 05/28/24 20:12 Troponin I High Sens 61.9 pg/ml (0-14) H* 05/28/24 22:03 B-Natriuretic Peptide 732 pg/ml (0-100) H 05/28/24 20:12 Total Protein 7.2 gm/dl (6.0-8.3) 05/28/24 20:12 Albumin 3.8 gm/dl (3.4-5.0) 05/28/24 20:12 Globulin 3.4 gm/dl (2.5-4.0) 05/28/24 20:12 Albumin/Globulin Ratio 1.1 (0.9-2) 05/28/24 20:12 Adenovirus (PCR) Not Detected (NotDetected) 05/28/24 20:12 B. pertussis DNA (PCR) Not Detected (NotDetected) 05/28/24 20:12 B.parapertussis DNA PCR Not Detected (NotDetected) 05/28/24 20:12 C. pneumoniae DNA (PCR) Not Detected (NotDetected) 05/28/24 20:12 Coronavirus OC43 (PCR) Not Detected (NotDetected) 05/28/24 20:12 Coronavirus HKU1 (PCR) Not Detected (NotDetected) 05/28/24 20:12 Coronavirus 229E (PCR) Not Detected (NotDetected) 05/28/24 20:12 SARS-CoV-2 (PCR) Not Detected (NotDetected) 05/28/24 20:12 Coronavirus NL63 (PCR) Not Detected (NotDetected) 05/28/24 20:12 Human Metapneumovir PCR Not Detected (NotDetected) 05/28/24 20:12 Influenza Type A (PCR) Not Detected (NotDetected) 05/28/24 20:12 Influenza Type B (PCR) Not Detected (NotDetected) 05/28/24 20:12 M. pneumoniae (PCR) Not Detected (NotDetected) 05/28/24 20:12 Parainfluenza 1 (PCR) Not Detected (NotDetected) 05/28/24 20:12 Parainfluenza 2 (PCR) Not Detected (NotDetected) 05/28/24 20:12 Parainfluenza 3 (PCR) Not Detected (NotDetected) 05/28/24 20:12 Parainfluenza 4 (PCR) Not Detected (NotDetected) 05/28/24 20:12 RSV (PCR) Not Detected (NotDetected) 05/28/24 20:12 Entero/Rhino (PCR) Not Detected (NotDetected) 05/28/24 20:12 Impressions Abdomen/Pelvis CT 05/28/24 20:38 Exam(s): CT ABDOMEN + PELVIS With Contrast IV Amt: 116 ML OPTIRAY 320 EXAM: CT Abdomen and Pelvis With Intravenous Contrast CLINICAL HISTORY: Reason for exam: abd pain ro perf. TECHNIQUE: Axial computed tomography images of the abdomen and pelvis with intravenous contrast. Automated exposure control was utilized for the study. A dose lowering technique was utilized adhering to the principles of ALARA. CONTRAST: Patient received 116 ML OPTIRAY 320 of IV contrast COMPARISON: 04/04/2023 FINDINGS: Lung bases: Left lower lobe atelectasis. ABDOMEN: Liver: Fatty infiltration of liver. Gallbladder and bile ducts: Postoperative changes prior cholecystectomy. No ductal dilation. Pancreas: Unremarkable. No mass. No ductal dilation. Spleen: Unremarkable. No splenomegaly. Adrenals: Unremarkable. No mass. Kidneys and ureters: No hydronephrosis. No renal or ureteral calculi. Stomach and bowel: Unremarkable. No obstruction. No mucosal thickening. PELVIS: Appendix: No findings to suggest acute appendicitis. Bladder: Tiny right-sided bladder calculus present new when compared to prior exam may represent a recently passed ureteral stone. Reproductive: Unremarkable as visualized. ABDOMEN and PELVIS: Intraperitoneal space: Unremarkable. No free air. No significant fluid collection. Bones/joints: Chronic L3 and L1 superior endplate compression fractures. No dislocation. Soft tissues: Unremarkable. Vasculature: Unremarkable. No abdominal aortic aneurysm. Lymph nodes: Unremarkable. No enlarged lymph nodes. IMPRESSION: No acute findings in the abdomen or pelvis. Electronically signed by: Blaine Betancourt MD 05/28/24 22:36 PM Chest CTA 05/28/24 20:38 Exam(s): CTA CHEST IV Amt: 16 ML OPTIRAY 320 EXAM: CT Angiography Chest With Intravenous Contrast CLINICAL HISTORY: Reason for exam: ro PE. TECHNIQUE: Axial computed tomographic angiography images of the chest with intravenous contrast. Automated exposure control was utilized for the study. A dose lowering technique was utilized adhering to the principles of ALARA. MIP reconstructed images were created and reviewed. COMPARISON: No relevant prior studies available. FINDINGS: Limitations: Exam limited secondary to patient respiratory motion. Pulmonary arteries: Unremarkable. No pulmonary embolism. Aorta: No acute findings. No thoracic aortic aneurysm. Lungs: Diffuse groundglass opacity scattered throughout the lungs bilaterally. Pleural space: Unremarkable. No significant effusion. No pneumothorax. Heart: Unremarkable. No cardiomegaly. No significant pericardial effusion. No evidence of RV dysfunction. Mediastinum: Numerous nonpathologically enlarged mediastinal lymph nodes. Right hilar lymphadenopathy measuring 2 cm. Bones/joints: No acute fracture. No dislocation. Soft tissues: Unremarkable. Lymph nodes: See above. IMPRESSION: Exam limited as described above No pulmonary embolus Multifocal pneumonia with reactive lymphadenopathy in the mediastinum and right hilum Electronically signed by: Blaine Betancourt MD 05/28/24 22:04 PM Diagnostic Findings Chest x-ray as per my interpretation elevated right hemidiaphragm, cardiomegaly, congestion EKG as per my interpretation :Rate 120, sinus tachycardia, normal axis, nonspecific T wave abnormalities
[2024-05-29] MEDS ORDERED: BENZONATATE 100 MG CAPSULE PO PRN (00:44)
[2024-05-29] MEDS ORDERED: ACETAMINOPHEN 325 MG TAB PO PRN (00:44)
[2024-05-29 01:09] LABS: Thyroid Stimulating Hormone 0.693 uIu/ml (0.300-4.500)
[2024-05-29] MEDS: MAGNESIUM SULFATE / D5W 1 GM/100 ML BAG IV STA (01:12)
[2024-05-29] MEDS: ALBUMIN 25% 12.5 GM/50 ML VIAL IV STA (01:19)
--- NOTE | 2024-05-29 01:20 | Emergency Department Note ---
History of Present Illness General Chief Complaint: Shortness of Breath/Dyspnea Stated Complaint: SOB, Cough Time Seen by Provider: 05/28/24 20:34 History of Present Illness Provider Complaint: shortness of breath Onset (ago): week(s) (1) Severity: severe Consistency/Duration: + progressively worsening Relieved By: + oxygen and + rest Exacerbated By: + lying flat, + exertion and + coughing Associated symptoms: + cough, + orthopnea and + chest congestion; no nausea/vomiting or no abdominal pain Related Data Home oxygen amount: none Home Medications Medication Instructions Recorded Confirmed Type Vitamin D Cap 50,000 unit PO .WEEKLY 05/28/24 05/28/24 History duloxetine 60 mg capsule,delayed 60 mg PO DAILY 05/28/24 05/28/24 History release folic acid 1 mg tablet 1 mg PO DAILY 05/28/24 05/28/24 History gabapentin 300 mg capsule 600 mg PO TID 05/28/24 05/28/24 History lisinopril 10 mg tablet 10 mg PO DAILY 05/28/24 05/28/24 History lorazepam 0.5 mg tablet 0.5 mg PO DAILY PRN Anxiety 05/28/24 05/28/24 History methotrexate sodium 2.5 mg tablet 15 mg PO .QTUES 05/28/24 05/28/24 History pantoprazole 40 mg tablet,delayed 40 mg PO QAM 05/28/24 05/28/24 History release ropinirole 1 mg tablet 1 mg PO BID 05/28/24 05/28/24 History zinc sulfate 66 mg tablet 66 mg PO DAILY 05/28/24 05/28/24 History Allergies Allergy/AdvReac Type Severity Reaction Status Date / Time clindamycin Allergy Hives Verified 05/28/24 23:44 Past Med/Surg History Problem List (Updated 05/29/24 @ 01:20 by Caesar Maria MD) Pneumonia (Acute) CHF (congestive heart failure) (Acute) Hypoxia (Acute) Shock Open wound of female genital organ Diarrhea (Acute) Cellulitis (Acute) Acute hypotension (Acute) History of knee surgery History of dental surgery History of carpal tunnel release Polymyositis Medical History Major depressive disorder Anxiety disorder Hypertension Diverticulitis Urinary tract infection HAL (acute kidney injury) Sepsis Neutropenic fever Surgical History History of laparoscopic cholecystectomy Family History Mother Heart disease Cancer Father Heart disease Diabetes Brother Heart disease Social History Smoking Status: Former smoker Tobacco Type: Cigarettes Cigarettes Per Day: 30; Hx Alcohol Use: Yes Alcohol type: beer, wine and hard liquor Hx Substance Use: No Preferred Language: [place] Communication Ability: Effective Neighborhood Conservation Officer Required: No Beliefs That Will Affect Care: Spiritual Current Living Situation: Spouse Feels Safe at Home: Yes Assistive Devices: Walker and Wheelchair Physical Exam 2 Vital Signs: Vital Signs - 24 hr 05/28/24 20:11 05/28/24 20:16 05/28/24 20:16 Temperature 37.4 C Temperature Source Oral Pulse Rate 124 H 131 H Pulse Rate [Apical ] Respiratory Rate 36 H Respiratory Effort / Characteristics Short of Breath Short of Breath Respiratory Patter n Tachypnea Blood Pressure 136/101 H Blood Pressure [Le ft Arm] Blood Pressure Jill n 112 Blood Pressure Jill n [Left Arm] Pulse Oximetry 99 Oxygen Delivery Me thod Non-rebreather Non-rebreather Oxygen Flow Rate 15 15 Sepsis Recent Feve r Within 48 Hours No Sepsis New/Unexpla ined Change in Men mau Status No Sepsis Action Take n by Nursing No Action Required Oxygen Flow Rate - Titration Pulse Oximetry Pos t Tiitration 05/28/24 21:25 05/28/24 21:25 05/28/24 21:25 Temperature Temperature Source Pulse Rate Pulse Rate [Apical ] 113 H Respiratory Rate 30 H Respiratory Effort / Characteristics Respiratory Patter n Blood Pressure Blood Pressure [Le ft Arm] 107/74 Blood Pressure Jill n Blood Pressure Jill n [Left Arm] 85 Pulse Oximetry 98 98 98 Oxygen Delivery Me thod Non-rebreather Non-rebreather Non-rebreather Oxygen Flow Rate 15 15 15 Sepsis Recent Feve r Within 48 Hours Sepsis New/Unexpla ined Change in Men mau Status Sepsis Action Take n by Nursing Oxygen Flow Rate - Titration Pulse Oximetry Pos t Tiitration 05/28/24 21:26 05/28/24 21:40 05/28/24 22:39 Temperature Temperature Source Pulse Rate Pulse Rate [Apical ] Respiratory Rate Respiratory Effort / Characteristics Respiratory Patter n Blood Pressure Blood Pressure [Le ft Arm] Blood Pressure Jill n Blood Pressure Jill n [Left Arm] Pulse Oximetry 97 98 96 Oxygen Delivery Me thod Non-rebreather Oxymask Non-rebrea ther Oxymask Oxygen Flow Rate 15 15 10 Sepsis Recent Feve r Within 48 Hours Sepsis New/Unexpla ined Change in Men mau Status Sepsis Action Take n by Nursing Oxygen Flow Rate - Titration 10 6 Pulse Oximetry Pos t Tiitration 96 91 05/28/24 22:44 05/28/24 23:00 Temperature Temperature Source Pulse Rate Pulse Rate [Apical ] 125 H Respiratory Rate 24 Respiratory Effort / Characteristics Respiratory Patter n Blood Pressure Blood Pressure [Le ft Arm] 127/89 Blood Pressure Jill n Blood Pressure Jill n [Left Arm] 101 Pulse Oximetry 90 92 Oxygen Delivery Me thod Oxymask Oxymask Oxygen Flow Rate 6 Sepsis Recent Feve r Within 48 Hours Sepsis New/Unexpla ined Change in Men mau Status Sepsis Action Take n by Nursing Oxygen Flow Rate - Titration 8 Pulse Oximetry Pos t Tiitration 93 Physical Exam: Physical Exam HENT: Exam performed. - Head: Normocephalic and atraumatic. EYES: Conjunctivae and EOM are normal. Right eye exhibits no discharge. Left eye exhibits no discharge. No scleral icterus. NECK: Normal range of motion. Neck supple. No JVD present. CV: Tachycardic rate, regular rhythm, normal heart sounds and intact distal pulses. There is no peripheral edema. Palpable radial pulses bue. PULM/CHEST: Rales bilaterally. ABD: The abdomen is soft. There is no tenderness. NEURO: Motor and sensation grossly intact. SKIN: Skin is warm and dry. He is not diaphoretic. Course Course 2033: The patient was evaluated in room A9. A complete history and physical exam was performed Cardiac monitoring: An order was placed for continuous cardiac monitoring. The monitor shows a rate of 120 with sinus tachycardia rhythm interpreted by me Patient found to be hypoxic on room air for supplemental oxygen was applied which improved the patient's oxygen saturation. 0: Vital signs stable on supplemental oxygen. Labs show leukocytosis of 14.3. VBG shows a venous pH of 7.44 with venous pCO2 of 39. High-sensitivity troponin 61.9. BNP 732. Patient treated with Lasix. CTA of the chest shows no pulmonary embolus it does show multifocal pneumonia. Patient treated with Zosyn. BioFire negative. CT abdomen pelvis is negative. Administered Medications Potassium Chloride (K Ismael / Wtr) 10 meq in 100 mls @ 100 mls/hr IV Q1H BONNIE Stop: 05/29/24 02:59 Last Admin: 05/28/24 23:42 Dose: 100 mls/hr Documented By: AN Discontinued Medications Benzonatate (Benzonatate 100 Mg Capsule) 100 mg PO NOW STA Stop: 05/28/24 23:15 Last Admin: 05/28/24 23:42 Dose: 100 mg Documented By: AN Furosemide (Furosemide 40 Mg/4 Ml Vial) 40 mg IV ONE ONE Stop: 05/28/24 21:44 Last Admin: 05/28/24 21:52 Dose: 40 mg Documented By: AN Piperacillin Sod/Tazobactam Sod (Zosyn) 4.5 gm in 120 mls @ 240 mls/hr IV NOW ONE Stop: 05/28/24 22:43 Last Infusion: 05/29/24 00:01 Dose: Infused Documented By: Admin: 05/28/24 22:26 Dose: 240 mls/hr Documented By: AN Doxycycline Hyclate 100 mg/ (Dextrose) 100 mls @ 50 mls/hr IV NOW STA Stop: 05/29/24 00:55 Last Admin: 05/28/24 23:42 Dose: 50 mls/hr Documented By: AN Albumin Human (Albumin 25%) 12.5 gm in 50 mls @ 50 mls/hr IV ONE STA Stop: 05/29/24 00:01 Last Admin: 05/28/24 23:42 Dose: 50 mls/hr Documented By: AN Ioversol (Optiray 320 125ml) 116 ml IV ONCE ONE Stop: 05/28/24 21:11 Last Admin: 05/28/24 21:10 Dose: 116 ml Documented By: KATIA Ipratropium [employer] (Ipratropium [employer] Neb Soln 0.02% 0.5mg/2.5ml Vial) 0.5 mg INH NOW STA Stop: 05/28/24 22:56 Last Admin: 05/28/24 23:41 Dose: 0.5 mg Documented By: AN Levalbuterol HCl (Levalbuterol 1.25 Mg/3 Ml Neb) 1.25 mg NEB NOW STA Stop: 05/28/24 22:56 Last Admin: 05/28/24 23:41 Dose: 1.25 mg Documented By: AN Methylprednisolone (Methylprednisolone 125 Mg/2 Ml Vial) 40 mg IV ONE STA Stop: 05/28/24 22:56 Last Admin: 05/28/24 23:41 Dose: 40 mg Documented By: AN Medical Decision Making Laboratory Data Attestation: I reviewed the patient's lab results. 05/28/24 20:12 05/28/24 20:12 Lab Results 05/28/24 05/28/24 05/28/24 Range/Units 20:12 20:43 20:49 WBC 14.33 H (4.8-10.8) K/ul RBC 4.15 L (4.20-5.40) M/uL Hgb 13.8 (12.0-16.0) g/dl POC Hgb 15.3 (12.0-16.0) g/dl Hct 41.9 (37.0-47.0) % POC Hct 45 (37-47) % MCV 101.0 H (80.0-100.0) fL MCH 33.3 (25.0-34.0) pg MCHC 32.9 (32.0-36.0) g/dL RDW Std Deviation 58.8 H (36.4-46.3) fL RDW Coeff of Kristine 15.7 H (11.5-14.5) % Plt Count 322 (130-400) K/uL MPV 9.2 L (9.4-12.4) fL Immature Gran % (Auto) 0.7 % Neut % (Auto) 54.7 % Lymph % (Auto) 34.0 % [place] % (Auto) 10.0 % Eos % (Auto) 0.2 % Baso % (Auto) 0.4 % Neut # (Auto) 7.84 H (1.40-6.50) K/uL Lymph # (Auto) 4.87 H (1.20-3.40) K/uL [place] # (Auto) 1.43 H (0.11-0.59) K/uL Eos # (Auto) 0.03 (0.00-0.50) K/uL Baso # (Auto) 0.06 (0.00-0.20) K/uL Immature Gran # (Auto) 0.10 (0.01-0.20) K/uL Absolute Nucleated RBC 0.05 (0.00-0.12) K/uL Nucleated RBC % (auto) 0.3 % PT 12.3 H (9.0-12.0) Seconds INR 1.1 (0.9-1.1) APTT 22 (21-31) Seconds PTT Ratio 0.8 VBG pH 7.44 H (7.36-7.41) VBG pCO2 39 (38-50) mmHg VBG pO2 24 mmHg VBG HCO3 27 mmol/L VBG O2 Saturation < 60.0 % VBG Base Excess 2.3 mEq/L POC Sodium 134 L (135-144) mmol/L Sodium 132 L (136-145) mmol/L POC Potassium 3.2 L (3.3-5.0) mmol/L Potassium 3.3 L (3.5-5.1) mmol/L POC Chloride 96 L (101-112) mmol/L Chloride 94 L (98-107) mmol/L Carbon Dioxide 24 (21-32) mmol/L POC Total CO2 24 (24-31) mmol/L Anion Gap 14 H (3-11) POC Anion Gap 18.0 (16-25) mmol/L POC BUN 24 H (7-18) mg/dl BUN 27 H (6-23) mg/dl Creatinine 0.81 (0.6-1.2) mg/dl POC Creatinine 0.8 (0.6-1.3) mg/dl Est Cr Clr Drug Dosing 92.6 ml/min Est GFR ( Amer) 95.4 ml/min Est GFR (Non-Af Amer) 82.3 ml/min BUN/Creatinine Ratio 33.3 H (10-20) Glucose 131 H (70-99(Fasting)) mg/dl POC Glucose (other) 128 H (70-99) mg/dl Lactate (0.4-2.0) mmol/L Calcium 9.5 (8.6-10.3) mg/dl POC Ioniz Calcium Tenisha 1.06 L (1.12-1.32) mmol/l Magnesium (1.7-2.4) mg/dl Total Bilirubin 1.2 H (0.2-1.0) mg/dl AST 46 H (13-39) U/L ALT 19 (7-52) U/L Alkaline Phosphatase 149 H (34-104) U/L Troponin I High Sens 61.9 H* (0-14) pg/ml B-Natriuretic Peptide 732 H (0-100) pg/ml Total Protein 7.2 (6.0-8.3) gm/dl Albumin 3.8 (3.4-5.0) gm/dl Globulin 3.4 (2.5-4.0) gm/dl Albumin/Globulin Ratio 1.1 (0.9-2) TSH 0.693 (0.300-4.500) uIu/ml Adenovirus (PCR) Not Detected (NotDetected) B. pertussis DNA (PCR) Not Detected (NotDetected) B.parapertussis DNA PCR Not Detected (NotDetected) C. pneumoniae DNA (PCR) Not Detected (NotDetected) Coronavirus OC43 (PCR) Not Detected (NotDetected) Coronavirus HKU1 (PCR) Not Detected (NotDetected) Coronavirus 229E (PCR) Not Detected (NotDetected) SARS-CoV-2 (PCR) Not Detected (NotDetected) Coronavirus NL63 (PCR) Not Detected (NotDetected) Human Metapneumovir PCR Not Detected (NotDetected) Influenza Type A (PCR) Not Detected (NotDetected) Influenza Type B (PCR) Not Detected (NotDetected) M. pneumoniae (PCR) Not Detected (NotDetected) Parainfluenza 1 (PCR) Not Detected (NotDetected) Parainfluenza 2 (PCR) Not Detected (NotDetected) Parainfluenza 3 (PCR) Not Detected (NotDetected) Parainfluenza 4 (PCR) Not Detected (NotDetected) RSV (PCR) Not Detected (NotDetected) Entero/Rhino (PCR) Not Detected (NotDetected) 05/28/24 05/28/24 Range/Units 22:03 23:26 WBC (4.8-10.8) K/ul RBC (4.20-5.40) M/uL Hgb (12.0-16.0) g/dl POC Hgb (12.0-16.0) g/dl Hct (37.0-47.0) % POC Hct (37-47) % MCV (80.0-100.0) fL MCH (25.0-34.0) pg MCHC (32.0-36.0) g/dL RDW Std Deviation (36.4-46.3) fL RDW Coeff of Kristine (11.5-14.5) % Plt Count (130-400) K/uL MPV (9.4-12.4) fL Immature Gran % (Auto) % Neut % (Auto) % Lymph % (Auto) % [place] % (Auto) % Eos % (Auto) % Baso % (Auto) % Neut # (Auto) (1.40-6.50) K/uL Lymph # (Auto) (1.20-3.40) K/uL [place] # (Auto) (0.11-0.59) K/uL Eos # (Auto) (0.00-0.50) K/uL Baso # (Auto) (0.00-0.20) K/uL Immature Gran # (Auto) (0.01-0.20) K/uL Absolute Nucleated RBC (0.00-0.12) K/uL Nucleated RBC % (auto) % PT (9.0-12.0) Seconds INR (0.9-1.1) APTT (21-31) Seconds PTT Ratio VBG pH (7.36-7.41) VBG pCO2 (38-50) mmHg VBG pO2 mmHg VBG HCO3 mmol/L VBG O2 Saturation % VBG Base Excess mEq/L POC Sodium (135-144) mmol/L Sodium (136-145) mmol/L POC Potassium (3.3-5.0) mmol/L Potassium (3.5-5.1) mmol/L POC Chloride (101-112) mmol/L Chloride (98-107) mmol/L Carbon Dioxide (21-32) mmol/L POC Total CO2 (24-31) mmol/L Anion Gap (3-11) POC Anion Gap (16-25) mmol/L POC BUN (7-18) mg/dl BUN (6-23) mg/dl Creatinine (0.6-1.2) mg/dl POC Creatinine (0.6-1.3) mg/dl Est Cr Clr Drug Dosing ml/min Est GFR ( Amer) ml/min Est GFR (Non-Af Amer) ml/min BUN/Creatinine Ratio (10-20) Glucose (70-99(Fasting)) mg/dl POC Glucose (other) (70-99) mg/dl Lactate 2.2 H* (0.4-2.0) mmol/L Calcium (8.6-10.3) mg/dl POC Ioniz Calcium Tenisha (1.12-1.32) mmol/l Magnesium 1.8 (1.7-2.4) mg/dl Total Bilirubin (0.2-1.0) mg/dl AST (13-39) U/L ALT (7-52) U/L Alkaline Phosphatase (34-104) U/L Troponin I High Sens 61.9 H* (0-14) pg/ml B-Natriuretic Peptide (0-100) pg/ml Total Protein (6.0-8.3) gm/dl Albumin (3.4-5.0) gm/dl Globulin (2.5-4.0) gm/dl Albumin/Globulin Ratio (0.9-2) TSH (0.300-4.500) uIu/ml Adenovirus (PCR) (NotDetected) B. pertussis DNA (PCR) (NotDetected) B.parapertussis DNA PCR (NotDetected) C. pneumoniae DNA (PCR) (NotDetected) Coronavirus OC43 (PCR) (NotDetected) Coronavirus HKU1 (PCR) (NotDetected) Coronavirus 229E (PCR) (NotDetected) SARS-CoV-2 (PCR) (NotDetected) Coronavirus NL63 (PCR) (NotDetected) Human Metapneumovir PCR (NotDetected) Influenza Type A (PCR) (NotDetected) Influenza Type B (PCR) (NotDetected) M. pneumoniae (PCR) (NotDetected) Parainfluenza 1 (PCR) (NotDetected) Parainfluenza 2 (PCR) (NotDetected) Parainfluenza 3 (PCR) (NotDetected) Parainfluenza 4 (PCR) (NotDetected) RSV (PCR) (NotDetected) Entero/Rhino (PCR) (NotDetected) Imaging Data Radiologist's Impression: Abdomen/Pelvis CT 05/28/24 20:38 Exam(s): CT ABDOMEN + PELVIS With Contrast IV Amt: 116 ML OPTIRAY 320 EXAM: CT Abdomen and Pelvis With Intravenous Contrast CLINICAL HISTORY: Reason for exam: abd pain ro perf. TECHNIQUE: Axial computed tomography images of the abdomen and pelvis with intravenous contrast. Automated exposure control was utilized for the study. A dose lowering technique was utilized adhering to the principles of ALARA. CONTRAST: Patient received 116 ML OPTIRAY 320 of IV contrast COMPARISON: 04/04/2023 FINDINGS: Lung bases: Left lower lobe atelectasis. ABDOMEN: Liver: Fatty infiltration of liver. Gallbladder and bile ducts: Postoperative changes prior cholecystectomy. No ductal dilation. Pancreas: Unremarkable. No mass. No ductal dilation. Spleen: Unremarkable. No splenomegaly. Adrenals: Unremarkable. No mass. Kidneys and ureters: No hydronephrosis. No renal or ureteral calculi. Stomach and bowel: Unremarkable. No obstruction. No mucosal thickening. PELVIS: Appendix: No findings to suggest acute appendicitis. Bladder: Tiny right-sided bladder calculus present new when compared to prior exam may represent a recently passed ureteral stone. Reproductive: Unremarkable as visualized. ABDOMEN and PELVIS: Intraperitoneal space: Unremarkable. No free air. No significant fluid collection. Bones/joints: Chronic L3 and L1 superior endplate compression fractures. No dislocation. Soft tissues: Unremarkable. Vasculature: Unremarkable. No abdominal aortic aneurysm. Lymph nodes: Unremarkable. No enlarged lymph nodes. IMPRESSION: No acute findings in the abdomen or pelvis. Electronically signed by: Blaine Betancourt MD 05/28/24 22:36 PM Chest CTA 05/28/24 20:38 Exam(s): CTA CHEST IV Amt: 16 ML OPTIRAY 320 EXAM: CT Angiography Chest With Intravenous Contrast CLINICAL HISTORY: Reason for exam: ro PE. TECHNIQUE: Axial computed tomographic angiography images of the chest with intravenous contrast. Automated exposure control was utilized for the study. A dose lowering technique was utilized adhering to the principles of ALARA. MIP reconstructed images were created and reviewed. COMPARISON: No relevant prior studies available. FINDINGS: Limitations: Exam limited secondary to patient respiratory motion. Pulmonary arteries: Unremarkable. No pulmonary embolism. Aorta: No acute findings. No thoracic aortic aneurysm. Lungs: Diffuse groundglass opacity scattered throughout the lungs bilaterally. Pleural space: Unremarkable. No significant effusion. No pneumothorax. Heart: Unremarkable. No cardiomegaly. No significant pericardial effusion. No evidence of RV dysfunction. Mediastinum: Numerous nonpathologically enlarged mediastinal lymph nodes. Right hilar lymphadenopathy measuring 2 cm. Bones/joints: No acute fracture. No dislocation. Soft tissues: Unremarkable. Lymph nodes: See above. IMPRESSION: Exam limited as described above No pulmonary embolus Multifocal pneumonia with reactive lymphadenopathy in the mediastinum and right hilum Electronically signed by: Blaine Betancourt MD 05/28/24 22:04 PM ECG Data Attestation: I personally reviewed and interpreted this ECG as follows: Interpretation: Sinus tachycardia with rate of 125. CT QRS and QTc intervals within normal limits. No ST elevation or ST depression. [facility] Narrative 2033: The patient was evaluated in room A9. A complete history and physical exam was performed Cardiac monitoring: An order was placed for continuous cardiac monitoring. The monitor shows a rate of 120 with sinus tachycardia rhythm interpreted by me Patient found to be hypoxic on room air for supplemental oxygen was applied which improved the patient's oxygen saturation. 2240: Vital signs stable on supplemental oxygen. Labs show leukocytosis of 14.3. VBG shows a venous pH of 7.44 with venous pCO2 of 39. High-sensitivity troponin 61.9. BNP 732. Patient treated with Lasix. CTA of the chest shows no pulmonary embolus it does show multifocal pneumonia. Patient treated with Zosyn. BioFire negative. CT abdomen pelvis is negative. Impression & Plan Hypoxia, CHF (congestive heart failure), Pneumonia Critical Care Time Critical Care Time: Yes Total Critical Care Time: 59 I have personally spent greater than 59 minutes of critical care time in the direct management of this patient. This includes bedside care, interpretation of diagnostic studies, and testing, discussion with consultants, patient, and family members, and other required patient management activities. This 59 minutes is in excess of all separately billable procedures. Discharge Plan Visit Data Chief Complaint: Shortness of Breath/Dyspnea Stated Complaint: SOB, Cough ED Provider: Caesar Maria Discharge Problem: Hypoxia, CHF (congestive heart failure), Pneumonia Patient Disposition: Admitted As Inpatient Discharge Instructions Interventions: ED Discharge Assessment Last Done: 05/29/24 01:03 Discharge Problem: Pneumonia Qualifiers: Pneumonia type: due to unspecified organism Laterality: bilateral Lung location: unspecified part of lung Qualified Code(s): J18.9 - Pneumonia, unspecified organism
[2024-05-29] MEDS: POTASSIUM CHLORIDE PWD 20 MEQ PACK PO STA (02:48)
[2024-05-29 03:01] LABS: Basophils # (auto) 0.04 K/uL (0.00-0.20); Basophils % (auto) 0.4 %; Hemoglobin 11.9 g/dl (12.0-16.0); Immature Granulocytes # (auto) 0.06 K/uL (0.01-0.20); Immature Granulocytes % (auto) 0.6 %; Lymphocytes # (auto) 1.75 K/uL (1.20-3.40); Lymphocytes % (auto) 17.7 %; Mean Corpuscular Hemoglobin 32.6 pg (25.0-34.0); Mean Corpuscular Hgb Conc 32.2 g/dL (32.0-36.0); Mean Corpuscular Volume 101.4 fL (80.0-100.0); Monocytes # (auto) 0.33 K/uL (0.11-0.59); Monocytes % (auto) 3.3 %; Neutrophils # (auto) 7.71 K/uL (1.40-6.50); Platelet Count 242 K/uL (130-400); RDW Coefficient of Variation 15.7 % (11.5-14.5); RDW Standard Deviation 59.4 fL (36.4-46.3); Red Blood Count 3.65 M/uL (4.20-5.40); White Blood Count 9.89 K/ul (4.8-10.8)
[2024-05-29 03:18] LABS: BUN Creatinine Ratio 28.7 (10-20); Calcium 9.4 mg/dl (8.6-10.3); Creatinine Clr Calc Pharmacy 79.1 ml/min; Est GFR (African American) 79.7 ml/min; Est GFR (Non-African American) 68.8 ml/min; Potassium 3.3 mmol/L (3.5-5.1)
[2024-05-29] MEDS: CEFEPIME 2,000 MG in SYRINGE 0 ML IV SCH (05:47)
[2024-05-29] MEDS: oxyCODONE HCL IR 5 MG TAB (IMMEDIATE RELEASE) PO PRN (05:59)
--- NOTE | 2024-05-29 07:47 | XRay Report ---
XR chest 1V not portable HISTORY: Chest pain, nonspecific COMPARISON: Chest 04/17/2023. FINDINGS: Low lung volumes with interstitial thickening and hazy airspace opacities. This has slightl y progressed. Chronic elevation the right hemidiaphragm. The heart remains mildly enlarged. No pneumo thorax. No pleural effusions. IMPRESSION: Interval progression of the interstitial thickening and hazy airspace opacities. This favors a pneumo ce. ACT 112: Negative or not required by law. Electronically signed by: Alok Gonzales M.D. 05/29/2024 7:45 AM
[2024-05-29] MEDS: IPRATROPIUM BROMIDE NEB SOLN 0.02% 0.5MG/2.5ML VIAL INH SCH (07:50)
[2024-05-29] MEDS: LEVALBUTEROL 1.25 MG/3 ML NEB NEB SCH (07:50)
[2024-05-29] MEDS: ENOXAPARIN INJ 40 MG/0.4 ML SYR SQ SCH (08:51)
[2024-05-29] MEDS: DOXYCYCLINE HYCLATE 100 MG CAP PO SCH (08:51)
[2024-05-29 09:19] LABS: Base Excess VBG -0.8 mEq/L; HCO3 VBG 24 mmol/L; Oxygen Saturation VBG 67.8 %; PCO2 VBG 41 mmHg (38-50); PO2 VBG 42 mmHg; pH VBG 7.38 (7.36-7.41)
[2024-05-29 09:49] LABS: BUN Creatinine Ratio 35.4 (10-20); Calcium 9.2 mg/dl (8.6-10.3); Creatinine Clr Calc Pharmacy 94.2 ml/min; Est GFR (African American) 98.4 ml/min; Est GFR (Non-African American) 84.9 ml/min; Potassium 3.8 mmol/L (3.5-5.1)
[2024-05-29] MEDS: PANTOprazole 40 MG TAB PO SCH (09:49)
[2024-05-29] MEDS: FOLIC ACID 1 MG TAB PO SCH (09:49)
[2024-05-29 11:05] LABS: Appearance Urine Cloudy (Clear); Bacteria Urine Automated 1+ (None Seen); Bilirubin Urine Negative (Negative); Blood Urine Negative (Negative); Color Urine Yellow; Epithelial Cell Urine Auto 0-2 /hpf (0-2); Glucose Urine UA Negative (Negative); Ketones Urine Trace (Negative); Leukocyte Esterase Urine Negative (Negative); Nitrite Urine Negative (Negative); Protein Urine Trace (Negative); RBC Urine Automated >20 /hpf (0-2); Specific Gravity Urine > 1.045 (1.000-1.030); Urobilinogen Urine Negative (Negative); WBC Urine Automated 0-5 /hpf (0-5); pH Urine 5.5 (4.5-7.5)
[2024-05-29 11:09] LABS: Amphetamines+Metham, Urine Neg (Neg); Barbiturates, Urine Neg (Neg); Benzodiazepine, Urine Neg (Neg); Cocaine, Urine Neg (Neg); Fentanyl, Urine Neg (Neg); MDMA (Ecstacy), Urine Neg (Neg); Marijuana, Urine Neg (Neg); Methadone, Urine Neg (Neg); Opiate, Urine Neg (Neg); Phencyclidine, Urine Neg (Neg)
--- NOTE | 2024-05-29 11:26 | Cardiology Consultation ---
Date of Consultation May 29, 2024 Assessment & Plan (1) Acute hypoxemic respiratory failure: (2) Multifocal pneumonia: (3) Elevated troponin: (4) Sinus tachycardia: (5) Family history of ischemic heart disease: Plan Complex immunocompromised 54-year-old female admitted with acute hypoxic respiratory failure, multifocal pneumonia. Cardiology consultation requested due to congestive heart failure concerns. History, examination, and imaging without evidence of acute decompensated heart failure. Telemetry notable for sinus tachycardia only. High-sensitivity troponin minimally elevated, asymptomatic, without acute EKG change or symptoms to suggest an acute coronary syndrome. Cardiac risk factors include hypertension, dyslipidemia, history of tobacco abuse, prediabetes, inactivity/obesity, family history. Recommendations: 1. Pneumonia treatment as per Hospitalist 2. Trial low-dose beta-stella therapy, metoprolol succinate 12.5 mg/day 3. Trial aspirin 81 mg/day 4. Consider outpatient pharmacological stress testing once recovered Supervising Physician Co-Signing Physician Notes Attending attestation: Case reviewed with the advanced practitioner. I have personally performed a history and physical examination on the patient. I have reviewed the advanced practitioner's documentation on the date of service referenced in note, and I agree with, and take responsibility for the plan of care. Dillon Frazier DO History of Present Illness Reason for Consultation: Congestive heart failure Requesting Physician: Dr. Pereira Attending Physician: Dr. Mat Buckley MD History of Present Illness Mrs. 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 Patient notes approximately 1 week history of cough, worsening shortness of breath, weakness, decreased appetite. Notes "I thought I had a bout of the flu but it lasted too long." Chest imaging with multifocal pneumonia with reactive lymphadenopathy in the mediastinum and right hilum Patient notes significant improvement with administration of supplemental oxygen on presentation. EKG revealed sinus tachycardia with a ventricular rate of 125 bpm with possible left atrial enlargement, diffuse T wave abnormality. High-sensitivity troponin minimally elevated at 61.9 pg/mL, x 2 Resting echocardiography technically limited, with hyperdynamic LV systolic function, EF 65 to 70% No chest pain, palpitations, orthopnea, PND, lower extremity peripheral edema, near-syncope, or syncope. Patient denies prior cardiac history. She specifically denies history of CAD, OH, CHF, arrhythmia, heart murmur, rheumatic fever, or scarlet fever. Past Medical and Surgical History: Polymyositis History of tobacco abuse Anxiety Depression Status post right knee ACL repair Carpal tunnel Dental surgery Cholecystectomy Tubal ligation Muscle biopsy Family History: Father with old age, underlying CAD, passing at the age of 84. Mother at the age of 74 with leukemia. 1 brother with an OH at 58. 1 sister is alive and well, without cardiac issues. Social history: Reformed smoker having quit in April 2023. No smokeless tobacco. Social alcohol. Disabled, previously working at [employer] x 16 years. Lives in [place] with her , daughter lives a few doors away. Allergies Allergy/AdvReac Type Severity Reaction Status Date / Time clindamycin Allergy Hives Verified 05/28/24 23:44 Home Medications Medication Instructions Recorded Confirmed Type Vitamin D Cap 50,000 unit PO .WEEKLY 05/28/24 05/28/24 History duloxetine 60 mg capsule,delayed 60 mg PO DAILY 05/28/24 05/28/24 History release folic acid 1 mg tablet 1 mg PO DAILY 05/28/24 05/28/24 History gabapentin 300 mg capsule 600 mg PO TID 05/28/24 05/28/24 History lisinopril 10 mg tablet 10 mg PO DAILY 05/28/24 05/28/24 History lorazepam 0.5 mg tablet 0.5 mg PO DAILY PRN Anxiety 05/28/24 05/28/24 History methotrexate sodium 2.5 mg tablet 15 mg PO .QTUES 05/28/24 05/28/24 History pantoprazole 40 mg tablet,delayed 40 mg PO QAM 05/28/24 05/28/24 History release ropinirole 1 mg tablet 1 mg PO BID 05/28/24 05/28/24 History zinc sulfate 66 mg tablet 66 mg PO DAILY 05/28/24 05/28/24 History Patient History Medical History Major depressive disorder Anxiety disorder Hypertension Diverticulitis Urinary tract infection HAL (acute kidney injury) Sepsis Neutropenic fever Surgical History History of laparoscopic cholecystectomy Family History Mother Heart disease Cancer Father Heart disease Diabetes Brother Heart disease Social History Smoking Status: Former smoker Tobacco Type: Cigarettes Cigarettes Per Day: 30; Smoking End Date: 04/04/23; Second Hand Exposure: No; Hx Alcohol Use: No Hx Substance Use: No Preferred Language: Bengali Communication Ability: Effective Riprap Worker Required: No Beliefs That Will Affect Care: None Current Living Situation: Spouse Other Information That Helps Us Care for You: No Feels Safe at Home: Yes Safety Concerns: Feels Safe At This Time Assistive Devices: Wheelchair Review of Systems Review of Systems: Complete review of systems is otherwise as stated above, negative, or noncontributory Physical Exam Physical Exam: General: A&Ox3. NAD. HENT: Normocephalic. Atraumatic. Eyes: PER. Conjunctiva pink, sclera clear. Neck: No carotid bruits. No JVD. No HJR. Heart: Regular, 106 bpm. No murmur. No rub. Lungs: Decreased/diminished at the right base. Right sided rhonchi. No wheeze. Abdomen: +BS. Soft. Nontender. No masses or organomegaly. Extremities: Cold, left more than right. No edema. Limited neurological examination is without focal deficits. Pulses: radial=2/4, posterior tibial=1/4. Results & Data Vital Signs (Past 12 Hours) Vital Signs Temp Pulse Pulse Resp BP Pulse Ox O2 Del Method 05/29/24 07:50 102 H 20 92 Oxymask 05/29/24 07:45 36.6 C 110 H 22 122/84 92 Oxymask 05/29/24 07:15 114 H 05/29/24 07:15 Oxymask 05/29/24 04:44 36.6 C 104 H 22 123/75 95 Oxymask 05/29/24 01:30 Oxymask 05/29/24 01:30 37 C 120 H 123/64 91 Oxymask 05/29/24 01:00 116 H 05/29/24 00:21 121 H 32 H 139/84 95 Oxymask O2 Flow Rate 05/29/24 07:50 10 05/29/24 07:45 11 05/29/24 07:15 05/29/24 07:15 05/29/24 04:44 10 05/29/24 01:30 10 05/29/24 01:30 10 05/29/24 01:00 05/29/24 00:21 10 Laboratory Results Cardiac Enzymes 05/28/24 05/28/24 Range/Units 20:12 22:03 AST 46 H (13-39) U/L Troponin I High Sens 61.9 H* 61.9 H* (0-14) pg/ml B-Natriuretic Peptide 732 H (0-100) pg/ml Coagulation 05/28/24 Range/Units 20:12 PT 12.3 H (9.0-12.0) Seconds APTT 22 (21-31) Seconds B-Natriuretic Peptide 732 H (0-100) pg/ml CBC 05/28/24 05/29/24 Range/Units 20:12 02:38 WBC 14.33 H 9.89 (4.8-10.8) K/ul RBC 4.15 L 3.65 L (4.20-5.40) M/uL Hgb 13.8 11.9 L (12.0-16.0) g/dl Hct 41.9 37.0 (37.0-47.0) % Plt Count 322 242 (130-400) K/uL Neut # (Auto) 7.84 H 7.71 H (1.40-6.50) K/uL Lymph # (Auto) 4.87 H 1.75 (1.20-3.40) K/uL Heard # (Auto) 1.43 H 0.33 (0.11-0.59) K/uL Eos # (Auto) 0.03 0.00 (0.00-0.50) K/uL Baso # (Auto) 0.06 0.04 (0.00-0.20) K/uL Comprehensive Metabolic Panel 05/28/24 05/29/24 05/29/24 Range/Units 20:12 02:38 09:00 Sodium 132 L 132 L 134 L (136-145) mmol/L Potassium 3.3 L 3.3 L 3.8 (3.5-5.1) mmol/L Chloride 94 L 95 L 99 (98-107) mmol/L Carbon Dioxide 24 26 26 (21-32) mmol/L BUN 27 H 27 H 28 H (6-23) mg/dl Creatinine 0.81 0.94 0.79 (0.6-1.2) mg/dl Glucose 131 H 168 H 167 H (70-99(Fasting)) mg/dl Calcium 9.5 9.4 9.2 (8.6-10.3) mg/dl AST 46 H (13-39) U/L ALT 19 (7-52) U/L Alkaline Phosphatase 149 H (34-104) U/L Total Protein 7.2 (6.0-8.3) gm/dl Albumin 3.8 (3.4-5.0) gm/dl Intake and Output 05/28/24 05/29/24 05/29/24 22:59 06:59 14:59 Intake Total 820 / 820 Balance 820 / 820 Intake: IV 820 / 820 Albumin 25% 12.5 gm In 50 ml @ 100 / 100 50 mls/hr IV ONE STA Rx#: [id number] Doxycycline Hyclate 100 mg In 100 / 100 Dextrose 5% Mini-B 100 ml @ 50 mls/hr IV NOW STA Rx#:[id number] Magnesium Sulfate / D5w 1 gm In 100 / 100 100 ml @ 50 mls/hr IV ONE STA Rx#:[id number] Piperacillin/Tazobactam 4.5 gm 120 / 120 In 120 ml @ 240 mls/hr IV NOW ONE Rx#:[id number] Potassium Chloride / Wtr 10 meq 400 / 400 In 100 ml @ 100 mls/hr IV Q1H [facility] Rx#:[id number] Other: # Unmeasured Voids 1 1 Weight 92.3 kg 90.775 kg Weight Measurement Method Built in [facility] Diagnostic Findings May 29, 2024 TTE Interpretation Summary ([facility], Dr. Frazier): Technically limited. Borderline concentric LVH. No regional wall motion abnormalities. Hyperdynamic LV systolic function. LVEF 65 to 70%. RV appears mildly dilated on technically limited visualization. RV systolic function appears grossly normal qualitatively. Doppler assessment of left ventricular diastolic function is indeterminate due to presence of underlying tachycardia. Doppler findings do not suggest pulmonary hypertension Telemetry: Sinus/sinus tachycardia
--- NOTE | 2024-05-29 13:55 | Hospitalist Progress Note ---
Date of Service May 29, 2024 Assessment & Plan (1) Acute hypoxemic respiratory failure: Plan: Acute hypoxic respiratory failure Sepsis Secondary to multifocal pneumonia Immunocompromised state --Chest CTA:No pulmonary embolus. Multifocal pneumonia with reactive lymphadenopathy in the mediastinum and right hilum -- BioFire negative --Lactic acidosis resolved with IV fluids --Procalcitonin 1.3 --Blood cultures pending --Continue cefepime, doxycycline Supplemental oxygen as needed If no clinical improvement, will request pulmonary evaluation Abnormal urinalysis Possible urinary tract infection Urine culture pending Empirically on cefepime as above Sinus tachycardia Elevated troponin, likely demand ischemia secondary to sepsis/hypoxia --ECHO: Borderline concentric LVH. No regional wall motion abnormality. Left ventricle is hyperdynamic. EF 65 to 70%. Right ventricle appears mildly dilated. RV systolic function appears normal. Findings do not suggest pulmonary hypertension. Left ventricular diastolic function is indeterminate due to presence of underlying tachycardia. -- Metoprolol dose increased to 12.5 mg/day --Started on aspirin 81 mg daily Appreciate cardiology input Plan to consider outpatient stress test as able Hyponatremia Hypokalemia Sodium levels improved to 134 Replete electrolytes as needed Monitor Hypertension Resume lisinopril as able Started on metoprolol Monitor Prediabetes Update HbA1c Polymyositis Follows with [facility] neurology On methotrexate weekly Also on folic acid Mood disorder Restless leg syndrome Resume home medications as able Past tobacco abuse As per records DVT Px: Lovenox SQ Code Status Full code Admission and Anticipated Discharge Date Admission Date: May 28, 2024 Subjective Patient is seen and examined at bedside Dyspnea better when compared to yesterday Reports having cough with some expectoration Discussed with cardiology today Discussed with patient's family at bedside Denies any chest pain, nausea, vomiting, abdominal pain Review of Systems Review of Systems: All systems reviewed & are unremarkable except as noted in Subjective Physical Exam Physical Exam: Physical Exam: Vitals chronically appearing signs as noted above General Appearance:Moderately built and nourished, no apparent distress, Head: normocephalic, Atraumatic Eyes: normal inspection, EOMI Neck: supple, Trachea midline Respiratory/Chest: Decreased breath sounds, +minimal crackles, No accessory muscle use Cardiovascular: S1, S2, No murmur Abdomen/GI:Soft, Non tender, Bowel sounds present Extremities/Musculoskeletal:normal inspection, no edema, + LE B/L Atrophic Neurologic/Psych:AAOX3, grossly no focal neurological deficits, B/L LE 3/5 Skin: normal color, warm Results & Data Results & Data Vital Signs (Past 12 Hours) Vital Signs Temp Pulse Pulse Resp BP Pulse Ox O2 Del Method 05/29/24 12:56 102 H 18 90 Oxymask 05/29/24 11:50 36.3 C L 105 H 18 114/75 94 Oxymask 05/29/24 07:50 102 H 20 92 Oxymask 05/29/24 07:45 36.6 C 110 H 22 122/84 92 Oxymask 05/29/24 07:15 114 H 05/29/24 07:15 Oxymask 05/29/24 04:44 36.6 C 104 H 22 123/75 95 Oxymask O2 Flow Rate 05/29/24 12:56 11 05/29/24 11:50 11 05/29/24 07:50 10 05/29/24 07:45 11 05/29/24 07:15 05/29/24 07:15 05/29/24 04:44 10 Laboratory Results Short CBC 05/28/24 05/29/24 Range/Units 20:12 02:38 WBC 14.33 H 9.89 (4.8-10.8) K/ul Hgb 13.8 11.9 L (12.0-16.0) g/dl Hct 41.9 37.0 (37.0-47.0) % Plt Count 322 242 (130-400) K/uL BMP 05/28/24 05/29/24 05/29/24 20:12 02:38 09:00 Sodium 132 L 132 L 134 L Potassium 3.3 L 3.3 L 3.8 Chloride 94 L 95 L 99 Carbon Dioxide BUN 27 H 27 H 28 H Creatinine 0.81 0.94 0.79 Glucose 131 H 168 H 167 H Calcium 9.5 9.4 9.2 Liver Function 05/28/24 Range/Units 20:12 Total Bilirubin 1.2 H (0.2-1.0) mg/dl AST 46 H (13-39) U/L ALT 19 (7-52) U/L Alkaline Phosphatase 149 H (34-104) U/L Albumin 3.8 (3.4-5.0) gm/dl Urine 05/29/24 Range/Units Unknown Urine Color Yellow Urine Appearance Cloudy A (Clear) Urine pH 5.5 (4.5-7.5) Ur Specific Gilman > 1.045 H (1.000-1.030) Urine Protein Trace H (Negative) Urine Glucose (UA) Negative (Negative)
[2024-05-29] MEDS: METOPROLOL SUCC 25MG EXT REL TAB PO SCH (15:06)
[2024-05-29] MEDS: ASPIRIN 81 MG ECTAB PO SCH (15:06)
--- NOTE | 2024-05-30 05:58 | Electrocardiogram Report ---
Test Reason : Blood Pressure : */* mmHG Vent. Rate : 125 BPM Atrial Rate : 125 BPM P-R Int : 122 ms QRS Dur : 82 ms QT Int : 330 ms P-R-T Axes : 27 19 -1 degrees QTcB Int : 476 ms Sinus tachycardia T wave abnormality, consider anterior ischemia Abnormal ECG When compared with ECG of 18-Apr-2023 15:24, Nonspecific T wave abnormality, improved in Lateral leads Confirmed by Rigo Coughlin ([id number]) on 05/30/2024 5:58:22 AM Referred By: REFERRED SELF Confirmed By: Rigo Coughlin
[2024-05-30 06:50] LABS: Hematocrit (blood only) 34.6 % (37.0-47.0); Mean Corpuscular Hgb Conc 31.8 g/dL (32.0-36.0); Mean Corpuscular Volume 103.9 fL (80.0-100.0); Mean Platelet Volume 9.1 fL (9.4-12.4); Platelet Count 245 K/uL (130-400); RDW Coefficient of Variation 15.9 % (11.5-14.5); RDW Standard Deviation 60.3 fL (36.4-46.3); Red Blood Count 3.33 M/uL (4.20-5.40); White Blood Count 8.21 K/ul (4.8-10.8)
[2024-05-30 07:04] LABS: Calcium 9.1 mg/dl (8.6-10.3); Est GFR (African American) 119.1 ml/min; Est GFR (Non-African American) 102.8 ml/min; Potassium 3.5 mmol/L (3.5-5.1)
[2024-05-30 08:27] LABS: Estimated Average Glucose 103 mg/dl; Hemoglobin A1C 5.2 % (4.5-5.6)
[2024-05-30] MEDS: POTASSIUM CHLORIDE CRTAB 20 MEQ TABCR PO ONE (09:26)
--- NOTE | 2024-05-30 09:45 | Cardiology Progress Note ---
Date of Service May 30, 2024 Assessment & Plan (1) Acute hypoxemic respiratory failure: (2) Multifocal pneumonia: (3) Elevated troponin: (4) Sinus tachycardia: (5) Family history of ischemic heart disease: Plan Complex immunocompromised 54-year-old female admitted with acute hypoxic respiratory failure, multifocal pneumonia. Cardiology consultation requested due to congestive heart failure concerns. History, examination, and imaging without evidence of acute decompensated heart failure. Telemetry notable for sinus tachycardia only. High-sensitivity troponin minimally elevated, asymptomatic, without acute EKG change or symptoms to suggest an acute coronary syndrome. Resting echocardiography on May 29, 2024 with hyperdynamic LV systolic function without regional wall motion abnormalities. Cardiac risk factors include hypertension, dyslipidemia, history of tobacco abuse, prediabetes, inactivity/obesity, family history. Recommendations: 1. Pneumonia treatment as per Hospitalist 2. Supplement potassium 3. Increase metoprolol succinate to 25 mg/day. 4. Continue aspirin 81 mg/day 5. Consider outpatient pharmacological stress testing once recovered from the multifocal pneumonia. Admission and Anticipated Discharge Date Admission Date: May 28, 2024 Supervising Physician Co-Signing Physician Notes Attending attestation: Case reviewed with the advanced practitioner. I have personally performed a history and physical examination on the patient. I have reviewed the advanced practitioner's documentation on the date of service referenced in note, and I agree with, and take responsibility for the plan of care. Dillon Frazier, DO Subjective Patient seen and examined. Chart, medications, and telemetry reviewed. Feels better overall, "more cognizant." Notes ongoing cough with difficulty expectorating. No chest pain. No palpitations. Telemetry: Sinus tachycardia May 29, 2024 TTE Interpretation Summary ([facility], Dr. Frazier): Technically limited, adequate for the evaluation of the referral indication. Borderline concentric LVH. No regional wall motion abnormalities. Hyperdynamic LV systolic function, EF 65 to 70%. RV appears mildly dilated on technically limited visualization. RV systolic function grossly normal qualitatively. Doppler assessment of left ventricular diastolic function indeterminate due to presence of underlying tachycardia. Doppler findings do not suggest pulmonary hypertension. Review of Systems Review of Systems: Complete review of systems is otherwise as stated above, negative, or noncontributory Physical Exam Physical Exam: General: A&Ox3. NAD. HENT: Normocephalic. Atraumatic. Eyes: PER. Conjunctiva pink, sclera clear. Neck: No carotid bruits. No JVD. No HJR. Heart: Regular, 110 bpm. No murmur. No rub. Lungs: Decreased/diminished at the left base. No rhonchi. No wheeze. Abdomen: +BS. Soft. Nontender. No masses or organomegaly. Extremities: Cold, left more than right. No edema. Limited neurological examination is without focal deficits. Pulses: radial=2/4, posterior tibial=1/4. Results & Data Vital Signs (Past 12 Hours) Vital Signs Temp Pulse Pulse Resp BP Pulse Ox O2 Del Method 05/30/24 08:29 36.8 C 111 H 28 H 122/81 94 Nasal Cannula 05/30/24 07:26 106 H 05/30/24 07:26 High Flow Nasal Cannula 05/30/24 07:06 110 H 18 96 Nasal Cannula 05/30/24 02:55 36.5 C 102 H 19 121/75 98 High Flow Nasal Cannula 05/30/24 01:52 102 H 24 98 Nasal Cannula 05/29/24 23:37 101 H 05/29/24 23:03 36.7 C 94 H 18 122/85 96 High Flow Nasal Cannula O2 Flow Rate 05/30/24 08:29 6 05/30/24 07:26 05/30/24 07:26 8 05/30/24 07:06 8 05/30/24 02:55 8 05/30/24 01:52 10 05/29/24 23:37 05/29/24 23:03 12 Laboratory Results CBC 05/30/24 Range/Units 05:54 WBC 8.21 (4.8-10.8) K/ul RBC 3.33 L (4.20-5.40) M/uL Hgb 11.0 L (12.0-16.0) g/dl Hct 34.6 L (37.0-47.0) % Plt Count 245 (130-400) K/uL Comprehensive Metabolic Panel 05/29/24 05/30/24 Range/Units 09:00 05:54 Sodium 134 L 132 L (136-145) mmol/L Potassium 3.8 3.5 (3.5-5.1) mmol/L Chloride 99 97 L (98-107) mmol/L Carbon Dioxide 26 25 (21-32) mmol/L BUN 28 H 36 H (6-23) mg/dl Creatinine 0.79 0.61 (0.6-1.2) mg/dl Glucose 167 H 113 H (70-99(Fasting)) mg/dl Calcium 9.2 9.1 (8.6-10.3) mg/dl Intake and Output 05/29/24 05/30/24 05/30/24 22:59 06:59 14:59 Intake Total 800 / 1040 Balance 800 / 1040 Intake: Oral 800 / 1040 Other: # Unmeasured Voids 2 Weight 90.8 kg Weight Measurement Method Built in [facility]
[2024-05-30] MEDS: METOPROLOL SUCC 25MG EXT REL TAB PO ONE (10:24)
[2024-05-30] MEDS ORDERED: LORazepam 0.5 MG TAB PO PRN (11:26)
[2024-05-30] MEDS ORDERED: BENZOCAINE 20% (ORAJEL) 11.9 GM TUBE MT PRN (11:27)
[2024-05-30] MEDS: DULoxetine HCL 60 MG CAP PO SCH (12:28)
[2024-05-30] MEDS: GABAPENTIN 300 MG CAP PO SCH (13:56)
--- NOTE | 2024-05-30 16:45 | Hospitalist Progress Note ---
Date of Service May 30, 2024 Assessment & Plan (1) Acute hypoxemic respiratory failure: Plan: Acute hypoxic respiratory failure Sepsis Secondary to multifocal pneumonia Immunocompromised state --Chest CTA:No pulmonary embolus. Multifocal pneumonia with reactive lymphadenopathy in the mediastinum and right hilum -- BioFire negative --Lactic acidosis resolved with IV fluids --Procalcitonin 1.3 --Blood cultures: Negative to date --Continue cefepime, doxycycline Supplemental oxygen as needed If no clinical improvement, will request pulmonary evaluation Less supplemental oxygen requirement today Continue current management Abnormal urinalysis Possible urinary tract infection Urine culture pending Empirically on cefepime as above Sinus tachycardia Elevated troponin, likely demand ischemia secondary to sepsis/hypoxia --ECHO: Borderline concentric LVH. No regional wall motion abnormality. Left ventricle is hyperdynamic. EF 65 to 70%. Right ventricle appears mildly dilated. RV systolic function appears normal. Findings do not suggest pulmonary hypertension. Left ventricular diastolic function is indeterminate due to presence of underlying tachycardia. --Started on aspirin 81 mg daily Appreciate cardiology input Plan to consider outpatient stress test as able Metoprolol dose increased to 25 mg daily Hyponatremia Hypokalemia Replete electrolytes as needed Monitor Hypertension Resume lisinopril as able Started on metoprolol Monitor Prediabetes Update HbA1c Polymyositis Follows with [facility] neurology On methotrexate weekly Also on folic acid Mood disorder Restless leg syndrome Resume home medications as able Past tobacco abuse As per records DVT Px: Lovenox SQ Code Status Full code Admission and Anticipated Discharge Date Admission Date: May 28, 2024 Subjective Patient is seen and examined at bedside States feeling better today Cough, dyspnea slowly improving Reports aphthous ulcer causing discomfort Denies any chest pain, nausea, vomiting, abdominal pain Review of Systems Review of Systems: All systems reviewed & are unremarkable except as noted in Subjective Physical Exam Physical Exam: Physical Exam: Vitals chronically appearing signs as noted above General Appearance:Moderately built and nourished, no apparent distress, Head: normocephalic, Atraumatic Eyes: normal inspection, EOMI Neck: supple, Trachea midline Respiratory/Chest: Decreased breath sounds, +minimal crackles, No accessory muscle use Cardiovascular: S1, S2, No murmur Abdomen/GI:Soft, Non tender, Bowel sounds present Extremities/Musculoskeletal:normal inspection, no edema, + LE B/L Atrophic Neurologic/Psych:AAOX3, grossly no focal neurological deficits, B/L LE 3/ Skin: normal color, warm Results & Data Results & Data Vital Signs (Past 12 Hours) Vital Signs Temp Pulse Pulse Resp BP Pulse Ox O2 Del Method 05/30/24 16:28 37.0 C 105 H 18 113/68 98 Nasal Cannula 05/30/24 14:26 104 H 05/30/24 12:52 106 H 18 95 Nasal Cannula 05/30/24 12:33 36.3 C L 107 H 20 136/82 94 Nasal Cannula 05/30/24 08:29 36.8 C 111 H 28 H 122/81 94 Nasal Cannula 05/30/24 07:26 106 H 05/30/24 07:26 High Flow Nasal Cannula 05/30/24 07:06 110 H 18 96 Nasal Cannula O2 Flow Rate 05/30/24 16:28 8 05/30/24 14:26 05/30/24 12:52 8 05/30/24 12:33 8 05/30/24 08:29 6 05/30/24 07:26 05/30/24 07:26 8 05/30/24 07:06 8 Laboratory Results Short CBC 05/30/24 Range/Units 05:54 WBC 8.21 (4.8-10.8) K/ul Hgb 11.0 L (12.0-16.0) g/dl Hct 34.6 L (37.0-47.0) % Plt Count 245 (130-400) K/uL BMP 05/30/24 05:54 Sodium 132 L Potassium 3.5 Chloride 97 L Carbon Dioxide 25 BUN 36 H Creatinine 0.61 Glucose 113 H Calcium 9.1
[2024-05-30] MEDS: rOPINIRole HCL 1 MG TABLET PO SCH (20:45)
[2024-05-30] MEDS: guaiFENesin/DEXTROM SYRUP 200MG/20MG 10ML UDC PO PRN (20:49)
[2024-05-31 06:29] LABS: Hematocrit (blood only) 34.4 % (37.0-47.0); Hemoglobin 10.8 g/dl (12.0-16.0); Mean Corpuscular Hemoglobin 32.8 pg (25.0-34.0); Mean Corpuscular Hgb Conc 31.4 g/dL (32.0-36.0); Mean Corpuscular Volume 104.6 fL (80.0-100.0); Mean Platelet Volume 9.3 fL (9.4-12.4); Platelet Count 247 K/uL (130-400); RDW Coefficient of Variation 15.9 % (11.5-14.5); RDW Standard Deviation 61.7 fL (36.4-46.3); Red Blood Count 3.29 M/uL (4.20-5.40); White Blood Count 5.95 K/ul (4.8-10.8)
[2024-05-31 07:09] LABS: Creatinine Clr Calc Pharmacy 122.2 ml/min; Est GFR (African American) 119.1 ml/min; Est GFR (Non-African American) 102.8 ml/min; Potassium 4.3 mmol/L (3.5-5.1)
[2024-05-31] MEDS: METOPROLOL SUCC 25MG EXT REL TAB PO SCH (08:25)
--- NOTE | 2024-05-31 10:04 | Hospitalist Progress Note ---
Date of Service May 31, 2024 Assessment & Plan (1) Acute hypoxemic respiratory failure: Plan: Acute hypoxic respiratory failure Sepsis Secondary to multifocal pneumonia Immunocompromised state --Chest CTA:No pulmonary embolus. Multifocal pneumonia with reactive lymphadenopathy in the mediastinum and right hilum -- BioFire negative --Lactic acidosis resolved with IV fluids --Procalcitonin 1.3 --Blood cultures: Negative to date Currently on cefepime, doxycycline Considering h/o polymyositis, will appreciate Pulm eval and input Patient may need oxygen for dc once stable for dc Cepachol prn for sore throat Abnormal urinalysis Possible urinary tract infection Urine culture had pin point growth, reincubating Empirically on cefepime as above Sinus tachycardia Elevated troponin, likely demand ischemia secondary to sepsis/hypoxia --ECHO: Borderline concentric LVH. No regional wall motion abnormality. Left ventricle is hyperdynamic. EF 65 to 70%. Right ventricle appears mildly dilated. RV systolic function appears normal. Findings do not suggest pulmonary hypertension. Left ventricular diastolic function is indeterminate due to presence of underlying tachycardia. --Started on aspirin 81 mg daily Cardiology recs appreciated Plan to consider outpatient stress test as able once recovered from infection Continue increased Metoprolol succinate 25 mg daily Hyponatremia Monitor electrolytes and replete prn Na 133 today Hypertension Home lisinopril resumed Started on metoprolol as above Prediabetes HbA1c is 5.2 Polymyositis Follows with [facility] neurology On methotrexate weekly Also on folic acid Mood disorder Restless leg syndrome Past tobacco abuse As per records DVT Px: Lovenox SQ Code Status Full code I spent a total of 50 minutes coordinating, documenting and providing care for this patient excluding time spent in performance of separately billed services Admission and Anticipated Discharge Date Admission Date: May 28, 2024 Subjective Patient seen and examined Reports dry cough, shortness of breath Reports sore throat Denied congestion, rhinorrhea, headache, fever, chills, nausea, vomiting. Denied dysuria, freq, urgency Patient is bedbound/wheelchair bound which she stated is due to her polymyositis Physical Exam Constitutional: + well hydrated; no acute distress Eyes: PERRL, conjunctivae normal, anicteric sclerae ENMT: external ear and nose normal, oropharynx normal Respiratory: normal respiratory effort On nasal cannula 5L NC, diminshed breath sounds Cardiovascular: Rate/Rhythm: regular rate and regular rhythm Gastrointestinal (Abdomen): normal bowel sounds, soft, nontender, no hepatosplenomegaly Musculoskeletal: No pedal edema Muscle atrophy in LE Neurologic: PERRL, EOMI, accommodation nl, no face palsy, no dysarthria Psychiatric: A+Ox3, euthymic affect Results & Data Results & Data Vital Signs (Past 12 Hours) Vital Signs Temp Pulse Pulse Resp BP Pulse Ox O2 Del Method 05/31/24 08:13 37.0 C 105 H 21 121/81 91 Nasal Cannula 05/31/24 07:42 108 H 20 97 Nasal Cannula 05/31/24 03:14 36.4 C L 101 H 20 124/83 97 Nasal Cannula 05/31/24 00:22 101 H 18 94 Nasal Cannula 05/30/24 23:00 108 H 05/30/24 22:56 36.6 C 104 H 20 127/89 95 Nasal Cannula O2 Flow Rate 05/31/24 08:13 5 05/31/24 07:42 7 05/31/24 03:14 7 05/31/24 00:22 7 05/30/24 23:00 05/30/24 22:56 7 Laboratory Results Abnormal lab results 05/31/24 Range/Units 05:55 RBC 3.29 L (4.20-5.40) M/uL Hgb 10.8 L (12.0-16.0) g/dl Hct 34.4 L (37.0-47.0) % MCV 104.6 H (80.0-100.0) fL MCHC 31.4 L (32.0-36.0) g/dL RDW Std Deviation 61.7 H (36.4-46.3) fL RDW Coeff of Kristine 15.9 H (11.5-14.5) % MPV 9.3 L (9.4-12.4) fL Sodium 133 L (136-145) mmol/L BUN 25 H (6-23) mg/dl BUN/Creatinine Ratio 41.0 H (10-20) Glucose 103 H (70-99(Fasting)) mg/dl
[2024-05-31] MEDS ORDERED: COUGH DROP (SUGAR FREE) LOZ 24 LOZ/1 BOX BUCCAL PRN (10:05)
[2024-05-31] MEDS: COUGH DROP (SUGAR FREE) LOZ 24 LOZ/1 BOX BUCCAL STA (11:30)
[2024-05-31] MEDS: lisinopril 10 MG TAB PO SCH (11:30)
--- NOTE | 2024-05-31 12:16 | Cardiology Progress Note ---
Date of Service May 31, 2024 Assessment & Plan (1) Acute hypoxemic respiratory failure: (2) Multifocal pneumonia: (3) Elevated troponin: (4) Sinus tachycardia: (5) Family history of ischemic heart disease: Plan Complex immunocompromised 54-year-old female admitted with acute hypoxic respiratory failure, multifocal pneumonia. Cardiology consultation requested due to congestive heart failure concerns. History, examination, and imaging without evidence of acute decompensated heart failure. Telemetry notable for sinus tachycardia. High-sensitivity troponin minimally elevated, asymptomatic, without acute EKG change or symptoms to suggest an acute coronary syndrome. Resting echocardiography on May 29, 2024 with hyperdynamic LV systolic function without regional wall motion abnormalities. Cardiac risk factors include hypertension, dyslipidemia, history of tobacco abuse, prediabetes, inactivity/obesity, family history. Recommendations: 1. Pneumonia treatment as per Hospitalist 2. Continue metoprolol succinate 25 mg/day and aspirin 81 mg/day - Cardiology will sign off; please contact with any questions or concerns. Admission and Anticipated Discharge Date Admission Date: May 28, 2024 Supervising Physician Co-Signing Physician Notes Attending attestation: Case reviewed with the advanced practitioner. I have personally performed a history and physical examination on the patient. I have reviewed the advanced practitioner's documentation on the date of service referenced in note, and I agree with, and take responsibility for the plan of care. Pt with subtle clinical improvement in respiratory status. As hospital stay progresses, it appears presentation likely driven by pulmonary issues and Polymyositis. Relatively mild HS troponin elevation noted on presentation, likely due to myocardial strain in the setting of non cardiac illness. No symptoms suggestive of angina noted. Cardiology to sign off. Call with questions or concerns. Dillon Frazier DO Subjective Patient seen and examined. Chart, medications, and telemetry reviewed. Daughter at bedside. Feeling OK. Ongoing cough, chest congestion. No chest pain. No palpitations. Review of Systems Review of Systems: Complete review of systems is otherwise as stated above, negative, or noncontributory Physical Exam Physical Exam: General: A&Ox3. NAD. HENT: Normocephalic. Atraumatic. Eyes: PER. Conjunctiva pink, sclera clear. Neck: No carotid bruits. No JVD. No HJR. Heart: Regular, 100 bpm. No murmur. No rub. Lungs: Decreased/diminished. Upper expiratory wheezing. Abdomen: +BS. Soft. Nontender. No masses or organomegaly. Extremities: No edema. Limited neurological examination is without focal deficits. Pulses: radial=2/4, posterior tibial=1/4. Results & Data Vital Signs (Past 12 Hours) Vital Signs Temp Pulse Resp BP Pulse Ox O2 Del Method O2 Flow Rate 05/31/24 10:53 Nasal Cannula 5 05/31/24 08:13 37.0 C 105 H 21 121/81 91 Nasal Cannula 5 05/31/24 07:42 108 H 20 97 Nasal Cannula 7 05/31/24 03:14 36.4 C L 101 H 20 124/83 97 Nasal Cannula 7 05/31/24 00:22 101 H 18 94 Nasal Cannula 7 Laboratory Results CBC 05/31/24 Range/Units 05:55 WBC 5.95 (4.8-10.8) K/ul RBC 3.29 L (4.20-5.40) M/uL Hgb 10.8 L (12.0-16.0) g/dl Hct 34.4 L (37.0-47.0) % Plt Count 247 (130-400) K/uL Comprehensive Metabolic Panel 05/31/24 Range/Units 05:55 Sodium 133 L (136-145) mmol/L Potassium 4.3 D (3.5-5.1) mmol/L Chloride 101 (98-107) mmol/L Carbon Dioxide 26 (21-32) mmol/L BUN 25 H (6-23) mg/dl Creatinine 0.61 (0.6-1.2) mg/dl Glucose 103 H (70-99(Fasting)) mg/dl Calcium 9.0 (8.6-10.3) mg/dl Intake and Output 05/30/24 05/31/24 05/31/24 22:59 06:59 14:59 Intake Total 150 / 590 200 / 590 Balance 150 / 589 200 / 589 Intake: Oral 150 / 590 200 / 590 Other: # Unmeasured Voids 1 Weight 91.2 kg Diagnostic Findings Telemetry: Sinus tachycardia May 29, 2024 TTE Interpretation Summary ([facility], Dr. Frazier): Technically limited, adequate for the evaluation of the referral indication. Borderline concentric LVH. No regional wall motion abnormalities. Hyperdynamic LV systolic function, EF 65 to 70%. RV appears mildly dilated on technically limited visualization. RV systolic function grossly normal qualitatively. Doppler assessment of left ventricular diastolic function indeterminate due to presence of underlying tachycardia. Doppler findings do not suggest pulmonary hypertension.
--- NOTE | 2024-05-31 16:13 | Pulmonary Consultation ---
Date of Consultation May 31, 2024 Assessment & Plan (1) Abnormal CT scan, chest: I reviewed serial CT scans which show chronic upper lobe predominant groundglass opacities and emphysematous change. 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 She may also have methotrexate induced lung disease as well. Would recommend holding methotrexate at this time, but continuing folic acid. I did offer the patient bronchoscopy to evaluate for atypical organisms such as fungal organisms and nontuberculous Mycobacterium given her immunocompromise state. Will plan for bronchoscopy on Wednesday. Please keep the patient n.p.o. at midnight. Hold anticoagulation 24 hours prior to bronchoscopy. Will check CK levels and ESR. She would benefit from outpatient PFTs. She likely has an element of COPD given the emphysematous change and extensive tobacco history. (2) Polymyositis: I would recommend the patient transition off methotrexate to a different immunosuppressive therapy such as rituximab or Imuran therapy. I would recom mend that she follow-up with a polymyositis specific clinic such as a clinic at [facility] or [facility]. Will check CK levels to evaluate for active disease. (3) Methotrexate, director long term care, current use: Discontinue methotrexate at this period of time as this can continue to predispose her to pneumonia and cause diffuse alveolar damage. It is not clear that she has responded favorably to methotrexate over the past 6 to 8 months. (4) Hypoxia: Suspect she has chronic hypoxia with superimposed acute hypoxemia. Recommend maintaining euvolemia. Wean oxygen saturations to maintain levels between 90 to 94%. Nursing communication placed. She is currently hyperoxygenated for unclear reasons. Reasonable to treat with empiric antibiotics at this time. (5) History of tobacco use: Patient has approximately a 16-[id number]-lzic smoking history and her CT scan is consistent with emphysematous change. Suspect an element of COPD. Will trial the patient on a LAMA inhaler while in house. Plan Thank you for the consult. Pulmonary will follow with you. History of Present Illness Reason for Consultation: Acute respiratory failure with hypoxia and a history of polymyositis Attending Physician: Lisy Keyes MD History of Present Illness 54-year-old female with a complex history including tobacco abuse of roughly 30 years, 1.5 packs/day and quit 1 year ago, polymyositis diagnosed 3 years ago and on methotrexate therapy for the past 8 months, vitamin D deficiency and hypertension who presented to the hospital with URI type symptoms including cough and mild shortness of breath. Patient feels that her shortness of breath has improved today and her cough is also improving. She is currently on 6 L of low flow oxygen with saturations in the high 90s. She still feels fatigued. She notes that she is essentially bound to a chair or out of bed due to bilateral foot drop and severe bilateral lower extremity weakness. She uses a bedpan at home as she has not able to walk to go to the bathroom due to weakness of her lower extremities. She follows with Dr. Hermosillo of neurology which she notes has placed her on methotrexate therapy. She notes that prior to methotrexate she was on prednisone for several years. She had a chest CTA completed this hospital stay which revealed diffuse groun dglass opacities and interlobular septal thickening. Areas of emphysematous change noted as well. No overt consolidative changes noted. Allergies Allergy/AdvReac Type Severity Reaction Status Date / Time clindamycin Allergy Hives Verified 05/28/24 23:44 Home Medications Medication Instructions Recorded Confirmed Type Vitamin D Cap 50,000 unit PO .WEEKLY 05/28/24 05/28/24 History duloxetine 60 mg capsule,delayed 60 mg PO DAILY 05/28/24 05/28/24 History release folic acid 1 mg tablet 1 mg PO DAILY 05/28/24 05/28/24 History gabapentin 300 mg capsule 600 mg PO TID 05/28/24 05/28/24 History lisinopril 10 mg tablet 10 mg PO DAILY 05/28/24 05/28/24 History lorazepam 0.5 mg tablet 0.5 mg PO DAILY PRN Anxiety 05/28/24 05/28/24 History methotrexate sodium 2.5 mg tablet 15 mg PO .QTUES 05/28/24 05/28/24 History pantoprazole 40 mg tablet,delayed 40 mg PO QAM 05/28/24 05/28/24 History release ropinirole 1 mg tablet 1 mg PO BID 05/28/24 05/28/24 History zinc sulfate 66 mg tablet 66 mg PO DAILY 05/28/24 05/28/24 History Patient History Medical History Major depressive disorder Anxiety disorder Hypertension Diverticulitis Urinary tract infection HAL (acute kidney injury) Sepsis Neutropenic fever Surgical History History of laparoscopic cholecystectomy Family History Mother Heart disease Cancer Father Heart disease Diabetes Brother Heart disease Social History Smoking Status: Former smoker Tobacco Type: Cigarettes Cigarettes Per Day: 30; Smoking End Date: 04/04/23; Second Hand Exposure: No; Hx Alcohol Use: No Hx Substance Use: No Preferred Language: Argentine Communication Ability: Effective Email Administrator Required: No Beliefs That Will Affect Care: None Current Living Situation: Spouse Other Information That Helps Us Care for You: No Feels Safe at Home: Yes Safety Concerns: Feels Safe At This Time Assistive Devices: Hospital Bed and Wheelchair Review of Systems Review of Systems: All systems reviewed & are unremarkable except as noted in HPI & below Physical Exam Physical Exam: Constitutional: Patient appears to be of their stated age. Patient is in no apparent distress. Patient is well-developed. Eyes: Pupils are equal round and reactive to light. Conjunctivae are normal. Anicteric sclera. Ears nose, mouth and throat: Mallampati class 2. Normal posterior oropharynx. Uvula is midline. Neck: Trachea is midline. Visual inspection is normal. Respiratory: Coarse rhonchi bilaterally. No wheezes. No significant tachypnea. Cardiovascular: Regular rate and rhythm. No murmurs. No edema. Gastrointestinal: Normal bowel sounds, soft, nontender and nondistended. No hepatosplenomegaly noted. Musculoskeletal: No cyanosis. Patient is able to move all extremities. Strength is 5 out of 5 in the upper and lower extremities. Skin: No rashes, warm dry and intact. Neurologic: No obvious focal neurological deficits seen. Psychiatric: Alert and oriented x3 with a euthymic affect. Results & Data Results & Data Vital Signs (Past 12 Hours) Vital Signs Temp Pulse Resp BP Pulse Ox O2 Del Method O2 Flow Rate 05/31/24 13:26 101 H 18 98 Nasal Cannula 6 05/31/24 12:17 36.3 C L 101 H 20 115/77 92 Nasal Cannula 5 05/31/24 10:53 Nasal Cannula 5 05/31/24 08:13 37.0 C 105 H 21 121/81 91 Nasal Cannula 5 05/31/24 07:42 108 H 20 97 Nasal Cannula 7 PG Care Time/CCT Total # of Minutes Spent Total Time Spent with Patient: Total time spent is greater than 50% in coordination of care (as documented) at patient's floor/unit and/or counseling patient: Coding Level of Care Code 11496 IN/OBS CONSULT LVL 5,80M Diagnoses Abnormal CT scan, chest R93.89 Polymyositis M33.20 Methotrexate, director long term care, current use Z79.631 Hypoxia R09.02 History of tobacco use Z87.891
[2024-05-31] MEDS: UMECLIDINIUM BROMIDE 62.5MCG/BLISTER 7 PUFFS/INHALER INH SCH (17:47)
[2024-06-01 07:00] LABS: Hematocrit (blood only) 31.6 % (37.0-47.0); Hemoglobin 10.1 g/dl (12.0-16.0); Mean Corpuscular Volume 103.3 fL (80.0-100.0); Mean Platelet Volume 9.4 fL (9.4-12.4); Platelet Count 238 K/uL (130-400); RDW Coefficient of Variation 15.6 % (11.5-14.5); Red Blood Count 3.06 M/uL (4.20-5.40); White Blood Count 5.59 K/ul (4.8-10.8)
[2024-06-01 07:26] LABS: BUN Creatinine Ratio 32.1 (10-20); Calcium 8.6 mg/dl (8.6-10.3); Creatinine Clr Calc Pharmacy 133.9 ml/min; Est GFR (African American) 122.5 ml/min; Est GFR (Non-African American) 105.7 ml/min; Magnesium 1.9 mg/dl (1.7-2.4); Potassium 3.7 mmol/L (3.5-5.1)
--- NOTE | 2024-06-01 09:59 | Pulmonology Progress Note ---
Date of Service June 01, 2024 Assessment & Plan (1) Abnormal CT scan, chest: Plan: I reviewed serial CT scans which show chronic upper lobe predominant groundglass opacities and emphysematous change. 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 She may also have methotrexate induced lung disease as well. Would recommend holding methotrexate at this time, but continuing folic acid. I did offer the patient bronchoscopy to evaluate for atypical organisms such as fungal organisms and nontuberculous Mycobacterium given her immunocompromise state. Patient consents to bronchoscopy. Will plan for bronchoscopy on Wednesday. Please keep the patient n.p.o. at midnight. Hold anticoagulation 24 hours prior to bronchoscopy. CK levels unremarkable. ESR elevated to 66. She would benefit from outpatient PFTs. She likely has an element of COPD given the emphysematous change and extensive tobacco history. (2) Polymyositis: Plan: I would recommend the patient transition off methotrexate to a different immunosuppressive therapy such as rituximab or Imuran therapy. I would recommend that she follow-up with a polymyositis specific clinic such as a clinic at [facility] or [facility]. Will check CK levels to evaluate for active disease. (3) Methotrexate, detention, current use: Plan: Discontinue methotrexate at this period of time as this can continue to predispose her to pneumonia and cause diffuse alveolar damage. It is not clear that she has responded favorably to methotrexate over the past 6 to 8 months. (4) Hypoxia: Plan: Suspect she has chronic hypoxia with superimposed acute hypoxemia. Recommend maintaining euvolemia. Wean oxygen saturations to maintain levels between 90 to 94%. Nursing communication placed. Reasonable to treat with empiric antibiotics at this time. (5) History of tobacco use: Plan: Patient has approximately a 41-kjwc-caal smoking history and her CT scan is consistent with emphysematous change. Suspect an element of COPD. Will trial the patient on a LAMA inhaler while in house. Plan Thank you for the consult. Pulmonary will follow with you. Admission and Anticipated Discharge Date Admission Date: May 28, 2024 Subjective Patient had no new complaints. She did desaturate to the 60s while doing PT. She does endorse an ongoing dry cough. Review of Systems Review of Systems: All systems reviewed & are unremarkable except as noted in HPI & below Physical Exam Physical Exam: Constitutional: Patient appears to be of their stated age. Patient is in no apparent distress. Patient is well-developed. Eyes: Pupils are equal round and reactive to light. Conjunctivae are normal. Anicteric sclera. Ears nose, mouth and throat: Mallampati class 2. Normal posterior oropharynx. Uvula is midline. Neck: Trachea is midline. Visual inspection is normal. Respiratory: Coarse rhonchi bilaterally. No wheezes. No significant tachypnea. Cardiovascular: Regular rate and rhythm. No murmurs. No edema. Gastrointestinal: Normal bowel sounds, soft, nontender and nondistended. No hepatosplenomegaly noted. Musculoskeletal: No cyanosis. Patient is able to move all extremities. Strength is 5 out of 5 in the upper and lower extremities. Skin: No rashes, warm dry and intact. Neurologic: No obvious focal neurological deficits seen. Psychiatric: Alert and oriented x3 with a euthymic affect. Results & Data Results & Data Vital Signs (Past 12 Hours) Vital Signs Temp Pulse Pulse Resp BP Pulse Ox O2 Del Method 06/01/24 07:53 36.7 C 99 H 19 124/81 96 Nasal Cannula 06/01/24 07:50 Nasal Cannula 06/01/24 00:25 37.1 C 99 H 20 112/75 94 Nasal Cannula 05/31/24 23:21 110 H 05/31/24 23:07 37.2 C 106 H 18 129/79 90 Nasal Cannula O2 Flow Rate 06/01/24 07:53 4 06/01/24 07:50 06/01/24 00:25 4 05/31/24 23:21 05/31/24 23:07 4 PG Care Time/CCT Total # of Minutes Spent Total Time Spent with Patient: Total time spent is greater than 50% in coordination of care (as documented) at patient's floor/unit and/or counseling patient: Coding Level of Care Code 93620 SUB INP/OBS CARE 2/35MIN Diagnoses Abnormal CT scan, chest R93.89 Polymyositis M33.20 Methotrexate, detention, current use Z79.631 Hypoxia R09.02 History of tobacco use Z87.891
--- NOTE | 2024-06-01 12:48 | Hospitalist Progress Note ---
Date of Service June 01, 2024 Assessment & Plan (1) Acute hypoxemic respiratory failure: Plan: Acute hypoxic respiratory failure Sepsis Secondary to multifocal pneumonia Immunocompromised state --Chest CTA:No pulmonary embolus. Multifocal pneumonia with reactive lymphadenopathy in the mediastinum and right hilum -- BioFire negative --Lactic acidosis resolved with IV fluids --Procalcitonin 1.3 --Blood cultures: Negative to date Currently on cefepime, doxycycline Pulmonology eval noted Plan for bronchoscopy tomorrow. NPO PMN tonight Patient may need oxygen for dc once stable for dc Cepachol prn for sore throat Urine culture Enterococcus avium 20 000 Denied urinary symptoms Asymptomatic bacteruria Sinus tachycardia Elevated troponin, likely demand ischemia secondary to sepsis/hypoxia --ECHO: Borderline concentric LVH. No regional wall motion abnormality. Left ventricle is hyperdynamic. EF 65 to 70%. Right ventricle appears mildly dilated. RV systolic function appears normal. Findings do not suggest pulmonary hypertension. Left ventricular diastolic function is indeterminate due to presence of underlying tachycardia. --Started on aspirin 81 mg daily Cardiology recs appreciated Plan to consider outpatient stress test as able once recovered from infection Continue Metoprolol succinate 25 mg daily Hyponatremia Monitor electrolytes and replete prn Na 133 today Hypertension Home lisinopril resumed Started on metoprolol as above Prediabetes HbA1c is 5.2 Polymyositis Follows with [facility] neurology On methotrexate weekly. Need to be held while being treated for infection Will benefit from Polymositis specialized clinic Also on folic acid Mood disorder Restless leg syndrome Past tobacco abuse As per records DVT Px: Lovenox SQ on hold for bronchoscopy tomorrow Code Status Full code Updated daughter at bedside I spent a total of 50 minutes coordinating, documenting and providing care for this patient excluding time spent in performance of separately billed services Admission and Anticipated Discharge Date Admission Date: May 28, 2024 Subjective Patient seen and examined Reports dry cough is improved Still has some shortness of breath Oxygen requirement is improving Denied congestion, rhinorrhea, headache, fever, chills, nausea, vomiting. Denied dysuria, freq, urgency Patient is bedbound/wheelchair bound Physical Exam Constitutional: + well hydrated; no acute distress Eyes: PERRL, conjunctivae normal, anicteric sclerae ENMT: external ear and nose normal, oropharynx normal Respiratory: normal respiratory effort On nasal cannula, +rhonchi Cardiovascular: Rate/Rhythm: regular rate and regular rhythm Gastrointestinal (Abdomen): normal bowel sounds, soft, nontender, no hepatosplenomegaly Musculoskeletal: No pedal edema Muscle atrophy in LE Neurologic: PERRL, EOMI, accommodation nl, no face palsy, no dysarthria Psychiatric: A+Ox3, euthymic affect Results & Data Results & Data Vital Signs (Past 12 Hours) Vital Signs Temp Pulse Resp BP Pulse Ox O2 Del Method O2 Flow Rate 06/01/24 10:57 36.6 C 99 H 22 137/88 96 Nasal Cannula 3 06/01/24 07:53 36.7 C 99 H 19 124/81 96 Nasal Cannula 4 06/01/24 07:50 Nasal Cannula Laboratory Results Abnormal lab results 05/31/24 06/01/24 Range/Units 05:54 06:15 RBC 3.06 L (4.20-5.40) M/uL Hgb 10.1 L (12.0-16.0) g/dl Hct 31.6 L (37.0-47.0) % MCV 103.3 H (80.0-100.0) fL RDW Std Deviation 59.0 H (36.4-46.3) fL RDW Coeff of Kristine 15.6 H (11.5-14.5) % ESR 66 H (0-30) mm/hr Sodium 133 L (136-145) mmol/L Creatinine 0.56 L (0.6-1.2) mg/dl BUN/Creatinine Ratio 32.1 H (10-20)
[2024-06-02 06:49] LABS: Hematocrit (blood only) 35.4 % (37.0-47.0); Hemoglobin 11.1 g/dl (12.0-16.0); Mean Corpuscular Hemoglobin 32.6 pg (25.0-34.0); Mean Corpuscular Hgb Conc 31.4 g/dL (32.0-36.0); Mean Corpuscular Volume 104.1 fL (80.0-100.0); Mean Platelet Volume 9.5 fL (9.4-12.4); Platelet Count 282 K/uL (130-400); RDW Coefficient of Variation 15.2 % (11.5-14.5); RDW Standard Deviation 58.6 fL (36.4-46.3); White Blood Count 6.71 K/ul (4.8-10.8)
[2024-06-02 06:55] LABS: BUN Creatinine Ratio 26.8 (10-20); Creatinine Clr Calc Pharmacy 132.9 ml/min; Est GFR (African American) 122.5 ml/min; Est GFR (Non-African American) 105.7 ml/min
--- NOTE | 2024-06-02 13:10 | History & Physical Bridge Note ---
Date of Service June 02, 2024 History & Physical Bridge Note I have examined the patient, reviewed the History & Physical and in the interval since the performance of the History & Physical I have noted the following changes of clinical significance: no changes noted
--- NOTE | 2024-06-02 13:11 | Pre Anesthesia Assessment ---
Date of Service June 02, 2024 Pre Sedation Assessment Vital Signs Temp Pulse Pulse Pulse Resp BP BP 06/02/24 12:34 97 H 14 145/95 H 06/02/24 10:57 36.6 C 93 H 19 123/85 06/02/24 07:31 36.4 C L 99 H 18 124/84 06/02/24 03:44 37.4 C 101 H 19 125/84 06/01/24 23:04 37.1 C 103 H 21 115/78 06/01/24 22:48 108 H 06/01/24 19:54 37.2 C 112 H 21 136/75 06/01/24 19:15 06/01/24 15:03 06/01/24 15:03 37.1 C 108 H 20 133/86 Pulse Ox Pulse Ox Pulse Ox Pulse Ox O2 Del Method O2 Flow Rate O2 Flow Rate 06/02/24 12:34 96 Room Air 06/02/24 10:57 96 Nasal Cannula 3 06/02/24 07:31 95 Nasal Cannula 3 06/02/24 03:44 95 Nasal Cannula 3 06/01/24 23:04 90 High Flow Nasal Cannula 3 06/01/24 22:48 06/01/24 19:54 90 High Flow Nasal Cannula 2 06/01/24 19:15 Nasal Cannula 2 06/01/24 15:03 91 91 64 L 2 06/01/24 15:03 93 Nasal Cannula 2 O2 Flow Rate O2 Flow Rate 06/02/24 12:34 06/02/24 10:57 06/02/24 07:31 06/02/24 03:44 06/01/24 23:04 06/01/24 22:48 06/01/24 19:54 06/01/24 19:15 06/01/24 15:03 3 2 06/01/24 15:03 Cardiovascular RRR, no murmur, no edema Respiratory normal respiratory effort, lungs clear to auscultation Pre-Sedation Airway Assessment Smoking Status: Former smoker Hx Sleep Apnea: No Short, Thick Neck: Yes Thyromental Distance: > or= 3.5 Finger Breadths Oral Cavity: + Dentures Mallampati Class: III ASA: ASA2 NPO Status Date of Last Intake of Fluids: 06/01/24 Date of Last Intake of Solid Food: 06/01/24 Notes The planned sedation has been discussed with the patient. Informed Consent was obtained. I have identified the patient, determined the appropriateness of sedation and have assessed the patient immediately prior to the procedure. All medicine(s) and interventions are by my order.
--- NOTE | 2024-06-02 14:08 | Post Anesthesia Assessment ---
Date of Service June 02, 2024 Post Sedation Assessment Vital Signs Temp Pulse Pulse Pulse Resp BP BP 06/02/24 12:34 97 H 14 145/95 H 06/02/24 10:57 36.6 C 93 H 19 123/85 06/02/24 07:31 36.4 C L 99 H 18 124/84 06/02/24 03:44 37.4 C 101 H 19 125/84 06/01/24 23:04 37.1 C 103 H 21 115/78 06/01/24 22:48 108 H 06/01/24 19:54 37.2 C 112 H 21 136/75 06/01/24 19:15 06/01/24 15:03 06/01/24 15:03 37.1 C 108 H 20 133/86 Pulse Ox Pulse Ox Pulse Ox Pulse Ox O2 Del Method O2 Flow Rate O2 Flow Rate 06/02/24 12:34 96 Room Air 06/02/24 10:57 96 Nasal Cannula 3 06/02/24 07:31 95 Nasal Cannula 3 06/02/24 03:44 95 Nasal Cannula 3 06/01/24 23:04 90 High Flow Nasal Cannula 3 06/01/24 22:48 06/01/24 19:54 90 High Flow Nasal Cannula 2 06/01/24 19:15 Nasal Cannula 2 06/01/24 15:03 91 91 64 L 2 06/01/24 15:03 93 Nasal Cannula 2 O2 Flow Rate O2 Flow Rate 06/02/24 12:34 06/02/24 10:57 06/02/24 07:31 06/02/24 03:44 06/01/24 23:04 06/01/24 22:48 06/01/24 19:54 06/01/24 19:15 06/01/24 15:03 3 2 06/01/24 15:03 Recovery Score Activity: Moves 4 extremities Respiration: Deep Breath/Cough Circulation: +/-20-49% PreAnes Value Consciousness: Fully Awake Oxygen Saturation: O2 needed for >90% Discharge Sedation Level of Care: Fast Track Phase II Post Sedation Plan On clinical assessment, the patient appears to have tolerated the sedation without complications. Patient is recovering as anticipated. Patient will continue to be monitored by nursing and may be discharged when sedation discharge criteria are met per below protocol. Upon Completions of procedure up to 15 minutes continue every 5 minute vital signs and the P.A.R. score; then discharge to a Phase I or Fast Track to Phase II per the following guidelines: * Discharge Patient to appropriate Phase II area if PAR is 8 or greater or return to pre- procedure baseline. The post - procedure orders will be as directed. * If PAR score is less than 8 or not return to pre-procedure baseline then p atient will follow Phase I monitoring till PAR is reached for Phase II. The Phase I may be done in procedure room or may call to secure a Phase I area. * If naloxone or flumazenil are used for reversal, hold in Phase I for continued monitoring from when last reversal dose was given for a minimum of 60 minutes or longer pending the nurse and/or physician discretion of patient condition before discharge to Phase II. Please call the Sedation Physician to re-evaluate and complete post-note for discharge to Phase II area. Do NOT discharge from procedure sedation or Phase 1 until post- sedation evaluation note is complete by procedure /sedation MD Sedation Discharge Instructions to be given to the patient at discharge to home.
--- NOTE | 2024-06-02 14:10 | Procedure Note ---
Procedure Note: Bronchoscopy Procedure PREOPERATIVE DIAGNOSIS: Interstitial lung disease POSTOPERATIVE DIAGNOSIS: Interstitial lung disease PROCEDURE PERFORMED: Flexible fiberoptic bronchoscopy with bronchial washings from the right lower lobe and left upper lobe COMPLICATIONS: None. INDICATION: Rule out infection PROCEDURE: After obtaining an informed consent, the patient was brought to the Bronchoscopy Suite. Timeout performed immediately prior to the procedure. The patient had appropriate oxygen, blood pressure, heart rate, and respiratory rate monitoring applied and monitored continuously throughout the procedure. Supplemental oxygen via nasal cannula as per nursing records was applied to the nasopharynx with adequate saturations achieved. Topical anesthesia with nebulized 1% lidocaine was achieved. Subsequent to this, the patient was premedicated with 5 mg of midazolam and 125 mcg of fentanyl. Bilateral tracheobronchial tree inspection was performed. Scant secretions were suctioned from the bilateral airways. Washings were performed of the left upper lobe and right lower lobe. Patient tolerated procedure well and the scope was withdrawn. Recommendations: Follow cultures, cell counts and cytology from the left upper lobe and right lower lobe washings [facility] [place] Procedure Codes (Charges) Pulmonary/Thoracic Procedure 1: Pulmonary and Thoracic: 50540 Dx bronchoscopy/wash Sedation/Anesthesia Procedure 1: Sedation/Anesthesia: 71870 Mod Sedation by the same physician;Init15 Min Child Age 5 & Up
[2024-06-02] MEDS: fentaNYL citrate PF 100 MCG/2 ML VIAL ONE ×2 (14:39→14:41)
[2024-06-02] MEDS: MIDAZOLAM HCL 5 MG/ML 1 ML VIAL ONE ×2 (14:40→14:42)
--- NOTE | 2024-06-02 15:38 | XRay Report ---
XR chest 1V portable CLINICAL HISTORY: Post Bronchoscopy COMPARISON STUDY: Chest CT May 28, 2024. FINDINGS: There is no pneumothorax status post bronchoscopy. Low lung volumes are again noted with el evation the right hemidiaphragm. There is persistent interstitial thickening. IMPRESSION: 1. No pneumothorax post bronchoscopy. 2. Persistent interstitial thickening. ACT 112: Negative or not required by law. Electronically signed by: Sergio Sierra M.D. 06/02/2024 3:37 PM
[2024-06-02 15:53] LABS: Eosinophil Body Fluid Man 6 %; Fluid Mono/Macrophage 29 %; Lymphocyte Body Fluid Man 7 %; Neutrophil Body Fluid Man 58 %
--- NOTE | 2024-06-02 16:22 | Hospitalist Progress Note ---
Date of Service June 02, 2024 Assessment & Plan (1) Acute hypoxemic respiratory failure: Plan: Acute hypoxic respiratory failure Sepsis Secondary to multifocal pneumonia Immunocompromised state --Chest CTA:No pulmonary embolus. Multifocal pneumonia with reactive lymphadenopathy in the mediastinum and right hilum -- BioFire negative --Lactic acidosis resolved with IV fluids --Procalcitonin 1.3 --Blood cultures: Negative to date Had bronchoscopy today Discussed with Steam Gigger Ok to continue cefepime, doxycycline for today. Will stop tomorrow Patient to follow up with pulm about results of bronch - AFB, culture, fungal smear in lab, BAL for aspergillus/coccidioides/histoplas/PCJ Wean oxygen as tolerated Will do nocturnal pulse ox tonight and plan for dc tomorrow Patient needs to get sleep study outpatient Urine culture Enterococcus avium 20 000 Denied urinary symptoms Asymptomatic bacteruria Sinus tachycardia Elevated troponin, likely demand ischemia secondary to sepsis/hypoxia --ECHO: Borderline concentric LVH. No regional wall motion abnormality. Left ventricle is hyperdynamic. EF 65 to 70%. Right ventricle appears mildly dilated. RV systolic function appears normal. Findings do not suggest pulmonary hypertension. Left ventricular diastolic function is indeterminate due to presence of underlying tachycardia. --Started on aspirin 81 mg daily Cardiology recs appreciated Plan to consider outpatient stress test as able once recovered from infection Continue Metoprolol succinate 25 mg daily Hyponatremia Monitor electrolytes and replete prn Na 134 today Hypertension Continue lisinopril Started on metoprolol as above Prediabetes HbA1c is 5.2 Polymyositis Follows with [facility] neurology On methotrexate weekly. Need to be held while being treated for infection Steam Gigger also recommends follow up with Polymyositis specific clinic. Patient's PCP or Neurologist can help arrange referral Mood disorder Restless leg syndrome Past tobacco abuse As per records DVT Px: Lovenox SQ held for bronchoscopy. Can resume tomorrow Code Status Full code Updated sister at bedside Plan for dc tomorrow AM I spent a total of 50 minutes coordinating, documenting and providing care for this patient excluding time spent in performance of separately billed services Admission and Anticipated Discharge Date Admission Date: May 28, 2024 Subjective Patient seen and examined after Bronchoscopy Reported cough had improved prior to procedure. Denied any chest pain or shortness of breath Denied any other new complaints Physical Exam Constitutional: + well hydrated; no acute distress Eyes: PERRL, conjunctivae normal, anicteric sclerae ENMT: external ear and nose normal, oropharynx normal Respiratory: normal respiratory effort Good air entry bilaterally On nasal cannula Cardiovascular: Rate/Rhythm: regular rate and regular rhythm Gastrointestinal (Abdomen): normal bowel sounds, soft, nontender, no hepatosplenomegaly Musculoskeletal: No pedal edema Muscle atrophy in LE Neurologic: PERRL, EOMI, accommodation nl, no face palsy, no dysarthria Psychiatric: A+Ox3, euthymic affect Results & Data Results & Data Vital Signs (Past 12 Hours) Vital Signs Temp Pulse Pulse Pulse Resp BP BP 06/02/24 15:01 95 H 115/75 06/02/24 14:41 36.5 C 24 115/83 06/02/24 14:35 77 14 123/75 06/02/24 14:23 06/02/24 14:00 77 14 123/75 06/02/24 13:50 77 14 123/75 06/02/24 13:33 97 H 14 115/78 06/02/24 13:28 97 H 14 06/02/24 12:34 97 H 14 145/95 H 06/02/24 10:57 36.6 C 93 H 19 123/85 06/02/24 07:31 36.4 C L 99 H 18 124/84 Pulse Ox O2 Del Method O2 Flow Rate 06/02/24 15:01 87 L Nasal Cannula 3 06/02/24 14:41 87 L Nasal Cannula 2 06/02/24 14:35 92 Room Air 06/02/24 14:23 Oxymask 06/02/24 14:00 92 Room Air 06/02/24 13:50 92 Room Air 06/02/24 13:33 95 Oxymask 6 06/02/24 13:28 95 Oxymask 6 06/02/24 12:34 96 Room Air 06/02/24 10:57 96 Nasal Cannula 3 06/02/24 07:31 95 Nasal Cannula 3 Laboratory Results Abnormal lab results 06/02/24 Range/Units 05:49 RBC 3.40 L (4.20-5.40) M/uL Hgb 11.1 L (12.0-16.0) g/dl Hct 35.4 L (37.0-47.0) % MCV 104.1 H (80.0-100.0) fL MCHC 31.4 L (32.0-36.0) g/dL RDW Std Deviation 58.6 H (36.4-46.3) fL RDW Coeff of Kristine 15.2 H (11.5-14.5) % Sodium 134 L (136-145) mmol/L Creatinine 0.56 L (0.6-1.2) mg/dl BUN/Creatinine Ratio 26.8 H (10-20) Glucose 100 H (70-99(Fasting)) mg/dl
[2024-06-02] MEDS: PROMETHAZINE 6.25 MG/50.25 ML BAG IV PRN (23:34)
[2024-06-03 06:02] LABS: Hemoglobin 11.4 g/dl (12.0-16.0); Mean Corpuscular Hemoglobin 32.9 pg (25.0-34.0); Mean Corpuscular Hgb Conc 31.7 g/dL (32.0-36.0); Mean Corpuscular Volume 103.7 fL (80.0-100.0); Mean Platelet Volume 9.3 fL (9.4-12.4); Platelet Count 291 K/uL (130-400); RDW Coefficient of Variation 15.3 % (11.5-14.5); RDW Standard Deviation 58.4 fL (36.4-46.3); Red Blood Count 3.47 M/uL (4.20-5.40)
[2024-06-03 06:19] LABS: BUN Creatinine Ratio 29.1 (10-20); Calcium 9.1 mg/dl (8.6-10.3); Creatinine Clr Calc Pharmacy 135.3 ml/min; Est GFR (African American) 123.2 ml/min; Est GFR (Non-African American) 106.3 ml/min; Potassium 3.7 mmol/L (3.5-5.1)
--- NOTE | 2024-06-03 08:29 | Pulmonology Progress Note ---
Date of Service June 03, 2024 Assessment & Plan (1) Abnormal CT scan, chest: (2) Polymyositis: (3) Methotrexate, keno terminal operator, current use: (4) Hypoxia: (5) History of tobacco use: Plan CTA chest 05/28/2024 personally reviewed: Patchy groundglass opacities appreciated bilaterally upper and lower lobes Centrilobular emphysema Mild elevation of the right hemidiaphragm No significant mediastinal lymphadenopathy -- Acute hypoxic respiratory failure with abnormal chest CT Patient seems to have some interstitial lung disease/fibrosis of the lung Could be from her underlying polymyositis S/p bronchoscopy 06/02/2024, BAL was mostly neutrophilic Follow-up cultures, follow-up PJP as well as histo blasto and Coccidioides Respiratory bio fire is negative for everything Nasal MRSA negative -- Polymyositis On methotrexate Previously there was thought process that methotrexate could be causing ILD and patient will use it but the recent study said that does not have any significant relevance I still think it is reasonable to see if you are able to change Sinemet suppressive therapy to some other medication Will defer it to neurology/rheumatology --Ex-smoker Approximately [id number] smoking history Plan: Complete the course of antibiotics for total of 5 days Would recommend to be discharged on Spiriva or Incruse inhaler Follow-up [facility] culture Recommend to keep O2 saturation between 90-92%. Outpatient polysomnography could be thought of as well Please note the above document was generated using voice recognition software. It may contain grammatical, syntax or spelling errors.Any formal questions or concerns about the content, text or information contained within the body of this dictation should be directly addressed to the provider for clarification. Admission and Anticipated Discharge Date Admission Date: May 28, 2024 Subjective Patient seen and examined at bedside. Case was discussed with outgoing milk pickup truck driver. At the time of examination patient was saturating 98% on 4 and half liters. I went down to 2 L but she did desaturate to 88% and increase the oxygen to 3 L. RN was also in the room at the time of examination Patient said that she is feeling better. She is coughing less frequently. When she does bring up phlegm is mostly clear Denies any nausea or vomiting Appetite is fair. Has been using incentive spirometry Denies any hemoptysis Review of Systems 2 Review of Systems: All systems reviewed & are unremarkable except as noted in Subjective Physical Exam 2 Physical Exam: Constitutional: No acute distress HEENT: EOMI, PERRLA Respiratory system: Decreased air entry bilaterally, no wheeze, no rhonchi, positive Velcro-like crackles appreciated bilaterally anteriorly and posteriorly CVS: S1-S2 positive, no murmurs or gallops Abdomen: Soft, nontender, nondistended, positive bowel sounds x4 Extremities: +2 pulses bilaterally radialis/ dorsalis pedis, no cyanosis, no edema Neuro: Awake alert oriented x3 Psych: Normal mood and affect G/U: Positive Wilson Skin: no rashes, warm and dry Lymphatic: no cervical or axillary lymphadenopathy Results & Data Results & Data Vital Signs (Past 12 Hours) Vital Signs Temp Pulse Pulse Pulse Resp BP Pulse Ox 06/03/24 08:02 36.6 C 97 H 19 113/79 94 06/03/24 07:39 108 H 06/03/24 05:30 06/03/24 04:00 36.8 C 105 H 21 127/85 92 06/03/24 03:51 105 H 06/03/24 00:33 36.9 C 102 H 21 120/82 90 06/02/24 22:00 99 H 06/02/24 22:00 99 H Pulse Ox O2 Del Method O2 Del Method O2 Flow Rate O2 Flow Rate 06/03/24 08:02 Nasal Cannula 0.5 06/03/24 07:39 06/03/24 05:30 63 L Room Air 06/03/24 04:00 High Flow Nasal Cannula 3 06/03/24 03:51 93 Nasal Cannula 3 06/03/24 00:33 High Flow Nasal Cannula 06/02/24 22:00 06/02/24 22:00 94 Nasal Cannula 1 Laboratory Results 06/03/24 05:44 06/03/24 05:44 PG Care Time/CCT Total # of Minutes Spent Total Time Spent with Patient: Total time spent is greater than 50% in coordination of care (as documented) at patient's floor/unit and/or counseling patient: Coding Level of Care Code 30103 SUB INP/OBS CARE 2/35MIN Diagnoses Abnormal CT scan, chest R93.89 Polymyositis M33.20 Methotrexate, keno terminal operator, current use Z79.631 Hypoxia R09.02 History of tobacco use Z87.891
--- NOTE | 2024-06-03 12:20 | Discharge Summary ---
Date of Service June 04, 2024 Admission HPI Per Admitting Provider History obtained from patient and records. Medical history significant for hypertension, hyperlipidemia, pulmonary hypertension, polymyositis currently on methotrexate, prediabetes, anxiety/mood disorder, past tobacco abuse. Last confinement April 2023 for septic shock secondary to infected perianal wounds, multifocal pneumonia. 1 week history of dry cough symptoms later noted to be junky. Not sure about sick contacts. Poor appetite. Denies chest pain or fluid retention. Patient unsure about fluid retention. Worsening shortness of breath. O2 sats 50s upon EMS arrival at home. Patient brought to ER for evaluation. Zosyn and Lasix administered at the ER. Medical History as above Surgical History : Carpal tunnel surgery, dental surgery, cholecystectomy, BTL, muscle biopsy, knee surgery Family History : DM, heart disease, leukemia Personal/Social history : Past tobacco abuse, occasional EtOH intake, disabled Admission Exam Per Admitting Provider GENERAL: Obese, incessant coughing, respiratory distress SKIN: Normal color, warm HEENT: [place] palpebral conjunctivae, no ptosis, dry buccal mucosa, O2 mask in place NECK : Supple, no tenderness CHEST : Decreased breath sounds tachycardic, occasional expiratory wheezes, no tenderness HEART : RRR, no obvious murmurs ABDOMEN: Some distention, nontender EXTREMITIES : No LE swelling/tenderness, no other conspicuous deformities noted NEUROLOGIC : Coherent, no facial asymmetry, no other gross focality Principal Diagnosis Acute respiratory failure with hypoxia Nocturnal hypoxia Multifocal pneumonia Sinus tachycardia Discharge Exam Constitutional + well hydrated; no acute distress Eyes PERRL, conjunctivae normal, anicteric sclerae ENMT external ear and nose normal, oropharynx normal Respiratory normal respiratory effort On nasal cannula, +crackles Cardiovascular Rate/Rhythm: regular rate and regular rhythm Gastrointestinal (Abdomen) normal bowel sounds, soft, nontender, no hepatosplenomegaly Musculoskeletal No pedal edema Muscle atrophy in LE Neurologic PERRL, EOMI, accommodation nl, no face palsy, no dysarthria Psychiatric A+Ox3, euthymic affect Discharge Data Allergies Allergy/AdvReac Type Severity Reaction Status Date / Time clindamycin Allergy Hives Verified 05/28/24 23:44 Consultations 05/28/24 22:41 ED Decision to Admit Stat 05/29/24 00:44 Consult Cardiology Routine 05/31/24 10:04 Consult Pulmonology Routine Procedures Performed Operation Date: 06/02/24 12:30 Actual Procedures p Bronchoscopy Respiratory - Michelet Garza MD Ordered Studies 05/28/24 20:38 CT abd pelvis IV con only Stat CT angio chest PE protocol Stat Hospital Course (1) Acute hypoxemic respiratory failure: Acute hypoxic respiratory failure Sepsis Secondary to multifocal pneumonia Immunocompromised state --Chest CTA:No pulmonary embolus. Multifocal pneumonia with reactive lymphadenopathy in the mediastinum and right hilum -- BioFire negative --Lactic acidosis resolved with IV fluids --Procalcitonin 1.3 --Blood cultures: Negative to date Had bronchoscopy on 06/02/24 Patient completed 5 days of antibiotic inpatient Patient to follow up with pulm about results of bronch - AFB, culture, fungal smear in lab, BAL for aspergillus/coccidioides/histoplas/PCJ Patient is still requiring 3L of NC at rest. Nocturnal pulse oximetry last night showed significant nocturnal hypoxia Patient required 4L NC to maintain adequate saturation. Patient is wheelchair bound, hence cannot do a 2 step or ambulatory pulse ox assessment Discussed with folding rules printing machine operator Patient needs 3L/min of nasal oxygen during daytime and 4L/min of nasal oxygen when sleeping or at bedtime Patient needs to get sleep study outpatient which her PCP can help arrange Patient is discharged on Incruse 1 inh daily She will follow up with Remote Operations Producer Dr Garza outpatient Urine culture Enterococcus avium 20 000 Denied urinary symptoms Asymptomatic bacteruria Sinus tachycardia Elevated troponin, likely demand ischemia secondary to sepsis/hypoxia --ECHO: Borderline concentric LVH. No regional wall motion abnormality. Left ventricle is hyperdynamic. EF 65 to 70%. Right ventricle appears mildly dilated. RV systolic function appears normal. Findings do not suggest pulmonary hypertension. Left ventricular diastolic function is indeterminate due to presence of underlying tachycardia. Was evaluated by Cardiology Started on aspirin 81 mg daily Was also started on Metoprolol succinate 25 mg daily Plan to consider outpatient stress test as able once recovered from infection Hyponatremia Monitor electrolytes and replete prn Hypertension Continue lisinopril Started on metoprolol as above Prediabetes HbA1c is 5.[address] [facility] neurology On methotrexate weekly. Remote Operations Producer also recommends follow up with Polymyositis specific clinic. Patient's PCP or Neurologist can help arrange referral Mood disorder Restless leg syndrome Total Time Total Time Spent Total Time Spent (In Minutes): 35 Total Time Includes: Examination of the Patient, Discharge Planning, Medication Reconciliation and Communication With Other Providers Discharge Plan Discharge Items Patient Disposition: Home - Self-Care Reason For Visit: RESP FAILURE Discharge Diagnosis: Acute respiratory failure with hypoxia Nocturnal hypoxia Multifocal pneumonia Sinus tachycardia Activity: Resume your previous activity Non-emergency contact: Primary Care Provider and Remote Operations Producer Call non-emergency contact if: you have any medication questions and your symptoms worsen Follow-up/Referrals: Michelet Garza MD [Physician] - (Please call for follow up) Petey Thrasher DO [Primary Care Provider] - Diet: Heart Healthy Addtl Attending Provider Instructions: Mrs Caban You were managed in the hospital for the above listed diagnoses. You completed antibiotics in the hospital. You also had Bronchoscopy. You are being discharged on oxygen at 3L at all times and 4L at bedtime. You will need a sleep study which your Primary Doctor can help arrange. Please ensure follow up with Pulmonology (Lung Doctor) Please discuss with your Doctors about possible follow up with Myositis clinic/center. You were started on Incruse inhaler once a day, aspirin 81mg daily and metoprolol succinate 25mg daily. Please ensure follow up with your Doctor. It was a pleasure taking care of you. Pending Studies at Discharge: Yes (Bronchoscopy tests and cultures) Stand-Alone Forms: My [facility] [place], Smoking Cessation Medications and DC Order Prescriptions: New Incruse Ellipta 62.5 mcg/actuation Blister With Device 1 inh inhalation DAILY Qty: 30 0RF aspirin 81 mg Tablet,Delayed Release (Dr/Ec) 81 mg PO QAM 30 Days Qty: 30 0RF metoprolol succinate 25 mg Tablet Extended Release 24 Hr 25 mg PO QAM 30 Days Qty: 30 0RF Continued ropinirole 1 mg tablet 1 mg PO BID lorazepam 0.5 mg tablet 0.5 mg PO DAILY PRN (Reason: Anxiety) methotrexate sodium 2.5 mg tablet 15 mg PO .QTUES Rx Instructions: WEEKLY ON pantoprazole 40 mg tablet,delayed release (DR/EC) 40 mg PO QAM lisinopril 10 mg tablet 10 mg PO DAILY gabapentin 300 mg capsule 600 mg PO TID Rx Instructions: TAKE AM, NOON & HS folic acid 1 mg tablet 1 mg PO DAILY zinc sulfate 66 mg Tablet 66 mg PO DAILY duloxetine 60 mg capsule,delayed release(DR/EC) 60 mg PO DAILY Vitamin D Cap 50,000 unit PO .WEEKLY Rx Instructions: Take Q Discharge Orders: Discharge Order (Routine); Ordered 06/03/24 Ordered By: Lisy Kennedy/Other Patient Handouts: Using Oxygen Safely Admission Data Admit Date/Time: 05/28/24 23:53 Attending Provider: Lisy Keyes I. Admit Provider: Feliciano Pereira Primary Care Provider: Petey Thrasher Other Providers: Feliciano Pereira; Mat Buckley; Michelet Garza Other Interventions: Discharge Summary Assessment (RN) Last Done: 06/03/24 14:12
--- NOTE | 2024-06-03 15:40 | Hospitalist Progress Note ---
Date of Service June 03, 2024 Assessment & Plan (1) Acute hypoxemic respiratory failure: Plan: Acute hypoxic respiratory failure Sepsis Secondary to multifocal pneumonia Immunocompromised state --Chest CTA:No pulmonary embolus. Multifocal pneumonia with reactive lymphadenopathy in the mediastinum and right hilum -- BioFire negative --Lactic acidosis resolved with IV fluids --Procalcitonin 1.3 --Blood cultures: Negative to date Had bronchoscopy on 06/02/24 Patient completed 5 days of antibiotic inpatient Patient to follow up with pulm about results of bronch - AFB, culture, fungal smear in lab, BAL for aspergillus/coccidioides/histoplas/PCJ Patient is still requiring 3L of NC at rest. Nocturnal pulse oximetry last night showed significant nocturnal hypoxia Patient required 4L NC to maintain adequate saturation. Patient is wheelchair bound, hence cannot do a 2 step or ambulatory pulse ox assessment Discussed with pillow filler Patient needs 3L/min of nasal oxygen during daytime and 4L/min of nasal oxygen when sleeping or at bedtime Patient needs to get sleep study outpatient which her PCP can help arrange Continue Incruse 1 inh daily She will follow up with Pony Work[facility] Dr Garza outpatient Urine culture Enterococcus avium 20 000 Denied urinary symptoms Asymptomatic bacteruria Sinus tachycardia Elevated troponin, likely demand ischemia secondary to sepsis/hypoxia --ECHO: Borderline concentric LVH. No regional wall motion abnormality. Left ventricle is hyperdynamic. EF 65 to 70%. Right ventricle appears mildly dilated. RV systolic function appears normal. Findings do not suggest pulmonary hypertension. Left ventricular diastolic function is indeterminate due to presence of underlying tachycardia. Was evaluated by Cardiology Started on aspirin 81 mg daily Was also started on Metoprolol succinate 25 mg daily Plan to consider outpatient stress test as able once recovered from infection Hyponatremia Monitor electrolytes and replete prn Na 133 today Hypertension Continue lisinopril Started on metoprolol as above Prediabetes HbA1c is 5.2 Polymyositis Follows with [facility] neurology On methotrexate weekly. [facility]er also recommends follow up with Polymyositis specific clinic. Patient's PCP or Neurologist can help arrange referral Mood disorder Restless leg syndrome Patient is ready for discharge today However, CM reported transport is not available till tomorrow morning. Will continue management till tomorrow then. I spent a total of 40 minutes coordinating, documenting and providing care for this patient excluding time spent in performance of separately billed services Admission and Anticipated Discharge Date Admission Date: May 28, 2024 Subjective Patient seen and examined Reports cough Denied any chest pain or shortness of breath Denied any other new complaints Physical Exam Constitutional: + well hydrated; no acute distress Eyes: PERRL, conjunctivae normal, anicteric sclerae ENMT: external ear and nose normal, oropharynx normal Respiratory: normal respiratory effort On nasal cannula at 3L. +crackles Cardiovascular: Rate/Rhythm: regular rate and regular rhythm Gastrointestinal (Abdomen): normal bowel sounds, soft, nontender, no hepatosplenomegaly Musculoskeletal: No pedal edema Atrophic LE Neurologic: PERRL, EOMI, accommodation nl, no face palsy, no dysarthria Psychiatric: A+Ox3, euthymic affect Results & Data Results & Data Vital Signs (Past 12 Hours) Vital Signs Temp Pulse Pulse Pulse Resp BP BP 06/03/24 14:51 36.7 C 63 20 114/75 06/03/24 14:36 103 H 06/03/24 10:28 36.9 C 98 H 18 124/84 06/03/24 09:40 118/79 06/03/24 09:00 06/03/24 08:02 36.6 C 97 H 19 113/79 06/03/24 07:39 108 H 06/03/24 05:30 06/03/24 04:00 36.8 C 105 H 21 127/85 06/03/24 03:51 105 H Pulse Ox Pulse Ox O2 Del Method O2 Del Method O2 Flow Rate O2 Flow Rate 06/03/24 14:51 92 Nasal Cannula 3 06/03/24 14:36 06/03/24 10:28 Nasal Cannula 3 06/03/24 09:40 06/03/24 09:00 High Flow Nasal Cannula 3 06/03/24 08:02 94 Nasal Cannula 0.5 06/03/24 07:39 06/03/24 05:30 63 L Room Air 06/03/24 04:00 92 High Flow Nasal Cannula 3 06/03/24 03:51 93 Nasal Cannula 3 Laboratory Results Abnormal lab results 06/03/24 Range/Units 05:44 RBC 3.47 L (4.20-5.40) M/uL Hgb 11.4 L (12.0-16.0) g/dl Hct 36.0 L (37.0-47.0) % MCV 103.7 H (80.0-100.0) fL MCHC 31.7 L (32.0-36.0) g/dL RDW Std Deviation 58.4 H (36.4-46.3) fL RDW Coeff of Kristine 15.3 H (11.5-14.5) % MPV 9.3 L (9.4-12.4) fL Sodium 133 L (136-145) mmol/L Creatinine 0.55 L (0.6-1.2) mg/dl BUN/Creatinine Ratio 29.1 H (10-20) Glucose 103 H (70-99(Fasting)) mg/dl
[2024-06-03 20:11] VITALS: RESP 18
[2024-06-04 06:20] VITALS: TEMP 97.7
--- NOTE | 2024-06-04 08:36 | Pulmonology Progress Note ---
Date of Service June 04, 2024 Assessment & Plan (1) Abnormal CT scan, chest: (2) Polymyositis: (3) Methotrexate, intermediate, current use: (4) Hypoxia: (5) History of tobacco use: Plan CTA chest 05/28/2024 personally reviewed: Patchy groundglass opacities appreciated bilaterally upper and lower lobes Centrilobular emphysema Mild elevation of the right hemidiaphragm No significant mediastinal lymphadenopathy -- Acute hypoxic respiratory failure with abnormal chest CT Patient seems to have some interstitial lung disease/fibrosis of the lung Could be from her underlying polymyositis S/p bronchoscopy 06/02/2024, BAL was mostly neutrophilic Follow-up cultures, follow-up PJP as well as histo blasto and Coccidioides Respiratory bio fire is negative for everything Nasal MRSA negative Completed the course of antibiotics for total of 5 days -- Polymyositis On methotrexate Previously there was thought process that methotrexate could be causing ILD and patient will use it but the recent study said that does not have any significant relevance I still think it is reasonable to see if you are able to change Sinemet suppressive therapy to some other medication Will defer it to neurology/rheumatology --Ex-smoker Approximately [id number] smoking history Plan: Recommend Spiriva or Incruse on discharge Follow-up [facility] culture Recommend to keep O2 saturation between 90-92%. Outpatient polysomnography could be thought of as well Case was discussed with primary team as well as RN No further recommendation from pulmonary perspective, will sign off Please call directly with any questions Please note the above document was generated using voice recognition software. It may contain grammatical, syntax or spelling errors.Any formal questions or concerns about the content, text or information contained within the body of this dictation should be directly addressed to the provider for clarification. Admission and Anticipated Discharge Date Admission Date: May 28, 2024 Subjective Patient seen and examined at bedside. No acute distress, no adverse events overnight She was saturating 88-89% on 3 L nasal cannula at rest She stated she is feeling better Has been using incentive spirometry Coughing but not bringing up any phlegm, denies any chest congestion Fair appetite, no nausea or vomiting Review of Systems 2 Review of Systems: All systems reviewed & are unremarkable except as noted in Subjective Physical Exam 2 Physical Exam: Constitutional: No acute distress HEENT: EOMI, PERRLA Respiratory system: Decreased air entry bilaterally, no wheeze, no rhonchi, positive Velcro-like crackles appreciated bilaterally anteriorly and posteriorly CVS: S1-S2 positive, no murmurs or gallops Abdomen: Soft, nontender, nondistended, positive bowel sounds x4 Extremities: +2 pulses bilaterally radialis/ dorsalis pedis, no cyanosis, no edema Neuro: Awake alert oriented x3 Psych: Normal mood and affect G/U: Pure wick Wilson Skin: no rashes, warm and dry Lymphatic: no cervical or axillary lymphadenopathy Results & Data Results & Data Vital Signs (Past 12 Hours) Vital Signs Temp Pulse Pulse Resp BP Pulse Ox O2 Del Method 06/04/24 08:30 Nasal Cannula 06/04/24 06:00 36.5 C 101 H 18 122/84 93 High Flow Nasal Cannula 06/04/24 03:11 36.7 C 91 H 18 128/82 95 Room Air 06/03/24 23:04 36.6 C 107 H 18 128/82 92 Room Air 06/03/24 22:00 101 H O2 Flow Rate 06/04/24 08:30 3 06/04/24 06:00 3 06/04/24 03:11 06/03/24 23:04 06/03/24 22:00 Laboratory Results 06/03/24 05:44 06/03/24 05:44 PG Care Time/CCT Total # of Minutes Spent Total Time Spent with Patient: Total time spent is greater than 50% in coordination of care (as documented) at patient's floor/unit and/or counseling patient: Coding Level of Care Code 20309 SUB INP/OBS CARE 2/35MIN Diagnoses Abnormal CT scan, chest R93.89 Polymyositis M33.20 Methotrexate, intermediate, current use Z79.631 Hypoxia R09.02 History of tobacco use Z87.891
[2024-06-04 08:43] VITALS: O2SAT 96
[2024-06-04 11:12] VITALS: BP 118/79; PULSE 97
== END 2024-06-04 12:00 | disposition home or self-care (01) | DRG 871 ==
LOC: ED 20:03 → SUATTDRO 23:53 → 4W 23:53

== ENCOUNTER 2025-05-04 11:43 | Inpatient (IN) ==
--- NOTE | 2025-05-04 11:59 | Emergency Department Note ---
Impression & Plan Acute hyponatremia, Acute alteration in mental status, Hypokalemia, Hypomagnesemia, Hyperammonemia, UTI (urinary tract infection) ED Provider Note NAME: CECILIA KNOX AGE: 55 SEX: F : 1970 ARRIVES VIA: Ambulance INFORMANT: Patient, EMS ED PROVIDER(S): José Miguel Rios DO CHIEF COMPLAINT: Altered mental status HPI: The patient is a 55-year-old female who has a history of hyponatremia who was sent to the emergency department for an evaluation of altered mental status. The patient's daughter states that she has a history of polymyositis. The patient has been using her medications in usual fashion. She denies having any chest pain or difficulty breathing. According to her family she has been very confused and her mental status has been waxing and waning over the course the last several days. There is no reported trauma or fever. ROS: See above HPI for pertinent positives & negatives. A total of 10 systems reviewed and were otherwise negative. PAST MEDICAL HISTORY: See Below PAST SURGICAL HISTORY: See Below FAMILY HISTORY: See Below SOCIAL HISTORY: See Below HOME MEDICATIONS: See Below ALLERGIES: See Below VITALS: See Below PHYSICAL EXAMINATION: GENERAL: The patient is awake and alert. She is somewhat anxious appearing. EYES: The conjunctivae are clear. The pupils are round and reactive. EARS, NOSE, MOUTH AND THROAT: The nose is without any evidence of any deformity. Mucous membranes are dry. NECK: The neck is nontender and supple. RESPIRATORY: Normal respiratory effort is noted there is no evidence of wheezing rhonchi or rales CARDIOVASCULAR: Regular rate and rhythm noted there no murmurs rubs or gallops normal S1 normal S2. GASTROINTESTINAL: The abdomen is soft. Abdomen is nontender. MUSCULOSKELETAL/EXTREMITIES: There is no evidence of gross deformity full range of motion is noted in the hips and shoulders. SKIN: Poor skin turgor was noted. There is no significant pedal edema. NEUROLOGIC: Patient is awake and oriented to person place and situation. She was confused about the time. Strength was symmetric but diminished. There is no facial droop. MEDICAL DECISION MAKING: The patient is a 55-year-old female who presented to the emergency department for altered mental status. The patient does have a history of low sodium in the past. The patient was treated with IV fluids in the emergency department. She also had multiple electrolyte abnormalities. The patient had low potassium as well as low magnesium. I discussed patient's laboratory and radiographic studies with her and her daughter. She was also found to have an elevation in her bilirubin compared to baseline. She may require further imaging but at this time I do feel the patient would not be a good candidate for outpatient management. Blood cultures were drawn initially and the patient was treated with empiric antibiotics. I discussed her condition [facility] They have agreed to evaluate the patient in the emergency department for further management and disposition. Triage Nursing notes reviewed. Prior medical records reviewed Vital Signs: reviewed and remarkable for tachycardia. Differential diagnosis: Infection, hypoglycemia, electrolyte abnormalities, overdose, toxicologic, cardiac sources, intracerebral event, neurologic, trauma, as well as other pathologies. ER treatment provided: See below Diagnostics interpreted by me: ECG: EKG was obtained in the emergency department. My interpretation is sinus tachycardia at 102 bpm. There was no ectopy. Low voltage was noted throughout. There is no acute ST segment abnormalities noted. This was compared to a tracing from May 28, 2024. No changes were noted. Cardiac Monitoring: An order was placed for continuous cardiac monitoring. The monitor shows a rate of 102 bpm with sinus tachycardia. Laboratory studies: As stated above and show below. Imaging studies: See below. Radiographic imaging was reviewed by myself Consultation(s): I discussed this case with Joana who is [facility]-call [facility]. ED COURSE: Procedures: none Critical Care: I have personally spent greater than 40 minutes of critical care time in the direct management of this patient. This includes bedside care, interpretation of diagnostic studies, and testing, discussion with consultants, patient, and family members, and other required patient management activities. This 40 minutes is in excess of all separately billable procedures. Past Med/Surg History Problem List (Updated 05/04/25 @ 15:11 by José Miguel Rios DO) UTI (urinary tract infection) (Acute) Metabolic encephalopathy Hyperammonemia (Acute) Hypomagnesemia (Acute) Hypokalemia (Acute) Acute alteration in mental status (Acute) Acute hyponatremia (Acute) History of tobacco use Methotrexate, halfway, current use Abnormal CT scan, chest Family history of ischemic heart disease Sinus tachycardia Elevated troponin Multifocal pneumonia Acute hypoxemic respiratory failure Pneumonia (Acute) CHF (congestive heart failure) (Acute) Hypoxia (Acute) Shock Open wound of female genital organ Diarrhea (Acute) Cellulitis (Acute) Acute hypotension (Acute) History of knee surgery History of dental surgery History of carpal tunnel release Polymyositis Medical History Major depressive disorder Anxiety disorder Hypertension Diverticulitis Urinary tract infection HAL (acute kidney injury) Sepsis Neutropenic fever Surgical History History of laparoscopic cholecystectomy Family History Mother Heart disease Cancer Father Heart disease Diabetes Brother Heart disease Social History Smoking Status: Former smoker Tobacco Type: Cigarettes Cigarettes Per Day: 30; Second Hand Exposure: No; Hx Alcohol Use: No Hx Substance Use: No Preferred Language: [place] Communication Ability: Effective Software Qa Manager Required: No Beliefs That Will Affect Care: None Current Living Situation: Spouse Feels Safe at Home: Yes Assistive Devices: Hospital Bed and Wheelchair Allergies Allergies Allergy/AdvReac Type Severity Reaction Status Date / Time clindamycin Allergy Hives Verified 07/04/24 15:10 Home Meds Home Medications Medication Instructions Recorded Confirmed duloxetine 60 mg capsule,delayed 60 mg PO DAILY 05/28/24 05/04/25 release folic acid 1 mg tablet 1 mg PO DAILY 05/28/24 05/04/25 gabapentin 300 mg capsule 600 mg PO TID 05/28/24 05/04/25 lisinopril 10 mg tablet 10 mg PO DAILY 05/28/24 05/04/25 lorazepam 0.5 mg tablet 0.5 mg PO DAILY PRN Anxiety 05/28/24 05/04/25 pantoprazole 40 mg tablet,delayed 40 mg PO QAM 05/28/24 05/04/25 release ropinirole 1 mg tablet 1 mg PO BID 05/28/24 05/04/25 cholecalciferol (vitamin D3) 1,250 1,250 mcg PO WK 05/04/25 05/04/25 mcg (50,000 unit) tablet umeclidinium 62.5 mcg/actuation 1 inh inhalation QAM 05/04/25 05/04/25 blister powder for inhalation (Incruse Ellipta) zinc sulfate 66 mg tablet 66 mg PO DAILY 05/04/25 05/04/25 Results & Data (ED) Vital Signs Vital Signs - 24 hr 05/04/25 11:51 05/04/25 12:29 05/04/25 13:00 Temperature 36.8 C Temperature Source Oral Pulse Rate 101 H 103 H 103 H Respiratory Rate 16 25 H Blood Pressure 129/84 105/61 Blood Pressure Mean 99 83 Pulse Oximetry 97 95 Oxygen Delivery Method Room Air Sepsis Recent Fever Within 48 Hours No Sepsis New/Unexplained Change in Mental Status Yes Sepsis Action Taken by Nursing Physician Notified Home Medications Current Medication List: was personally reviewed by me Laboratory Data Attestation: I reviewed the patient's lab results. 05/04/25 12:00 05/04/25 12:00 Lab Results 05/04/25 05/04/25 05/04/25 Range/Units 12:00 12:03 12:49 WBC 8.52 (4.8-10.8) K/ul RBC 2.49 L (4.20-5.40) M/uL Hgb 10.0 L (12.0-16.0) g/dl POC Hgb 10.5 L (12.0-16.0) g/dl Hct 27.5 L (37.0-47.0) % POC Hct 31 L (37-47) % MCV 110.4 H (80.0-100.0) fL MCH 40.2 H (25.0-34.0) pg MCHC 36.4 H (32.0-36.0) g/dL RDW Std Deviation 65.3 H (36.4-46.3) fL RDW Coeff of Kristine 15.9 H (11.5-14.5) % Plt Count 178 (130-400) K/uL MPV 9.9 (9.4-12.4) fL Immature Gran % (Auto) 0.5 % Neut % (Auto) 70.2 % Lymph % (Auto) 22.5 % [place] % (Auto) 6.0 % Eos % (Auto) 0.4 % Baso % (Auto) 0.4 % Reticulocyte % (Auto) 6.83 H (0.50-2.00) % Neut # (Auto) 5.99 (1.40-6.50) K/uL Lymph # (Auto) 1.92 (1.20-3.40) K/uL [place] # (Auto) 0.51 (0.11-0.59) K/uL Eos # (Auto) 0.03 (0.00-0.50) K/uL Baso # (Auto) 0.03 (0.00-0.20) K/uL Reticulocyte # 0.170 H (0.020-0.100) 10^6/uL Immature Gran # (Auto) 0.04 (0.01-0.20) K/uL Polychromasia 2+ Macrocytosis Present Echinocytes 1+ PT 14.3 H (9.0-12.0) Seconds INR 1.4 H (0.9-1.1) APTT 33 H (21-31) Seconds PTT Ratio 1.2 VBG pH 7.52 H (7.36-7.41) VBG pCO2 36 L (38-50) mmHg VBG pO2 27 mmHg VBG HCO3 29 mmol/L VBG O2 Saturation < 60.0 % VBG Base Excess 6.1 mEq/L POC Sodium 123 L (135-144) mmol/L Sodium 122 L (136-145) mmol/L POC Potassium 2.6 L (3.3-5.0) mmol/L Potassium 2.7 L (3.5-5.1) mmol/L POC Chloride 83 L (101-112) mmol/L Chloride 86 L (98-107) mmol/L Carbon Dioxide 27 (21-32) mmol/L POC Total CO2 23 L (24-31) mmol/L Anion Gap 9 (3-11) POC Anion Gap 20.0 (16-25) mmol/L POC BUN < 3 L (7-18) mg/dl BUN 3 L (6-23) mg/dl Creatinine 0.45 L (0.6-1.2) mg/dl POC Creatinine 0.6 (0.6-1.3) mg/dl Est Cr Clr Drug Dosing 164.3 ml/min eGFR 113.54 BUN/Creatinine Ratio 6.7 L (10-20) Glucose 118 H (70-99(Fasting)) mg/dl POC Glucose (other) 114 H (70-99) mg/dl Osmolality 251 L (280-300) mOsm/kg Lactate 2.4 H* (0.4-2.0) mmol/L Calcium 8.4 L (8.6-10.3) mg/dl POC Ioniz Calcium Tenisha 1.04 L (1.12-1.32) mmol/l Magnesium 1.6 L (1.7-2.4) mg/dl Total Bilirubin 5.8 H (0.2-1.0) mg/dl Direct Bilirubin 2.0 H (0-0.2) mg/dl AST 42 H (13-39) U/L ALT 18 (7-52) U/L Alkaline Phosphatase 97 (34-104) U/L Ammonia 78.0 H (18-72) umol/L Lactate Dehydrogenase 217 (86-244) U/L Total Creatine Kinase 30 (26-192) U/L Troponin I High Sens 8.6 (0-14) pg/ml Total Protein 5.8 L (6.0-8.3) gm/dl Albumin 2.9 L (3.4-5.0) gm/dl Procalcitonin 0.13 (0-0.5) ng/ml Urine Color Urine Appearance (Clear) Urine pH (4.5-7.5) Ur Specific [place] (1.000-1.030) Urine Protein (Negative) Urine Glucose (UA) (Negative) Urine Ketones (Negative) Urine Blood (Negative) Urine Nitrite (Negative) Urine Bilirubin (Negative) Urine Urobilinogen (Negative) Ur Leukocyte Esterase (Negative) Urine WBC (Auto) (0-5) /hpf Urine RBC (Auto) (0-2) /hpf U Hyaline Cast (Auto) (0-2) /lpf U Epithel Cells (Auto) (0-2) /hpf Urine Bacteria (Auto) (None Seen) Urine Osmolality (500-800) mOsm/kg Ur Random Sodium mmol/L Urine Comment Urine Opiates Screen (Neg) Ur Methadone, Qual (Neg) Urine Fentanyl Screen (Neg) Urine Barbiturates (Neg) Ur Phencyclidine (PCP) (Neg) U Amphetamin/Meth Scrn (Neg) MDMA (Ecstasy) Screen (Neg) U Benzodiazepines Scrn (Neg) Ur Cocaine Metabolite (Neg) U Marijuana (THC) Screen (Neg) Ethyl Alcohol mg/dL < 10.0 (<10.0) mg/dl 05/04/25 Range/Units 13:20 WBC (4.8-10.8) K/ul RBC (4.20-5.40) M/uL Hgb (12.0-16.0) g/dl POC Hgb (12.0-16.0) g/dl Hct (37.0-47.0) % POC Hct (37-47) % MCV (80.0-100.0) fL MCH (25.0-34.0) pg MCHC (32.0-36.0) g/dL RDW Std Deviation (36.4-46.3) fL RDW Coeff of Kristine (11.5-14.5) % Plt Count (130-400) K/uL MPV (9.4-12.4) fL Immature Gran % (Auto) % Neut % (Auto) % Lymph % (Auto) % [place] % (Auto) % Eos % (Auto) % Baso % (Auto) % Reticulocyte % (Auto) (0.50-2.00) % Neut # (Auto) (1.40-6.50) K/uL Lymph # (Auto) (1.20-3.40) K/uL [place] # (Auto) (0.11-0.59) K/uL Eos # (Auto) (0.00-0.50) K/uL Baso # (Auto) (0.00-0.20) K/uL Reticulocyte # (0.020-0.100) 10^6/uL Immature Gran # (Auto) (0.01-0.20) K/uL Polychromasia Macrocytosis Echinocytes PT (9.0-12.0) Seconds INR (0.9-1.1) APTT (21-31) Seconds PTT Ratio VBG pH (7.36-7.41) VBG pCO2 (38-50) mmHg VBG pO2 mmHg VBG HCO3 mmol/L VBG O2 Saturation % VBG Base Excess mEq/L POC Sodium (135-144) mmol/L Sodium (136-145) mmol/L POC Potassium (3.3-5.0) mmol/L Potassium (3.5-5.1) mmol/L POC Chloride (101-112) mmol/L Chloride (98-107) mmol/L Carbon Dioxide (21-32) mmol/L POC Total CO2 (24-31) mmol/L Anion Gap (3-11) POC Anion Gap (16-25) mmol/L POC BUN (7-18) mg/dl BUN (6-23) mg/dl Creatinine (0.6-1.2) mg/dl POC Creatinine (0.6-1.3) mg/dl Est Cr Clr Drug Dosing ml/min eGFR BUN/Creatinine Ratio (10-20) Glucose (70-99(Fasting)) mg/dl POC Glucose (other) (70-99) mg/dl Osmolality (280-300) mOsm/kg Lactate (0.4-2.0) mmol/L Calcium (8.6-10.3) mg/dl POC Ioniz Calcium Tenisha (1.12-1.32) mmol/l Magnesium (1.7-2.4) mg/dl Total Bilirubin (0.2-1.0) mg/dl Direct Bilirubin (0-0.2) mg/dl AST (13-39) U/L ALT (7-52) U/L Alkaline Phosphatase (34-104) U/L Ammonia (18-72) umol/L Lactate Dehydrogenase (86-244) U/L Total Creatine Kinase (26-192) U/L Troponin I High Sens (0-14) pg/ml Total Protein (6.0-8.3) gm/dl Albumin (3.4-5.0) gm/dl Procalcitonin (0-0.5) ng/ml Urine Color Dark Yellow Urine Appearance Cloudy A (Clear) Urine pH 7.0 (4.5-7.5) Ur Specific [place] 1.007 (1.000-1.030) Urine Protein Negative (Negative) Urine Glucose (UA) Negative (Negative) Urine Ketones Negative (Negative) Urine Blood Negative (Negative) Urine Nitrite Negative (Negative) Urine Bilirubin Negative (Negative) Urine Urobilinogen Positive H (Negative) Ur Leukocyte Esterase 3+ H (Negative) Urine WBC (Auto) 21-50 H (0-5) /hpf Urine RBC (Auto) 3-5 H (0-2) /hpf U Hyaline Cast (Auto) 0-2 (0-2) /lpf U Epithel Cells (Auto) 3-5 H (0-2) /hpf Urine Bacteria (Auto) 4+ H (None Seen) Urine Osmolality 189 L (500-800) mOsm/kg Ur Random Sodium 50 mmol/L Urine Comment Urine Opiates Screen Neg (Neg) Ur Methadone, Qual Neg (Neg) Urine Fentanyl Screen Neg (Neg) Urine Barbiturates Neg (Neg) Ur Phencyclidine (PCP) Neg (Neg) U Amphetamin/Meth Scrn Neg (Neg) MDMA (Ecstasy) Screen Neg (Neg) U Benzodiazepines Scrn Neg (Neg) Ur Cocaine Metabolite Neg (Neg) U Marijuana (THC) Screen Neg (Neg) Ethyl Alcohol mg/dL (<10.0) mg/dl Administered Medications Magnesium Sulfate/Dextrose (Magnesium Sulfate / D5w) 1 gm in 100 mls @ 100 mls/hr IV Q1H BONNIE Stop: 05/04/25 15:12 Last Admin: 05/04/25 14:21 Dose: 100 mls/hr Documented By: Infusion: 05/04/25 14:21 Dose: Infused Documented By: Admin: 05/04/25 13:25 Dose: 100 mls/hr Documented By: MARYAM Discontinued Medications Sodium Chloride (Nss) 1,000 mls @ 999 mls/hr IV .Q1H1M ONE Stop: 05/04/25 13:15 Last Admin: 05/04/25 13:35 Dose: 999 mls/hr Documented By: MARYAM Potassium Chloride (K Ismael / Wtr) 10 meq in 100 mls @ 100 mls/hr IV Q1H BONNIE Stop: 05/04/25 14:29 Last Admin: 05/04/25 14:21 Dose: 100 mls/hr Documented By: Infusion: 05/04/25 14:21 Dose: Infused Documented By: Admin: 05/04/25 13:19 Dose: 100 mls/hr Documented By: MARYAM Imaging Data Attestation: I personally reviewed and interpreted this imaging study as follows: My Impression: 1 view chest x-ray was obtained in the emergency department. My interpretation is no free air or definite infiltrate, final report below. Radiologist's Impression: Chest X-Ray 05/04/25 11:49 XR chest 1V portable CLINICAL HISTORY: Sepsis COMPARISON STUDY: 06/02/2024 FINDINGS: Stable mild cardiomegaly with mild pulmonary vascular congestion. Stable diffuse pulmonary interstitial prominence. No lobar consolidation or pleural effusion. No pneumothorax. IMPRESSION: 1. Stable mild CHF. 2. Stable mild pulmonary interstitial prominence could represent mild pulmonary edema, chronic lung disease, or recurrent acute interstitial pneumonia. ACT 112: Negative or not required by law. Electronically signed by: Rodriguez Kirk M.D. 05/04/2025 12:[address] 05/04/25 11:49 CT SCAN OF THE BRAIN WITHOUT IV CONTRAST CLINICAL HISTORY: Change in mental status. COMPARISON STUDY: No priors. TECHNIQUE: Unenhanced axial CT scan of the brain is performed from the vertex to the skull base. Images are reviewed in the axial, sagittal, and coronal planes. A dose lowering technique was utilized adhering to the principles of ALARA. CT DOSE: 703.85 mGy.cm FINDINGS: Brain parenchyma: The brain parenchyma is normal in appearance. There is no hemorrhage, mass effect, or evidence of acute territorial ischemia by CT criteria. Covarrubias-white matter differentiation is preserved. No extra-axial fluid collection is seen. Ventricles, sulci, cisterns: Normal in configuration. Intracranial vasculature: There is atherosclerotic calcification of the cavernous carotid arteries. Calvarium: Unremarkable. Sinuses and mastoids: There is mild mucosal thickening within the frontal sinuses. The remaining paranasal sinuses are clear. The mastoid air cells are well pneumatized. Orbits: The bony orbits are grossly intact. IMPRESSION: There is no hemorrhage, mass effect, or evidence of acute territorial ischemia by CT criteria. ACT 112: Negative or not required by law. Electronically signed by: Rivas Stokes M.D. 05/04/2025 12:27 PM Discharge Plan Visit Data Chief Complaint: Abnormal Labs/Diagnostic Testing Stated Complaint: CONFUSION ED Provider: José Miguel Rios Discharge Problem: Acute hyponatremia, Acute alteration in mental status, Hypokalemia, Hypomagnesemia, Hyperammonemia, UTI (urinary tract infection) Patient Disposition: Admitted As Inpatient Condition: Fair Discharge Instructions Interventions: ED Discharge Assessment Last Done: 05/04/25 14:15
--- NOTE | 2025-05-04 12:28 | CT Scan Report ---
CT SCAN OF THE BRAIN WITHOUT IV CONTRAST CLINICAL HISTORY: Change in mental status. COMPARISON STUDY: No priors. TECHNIQUE: Unenhanced axial CT scan of the brain is performed from the vertex to the skull base. Imag es are reviewed in the axial, sagittal, and coronal planes. A dose lowering technique was utilized a dhering to the principles of ALARA. CT DOSE: 703.85 mGy.cm FINDINGS: Brain parenchyma: The brain parenchyma is normal in appearance. There is no hemorrhage, mass effect, or evidence of acute territorial ischemia by CT criteria. Covarrubias-white matter differentiation is preser davina. No extra-axial fluid collection is seen. Ventricles, sulci, cisterns: Normal in configuration. Intracranial vasculature: There is atherosclerotic calcification of the cavernous carotid arteries. Calvarium: Unremarkable. Sinuses and mastoids: There is mild mucosal thickening within the frontal sinuses. The remaining para nasal sinuses are clear. The mastoid air cells are well pneumatized. Orbits: The bony orbits are grossly intact. IMPRESSION: There is no hemorrhage, mass effect, or evidence of acute territorial ischemia by CT rita reyez. ACT 112: Negative or not required by law. Electronically signed by: Rivas Stokes M.D. 05/04/2025 12:27 PM
[2025-05-04 12:31] LABS: Hematocrit (blood only) 27.5 % (37.0-47.0); Hemoglobin 10.0 g/dl (12.0-16.0); Immature Granulocytes # (auto) 0.04 K/uL (0.01-0.20); Immature Granulocytes % (auto) 0.5 %; Mean Corpuscular Hemoglobin 40.2 pg (25.0-34.0); Mean Corpuscular Volume 110.4 fL (80.0-100.0); Platelet Count 178 K/uL (130-400); RDW Standard Deviation 65.3 fL (36.4-46.3); Red Blood Count 2.49 M/uL (4.20-5.40); White Blood Count 8.52 K/ul (4.8-10.8)
--- NOTE | 2025-05-04 12:32 | XRay Report ---
XR chest 1V portable CLINICAL HISTORY: Sepsis COMPARISON STUDY: 06/02/2024 FINDINGS: Stable mild cardiomegaly with mild pulmonary vascular congestion. Stable diffuse pulmonary interstitial prominence. No lobar consolidation or pleural effusion. No pneumothorax. IMPRESSION: 1. Stable mild CHF. 2. Stable mild pulmonary interstitial prominence could represent mild pulmonary edema, chronic lung d isease, or recurrent acute interstitial pneumonia. ACT 112: Negative or not required by law. Electronically signed by: Rodriguez Kirk M.D. 05/04/2025 12:31 PM
[2025-05-04 12:49] LABS: Macrocytosis Present; Polychromasia 2+
[2025-05-04 12:59] LABS: Alanine Aminotransferase 18.0 U/L (7-52); Alkaline Phosphatase 97.0 U/L (34-104); Anion Gap 9.0 (3-11); Bilirubin,Total 5.8 mg/dl (0.2-1.0); Blood Urea Nitrogen 3.0 mg/dl (6-23); Calcium 8.4 mg/dl (8.6-10.3); Carbon Dioxide 27.0 mmol/L (21-32); Chloride 86.0 mmol/L (98-107); Creatine Kinase 30.0 U/L (26-192); Creatinine Clr Calc Pharmacy 164.3 ml/min; Glucose 118.0 mg/dl (70-99(Fasting)); Magnesium 1.6 mg/dl (1.7-2.4); Potassium 2.7 mmol/L (3.5-5.1); Sodium 122.0 mmol/L (136-145); Total Protein 5.8 gm/dl (6.0-8.3)
[2025-05-04 13:01] LABS: INR 1.4 (0.9-1.1); Partial Thromboplastin Time 33 Seconds (21-31); Prothrombin Time 14.3 Seconds (9.0-12.0)
[2025-05-04 13:08] LABS: Base Excess VBG 6.1 mEq/L; HCO3 VBG 29 mmol/L; Oxygen Saturation VBG < 60.0 %; PCO2 VBG 36 mmHg (38-50); PO2 VBG 27 mmHg; pH VBG 7.52 (7.36-7.41)
[2025-05-04] MEDS: POTASSIUM CHLORIDE / WTR 10 MEQ/100 ML PLCT IV SCH ×3 (13:19→15:44)
[2025-05-04] MEDS: MAGNESIUM SULFATE / D5W 1 GM/100 ML BAG IV SCH (13:25)
--- NOTE | 2025-05-04 13:26 | History & Physical Report ---
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 Lal), iatrogenic Cushings syndrome, HTN, HLD, depression, chronic anxiety (on ativan prn), neuropathic pain (on gabapentin) who presents for altered mental status likely 2/2 hyponatremia and possible liver failure. #Metabolic Encephalopathy #Hepatic Encephalopathy -all multifactorial due to hyponatremia, hepatic encephalopathy, hypoactive delirium -had Na of 118 outpatient with neurology -could be elemtn of adrenal insuffiency as well Plan: -treat hyponatremia (see below) -start lactulose 10 mg tid -delirium precautions -hold anticholinergic medications, gabapentin, ativan at this time (regularly dispensed ativan but not on tox screen) #Euvolemic Hypoosmolar Hyponatremia #R/o SIADH -Na of 122, serum osmolality of 251, urine Na of 50, and urine osmolality of 189 suggestive of SIADH -unclear cause, could be 2/2 autoimmune conditions, adrenal insufficiency, hypothyroidism, malignancy Plan: -check CTA PE to r/o PE given tachycardia, also to investigate for malignancy -check AM cortisol, TSH -nephrology consult, appreciate recs -fluid restriction, recheck Na after NSS -will start urea pending discussion with nephrology -hold lisinopril #Indirect Bilirubinemia #R/o Liver Failure/Cirrhosis -patient has what appears to be hepatic encephalopathy based on exam and lab findings -last CT abdomen/pelvis in 2023 revealed fatty infiltration of the liver without evidence of cirrhosis -elevated PT/INR, relatively maintained transaminases suggests possible extrahepatic origin of bilirubinemia -differential is broad, hemolysis is highest on differential, along with liver failure/cirrhosis (given bilirubinemia, hepatic encephalopathy, elevated INR), autoimmune hepatitis (given polymyositis), less likely hepatitis, biliary obstruction, Budd Chiari, infiltrative diseases Plan: -CT abdomen/pelvis with contrast ordered -LDH, haptoglobin, reticulocytes ordered, will order further labs pending results -echo will be considered pending above results -GI consult, appreciate recs -ESR/CRP for autoimmune consideration -update: LDH not consistent with hemolysis #Polymyositis #Hx of Adrenal Insufficiency #Hx of Demyelinating Disease -scehduled for outpatient MR head for further workup of demyelinating syndromes -no longer on prednisone or methotrexate due to side effect profile Plan: -if mentation does not improve could consider MR w/ and w/o contrast inpatient -f/u AM cortisol #Hypokalemia #Hypomagnesemia -replenish I spent a total of 90 minutes in direct patient care, including elko-md-agny time with the patient and/or family, reviewing medical records, ordering and reviewing diagnostic tests, and coordinating care with other healthcare providers. This time includes: history taking, physical examination, medical decision making, counseling, ECG interpretation, imaging interpretation, lab interpretation, orders, and education, excluding time spent in the performance of separately billed services. History of Present Illness Chief Complaint: -altered mental status Primary Care Provider: Petey Thrasher, 55 yo female with pmhx of polymyositis c/b myopathy and ILD/methotrexate induced lung changes (follows w/ Dr. Lal), iatrogenic Cushings syndrome, HTN, HLD, depression, chronic anxiety (on ativan prn), neuropathic pain (on gabapentin) who presents for altered mental status. Last visit was in 05/2024 for sepsis 2/2 multifocal CAP. In the ED, noted to have elevated bilirubin, altered, CT head and chest xray unremarkable and grossly unchanged from prior respectively, given fluids and abx, admitted to medicine for further workup. Patient seen and examined at bedside. Daughter who is caregiver and sister present at bedside. Patient alert and orriented x3 but confused/slow to answer. Patient denies nausea, vomiting, diarrhea, pain, other symptoms. Denies SOB, chest pain. Per granddaughter, patient has not been doing well for the few days, worst in the past 24 hours. She states patient has become steadily more confused. Also states her skin coloring has become more yellow/pale in the past 24 hours. Daughter states patient could have taken more medications than normal and she would not know. Daughter states patient has demyelinating lesions on her brain but is unsure the clinical correlation, with a MR brain ordered for further evaluation outpatient. No tobacco use, alcohol use present (per daughter has slowed down significantly past few weeks), no drug use, DNRDNI per discussion with patients caregiver and patient wishes. Allergies Allergy/AdvReac Type Severity Reaction Status Date / Time clindamycin Allergy Hives Verified 07/04/24 15:10 Home Medications Medication Instructions Recorded Confirmed Type duloxetine 60 mg capsule,delayed 60 mg PO DAILY 05/28/24 05/04/25 History release folic acid 1 mg tablet 1 mg PO DAILY 05/28/24 05/04/25 History gabapentin 300 mg capsule 600 mg PO TID 05/28/24 05/04/25 History lisinopril 10 mg tablet 10 mg PO DAILY 05/28/24 05/04/25 History lorazepam 0.5 mg tablet 0.5 mg PO DAILY PRN Anxiety 05/28/24 05/04/25 History pantoprazole 40 mg tablet,delayed 40 mg PO QAM 05/28/24 05/04/25 History release ropinirole 1 mg tablet 1 mg PO BID 05/28/24 05/04/25 History cholecalciferol (vitamin D3) 1,250 1,250 mcg PO WK 05/04/25 05/04/25 History mcg (50,000 unit) tablet umeclidinium 62.5 mcg/actuation 1 inh inhalation QAM 05/04/25 05/04/25 History blister powder for inhalation (Incruse Ellipta) zinc sulfate 66 mg tablet 66 mg PO DAILY 05/04/25 05/04/25 History Past Med/Surg History Problem List (Updated 05/04/25 @ 15:52 by Jose Morris PA-C) Elevated LFTs UTI (urinary tract infection) (Acute) Metabolic encephalopathy Hyperammonemia (Acute) Hypomagnesemia (Acute) Hypokalemia (Acute) Acute alteration in mental status (Acute) Acute hyponatremia (Acute) History of tobacco use Methotrexate, chcf, current use Abnormal CT scan, chest Family history of ischemic heart disease Sinus tachycardia Elevated troponin Multifocal pneumonia Acute hypoxemic respiratory failure Pneumonia (Acute) CHF (congestive heart failure) (Acute) Hypoxia (Acute) Shock Open wound of female genital organ Diarrhea (Acute) Cellulitis (Acute) Acute hypotension (Acute) History of knee surgery History of dental surgery History of carpal tunnel release Polymyositis Medical History Major depressive disorder Anxiety disorder Hypertension Diverticulitis Urinary tract infection HAL (acute kidney injury) Sepsis Neutropenic fever Surgical History History of laparoscopic cholecystectomy Family History Mother Heart disease Cancer Father Heart disease Diabetes Brother Heart disease Social History Smoking Status: Former smoker Tobacco Type: Cigarettes Cigarettes Per Day: 30; Second Hand Exposure: No; Hx Alcohol Use: Yes Alcohol type: hard liquor Hx Substance Use: No Preferred Language: Uzbek Communication Ability: Effective Menswear Salesperson Required: No Beliefs That Will Affect Care: None Current Living Situation: Spouse Other Information That Helps Us Care for You: No Feels Safe at Home: Yes Safety Concerns: Feels Safe At This Time Assistive Devices: Hospital Bed and Wheelchair Review of Systems Review of Systems: -negative unless listed above Physical Exam Physical Exam: Gen: A&O 3 but confused, NAD HEENT: NCAT, EOMI, External ears normal. No rhinorrhea. Moist mucous membranes. Scleral icterus noted Neck: Supple, full range of motion, no observable masses, No meningeal sign. Lungs: No Respiratory distress. CV: tachyardic, regular rhythm, left leg more swollen than right Abdomen: Soft, nondistended, No rebound tenderness. MSK: No joint swelling, no redness. Skin: yellow tinge Neuro: Normal Gait, Grossly intact. Psych: slightly confused, mental slowing noted Results & Data Results & Data Vital Signs (Past 12 Hours) Vital Signs Temp Pulse Resp BP Pulse Ox O2 Del Method 05/04/25 12:29 103 H 05/04/25 11:51 36.8 C 101 H 16 129/84 97 Room Air Laboratory Results -personally reviewed, elevated bilirubin with indirect bilirubin predominance, Na of 122 with urine sodium of 50 and urine osmolality of 189 is consistent with SIADH, Mg 1.6 replenished, K of 2.7 replenishment started, slightly elevated lactic acid noted Medications Administered Magnesium Sulfate/Dextrose (Magnesium Sulfate / D5w) 1 gm in 100 mls @ 100 mls/hr IV Q1H BONNIE Stop: 05/04/25 15:12 Last Admin: 05/04/25 14:21 Dose: 100 mls/hr Documented By: Infusion: 05/04/25 14:21 Dose: Infused Documented By: Admin: 05/04/25 13:25 Dose: 100 mls/hr Documented By: MARYAM
[2025-05-04] MEDS ORDERED: Nursing to Pharmacy Communication SCH (13:30)
[2025-05-04] MEDS: SODIUM CHLORIDE 0.9% 1,000 ML IV ONE (13:35)
[2025-05-04 14:00] LABS: Appearance Urine Cloudy (Clear); Bacteria Urine Automated 4+ (None Seen); Cast Urine Automated 0-2 /lpf (0-2); Glucose Urine UA Negative (Negative); WBC Urine Automated 21-50 /hpf (0-5)
[2025-05-04 14:20] LABS: Reticulocytes # 0.170 10^6/uL (0.020-0.100)
[2025-05-04] MEDS ORDERED: POLYETHYLENE (MIRALAX) 17 GM PACK PO PRN (14:25)
[2025-05-04] MEDS ORDERED: ONDANSETRON INJ 2 MG/ML 2 ML VIAL IV PRN (14:25)
[2025-05-04 14:48] LABS: Amphetamines+Metham, Urine Neg (Neg); MDMA (Ecstacy), Urine Neg (Neg); Marijuana, Urine Neg (Neg)
[2025-05-04] MEDS: ENOXAPARIN INJ 40 MG/0.4 ML SYR SQ SCH (15:44)
[2025-05-04] MEDS: POTASSIUM CHLORIDE 20 MEQ/15 ML UDC PO STA (15:44)
[2025-05-04 15:48] LABS: Anion Gap 10.0 (3-11); Blood Urea Nitrogen 3.0 mg/dl (6-23); Calcium 8.4 mg/dl (8.6-10.3); Carbon Dioxide 25.0 mmol/L (21-32); Chloride 87.0 mmol/L (98-107); Creatinine Clr Calc Pharmacy 160.4 ml/min; Glucose 115.0 mg/dl (70-99(Fasting)); Potassium 2.9 mmol/L (3.5-5.1); Sodium 122.0 mmol/L (136-145)
--- NOTE | 2025-05-04 15:52 | Gastrointestinal Consultation ---
Date of Consultation May 04, 2025 Assessment & Plan (1) Acute alteration in mental status: (2) Elevated LFTs: Plan I suspect that her changes in mental status are likely not related to liver issues. She has significant electrolyte abnormalities and a urinary tract infection. her abnormal LFTs may be related to other active issues. - can check an acetaminophen level. - will await the CT abdomen/pelvis to further evaluate her liver. - will continue to trend LFTs. -Further recommendations to come with Supervising GI provider on medical rounds. Please see co-signature comments. Supervising Physician Co-Signing Physician Notes I saw and examined this patient with our nurse practitioner and agree with her assessment and plan. The predominant liver enzyme that is elevated is her total bilirubin out of proportion to the other transaminases and alkaline phosphatase which are normal and only slightly elevated. I would be concerned about a nonhepatic reason for her hyperbilirubinemia such as hemolysis. Recommend a hemolysis workup. She has no asterixis on exam no past history of cirrhosis to suggest hepatic encephalopathy as a cause for her mental status changes. Await CT scan of the abdomen for further imaging of her liver proceed with hematologic evaluation for hemolysis continue to monitor liver enzymes. History of Present Illness Reason for Consultation: possible liver failure Requesting Physician: Gavin Montelongo MD Attending Physician: Gavin Montelongo MD History of Present Illness Patient is a 55 year old female with a past medical history of polymyositis myopathy and ILD/methotrexate induced lung changes (follows w/ Dr. Lal), iatrogenic Cushings syndrome, HTN, HLD, depression, chronic anxiety (on ativan prn), neuropathic pain (on gabapentin) who presented to the ED for altered mental status likely secondary to hyponatremia. GI asked to see for possible liver failure as there was some abnormalities to her liver panel. patient does have a history of chronic alcohol use and her family states she would drink several shots of vodka daily. Patient tells me that last had a drink 4 weeks ago, though family tells me it is hard to say if this is accurate. she does have access to tylenol at home and it is not clear if she was using this or not. patient is a poor historian given confusion and as such her sister and daughter provide history. she can have some issues with swallowing but is set up to see ENT for this as an outpatient. the rest of the GI ros are unremarkable. Upon work up, her LFTs are as follows: T bili 5.8, D bili 2, AST 42, ALT 18, Alk 97, Nh3 78. INR 1. 8 Na 123, K 2.7, BUN 3, Creatinine 0.45. Allergies Allergy/AdvReac Type Severity Reaction Status Date / Time clindamycin Allergy Hives Verified 07/04/24 15:10 Home Medications Medication Instructions Recorded Confirmed Type duloxetine 60 mg capsule,delayed 60 mg PO DAILY 05/28/24 05/04/25 History release folic acid 1 mg tablet 1 mg PO DAILY 05/28/24 05/04/25 History gabapentin 300 mg capsule 600 mg PO TID 05/28/24 05/04/25 History lisinopril 10 mg tablet 10 mg PO DAILY 05/28/24 05/04/25 History lorazepam 0.5 mg tablet 0.5 mg PO DAILY PRN Anxiety 05/28/24 05/04/25 History pantoprazole 40 mg tablet,delayed 40 mg PO QAM 05/28/24 05/04/25 History release ropinirole 1 mg tablet 1 mg PO BID 05/28/24 05/04/25 History cholecalciferol (vitamin D3) 1,250 1,250 mcg PO WK 05/04/25 05/04/25 History mcg (50,000 unit) tablet umeclidinium 62.5 mcg/actuation 1 inh inhalation QAM 05/04/25 05/04/25 History blister powder for inhalation (Incruse Ellipta) zinc sulfate 66 mg tablet 66 mg PO DAILY 05/04/25 05/04/25 History Patient History Medical History Major depressive disorder Anxiety disorder Hypertension Diverticulitis Urinary tract infection HAL (acute kidney injury) Sepsis Neutropenic fever Surgical History History of laparoscopic cholecystectomy Family History Mother Heart disease Cancer Father Heart disease Diabetes Brother Heart disease Social History Smoking Status: Former smoker Tobacco Type: Cigarettes Cigarettes Per Day: 30; Second Hand Exposure: No; Hx Alcohol Use: Yes Alcohol type: hard liquor Hx Substance Use: No Preferred Language: Bengali Communication Ability: Effective Beating Machine Operator Required: No Beliefs That Will Affect Care: None Current Living Situation: Spouse Other Information That Helps Us Care for You: No Feels Safe at Home: Yes Safety Concerns: Feels Safe At This Time Assistive Devices: Hospital Bed and Wheelchair Review of Systems Review of Systems: could not be obtained. Physical Exam Constitutional: WD/WN, vitals as above Respiratory: normal respiratory effort, lungs clear to auscultation Cardiovascular: Rate/Rhythm: regular rate and regular rhythm Gastrointestinal (Abdomen): normal bowel sounds, soft, nontender, no hepatosplenomegaly Psychiatric: Orientation: alert Affect: euthymic affect Results & Data Vital Signs (Past 12 Hours) Vital Signs Temp Pulse Pulse Resp BP BP Pulse Ox 05/04/25 15:08 97.7 F 99 H 18 100/67 98 05/04/25 15:07 05/04/25 14:15 102 H 18 114/60 95 05/04/25 13:33 106 H 24 05/04/25 13:00 103 H 25 H 105/61 95 05/04/25 12:29 103 H 05/04/25 11:51 98.2 F 101 H 16 129/84 97 O2 Del Method 05/04/25 15:08 Room Air 05/04/25 15:07 Room Air 05/04/25 14:15 Room Air 05/04/25 13:33 05/04/25 13:00 05/04/25 12:29 05/04/25 11:51 Room Air Laboratory Results Laboratory Results - last 48 hr 05/04/25 05/04/25 05/04/25 12:00 12:03 12:49 WBC 8.52 RBC 2.49 L Hgb 10.0 L POC Hgb 10.5 L Hct 27.5 L POC Hct 31 L MCV 110.4 H MCH 40.2 H MCHC 36.4 H RDW Std Deviation 65.3 H RDW Coeff of Kristine 15.9 H Plt Count 178 MPV 9.9 Immature Gran % (Auto) 0.5 Neut % (Auto) 70.2 Lymph % (Auto) 22.5 [place] % (Auto) 6.0 Eos % (Auto) 0.4 Baso % (Auto) 0.4 Reticulocyte % (Auto) 6.83 H Neut # (Auto) 5.99 Lymph # (Auto) 1.92 [place] # (Auto) 0.51 Eos # (Auto) 0.03 Baso # (Auto) 0.03 Reticulocyte # 0.170 H Immature Gran # (Auto) 0.04 Polychromasia 2+ Macrocytosis Present Echinocytes 1+ ESR 23 PT 14.3 H INR 1.4 H APTT 33 H PTT Ratio 1.2 VBG pH 7.52 H VBG pCO2 36 L VBG pO2 27 VBG HCO3 29 VBG O2 Saturation < 60.0 VBG Base Excess 6.1 POC Sodium 123 L Sodium 122 L 122 L POC Potassium 2.6 L Potassium 2.7 L 2.9 L POC Chloride 83 L Chloride 86 L 87 L Carbon Dioxide 27 25 POC Total CO2 23 L Anion Gap 9 10 POC Anion Gap 20.0 POC BUN < 3 L BUN 3 L 3 L Creatinine 0.45 L 0.46 L POC Creatinine 0.6 Est Cr Clr Drug Dosing 164.3 160.4 eGFR 113.54 112.94 BUN/Creatinine Ratio 6.7 L 6.5 L Glucose 118 H 115 H POC Glucose (other) 114 H Osmolality 251 L Lactate 2.4 H* Calcium 8.4 L 8.4 L POC Ioniz Calcium Tenisha 1.04 L Magnesium 1.6 L Total Bilirubin 5.8 H Direct Bilirubin 2.0 H AST 42 H ALT 18 Alkaline Phosphatase 97 Ammonia 78.0 H Lactate Dehydrogenase 217 Total Creatine Kinase 30 Troponin I High Sens 8.6 Total Protein 5.8 L Albumin 2.9 L Procalcitonin 0.13 TSH 2.095 Urine Color Urine Appearance Urine pH Ur Specific Wellman Urine Protein Urine Glucose (UA) Urine Ketones Urine Blood Urine Nitrite Urine Bilirubin Urine Urobilinogen Ur Leukocyte Esterase Urine WBC (Auto) Urine RBC (Auto) U Hyaline Cast (Auto) U Epithel Cells (Auto) Urine Bacteria (Auto) Urine Osmolality Ur Random Sodium Urine Comment Urine Opiates Screen Ur Methadone, Qual Urine Fentanyl Screen Urine Barbiturates Ur Phencyclidine (PCP) U Amphetamin/Meth Scrn MDMA (Ecstasy) Screen U Benzodiazepines Scrn Ur Cocaine Metabolite U Marijuana (THC) Screen Ethyl Alcohol mg/dL < 10.0 05/04/25 05/04/25 13:20 14:51 WBC RBC Hgb POC Hgb Hct POC Hct MCV MCH MCHC RDW Std Deviation RDW Coeff of Kristine Plt Count MPV Immature Gran % (Auto) Neut % (Auto) Lymph % (Auto) [place] % (Auto) Eos % (Auto) Baso % (Auto) Reticulocyte % (Auto) Neut # (Auto) Lymph # (Auto) [place] # (Auto) Eos # (Auto) Baso # (Auto) Reticulocyte # Immature Gran # (Auto) Polychromasia Macrocytosis Echinocytes ESR PT INR APTT PTT Ratio VBG pH VBG pCO2 VBG pO2 VBG HCO3 VBG O2 Saturation VBG Base Excess POC Sodium Sodium POC Potassium Potassium POC Chloride Chloride Carbon Dioxide POC Total CO2 Anion Gap POC Anion Gap POC BUN BUN Creatinine POC Creatinine Est Cr Clr Drug Dosing eGFR BUN/Creatinine Ratio Glucose POC Glucose (other) Osmolality Lactate 2.2 H* Calcium POC Ioniz Calcium Tenisha Magnesium Total Bilirubin Direct Bilirubin AST ALT Alkaline Phosphatase Ammonia Lactate Dehydrogenase Total Creatine Kinase Troponin I High Sens Total Protein Albumin Procalcitonin TSH Urine Color Dark Yellow Urine Appearance Cloudy A Urine pH 7.0 Ur Specific Wellman 1.007 Urine Protein Negative Urine Glucose (UA) Negative Urine Ketones Negative Urine Blood Negative Urine Nitrite Negative Urine Bilirubin Negative Urine Urobilinogen Positive H Ur Leukocyte Esterase 3+ H Urine WBC (Auto) 21-50 H Urine RBC (Auto) 3-5 H U Hyaline Cast (Auto) 0-2 U Epithel Cells (Auto) 3-5 H Urine Bacteria (Auto) 4+ H Urine Osmolality 189 L Ur Random Sodium 50 Urine Comment Urine Opiates Screen Neg Ur Methadone, Qual Neg Urine Fentanyl Screen Neg Urine Barbiturates Neg Ur Phencyclidine (PCP) Neg U Amphetamin/Meth Scrn Neg MDMA (Ecstasy) Screen Neg U Benzodiazepines Scrn Neg Ur Cocaine Metabolite Neg U Marijuana (THC) Screen Neg Ethyl Alcohol mg/dL Coding Level of Care Code 49894 INT INP/OBS CARE 255MIN Diagnoses Acute alteration in mental status R41.82 Elevated LFTs R79.89
[2025-05-04] MEDS: cefTRIAXone SODIUM 2,000 MG/50 ML BAG IV STA (15:53)
[2025-05-04 16:03] LABS: Thyroid Stimulating Hormone 2.095 uIu/ml (0.300-4.500)
[2025-05-04] MEDS: ALBUMIN 25% 25 GM/100 ML VIAL IV SCH (17:35)
[2025-05-04 18:45] LABS: Anion Gap 6.0 (3-11); Blood Urea Nitrogen 2.0 mg/dl (6-23); Calcium 8.1 mg/dl (8.6-10.3); Carbon Dioxide 25.0 mmol/L (21-32); Chloride 92.0 mmol/L (98-107); Creatinine Clr Calc Pharmacy 167.7 ml/min; Glucose 115.0 mg/dl (70-99(Fasting)); Potassium 3.8 mmol/L (3.5-5.1); Sodium 123.0 mmol/L (136-145)
--- NOTE | 2025-05-04 20:03 | Electrocardiogram Report ---
Test Reason : Blood Pressure : */* mmHG Vent. Rate : 102 BPM Atrial Rate : * BPM P-R Int : * ms QRS Dur : 84 ms QT Int : 352 ms P-R-T Axes : * -11 -5 degrees QTcB Int : 459 ms Poor data quality, interpretation may be adversely affected Probable Sinus tachycardia Inferior infarct , age undetermined Cannot rule out Anterior infarct , age undetermined Nonspecific T wave abnormality Abnormal ECG When compared with ECG of 28-May-2024 20:10, Nonspecific T wave abnormality has replaced inverted T waves in Anterior leads Confirmed by Rigo Coughlin ([id number]) on 05/04/2025 8:03:14 PM Referred By: Anika Cervantes Confirmed By: Rigo Coughlin
[2025-05-04] MEDS: OPTIRAY 320 125ml IV ONE (20:25)
[2025-05-04] MEDS: CALCIUM GLUCONATE 1,000 MG/60 ML BAG IV STA (21:13)
[2025-05-04] MEDS: LACTULOSE SYRUP 20 GM/30 ML UDC PO SCH (21:13)
--- NOTE | 2025-05-04 23:12 | CT Scan Report ---
Exam(s): CT ABDOMEN + PELVIS With Contrast IV Amt: 119ML OPTIRAY 320 EXAM: CT Abdomen and Pelvis With Intravenous Contrast CLINICAL HISTORY: Reason for exam: r/o liver failure. TECHNIQUE: Axial computed tomography images of the abdomen and pelvis with intravenous contrast. CTDI is 27 mGy and DLP is 1384.76 mGy-cm. Automated exposure control was utilized for the study. A dose lowering technique was utilized adhering to the principles of ALARA. CONTRAST: Patient received 119ML OPTIRAY 320 of IV contrast COMPARISON: CT 05/28/2024 FINDINGS: ABDOMEN: Liver: Nodular contour of the liver. No focal lesion. Patent portal vein. Gallbladder and bile ducts: Cholecystectomy. No biliary dilatation. Pancreas: Unremarkable. Spleen: Unremarkable. Adrenals: Unremarkable. Kidneys and ureters: Unremarkable. No obstructing stones. No hydronephrosis. Stomach and bowel: Mild colonic mucosal thickening, colitis versus portal colopathy. PELVIS: Appendix: No findings to suggest acute appendicitis. Bladder: Wilson catheter within the bladder which is thick-walled. Stones layering dependently within the bladder on the left. Reproductive: Unremarkable as visualized. ABDOMEN and PELVIS: Intraperitoneal space: Unremarkable. No free air. No significant fluid collection. Bones/joints: Numerous chronic appearing compression fractures in the spine. No acute appearing fracture. Soft tissues: Unremarkable. Vasculature: No aortic aneurysm. Lymph nodes: Unremarkable. IMPRESSION: 1. Cirrhotic liver. 2. Wilson catheter within the bladder which is thick-walled. Correlate for cystitis. 3. Mild colonic mucosal thickening, colitis versus portal colopathy. Electronically signed by: Dorian Thomas MD 05/04/25 23:11 PM
--- NOTE | 2025-05-04 23:16 | CT Scan Report ---
Exam(s): CTA CHEST IV Amt: OPTIRAY 320 119ML EXAM: CT Angiography Chest With Intravenous Contrast CLINICAL HISTORY: Reason for exam: PE. TECHNIQUE: Axial computed tomographic angiography images of the chest with intravenous contrast. CTDI is 28.14 mGy and DLP is 824.38 mGy-cm. Automated exposure control was utilized for the study. A dose lowering technique was utilized adhering to the principles of ALARA. MIP reconstructed images were created and reviewed. COMPARISON: 05/28/2024 FINDINGS: Pulmonary arteries: No pulmonary embolism. Aorta: No acute findings. Normal caliber. No dissection. Lungs: Scattered atelectasis and subpleural reticulation. Pleural space: No pleural effusion. No pneumothorax. Heart: Unremarkable. Bones/joints: No acute fracture. Soft tissues: Unremarkable. Lymph nodes: Unremarkable. IMPRESSION: 1. No pulmonary embolism. 2. Scattered atelectasis and subpleural reticulation. Electronically signed by: Dorian Thomas MD 05/04/25 23:15 PM
--- NOTE | 2025-05-05 07:33 | Gastroenterology Progress Note ---
Date of Service May 05, 2025 Assessment & Plan (1) Cirrhosis: Plan: CT scan confirms cirrhosis. No evidence of ascites. Clinically no significant hepatic decompensation. Awaiting further workup regarding infectious etiology for present symptoms. (2) Elevated LFTs: Plan: Predominantly hyperbilirubinemia with only minimal elevation of transaminases. Could be related to her underlying liver disease however need to exclude nonhepatic causes such as infection or hemolysis. Recommend hematology workup. Await blood and urine culture results. Admission and Anticipated Discharge Date Admission Date: May 04, 2025 Subjective Awake and alert denies abdominal pain shortness of breath or chest pain. Physical Exam Physical Exam: No acute distress Respiratory rate regular Cardiac rhythm regular Abdomen soft nontender Results & Data Results & Data Vital Signs (Past 12 Hours) Vital Signs Temp Pulse Pulse Resp BP Pulse Ox O2 Del Method 05/05/25 02:43 36.7 C 95 H 18 138/79 97 Room Air 05/04/25 22:35 36.7 C 109 H 18 115/75 91 Room Air 05/04/25 22:28 36.4 C L 74 18 151/80 H 93 Room Air 05/04/25 21:45 108 H Laboratory Results Laboratory Results - last 48 hr 05/04/25 05/04/25 05/04/25 12:00 12:03 12:49 WBC 8.52 RBC 2.49 L Hgb 10.0 L POC Hgb 10.5 L Hct 27.5 L POC Hct 31 L MCV 110.4 H MCH 40.2 H MCHC 36.4 H RDW Std Deviation 65.3 H RDW Coeff of Kristine 15.9 H Plt Count 178 MPV 9.9 Immature Gran % (Auto) 0.5 Neut % (Auto) 70.2 Lymph % (Auto) 22.5 Randall % (Auto) 6.0 Eos % (Auto) 0.4 Baso % (Auto) 0.4 Reticulocyte % (Auto) 6.83 H Neut # (Auto) 5.99 Lymph # (Auto) 1.92 Randall # (Auto) 0.51 Eos # (Auto) 0.03 Baso # (Auto) 0.03 Reticulocyte # 0.170 H Immature Gran # (Auto) 0.04 Polychromasia 2+ Macrocytosis Present Echinocytes 1+ ESR 23 PT 14.3 H INR 1.4 H APTT 33 H PTT Ratio 1.2 VBG pH 7.52 H VBG pCO2 36 L VBG pO2 27 VBG HCO3 29 VBG O2 Saturation < 60.0 VBG Base Excess 6.1 POC Sodium 123 L Sodium 122 L 122 L POC Potassium 2.6 L Potassium 2.7 L 2.9 L POC Chloride 83 L Chloride 86 L 87 L Carbon Dioxide 27 25 POC Total CO2 23 L Anion Gap 9 10 POC Anion Gap 20.0 POC BUN < 3 L BUN 3 L 3 L Creatinine 0.45 L 0.46 L POC Creatinine 0.6 Est Cr Clr Drug Dosing 164.3 160.4 eGFR 113.54 112.94 BUN/Creatinine Ratio 6.7 L 6.5 L Glucose 118 H 115 H POC Glucose (other) 114 H Osmolality 251 L Lactate 2.4 H* Calcium 8.4 L 8.4 L POC Ioniz Calcium Tenisha 1.04 L Magnesium 1.6 L Total Bilirubin 5.8 H Direct Bilirubin 2.0 H AST 42 H ALT 18 Alkaline Phosphatase 97 Ammonia 78.0 H Lactate Dehydrogenase 217 Total Creatine Kinase 30 Troponin I High Sens 8.6 C-Reactive Protein 1.67 H Total Protein 5.8 L Albumin 2.9 L Procalcitonin 0.13 TSH 2.095 Random Cortisol 13.70 Urine Color Urine Appearance Urine pH Ur Specific Binford Urine Protein Urine Glucose (UA) Urine Ketones Urine Blood Urine Nitrite Urine Bilirubin Urine Urobilinogen Ur Leukocyte Esterase Urine WBC (Auto) Urine RBC (Auto) U Hyaline Cast (Auto) U Epithel Cells (Auto) Urine Bacteria (Auto) Urine Osmolality Ur Random Sodium Urine Comment Urine Opiates Screen Ur Methadone, Qual Urine Fentanyl Screen Acetaminophen Urine Barbiturates Ur Phencyclidine (PCP) U Amphetamin/Meth Scrn MDMA (Ecstasy) Screen U Benzodiazepines Scrn Ur Cocaine Metabolite U Marijuana (THC) Screen Ethyl Alcohol mg/dL < 10.0 05/04/25 05/04/25 05/04/25 13:20 14:51 16:24 WBC RBC Hgb POC Hgb Hct POC Hct MCV MCH MCHC RDW Std Deviation RDW Coeff of Kristine Plt Count MPV Immature Gran % (Auto) Neut % (Auto) Lymph % (Auto) Randall % (Auto) Eos % (Auto) Baso % (Auto) Reticulocyte % (Auto) Neut # (Auto) Lymph # (Auto) Randall # (Auto) Eos # (Auto) Baso # (Auto) Reticulocyte # Immature Gran # (Auto) Polychromasia Macrocytosis Echinocytes ESR PT INR APTT PTT Ratio VBG pH VBG pCO2 VBG pO2 VBG HCO3 VBG O2 Saturation VBG Base Excess POC Sodium Sodium POC Potassium Potassium POC Chloride Chloride Carbon Dioxide POC Total CO2 Anion Gap POC Anion Gap POC BUN BUN Creatinine POC Creatinine Est Cr Clr Drug Dosing eGFR BUN/Creatinine Ratio Glucose POC Glucose (other) Osmolality Lactate 2.2 H* Calcium POC Ioniz Calcium Tenisha Magnesium Total Bilirubin Direct Bilirubin AST ALT Alkaline Phosphatase Ammonia Lactate Dehydrogenase Total Creatine Kinase Troponin I High Sens C-Reactive Protein Total Protein Albumin Procalcitonin TSH Random Cortisol Urine Color Dark Yellow Urine Appearance Cloudy A Urine pH 7.0 Ur Specific Binford 1.007 Urine Protein Negative Urine Glucose (UA) Negative Urine Ketones Negative Urine Blood Negative Urine Nitrite Negative Urine Bilirubin Negative Urine Urobilinogen Positive H Ur Leukocyte Esterase 3+ H Urine WBC (Auto) 21-50 H Urine RBC (Auto) 3-5 H U Hyaline Cast (Auto) 0-2 U Epithel Cells (Auto) 3-5 H Urine Bacteria (Auto) 4+ H Urine Osmolality 189 L Ur Random Sodium 50 Urine Comment Urine Opiates Screen Neg Ur Methadone, Qual Neg Urine Fentanyl Screen Neg Acetaminophen < 3 L Urine Barbiturates Neg Ur Phencyclidine (PCP) Neg U Amphetamin/Meth Scrn Neg MDMA (Ecstasy) Screen Neg U Benzodiazepines Scrn Neg Ur Cocaine Metabolite Neg U Marijuana (THC) Screen Neg Ethyl Alcohol mg/dL 05/04/25 18:09 WBC RBC Hgb POC Hgb Hct POC Hct MCV MCH MCHC RDW Std Deviation RDW Coeff of Kristine Plt Count MPV Immature Gran % (Auto) Neut % (Auto) Lymph % (Auto) Randall % (Auto) Eos % (Auto) Baso % (Auto) Reticulocyte % (Auto) Neut # (Auto) Lymph # (Auto) Randall # (Auto) Eos # (Auto) Baso # (Auto) Reticulocyte # Immature Gran # (Auto) Polychromasia Macrocytosis Echinocytes ESR PT INR APTT PTT Ratio VBG pH VBG pCO2 VBG pO2 VBG HCO3 VBG O2 Saturation VBG Base Excess POC Sodium Sodium 123 L POC Potassium Potassium 3.8 D POC Chloride Chloride 92 L Carbon Dioxide 25 POC Total CO2 Anion Gap 6 POC Anion Gap POC BUN BUN 2 L Creatinine 0.44 L POC Creatinine Est Cr Clr Drug Dosing 167.7 eGFR 114.16 BUN/Creatinine Ratio 4.5 L Glucose 115 H POC Glucose (other) Osmolality Lactate Calcium 8.1 L POC Ioniz Calcium Tenisha Magnesium Total Bilirubin Direct Bilirubin AST ALT Alkaline Phosphatase Ammonia Lactate Dehydrogenase Total Creatine Kinase Troponin I High Sens C-Reactive Protein Total Protein Albumin Procalcitonin TSH Random Cortisol Urine Color Urine Appearance Urine pH Ur Specific Binford Urine Protein Urine Glucose (UA) Urine Ketones Urine Blood Urine Nitrite Urine Bilirubin Urine Urobilinogen Ur Leukocyte Esterase Urine WBC (Auto) Urine RBC (Auto) U Hyaline Cast (Auto) U Epithel Cells (Auto) Urine Bacteria (Auto) Urine Osmolality Ur Random Sodium Urine Comment Urine Opiates Screen Ur Methadone, Qual Urine Fentanyl Screen Acetaminophen Urine Barbiturates Ur Phencyclidine (PCP) U Amphetamin/Meth Scrn MDMA (Ecstasy) Screen U Benzodiazepines Scrn Ur Cocaine Metabolite U Marijuana (THC) Screen Ethyl Alcohol mg/dL Diagnostic Findings Chest X-Ray 05/04/25 11:49 XR chest 1V portable CLINICAL HISTORY: Sepsis COMPARISON STUDY: 06/02/2024 FINDINGS: Stable mild cardiomegaly with mild pulmonary vascular congestion. Stable diffuse pulmonary interstitial prominence. No lobar consolidation or pleural effusion. No pneumothorax. IMPRESSION: 1. Stable mild CHF. 2. Stable mild pulmonary interstitial prominence could represent mild pulmonary edema, chronic lung disease, or recurrent acute interstitial pneumonia. ACT 112: Negative or not required by law. Electronically signed by: Rodriguez Kirk M.D. 05/04/2025 12:[address] 05/04/25 11:49 CT SCAN OF THE BRAIN WITHOUT IV CONTRAST CLINICAL HISTORY: Change in mental status. COMPARISON STUDY: No priors. TECHNIQUE: Unenhanced axial CT scan of the brain is performed from the vertex to the skull base. Images are reviewed in the axial, sagittal, and coronal planes. A dose lowering technique was utilized adhering to the principles of ALARA. CT DOSE: 703.85 mGy.cm FINDINGS: Brain parenchyma: The brain parenchyma is normal in appearance. There is no hemorrhage, mass effect, or evidence of acute territorial ischemia by CT criteria. Covarrubias-white matter differentiation is preserved. No extra-axial fluid collection is seen. Ventricles, sulci, cisterns: Normal in configuration. Intracranial vasculature: There is atherosclerotic calcification of the cavernous carotid arteries. Calvarium: Unremarkable. Sinuses and mastoids: There is mild mucosal thickening within the frontal sinuses. The remaining paranasal sinuses are clear. The mastoid air cells are well pneumatized. Orbits: The bony orbits are grossly intact. IMPRESSION: There is no hemorrhage, mass effect, or evidence of acute territorial ischemia by CT criteria. ACT 112: Negative or not required by law. Electronically signed by: Rivas Stokes M.D. 05/04/2025 12:27 PM Chest CTA 05/04/25 15:16 Exam(s): CTA CHEST IV Amt: OPTIRAY 320 119ML EXAM: CT Angiography Chest With Intravenous Contrast CLINICAL HISTORY: Reason for exam: PE. TECHNIQUE: Axial computed tomographic angiography images of the chest with intravenous contrast. CTDI is 28.14 mGy and DLP is 824.38 mGy-cm. Automated exposure control was utilized for the study. A dose lowering technique was utilized adhering to the principles of ALARA. MIP reconstructed images were created and reviewed. COMPARISON: 05/28/2024 FINDINGS: Pulmonary arteries: No pulmonary embolism. Aorta: No acute findings. Normal caliber. No dissection. Lungs: Scattered atelectasis and subpleural reticulation. Pleural space: No pleural effusion. No pneumothorax. Heart: Unremarkable. Bones/joints: No acute fracture. Soft tissues: Unremarkable. Lymph nodes: Unremarkable. IMPRESSION: 1. No pulmonary embolism. 2. Scattered atelectasis and subpleural reticulation. Electronically signed by: Dorian Thomas MD 05/04/25 23:15 PM Abdomen/Pelvis CT 05/04/25 20:20 Exam(s): CT ABDOMEN + PELVIS With Contrast IV Amt: 119ML OPTIRAY 320 EXAM: CT Abdomen and Pelvis With Intravenous Contrast CLINICAL HISTORY: Reason for exam: r/o liver failure. TECHNIQUE: Axial computed tomography images of the abdomen and pelvis with intravenous contrast. CTDI is 27 mGy and DLP is 1384.76 mGy-cm. Automated exposure control was utilized for the study. A dose lowering technique was utilized adhering to the principles of ALARA. CONTRAST: Patient received 119ML OPTIRAY 320 of IV contrast COMPARISON: CT 05/28/2024 FINDINGS: ABDOMEN: Liver: Nodular contour of the liver. No focal lesion. Patent portal vein. Gallbladder and bile ducts: Cholecystectomy. No biliary dilatation. Pancreas: Unremarkable. Spleen: Unremarkable. Adrenals: Unremarkable. Kidneys and ureters: Unremarkable. No obstructing stones. No hydronephrosis. Stomach and bowel: Mild colonic mucosal thickening, colitis versus portal colopathy. PELVIS: Appendix: No findings to suggest acute appendicitis. Bladder: Wilson catheter within the bladder which is thick-walled. Stones layering dependently within the bladder on the left. Reproductive: Unremarkable as visualized. ABDOMEN and PELVIS: Intraperitoneal space: Unremarkable. No free air. No significant fluid collection. Bones/joints: Numerous chronic appearing compression fractures in the spine. No acute appearing fracture. Soft tissues: Unremarkable. Vasculature: No aortic aneurysm. Lymph nodes: Unremarkable. IMPRESSION: 1. Cirrhotic liver. 2. Wilson catheter within the bladder which is thick-walled. Correlate for cystitis. 3. Mild colonic mucosal thickening, colitis versus portal colopathy. Electronically signed by: Dorian Thomas MD 05/04/25 23:11 PM PG Care Time/CCT Total # of Minutes Spent Total Time Spent with Patient: Total time spent is greater than 50% in coordination of care (as documented) at patient's floor/unit and/or counseling patient: Coding Level of Care Code 90619 SUB INP/OBS CARE 2/35MIN Diagnoses Cirrhosis K74.60 Elevated LFTs R79.89
[2025-05-05 07:36] LABS: Hematocrit (blood only) 26.0 % (37.0-47.0); Hemoglobin 9.3 g/dl (12.0-16.0); Mean Corpuscular Hemoglobin 40.3 pg (25.0-34.0); Mean Corpuscular Volume 112.6 fL (80.0-100.0); Platelet Count 167 K/uL (130-400); RDW Standard Deviation 67.0 fL (36.4-46.3); Red Blood Count 2.31 M/uL (4.20-5.40); White Blood Count 6.20 K/ul (4.8-10.8)
[2025-05-05] MEDS: UMECLIDINIUM BROMIDE 62.5MCG/BLISTER 7 PUFFS/INHALER INH SCH (07:39)
[2025-05-05] MEDS: FOLIC ACID 1 MG TAB PO SCH (07:41)
[2025-05-05 08:02] LABS: Alanine Aminotransferase 16.0 U/L (7-52); Albumin Globulin Ratio 1.5 (0.9-2); Alkaline Phosphatase 82.0 U/L (34-104); Anion Gap 7.0 (3-11); Bilirubin,Total 6.2 mg/dl (0.2-1.0); Blood Urea Nitrogen 2.0 mg/dl (6-23); Calcium 9.1 mg/dl (8.6-10.3); Carbon Dioxide 26.0 mmol/L (21-32); Chloride 94.0 mmol/L (98-107); Creatine Kinase 33.0 U/L (26-192); Creatinine Clr Calc Pharmacy 160.5 ml/min; Globulin 2.4 gm/dl (2.5-4.0); Glucose 113.0 mg/dl (70-99(Fasting)); Magnesium 1.9 mg/dl (1.7-2.4); Potassium 3.6 mmol/L (3.5-5.1); Sodium 127.0 mmol/L (136-145); Total Protein 6.0 gm/dl (6.0-8.3)
[2025-05-05 08:58] LABS: INR 1.4 (0.9-1.1); Prothrombin Time 14.6 Seconds (9.0-12.0)
--- NOTE | 2025-05-05 10:09 | Hospitalist Progress Note ---
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 Lal), iatrogenic Cushings syndrome, HTN, HLD, depression, chronic anxiety (on ativan prn), neuropathic pain (on gabapentin) who presents for altered mental status #Metabolic Encephalopathy #Hepatic Encephalopathy #Urinary tract infection Possibilities include hepatic encephalopathy, hypoactive delirium Had Na of 118 outpatient with neurology. However, sodium here has been 122 on admission. Currently Na is 127 Reviewed recent outpatient Neuro notes. Neuro had wanted MRI brain w/wo contrast MRI brain w/wo co did not show any acute abnormalities Urine culture growing E coli IV ceftriaxone Follow up sensitivities #Euvolemic Hypoosmolar Hyponatremia Na of 122, serum osmolality of 251, urine Na of 50, and urine osmolality of 189 TSH normal and cortisol normal History suggests excess free water intake, low solute intake Also on background cirrhosis Discussed with Butadiene Converter Operator IV albumin stopped Continue FFR 1.2L per day #Indirect Bilirubinemia #Cirrhosis CT abdomen/pelvis in 2023 revealed fatty infiltration of the liver without evidence of cirrhosis Elevated PT/INR, relatively maintained transaminases suggests possible extrahepatic origin of bilirubinemia CT abd/Pelvis showed cirrhosis LDH normal. Hapto pending Peripheral smear ordered GI eval noted Patient counseled regarding alcohol cessation #Polymyositis #Hx of Adrenal Insufficiency #Hx of Demyelinating Disease MRI brain w/wo con did not show any abnormalities No longer on prednisone or methotrexate due to side effect profile #Hypokalemia Replete hypokalemia and monitor I spent a total of 50 minutes coordinating, documenting and providing care for this patient excluding time spent in performance of separately billed services Admission and Anticipated Discharge Date Admission Date: May 04, 2025 Subjective Patient seen and examined She is AOx3, reports chronic knee pain Reports she is wheelchair bound Denied any other complaints on ROS RN reported patient was confused overnight Physical Exam Constitutional: + well hydrated; no acute distress Eyes: +icterus ENMT: external ear and nose normal, oropharynx normal Respiratory: normal respiratory effort, lungs clear to auscultation Cardiovascular: Rate/Rhythm: regular rate and regular rhythm Gastrointestinal (Abdomen): normal bowel sounds, soft, nontender, no hepatosplenomegaly Musculoskeletal: Drop foot b/l Neurologic: PERRL, EOMI, accommodation nl, no face palsy, no dysarthria AOx3 Results & Data Results & Data Vital Signs (Past 12 Hours) Vital Signs Temp Pulse Pulse Resp BP Pulse Ox O2 Del Method 05/05/25 09:18 112 H 05/05/25 09:06 Room Air 05/05/25 08:21 36.6 C 109 H 18 128/84 95 Room Air 05/05/25 02:43 36.7 C 95 H 18 138/79 97 Room Air 05/04/25 22:35 36.7 C 109 H 18 115/75 91 Room Air 05/04/25 22:28 36.4 C L 74 18 151/80 H 93 Room Air Laboratory Results Abnormal lab results 05/04/25 05/04/25 05/04/25 Range/Units 12:49 13:20 14:51 RBC (4.20-5.40) M/uL Hgb (12.0-16.0) g/dl Hct (37.0-47.0) % MCV (80.0-100.0) fL MCH (25.0-34.0) pg RDW Std Deviation (36.4-46.3) fL RDW Coeff of Kristine (11.5-14.5) % PT (9.0-12.0) Seconds INR (0.9-1.1) Sodium 122 L (136-145) mmol/L Potassium 2.9 L (3.5-5.1) mmol/L Chloride 87 L (98-107) mmol/L BUN 3 L (6-23) mg/dl Creatinine 0.46 L (0.6-1.2) mg/dl BUN/Creatinine Ratio 6.5 L (10-20) Glucose 115 H (70-99(Fasting)) mg/dl Lactate 2.2 H* (0.4-2.0) mmol/L Calcium 8.4 L (8.6-10.3) mg/dl Total Bilirubin (0.2-1.0) mg/dl C-Reactive Protein 1.67 H (0-0.5) mg/dl Globulin (2.5-4.0) gm/dl Urine Osmolality 189 L (500-800) mOsm/kg Acetaminophen (10-30) ug/ml 05/04/25 05/04/25 05/05/25 Range/Units 16:24 18:09 07:00 RBC 2.31 L (4.20-5.40) M/uL Hgb 9.3 L (12.0-16.0) g/dl Hct 26.0 L (37.0-47.0) % MCV 112.6 H (80.0-100.0) fL MCH 40.3 H (25.0-34.0) pg RDW Std Deviation 67.0 H (36.4-46.3) fL RDW Coeff of Kristine 16.3 H (11.5-14.5) % PT 14.6 H (9.0-12.0) Seconds INR 1.4 H (0.9-1.1) Sodium 123 L 127 L (136-145) mmol/L Potassium (3.5-5.1) mmol/L Chloride 92 L 94 L (98-107) mmol/L BUN 2 L 2 L (6-23) mg/dl Creatinine 0.44 L 0.46 L (0.6-1.2) mg/dl BUN/Creatinine Ratio 4.5 L 4.3 L (10-20) Glucose 115 H 113 H (70-99(Fasting)) mg/dl Lactate (0.4-2.0) mmol/L Calcium 8.1 L (8.6-10.3) mg/dl Total Bilirubin 6.2 H (0.2-1.0) mg/dl C-Reactive Protein (0-0.5) mg/dl Globulin 2.4 L (2.5-4.0) gm/dl Urine Osmolality (500-800) mOsm/kg Acetaminophen < 3 L (10-30) ug/ml 05/05/25 Range/Units 13:48 RBC (4.20-5.40) M/uL Hgb (12.0-16.0) g/dl Hct (37.0-47.0) % MCV (80.0-100.0) fL MCH (25.0-34.0) pg RDW Std Deviation (36.4-46.3) fL RDW Coeff of Kristine (11.5-14.5) % PT (9.0-12.0) Seconds INR (0.9-1.1) Sodium (136-145) mmol/L Potassium (3.5-5.1) mmol/L Chloride (98-107) mmol/L BUN (6-23) mg/dl Creatinine (0.6-1.2) mg/dl BUN/Creatinine Ratio (10-20) Glucose (70-99(Fasting)) mg/dl Lactate 2.1 H* (0.4-2.0) mmol/L Calcium (8.6-10.3) mg/dl Total Bilirubin (0.2-1.0) mg/dl C-Reactive Protein (0-0.5) mg/dl Globulin (2.5-4.0) gm/dl Urine Osmolality (500-800) mOsm/kg Acetaminophen (10-30) ug/ml
[2025-05-05] MEDS: ACETAMINOPHEN 325 MG TAB PO PRN (11:53)
--- NOTE | 2025-05-05 12:02 | Magnetic Resonance Report ---
MRI OF THE BRAIN WITHOUT IV CONTRAST CLINICAL HISTORY: Change in mental status. COMPARISON STUDY: CT brain dated 05/04/2025 TECHNIQUE: MRI of the brain was performed utilizing various T1 and T2-weighted sequences in the axial , sagittal, and coronal planes. IV contrast was not administered for this examination. The examinatio n is performed using the multiple sclerosis protocol. The examination is modestly degraded by motion artifact. FINDINGS: Brain parenchyma: There is minimal microangiopathic change. There is no hemorrhage or mass effect. Th ere is no restricted diffusion to suggest acute ischemia. Covarrubias-white matter differentiation is preser davina. No extra-axial fluid collection is seen. The cerebellar tonsils are normal in configuration. Ventricles, sulci, and cisterns: Normal in configuration. Pituitary and sella: Partially empty sella is incidentally noted. Intracranial vasculature: Normal flow voids are maintained at the skull base. Orbits: The bony orbits are grossly intact. Orbital contents are normal in appearance. Sinuses and mastoids: Clear. Calvarium: Unremarkable. Cervical cord: Partially visualized cervical spinal cord is normal in morphology and signal intensity . IMPRESSION: No acute intracranial abnormality. ACT 112: Negative or not required by law. Electronically signed by: Rivas Stokes M.D. 05/05/2025 11:59 AM
--- NOTE | 2025-05-05 12:03 | Nephrology Consultation ---
Date of Consultation May 05, 2025 Assessment & Plan (1) Hyponatremia: She was brought to hospital because of confusion. found to have na of 121. She actually had na of 118 on 04/24/2025 done as outpt. I reviewed her outpt labs and it seems she does have intermittent low Na + with as low as 125 but then also has 141. On had 129 as outpt. Yesterday In the ED, noted to have elevated bilirubin, CT head unremarkable. Chest xray showed Possible CHF. Urine osm was low at 189. worth noting that she was drinking continuously water all day and eating popsicles for many days Prior to Admission. was not eating anything at all because of not feeling good and nausea. even now has no Appetite at all. c/o nausea. I think Low na was more of the effect than the primary cause. Almost zero food intake couple with massive ( but unknown amount) of Liquids caused the low na--So in a nutshell combination of Polydipsia with low solute diet. Overnight given 1 liter NS, 25% albumin. FFR 1200 and na has gone up to 127 now. I believe na went up mainly because of FFR than anything else. No need of NS and No need of Albumin. Continue FFR 1200 ml/day. with Cirrhosis as well as Chronic Lung and neuro Disease she is very susceptible to have low Na. Check renal panel, LFT, Ammonia and lactic Acid again in evening today (2) Elevated LFTs: This is new Dx for her. CT does show Cirrhosis. has h/o Alcohol but not clear amount and duration. In any case still has elevated Bili and is still rising. high Ammonia. But no ascites. Defer to GI. However presence of Cirrhosis makes you very susceptible to Low na. No need of Diuretics currently . FFR 1200 ml per day (3) UTI (urinary tract infection): has +ve urine C/s and getting Abx. Plan Case complexity high. 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 She was brought to hospital because of confusion. found to have na of 121. She actually had na of 118 on 04/24/2025 done as outpt. I reviewed her outpt labs and it seems she does have intermittent low Na + with as low as 125 but then also has 141. On had 129 as outpt. Last Admission in [facility] was in 05/2024 for sepsis 2/2 multifocal CAP. yesterday In the ED, noted to have elevated bilirubin, CT head unremarkable. Chest xray showed Possible CHF. Urine osm was low at 189. worth noting that she was drinking continuously water all day and eating popsicles for many days Prior to Admission. was not eating anything at all because of not feeling good and nausea. even now has no Appetite at all. c/o nausea Overnight given 1 liter NS, 25% albumin. FFR 1200 and na has gone up to 127 now. Bilirubin still rising. CT now shows Cirrhosis --this is new Diagnosis for her. Patient seen and examined at bedside. Poor historian. Sister at bedside. No tobacco use but does have h/o alcohol use (per daughter has slowed down significantly past few weeks), no drug use, DNRDNI per discussion with patients caregiver and patient wishes. GI is evaluating patient currently. ROS--See HPI. 12 Systems reviewed and is otherwise negative Physical Exam Physical Exam: Gen: awake and alert. Poor historian. Seems Confused and not really able to answer accurately. HEENT: Moist mucous membranes. Neck: Supple and no JVD Lungs: No Respiratory distress. b/l Clear. CV: regular rhythm, No murmur. left leg more swollen than right Abdomen: Soft, nondistended, No rebound tenderness. MSK: Severe foot drop Chronic with Some edema in left Skin: yellow tinge Allergies Allergy/AdvReac Type Severity Reaction Status Date / Time clindamycin Allergy Hives Verified 07/04/24 15:10 Home Medications Medication Instructions Recorded Confirmed Type duloxetine 60 mg capsule,delayed 60 mg PO DAILY 05/28/24 05/04/25 History release folic acid 1 mg tablet 1 mg PO DAILY 05/28/24 05/04/25 History gabapentin 300 mg capsule 600 mg PO TID 05/28/24 05/04/25 History lisinopril 10 mg tablet 10 mg PO DAILY 05/28/24 05/04/25 History lorazepam 0.5 mg tablet 0.5 mg PO DAILY PRN Anxiety 05/28/24 05/04/25 History pantoprazole 40 mg tablet,delayed 40 mg PO QAM 05/28/24 05/04/25 History release ropinirole 1 mg tablet 1 mg PO BID 05/28/24 05/04/25 History cholecalciferol (vitamin D3) 1,250 1,250 mcg PO WK 05/04/25 05/04/25 History mcg (50,000 unit) tablet umeclidinium 62.5 mcg/actuation 1 inh inhalation QAM 05/04/25 05/04/25 History blister powder for inhalation (Incruse Ellipta) zinc sulfate 66 mg tablet 66 mg PO DAILY 05/04/25 05/04/25 History Patient History Medical History Major depressive disorder Anxiety disorder Hypertension Diverticulitis Urinary tract infection HAL (acute kidney injury) Sepsis Neutropenic fever Surgical History History of laparoscopic cholecystectomy Family History Mother Heart disease Cancer Father Heart disease Diabetes Brother Heart disease Social History Smoking Status: Former smoker Tobacco Type: Cigarettes Cigarettes Per Day: 30; Second Hand Exposure: No; Hx Alcohol Use: Yes Alcohol type: hard liquor Hx Substance Use: No Preferred Language: Frisian Communication Ability: Effective Packing Clerk Required: No Beliefs That Will Affect Care: None Current Living Situation: Spouse Other Information That Helps Us Care for You: No Feels Safe at Home: Yes Safety Concerns: Feels Safe At This Time Assistive Devices: Hospital Bed and Wheelchair Results & Data Vital Signs (Past 12 Hours) Vital Signs Temp Pulse Pulse Resp BP Pulse Ox O2 Del Method 05/05/25 10:35 36.4 C L 78 18 147/78 H 94 Room Air 05/05/25 09:18 112 H 05/05/25 09:06 Room Air 05/05/25 08:21 36.6 C 109 H 18 128/84 95 Room Air 05/05/25 02:43 36.7 C 95 H 18 138/79 97 Room Air Laboratory Results CBC, CMP, LFT , urine Osm and urine na reviewed. Diagnostic Findings CT abdomen and CXR
[2025-05-05] MEDS: cefTRIAXone SODIUM 2,000 MG/50 ML BAG IV SCH (12:31)
[2025-05-05] MEDS: DICLOFENAC SOD 1% GEL 100 GM TUBE EXT SCH (12:32)
[2025-05-05 14:44] LABS: Alanine Aminotransferase 14.0 U/L (7-52); Albumin Globulin Ratio 1.8 (0.9-2); Alkaline Phosphatase 69.0 U/L (34-104); Anion Gap 8.0 (3-11); Bilirubin,Total 5.7 mg/dl (0.2-1.0); Blood Urea Nitrogen 2.0 mg/dl (6-23); Calcium 8.7 mg/dl (8.6-10.3); Carbon Dioxide 24.0 mmol/L (21-32); Chloride 95.0 mmol/L (98-107); Creatinine Clr Calc Pharmacy 184.6 ml/min; Globulin 2.1 gm/dl (2.5-4.0); Glucose 132.0 mg/dl (70-99(Fasting)); Potassium 3.3 mmol/L (3.5-5.1); Sodium 127.0 mmol/L (136-145); Total Protein 5.8 gm/dl (6.0-8.3)
[2025-05-05] MEDS: POTASSIUM CHLORIDE CRTAB 20 MEQ TABCR PO STA (15:32)
[2025-05-06 07:07] LABS: Hematocrit (blood only) 23.3 % (37.0-47.0); Hemoglobin 8.3 g/dl (12.0-16.0); Mean Corpuscular Hemoglobin 40.9 pg (25.0-34.0); Mean Corpuscular Volume 114.8 fL (80.0-100.0); Platelet Count 152 K/uL (130-400); RDW Standard Deviation 70.1 fL (36.4-46.3); Red Blood Count 2.03 M/uL (4.20-5.40); White Blood Count 5.81 K/ul (4.8-10.8)
[2025-05-06 07:24] LABS: Alanine Aminotransferase 14.0 U/L (7-52); Albumin Globulin Ratio 1.7 (0.9-2); Alkaline Phosphatase 67.0 U/L (34-104); Anion Gap 7.0 (3-11); Bilirubin,Total 4.9 mg/dl (0.2-1.0); Blood Urea Nitrogen 2.0 mg/dl (6-23); Calcium 8.7 mg/dl (8.6-10.3); Carbon Dioxide 26.0 mmol/L (21-32); Chloride 99.0 mmol/L (98-107); Creatinine Clr Calc Pharmacy 172.8 ml/min; Globulin 2.0 gm/dl (2.5-4.0); Glucose 102.0 mg/dl (70-99(Fasting)); Potassium 3.5 mmol/L (3.5-5.1); Sodium 132.0 mmol/L (136-145); Total Protein 5.4 gm/dl (6.0-8.3)
[2025-05-06 07:38] LABS: INR 1.5 (0.9-1.1); Prothrombin Time 16.1 Seconds (9.0-12.0)
--- NOTE | 2025-05-06 07:41 | Gastroenterology Progress Note ---
Date of Service May 06, 2025 Assessment & Plan (1) Elevated LFTs: Plan: Predominantly hyperbilirubinemia otherwise normal LFTs. Bilirubin better today. Await hemolytic workup. (2) Cirrhosis: Plan: No signs of hepatic decompensation. Suspect altered mental status may be related to hyponatremia. (3) Hyponatremia: Admission and Anticipated Discharge Date Admission Date: May 04, 2025 Subjective More awake and alert no significant abdominal pain no shortness of breath no chest pain Physical Exam Physical Exam: No acute distress Respiratory rate regular Cardiac rhythm regular Abdomen soft nontender Results & Data Results & Data Vital Signs (Past 12 Hours) Vital Signs Temp Pulse Pulse Resp BP Pulse Ox O2 Del Method 05/06/25 03:13 36.8 C 104 H 16 122/74 95 Room Air 05/05/25 23:13 36.9 C 86 14 117/76 90 Room Air 05/05/25 21:45 109 H 05/05/25 20:40 Room Air Laboratory Results Laboratory Results - last 48 hr 05/04/25 05/04/25 05/04/25 12:00 12:03 12:49 WBC 8.52 RBC 2.49 L Hgb 10.0 L POC Hgb 10.5 L Hct 27.5 L POC Hct 31 L MCV 110.4 H MCH 40.2 H MCHC 36.4 H RDW Std Deviation 65.3 H RDW Coeff of Kristine 15.9 H Plt Count 178 MPV 9.9 Immature Gran % (Auto) 0.5 Neut % (Auto) 70.2 Lymph % (Auto) 22.5 [place] % (Auto) 6.0 Eos % (Auto) 0.4 Baso % (Auto) 0.4 Reticulocyte % (Auto) 6.83 H Neut # (Auto) 5.99 Lymph # (Auto) 1.92 [place] # (Auto) 0.51 Eos # (Auto) 0.03 Baso # (Auto) 0.03 Reticulocyte # 0.170 H Immature Gran # (Auto) 0.04 Polychromasia 2+ Macrocytosis Present Echinocytes 1+ ESR 23 PT 14.3 H INR 1.4 H APTT 33 H PTT Ratio 1.2 VBG pH 7.52 H VBG pCO2 36 L VBG pO2 27 VBG HCO3 29 VBG O2 Saturation < 60.0 VBG Base Excess 6.1 POC Sodium 123 L Sodium 122 L 122 L POC Potassium 2.6 L Potassium 2.7 L 2.9 L POC Chloride 83 L Chloride 86 L 87 L Carbon Dioxide 27 25 POC Total CO2 23 L Anion Gap 9 10 POC Anion Gap 20.0 POC BUN < 3 L BUN 3 L 3 L Creatinine 0.45 L 0.46 L POC Creatinine 0.6 Est Cr Clr Drug Dosing 164.3 160.4 eGFR 113.54 112.94 BUN/Creatinine Ratio 6.7 L 6.5 L Glucose 118 H 115 H POC Glucose (other) 114 H Osmolality 251 L Lactate 2.4 H* Calcium 8.4 L 8.4 L POC Ioniz Calcium Tenisha 1.04 L Phosphorus Magnesium 1.6 L Total Bilirubin 5.8 H Direct Bilirubin 2.0 H AST 42 H ALT 18 Alkaline Phosphatase 97 Ammonia 78.0 H Lactate Dehydrogenase 217 Total Creatine Kinase 30 Troponin I High Sens 8.6 C-Reactive Protein 1.67 H Total Protein 5.8 L Albumin 2.9 L Globulin Albumin/Globulin Ratio Procalcitonin 0.13 TSH 2.095 Random Cortisol 13.70 Cortisol AM Sample Urine Color Urine Appearance Urine pH Ur Specific [place] Urine Protein Urine Glucose (UA) Urine Ketones Urine Blood Urine Nitrite Urine Bilirubin Urine Urobilinogen Ur Leukocyte Esterase Urine WBC (Auto) Urine RBC (Auto) U Hyaline Cast (Auto) U Epithel Cells (Auto) Urine Bacteria (Auto) Urine Osmolality Ur Random Sodium Urine Comment Urine Opiates Screen Ur Methadone, Qual Urine Fentanyl Screen Acetaminophen Urine Barbiturates Ur Phencyclidine (PCP) U Amphetamin/Meth Scrn MDMA (Ecstasy) Screen U Benzodiazepines Scrn Ur Cocaine Metabolite U Marijuana (THC) Screen Ethyl Alcohol mg/dL < 10.0 05/04/25 05/04/25 05/04/25 13:20 14:51 16:24 WBC RBC Hgb POC Hgb Hct POC Hct MCV MCH MCHC RDW Std Deviation RDW Coeff of Kristine Plt Count MPV Immature Gran % (Auto) Neut % (Auto) Lymph % (Auto) [place] % (Auto) Eos % (Auto) Baso % (Auto) Reticulocyte % (Auto) Neut # (Auto) Lymph # (Auto) [place] # (Auto) Eos # (Auto) Baso # (Auto) Reticulocyte # Immature Gran # (Auto) Polychromasia Macrocytosis Echinocytes ESR PT INR APTT PTT Ratio VBG pH VBG pCO2 VBG pO2 VBG HCO3 VBG O2 Saturation VBG Base Excess POC Sodium Sodium POC Potassium Potassium POC Chloride Chloride Carbon Dioxide POC Total CO2 Anion Gap POC Anion Gap POC BUN BUN Creatinine POC Creatinine Est Cr Clr Drug Dosing eGFR BUN/Creatinine Ratio Glucose POC Glucose (other) Osmolality Lactate 2.2 H* Calcium POC Ioniz Calcium Tenisha Phosphorus Magnesium Total Bilirubin Direct Bilirubin AST ALT Alkaline Phosphatase Ammonia Lactate Dehydrogenase Total Creatine Kinase Troponin I High Sens C-Reactive Protein Total Protein Albumin Globulin Albumin/Globulin Ratio Procalcitonin TSH Random Cortisol Cortisol AM Sample Urine Color Dark Yellow Urine Appearance Cloudy A Urine pH 7.0 Ur Specific [place] 1.007 Urine Protein Negative Urine Glucose (UA) Negative Urine Ketones Negative Urine Blood Negative Urine Nitrite Negative Urine Bilirubin Negative Urine Urobilinogen Positive H Ur Leukocyte Esterase 3+ H Urine WBC (Auto) 21-50 H Urine RBC (Auto) 3-5 H U Hyaline Cast (Auto) 0-2 U Epithel Cells (Auto) 3-5 H Urine Bacteria (Auto) 4+ H Urine Osmolality 189 L Ur Random Sodium 50 Urine Comment Urine Opiates Screen Neg Ur Methadone, Qual Neg Urine Fentanyl Screen Neg Acetaminophen < 3 L Urine Barbiturates Neg Ur Phencyclidine (PCP) Neg U Amphetamin/Meth Scrn Neg MDMA (Ecstasy) Screen Neg U Benzodiazepines Scrn Neg Ur Cocaine Metabolite Neg U Marijuana (THC) Screen Neg Ethyl Alcohol mg/dL 05/04/25 05/05/25 05/05/25 18:09 07:00 13:48 WBC 6.20 RBC 2.31 L Hgb 9.3 L POC Hgb Hct 26.0 L POC Hct MCV 112.6 H MCH 40.3 H MCHC 35.8 RDW Std Deviation 67.0 H RDW Coeff of Kristine 16.3 H Plt Count 167 MPV 9.5 Immature Gran % (Auto) Neut % (Auto) Lymph % (Auto) [place] % (Auto) Eos % (Auto) Baso % (Auto) Reticulocyte % (Auto) Neut # (Auto) Lymph # (Auto) [place] # (Auto) Eos # (Auto) Baso # (Auto) Reticulocyte # Immature Gran # (Auto) Polychromasia Macrocytosis Echinocytes ESR PT 14.6 H INR 1.4 H APTT PTT Ratio VBG pH VBG pCO2 VBG pO2 VBG HCO3 VBG O2 Saturation VBG Base Excess POC Sodium Sodium 123 L 127 L 127 L POC Potassium Potassium 3.8 D 3.6 3.3 L POC Chloride Chloride 92 L 94 L 95 L Carbon Dioxide 25 26 24 POC Total CO2 Anion Gap 6 7 8 POC Anion Gap POC BUN BUN 2 L 2 L 2 L Creatinine 0.44 L 0.46 L 0.40 L POC Creatinine Est Cr Clr Drug Dosing 167.7 160.5 184.6 eGFR 114.16 112.94 116.81 BUN/Creatinine Ratio 4.5 L 4.3 L 5.0 L Glucose 115 H 113 H 132 H POC Glucose (other) Osmolality Lactate 2.1 H* Calcium 8.1 L 9.1 8.7 POC Ioniz Calcium Tenisha Phosphorus 2.5 Magnesium 1.9 Total Bilirubin 6.2 H 5.7 H Direct Bilirubin AST 36 30 ALT 16 14 Alkaline Phosphatase 82 69 Ammonia 63.0 Lactate Dehydrogenase 181 Total Creatine Kinase 33 Troponin I High Sens C-Reactive Protein Total Protein 6.0 5.8 L Albumin 3.6 3.7 Globulin 2.4 L 2.1 L Albumin/Globulin Ratio 1.5 1.8 Procalcitonin TSH Random Cortisol Cortisol AM Sample 15.79 Urine Color Urine Appearance Urine pH Ur Specific [place] Urine Protein Urine Glucose (UA) Urine Ketones Urine Blood Urine Nitrite Urine Bilirubin Urine Urobilinogen Ur Leukocyte Esterase Urine WBC (Auto) Urine RBC (Auto) U Hyaline Cast (Auto) U Epithel Cells (Auto) Urine Bacteria (Auto) Urine Osmolality Ur Random Sodium Urine Comment Urine Opiates Screen Ur Methadone, Qual Urine Fentanyl Screen Acetaminophen Urine Barbiturates Ur Phencyclidine (PCP) U Amphetamin/Meth Scrn MDMA (Ecstasy) Screen U Benzodiazepines Scrn Ur Cocaine Metabolite U Marijuana (THC) Screen Ethyl Alcohol mg/dL 05/05/25 05/06/25 16:12 06:38 WBC 5.81 RBC 2.03 L Hgb 8.3 L POC Hgb Hct 23.3 L POC Hct MCV 114.8 H MCH 40.9 H MCHC 35.6 RDW Std Deviation 70.1 H RDW Coeff of Kristine 16.7 H Plt Count 152 MPV 9.7 Immature Gran % (Auto) Neut % (Auto) Lymph % (Auto) [place] % (Auto) Eos % (Auto) Baso % (Auto) Reticulocyte % (Auto) Neut # (Auto) Lymph # (Auto) [place] # (Auto) Eos # (Auto) Baso # (Auto) Reticulocyte # Immature Gran # (Auto) Polychromasia Macrocytosis Echinocytes ESR PT 16.1 H INR 1.5 H APTT PTT Ratio VBG pH VBG pCO2 VBG pO2 VBG HCO3 VBG O2 Saturation VBG Base Excess POC Sodium Sodium 132 L POC Potassium Potassium 3.5 POC Chloride Chloride 99 Carbon Dioxide 26 POC Total CO2 Anion Gap 7 POC Anion Gap POC BUN BUN 2 L Creatinine 0.42 L POC Creatinine Est Cr Clr Drug Dosing 172.8 eGFR 115.45 BUN/Creatinine Ratio 4.8 L Glucose 102 H POC Glucose (other) Osmolality Lactate 1.8 Calcium 8.7 POC Ioniz Calcium Tenisha Phosphorus Magnesium Total Bilirubin 4.9 H Direct Bilirubin AST 30 ALT 14 Alkaline Phosphatase 67 Ammonia Lactate Dehydrogenase Total Creatine Kinase Troponin I High Sens C-Reactive Protein Total Protein 5.4 L Albumin 3.4 Globulin 2.0 L Albumin/Globulin Ratio 1.7 Procalcitonin TSH Random Cortisol Cortisol AM Sample Urine Color Urine Appearance Urine pH Ur Specific [place] Urine Protein Urine Glucose (UA) Urine Ketones Urine Blood Urine Nitrite Urine Bilirubin Urine Urobilinogen Ur Leukocyte Esterase Urine WBC (Auto) Urine RBC (Auto) U Hyaline Cast (Auto) U Epithel Cells (Auto) Urine Bacteria (Auto) Urine Osmolality Ur Random Sodium Urine Comment Urine Opiates Screen Ur Methadone, Qual Urine Fentanyl Screen Acetaminophen Urine Barbiturates Ur Phencyclidine (PCP) U Amphetamin/Meth Scrn MDMA (Ecstasy) Screen U Benzodiazepines Scrn Ur Cocaine Metabolite U Marijuana (THC) Screen Ethyl Alcohol mg/dL Diagnostic Findings Brain MRI 05/05/25 10:23 MRI OF THE BRAIN WITHOUT IV CONTRAST CLINICAL HISTORY: Change in mental status. COMPARISON STUDY: CT brain dated 05/04/2025 TECHNIQUE: MRI of the brain was performed utilizing various T1 and T2-weighted sequences in the axial, sagittal, and coronal planes. IV contrast was not administered for this examination. The examination is performed using the multiple sclerosis protocol. The examination is modestly degraded by motion artifact. FINDINGS: Brain parenchyma: There is minimal microangiopathic change. There is no hemorrhage or mass effect. There is no restricted diffusion to suggest acute ischemia. Covarrubias-white matter differentiation is preserved. No extra-axial fluid collection is seen. The cerebellar tonsils are normal in configuration. Ventricles, sulci, and cisterns: Normal in configuration. Pituitary and sella: Partially empty sella is incidentally noted. Intracranial vasculature: Normal flow voids are maintained at the skull base. Orbits: The bony orbits are grossly intact. Orbital contents are normal in appearance. Sinuses and mastoids: Clear. Calvarium: Unremarkable. Cervical cord: Partially visualized cervical spinal cord is normal in morphology and signal intensity. IMPRESSION: No acute intracranial abnormality. ACT 112: Negative or not required by law. Electronically signed by: Rivas Stokes M.D. 05/05/2025 11:59 AM PG Care Time/CCT Total # of Minutes Spent Total Time Spent with Patient: Total time spent is greater than 50% in coordination of care (as documented) at patient's floor/unit and/or counseling patient: Coding Level of Care Code 41821 SUB INP/OBS CARE 2/35MIN Diagnoses Elevated LFTs R79.89 Cirrhosis K74.60 Hyponatremia E87.1
--- NOTE | 2025-05-06 10:13 | Hospitalist Progress Note ---
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 Lal), iatrogenic Cushings syndrome, HTN, HLD, depression, chronic anxiety (on ativan prn), neuropathic pain (on gabapentin) who presents for altered mental status #Metabolic Encephalopathy #Hepatic Encephalopathy #Urinary tract infection Possible causes of encephalopathy include urinary tract infection, hepatic encephalopathy, hypoactive delirium, hyponatremia Ammonia level was 78 on admission Reviewed recent outpatient Neuro notes. Neuro had wanted MRI brain w/wo contrast MRI brain w/wo co did not show any acute abnormalities Urine culture growing E coli Currently on IV ceftriaxone #Euvolemic Hypoosmolar Hyponatremia Had Na of 118 outpatient with neurology. However, sodium here was 122 on admission. Serum osmolality of 251, urine Na of 50, and urine osmolality of 189 TSH normal and cortisol normal History suggests excess free water intake, low solute intake Also on background cirrhosis Nephrology on board Continue FFR 1.2L per day Hyponatremia improving. Up to 132 today #Indirect Bilirubinemia #Cirrhosis CT abdomen/pelvis in 2023 revealed fatty infiltration of the liver without evid ence of cirrhosis Elevated PT/INR, relatively maintained transaminases suggests possible extrahepatic origin of bilirubinemia TBil improving. Was 5.8 on admission, peaked at 6.2, trending down to 4.9 today Direct bilirubin was [address] abd/Pelvis showed cirrhosis LDH normal. Hapto pending Peripheral smear pending GI eval noted Patient counseled again regarding alcohol cessation Started on lactulose to ensure regular BM #Polymyositis #Hx of Adrenal Insufficiency #Hx of Demyelinating Disease MRI brain w/wo con did not show any abnormalities No longer on prednisone or methotrexate due to side effect profile Discussed with RN. Remove ochoa I called daughter and updated her She mentioned family is considering placement CM consulted Discontinue tele I spent a total of 50 minutes coordinating, documenting and providing care for this patient excluding time spent in performance of separately billed services Admission and Anticipated Discharge Date Admission Date: May 04, 2025 Subjective Patient seen and examined Reports feeling better today Currently AOx 3 No new complaints Physical Exam Constitutional: + well hydrated; no acute distress Eyes: PERRL ENMT: external ear and nose normal, oropharynx normal Respiratory: normal respiratory effort, lungs clear to auscultation Cardiovascular: Rate/Rhythm: regular rate and regular rhythm Gastrointestinal (Abdomen): normal bowel sounds, soft, nontender, no hepatosplenomegaly Musculoskeletal: Drop foot b/l Neurologic: PERRL, EOMI, accommodation nl, no face palsy, no dysarthria Psychiatric: A+Ox3, euthymic affect Results & Data Results & Data Vital Signs (Past 12 Hours) Vital Signs Temp Pulse Pulse Resp BP Pulse Ox O2 Del Method 05/06/25 08:38 106 H 18 114/73 97 Room Air 05/06/25 08:00 109 H 05/06/25 03:13 36.8 C 104 H 16 122/74 95 Room Air 05/05/25 23:13 36.9 C 86 14 117/76 90 Room Air Laboratory Results Abnormal lab results 05/05/25 05/06/25 Range/Units 13:48 06:38 RBC 2.03 L (4.20-5.40) M/uL Hgb 8.3 L (12.0-16.0) g/dl Hct 23.3 L (37.0-47.0) % MCV 114.8 H (80.0-100.0) fL MCH 40.9 H (25.0-34.0) pg RDW Std Deviation 70.1 H (36.4-46.3) fL RDW Coeff of Kristine 16.7 H (11.5-14.5) % PT 16.1 H (9.0-12.0) Seconds INR 1.5 H (0.9-1.1) Sodium 127 L 132 L (136-145) mmol/L Potassium 3.3 L (3.5-5.1) mmol/L Chloride 95 L (98-107) mmol/L BUN 2 L 2 L (6-23) mg/dl Creatinine 0.40 L 0.42 L (0.6-1.2) mg/dl BUN/Creatinine Ratio 5.0 L 4.8 L (10-20) Glucose 132 H 102 H (70-99(Fasting)) mg/dl Lactate 2.1 H* (0.4-2.0) mmol/L Total Bilirubin 5.7 H 4.9 H (0.2-1.0) mg/dl Total Protein 5.8 L 5.4 L (6.0-8.3) gm/dl Globulin 2.1 L 2.0 L (2.5-4.0) gm/dl
[2025-05-06] MEDS ORDERED: NYSTATIN POWDER 15GM BTL EXT PRN (10:38)
[2025-05-07] MEDS: ALBUMIN 25% 25 GM/100 ML VIAL IV ONE (00:14)
[2025-05-07 06:13] LABS: Hematocrit (blood only) 24.7 % (37.0-47.0); Hemoglobin 8.4 g/dl (12.0-16.0); Mean Corpuscular Hemoglobin 39.8 pg (25.0-34.0); Mean Corpuscular Volume 117.1 fL (80.0-100.0); Platelet Count 157 K/uL (130-400); RDW Standard Deviation 74.3 fL (36.4-46.3); Red Blood Count 2.11 M/uL (4.20-5.40); White Blood Count 6.11 K/ul (4.8-10.8)
[2025-05-07 06:30] LABS: Alanine Aminotransferase 13.0 U/L (7-52); Albumin Globulin Ratio 1.9 (0.9-2); Alkaline Phosphatase 64.0 U/L (34-104); Anion Gap 9.0 (3-11); Bilirubin,Total 4.7 mg/dl (0.2-1.0); Blood Urea Nitrogen 3.0 mg/dl (6-23); Calcium 9.0 mg/dl (8.6-10.3); Carbon Dioxide 24.0 mmol/L (21-32); Chloride 99.0 mmol/L (98-107); Creatinine Clr Calc Pharmacy 172.8 ml/min; Globulin 2.0 gm/dl (2.5-4.0); Glucose 75.0 mg/dl (70-99(Fasting)); Magnesium 1.7 mg/dl (1.7-2.4); Potassium 3.5 mmol/L (3.5-5.1); Sodium 132.0 mmol/L (136-145); Total Protein 5.8 gm/dl (6.0-8.3)
[2025-05-07 06:38] LABS: INR 1.5 (0.9-1.1); Prothrombin Time 15.7 Seconds (9.0-12.0)
[2025-05-07] MEDS: LACTULOSE SYRUP 20 GM/30 ML UDC PO SCH ×3 (10:14→12:09)
--- NOTE | 2025-05-07 11:16 | Hospitalist Progress Note ---
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 Lal), iatrogenic Cushings syndrome, HTN, HLD, depression, chronic anxiety (on ativan prn), neuropathic pain (on gabapentin) who presents for altered mental status #Metabolic Encephalopathy #Hepatic Encephalopathy #Urinary tract infection Encephalopathy, likely multifactorial Possible causes of encephalopathy include urinary tract infection, hepatic ence phalopathy, delirium Ammonia level was 78 on admission Reviewed recent outpatient Neuro notes. Neuro had wanted MRI brain w/wo contrast MRI brain w/wo co did not show any acute abnormalities Urine culture growing E coli Currently on IV ceftriaxone Continue lactulose to ensure 3 BM per day Redirect as needed #Euvolemic Hypoosmolar Hyponatremia Had Na of 118 outpatient with neurology. However, sodium here was 122 on admission. Serum osmolality of 251, urine Na of 50, and urine osmolality of 189 TSH normal and cortisol normal History suggests excess free water intake, low solute intake Also on background cirrhosis Nephrology on board Continue FFR 1.2L per day Hyponatremia improving. Up to 132 today #Indirect Bilirubinemia #Cirrhosis #Anemia #Alcohol use disorder CT abdomen/pelvis in 2023 revealed fatty infiltration of the liver without evidence of cirrhosis Elevated PT/INR, relatively maintained transaminases suggests possible extrahe patic origin of bilirubinemia TBil improving. Was 5.8 on admission, peaked at 6.2, trending down to 4.7 today Direct bilirubin was [address] abd/Pelvis showed cirrhosis LDH normal. Peripheral smear did not show signs of hemolysis Hb stable. Macrocytic anemia Check B12 and folate GI eval noted Patient counseled again regarding alcohol cessation Started on lactulose to ensure regular BM Daughter reports significant alcohol use but patient has recently stopped in the past month Continue folic acid, thiamine #Polymyositis #Hx of Adrenal Insufficiency #Hx of Demyelinating Disease MRI brain w/wo con did not show any abnormalities No longer on prednisone or methotrexate due to side effect profile Daughter will like placement CM working on this PT/OT I spent a total of 50 minutes coordinating, documenting and providing care for this patient excluding time spent in performance of separately billed services Admission and Anticipated Discharge Date Admission Date: May 04, 2025 Subjective Patient seen and examined Confused and declining to take meds this AM Daughter at bedside She is awake, alert, oriented to person and place ROS limited due to confusion Physical Exam 2 Constitutional: + well hydrated; no acute distress ENMT: external ear and nose normal, oropharynx normal Respiratory: normal respiratory effort, lungs clear to auscultation Cardiovascular: Rate/Rhythm: regular rate and regular rhythm Gastrointestinal (Abdomen): normal bowel sounds, soft, nontender, no hepatosplenomegaly Neurologic: PERRL, EOMI, accommodation nl, no face palsy, no dysarthria Psychiatric: AOX2 person and place. Confused Results & Data Results & Data Vital Signs (Past 12 Hours) Vital Signs Temp Pulse Resp BP Pulse Ox O2 Del Method 05/07/25 07:40 Room Air 05/07/25 07:37 36.1 C L 121 H 15 133/83 93 Room Air Laboratory Results Abnormal lab results 05/07/25 Range/Units 05:31 RBC 2.11 L (4.20-5.40) M/uL Hgb 8.4 L (12.0-16.0) g/dl Hct 24.7 L (37.0-47.0) % MCV 117.1 H (80.0-100.0) fL MCH 39.8 H (25.0-34.0) pg RDW Std Deviation 74.3 H (36.4-46.3) fL RDW Coeff of Kristine 17.3 H (11.5-14.5) % PT 15.7 H (9.0-12.0) Seconds INR 1.5 H (0.9-1.1) Sodium 132 L (136-145) mmol/L BUN 3 L (6-23) mg/dl Creatinine 0.42 L (0.6-1.2) mg/dl BUN/Creatinine Ratio 7.1 L (10-20) Total Bilirubin 4.7 H (0.2-1.0) mg/dl Total Protein 5.8 L (6.0-8.3) gm/dl Globulin 2.0 L (2.5-4.0) gm/dl
[2025-05-07 15:13] LABS: Folate (Folic Acid),Ser orPlas 21.76 ng/ml (>5.38)
[2025-05-07 15:14] LABS: Vitamin B12 1152.0 pg/ml (180-914)
[2025-05-07] MEDS: THIAMINE HCL 100 MG in SYRINGE 9 ML IV SCH (15:24)
[2025-05-07] MEDS ORDERED: Ativan IV Alcohol Withdrawal--Active Protocol IV PRN (21:18)
[2025-05-07] MEDS ORDERED: GABAPENTIN 1200MG ALCOHOL WITHDRAWAL LOAD PO STA (21:18)
--- NOTE | 2025-05-07 21:18 | Communication Note ---
Date of Service: May 07, 2025 Overnight issues 8/4, 9 PM Patient agitated and screaming out. Patient asking for whiskey shots as per RN. Last EtOH intake uncertain because patient hides drinking from time to time as per conversation with daughter over the phone. AP Alcohol withdrawal JOSE S, DT precautions Gabapentin taper IV Ativan as needed 8/5, 6:12 AM Patient noted to have decreased responsiveness. Tachycardic with accessory muscle use. O2 sats 92 on 2 L. BSG 120s PPE Obtunded Abdominal breathing Tachycardic EKG as per my interpretation rate 125, sinus tachycardia, RAD, nonspecific T wave abnormalities AP Encephalopathy Tachycardia Tachypnea PCU transfer Check VBG Recheck ammonia level Hold gabapentin for now Check chest x-ray
[2025-05-07] MEDS: GABAPENTIN 600 MG TAB PO ONE (21:35)
[2025-05-07] MEDS: MAGNESIUM SULFATE / D5W 1 GM/100 ML BAG IV SCH (21:45)
[2025-05-07] MEDS: POTASSIUM CHLORIDE / WTR 10 MEQ/100 ML PLCT IV SCH (21:45)
[2025-05-08] MEDS: GABAPENTIN 600 MG TAB PO SCH (02:31)
[2025-05-08 06:54] LABS: Base Excess VBG -2.0 mEq/L; HCO3 VBG 22 mmol/L; Oxygen Saturation VBG < 60.0 %; PCO2 VBG 36 mmHg (38-50); PO2 VBG 26 mmHg; pH VBG 7.40 (7.36-7.41)
[2025-05-08] MEDS: ALBUMIN 25% 25 GM/100 ML VIAL IV ONE (06:57)
[2025-05-08 06:58] LABS: Hematocrit (blood only) 27.9 % (37.0-47.0); Hemoglobin 9.5 g/dl (12.0-16.0); Immature Granulocytes # (auto) 0.06 K/uL (0.01-0.20); Immature Granulocytes % (auto) 0.6 %; Mean Corpuscular Hemoglobin 40.3 pg (25.0-34.0); Mean Corpuscular Volume 118.2 fL (80.0-100.0); Platelet Count 171 K/uL (130-400); RDW Standard Deviation 75.9 fL (36.4-46.3); Red Blood Count 2.36 M/uL (4.20-5.40); White Blood Count 10.41 K/ul (4.8-10.8)
[2025-05-08 07:20] LABS: Macrocytosis Present; Polychromasia 2+
[2025-05-08 07:28] LABS: Alanine Aminotransferase 14.0 U/L (7-52); Albumin Globulin Ratio 1.5 (0.9-2); Alkaline Phosphatase 64.0 U/L (34-104); Anion Gap 8.0 (3-11); Bilirubin,Total 5.6 mg/dl (0.2-1.0); Blood Urea Nitrogen 5.0 mg/dl (6-23); Calcium 8.8 mg/dl (8.6-10.3); Carbon Dioxide 24.0 mmol/L (21-32); Chloride 101.0 mmol/L (98-107); Creatinine Clr Calc Pharmacy 148.1 ml/min; Globulin 2.3 gm/dl (2.5-4.0); Glucose 106.0 mg/dl (70-99(Fasting)); Magnesium 2.1 mg/dl (1.7-2.4); Potassium 3.9 mmol/L (3.5-5.1); Sodium 133.0 mmol/L (136-145); Total Protein 5.8 gm/dl (6.0-8.3)
[2025-05-08 07:36] LABS: Partial Thromboplastin Time 35 Seconds (21-31)
--- NOTE | 2025-05-08 08:26 | Critical Care Consultation ---
Date of Consultation May 08, 2025 Assessment & Plan (1) Cirrhosis: (2) Metabolic encephalopathy: (3) History of tobacco use: (4) Hypotension: (5) Polymyositis: (6) Hyperbilirubinemia: Plan Reason Critically Ill: 55-year-old female was admitted to the hospital for hyponatremia and altered mental status. ICU was consulted for hypotension Past medical history: Polymyositis with ILD, used to be on methotrexate, iatrogenic [place] syndrome, hypertension, dyslipidemia, chronic anxiety, neuropathic pain Neuro - [facility]: Unable to assess --Encephalopathy Ammonia, TSH within normal limit Mild decrease in sodium, calcium and glucose within normal limit MRI brain 05/05/2025: No acute intracranial abnormality Cardiac - -- Shock Multifactorial Patient got Ativan overnight She also seems to be volume depleted intravascularly Random cortisol 14.49 Respiratory - -- Chronic hypoxic respiratory failure with ILD Patient seems to have some interstitial lung disease/fibrosis of the lung Could be from her underlying polymyositis S/p bronchoscopy 06/02/2024, BAL was mostly neutrophilic Cultures were also negative for PJP, histo, blasto and Coccidioides. She grew yeast which was most likely colonizer Completed the course of antibiotics for total of 5 days -- Polymyositis On methotrexate Previously there was thought process that methotrexate could be causing ILD and patient will use it but the recent study said that does not have any significant relevance --Ex-smoker Approximately [id number] smoking history GI - -- Hyperbilirubinemia Mostly unconjugated, no signs of schistocytes on peripheral smear Likely secondary to history of alcohol use She was also on methotrexate before not sure if that is playing also role Continue to trend RENAL/LYTES - -- No acute issues Monitor BUNs/creatinine ENDO - --History of adrenal insufficiency Not on any steroids right now HEME - -- Macrocytic anemia Monitor H&H ID - -- E. coli UTI S/p antibiotics --Prophylaxis VTE: Lovenox GI: Pantoprazole Lines: Peripheral Diet: N.p.o. Plan: Patient blood pressure has significantly improved with IV albumin. Mental status also improved after flumazenil. Will recommend to avoid benzodiazepines given the questionable history of cirrhosis as well as worsening bilirubin. Given the random cortisol is on the lower side, and history of adrenal insufficiency low threshold to give the patient hydrocortisone. I did inquire and asked the patient if she is taking methotrexate and she says she has been taken off for a while I think it is reasonable to monitor the patient on the floor, if the patient persistently remains hypotensive manage can consider the heart to the ICU for vasopressor support Patient is DNR/DNI Case was discussed with primary team as well as RN I have personally spent 48 minutes of critical care time in the direct management of this patient. This is a life/limb threatening event. This includes time spent evaluating patient, direct bedside care, chart review, placing orders, interpretation of diagnostic studies, discussion with consultants, patient, and family members, as well as other required patient management activities. This time is exclusive of all separately billable procedures, and teaching time and separate from and in addition to any other critical care service time. History of Present Illness Attending Physician: Lisy Keyes MD History of Present Illness 55-year-old female was admitted to the hospital for hyponatremia and altered mental status Past medical history: Polymyositis with ILD, used to be on methotrexate, iatrogenic [place] syndrome, hypertension, dyslipidemia, chronic anxiety, neuropathic pain I was called to evaluate the patient as she was getting hypotensive. Signout was given by primary team. As per the primary team patient has history of alcohol use. They were considering that she might be withdrawing and for that she was started on CIWA protocol and got Ativan 2 mg overnight along with gabapentin. I advised the primary team to give the patient 5% albumin bolus and give flumazenil which is an antidote for Ativan. At the time of examination patient was getting the 5% albumin bolus, her systolic blood pressure was in the 100s with MAP in the high 60s to low 70s She was somnolent when I walked into the room. Saturating well on room air. She got flumazenil there when I was in the room. She had significant improvement in her mental status following that She denied any headache, no nausea, no vomiting No abdominal pain. She stated that she has stopped taking methotrexate for a while as per the advice of her special education teacher. No dysuria documented, no diarrhea. Social history: [id number] smoking history, Allergies Allergy/AdvReac Type Severity Reaction Status Date / Time clindamycin Allergy Hives Verified 07/04/24 15:10 Home Medications Medication Instructions Recorded Confirmed Type duloxetine 60 mg capsule,delayed 60 mg PO DAILY 05/28/24 05/04/25 History release folic acid 1 mg tablet 1 mg PO DAILY 05/28/24 05/04/25 History gabapentin 300 mg capsule 600 mg PO TID 05/28/24 05/04/25 History lisinopril 10 mg tablet 10 mg PO DAILY 05/28/24 05/04/25 History lorazepam 0.5 mg tablet 0.5 mg PO DAILY PRN Anxiety 05/28/24 05/04/25 History pantoprazole 40 mg tablet,delayed 40 mg PO QAM 05/28/24 05/04/25 History release ropinirole 1 mg tablet 1 mg PO BID 05/28/24 05/04/25 History cholecalciferol (vitamin D3) 1,250 1,250 mcg PO WK 05/04/25 05/04/25 History mcg (50,000 unit) tablet umeclidinium 62.5 mcg/actuation 1 inh inhalation QAM 05/04/25 05/04/25 History blister powder for inhalation (Incruse Ellipta) zinc sulfate 66 mg tablet 66 mg PO DAILY 05/04/25 05/04/25 History Patient History Medical History Major depressive disorder Anxiety disorder Hypertension Diverticulitis Urinary tract infection HAL (acute kidney injury) Sepsis Neutropenic fever Surgical History History of laparoscopic cholecystectomy Family History Mother Heart disease Cancer Father Heart disease Diabetes Brother Heart disease Social History Smoking Status: Former smoker Tobacco Type: Cigarettes Cigarettes Per Day: 30; Second Hand Exposure: No; Hx Alcohol Use: Yes Alcohol type: hard liquor Hx Substance Use: No Preferred Language: Tamazight Communication Ability: Effective Consulting Analyst Required: No Beliefs That Will Affect Care: None Current Living Situation: Spouse Other Information That Helps Us Care for You: No Feels Safe at Home: Yes Safety Concerns: Feels Safe At This Time Assistive Devices: Oxygen - at Night and Wheelchair Review of Systems 2 Review of Systems: All systems reviewed & are unremarkable except as noted in HPI & below Physical Exam 2 Physical Exam: Constitutional: No acute distress HEENT: EOMI, PERRLA, scleral icterus Respiratory system: Decreased air entry bilaterally, no wheeze, no rhonchi, positive Velcro-like crackles bilaterally CVS: S1-S2 positive, no murmurs or gallops Abdomen: Soft, nontender, nondistended, positive bowel sounds x4 Extremities: +2 pulses bilaterally radialis/ dorsalis pedis, no cyanosis, no edema Neuro: Somnolent but was arousable after she got flumazenil, oriented to only self Psych: Flat mood and affect G/U: No [place] Skin: no rashes, warm and dry Lymphatic: no cervical or axillary lymphadenopathy Results & Data Results & Data Vital Signs (Past 12 Hours) Vital Signs Temp Pulse Pulse Resp BP BP Pulse Ox 05/08/25 07:53 79/67 L 05/08/25 07:45 116 H 22 100 05/08/25 07:45 85/71 L 05/08/25 07:30 116 H 19 100 05/08/25 07:30 87/73 L 05/08/25 07:21 120 H 22 92 05/08/25 07:10 101/78 05/08/25 07:09 123 H 23 93 05/08/25 07:00 122 H 23 98 05/08/25 07:00 99/60 L 05/08/25 06:58 36.8 C 123 H 26 H 97/64 L 99 05/08/25 06:05 37.1 C 126 H 16 106/73 93 05/08/25 02:10 36.8 C 115 H 16 108/88 93 05/07/25 23:40 36.5 C 123 H 16 116/79 92 O2 Del Method O2 Flow Rate 05/08/25 07:53 05/08/25 07:45 05/08/25 07:45 05/08/25 07:30 05/08/25 07:30 05/08/25 07:21 05/08/25 07:10 05/08/25 07:09 05/08/25 07:00 05/08/25 07:00 05/08/25 06:58 Nasal Cannula 2 05/08/25 06:05 Nasal Cannula 2 05/08/25 02:10 Room Air 05/07/25 23:40 Room Air Laboratory Results 05/08/25 06:41 05/08/25 06:41 Coding Level of Care Code 80755 CRITICAL CARE 1ST 30-74M Diagnoses Cirrhosis K74.60 Metabolic encephalopathy G93.41 History of tobacco use Z87.891 Hypotension I95.9 Polymyositis M33.20 Hyperbilirubinemia E80.6
--- NOTE | 2025-05-08 08:29 | Hospitalist Progress Note ---
Date of Service May 08, 2025 Assessment & Plan (1) Metabolic encephalopathy: (2) Acute hyponatremia: (3) Polymyositis: (4) Major depressive disorder: (5) Anxiety disorder: Plan 55 yo female with pmhx of polymyositis c/b myopathy and ILD/methotrexate induced lung changes (follows w/ Dr. Lal), iatrogenic Cushings syndrome, HTN, HLD, depression, chronic anxiety (on ativan prn), neuropathic pain (on gabapentin) who presents for altered mental status #Metabolic Encephalopathy #Hepatic Encephalopathy #Urinary tract infection Encephalopathy, likely multifactorial Possible causes of encephalopathy include urinary tract infection, hepatic ence phalopathy, delirium Ammonia level was 78 on admission Reviewed recent outpatient Neuro notes. Neuro had wanted MRI brain w/wo contrast MRI brain w/wo co did not show any acute abnormalities Urine culture growing E coli Currently on IV ceftriaxone Continue lactulose to ensure 3 BM per day Redirect as needed Per Business Office Manager, she became agitated and more confused She received ativan for possible alcohol withdrawal Patient was drowsy, hypotensive this AM. Unlikely delirium tremens with hypotension Worsened confusion/drowsiness overnight improved after flumazenil as above Avoid use of benzos as much as possible #Euvolemic Hypoosmolar Hyponatremia Had Na of 118 outpatient with neurology. However, sodium here was 122 on admission. Serum osmolality of 251, urine Na of 50, and urine osmolality of 189 TSH normal and cortisol normal History suggests excess free water intake, low solute intake Also on background cirrhosis Nephrology on board Continue FFR 1.2L per day Hyponatremia improving. Up to 133 today #Indirect Bilirubinemia #Cirrhosis #Anemia #Alcohol use disorder CT abdomen/pelvis in 2023 revealed fatty infiltration of the liver without evidence of cirrhosis Elevated PT/INR, relatively maintained transaminases suggests possible extrahepatic origin of bilirubinemia TBil improving. Was 5.8 on admission, peaked at 6.2, down to 5.6 today Direct bilirubin was [address] abd/Pelvis showed cirrhosis LDH normal but hapto resulted today at <10 Peripheral smear did not show signs of hemolysis Macrocytic anemia Will appreciate Heme recommendations as low hapto and unconjugated hyperbilirubinemia is concerning for possible hemolysis but LDH is normal GI eval noted Patient counseled again regarding alcohol cessation Continue lactulose started above Daughter reports significant alcohol use but patient has recently stopped in the past month Continue folic acid, thiamine #Polymyositis #Hx of Adrenal Insufficiency #Hx of Demyelinating Disease MRI brain w/wo con did not show any abnormalities No longer on prednisone or methotrexate due to side effect profile Daughter will like placement CM working on this Continue PT/OT I spent a total of 70 minutes of critical care time doing multiple evaluations of patient, discussing with diagnostic sales specialist, ordering therapies, coordinating with patient's RN, calling daughter on the phone to update her, documenting and providing care for this patient Admission and Anticipated Discharge Date Admission Date: May 04, 2025 Subjective Per Business Office Manager, she became agitated and more confused She received ativan for possible alcohol withdrawal On initial eval this AM, she was very drowsy, lethargic and hypotensive. Discussed with ICU. Less likely delirium tremens with her hypotension Flumazenil given Patient's mental status improved on subsequent examination She is now awake, alert, oriented to person, place and time Family at bedside Physical Exam Constitutional: + ill appearing; no acute distress ENMT: external ear and nose normal, oropharynx normal Respiratory: normal respiratory effort; no respiratory distress Diminished breath sounds Cardiovascular: Rate/Rhythm: regular rate and regular rhythm Gastrointestinal (Abdomen): normal bowel sounds, soft, nontender, no hepatosplenomegaly Musculoskeletal: +drop foot b/l Neurologic: PERRL, EOMI, accommodation nl, no face palsy, no dysarthria Psychiatric: AOx3. Mild confusion Results & Data Results & Data Vital Signs (Past 12 Hours) Vital Signs Temp Pulse Pulse Resp BP BP Pulse Ox 05/08/25 07:53 79/67 L 05/08/25 07:45 116 H 22 100 05/08/25 07:45 85/71 L 05/08/25 07:30 116 H 19 100 05/08/25 07:30 87/73 L 05/08/25 07:21 120 H 22 92 05/08/25 07:10 101/78 05/08/25 07:09 123 H 23 93 05/08/25 07:00 122 H 23 98 05/08/25 07:00 99/60 L 05/08/25 06:58 36.8 C 123 H 26 H 97/64 L 99 05/08/25 06:05 37.1 C 126 H 16 106/73 93 05/08/25 02:10 36.8 C 115 H 16 108/88 93 05/07/25 23:40 36.5 C 123 H 16 116/79 92 O2 Del Method O2 Flow Rate 05/08/25 07:53 05/08/25 07:45 05/08/25 07:45 05/08/25 07:30 05/08/25 07:30 05/08/25 07:21 05/08/25 07:10 05/08/25 07:09 05/08/25 07:00 05/08/25 07:00 05/08/25 06:58 Nasal Cannula 2 05/08/25 06:05 Nasal Cannula 2 05/08/25 02:10 Room Air 05/07/25 23:40 Room Air Laboratory Results Abnormal lab results 05/04/25 05/07/25 05/08/25 Range/Units 12:00 05:31 06:28 RBC (4.20-5.40) M/uL Hgb (12.0-16.0) g/dl POC Hgb (12.0-16.0) g/dl Hct (37.0-47.0) % POC Hct (37-47) % MCV (80.0-100.0) fL MCH (25.0-34.0) pg RDW Std Deviation (36.4-46.3) fL RDW Coeff of Kristine (11.5-14.5) % MPV (9.4-12.4) fL Neut # (Auto) (1.40-6.50) K/uL [place] # (Auto) (0.11-0.59) K/uL Haptoglobin <10 L (43-212) mg/dL APTT (21-31) Seconds POC pCO2 (35-46) mmHg POC pO2 (80-95) mmHg POC Total CO2 (24-31) mmol/L VBG pCO2 (38-50) mmHg POC Sodium (135-144) mmol/L Sodium (136-145) mmol/L BUN (6-23) mg/dl Creatinine (0.6-1.2) mg/dl Glucose (70-99(Fasting)) mg/dl POC Glucose 125 H (70-99) mg/dl Total Bilirubin (0.2-1.0) mg/dl Total Protein (6.0-8.3) gm/dl Globulin (2.5-4.0) gm/dl Vitamin B12 1152 H (180-914) pg/ml 05/08/25 05/08/25 Range/Units 06:41 08:35 RBC 2.36 L (4.20-5.40) M/uL Hgb 9.5 L (12.0-16.0) g/dl POC Hgb 8.5 L (12.0-16.0) g/dl Hct 27.9 L (37.0-47.0) % POC Hct 25 L (37-47) % MCV 118.2 H (80.0-100.0) fL MCH 40.3 H (25.0-34.0) pg RDW Std Deviation 75.9 H (36.4-46.3) fL RDW Coeff of Kristine 17.8 H (11.5-14.5) % MPV 9.3 L (9.4-12.4) fL Neut # (Auto) 7.08 H (1.40-6.50) K/uL [place] # (Auto) 0.69 H (0.11-0.59) K/uL Haptoglobin (43-212) mg/dL APTT 35 H (21-31) Seconds POC pCO2 30 L (35-46) mmHg POC pO2 71 L (80-95) mmHg POC Total CO2 21 L (24-31) mmol/L VBG pCO2 36 L (38-50) mmHg POC Sodium 133 L (135-144) mmol/L Sodium 133 L (136-145) mmol/L BUN 5 L (6-23) mg/dl Creatinine 0.49 L (0.6-1.2) mg/dl Glucose 106 H (70-99(Fasting)) mg/dl POC Glucose (70-99) mg/dl Total Bilirubin 5.6 H (0.2-1.0) mg/dl Total Protein 5.8 L (6.0-8.3) gm/dl Globulin 2.3 L (2.5-4.0) gm/dl Vitamin B12 (180-914) pg/ml
--- NOTE | 2025-05-08 08:32 | XRay Report ---
EXAM: XR chest 1V portable CLINICAL HISTORY: Low o2. TECHNIQUE: An X-ray image of the chest is obtained in PA projection. COMPARISON: No prior studies are available for comparison. FINDINGS: Pulmonary Parenchyma: Technically rotated the patient. Bilateral hilar vascular congestion with perihilar infiltrates may suggest changes secondary to pulmonary edema. The possibility of superimposed pulmonary infection cannot be entirely excluded. Patchy haziness noted in the left lower zone, which may be due to minimal effusion or lung infiltration Overlying chest leads are noted. Heart and Mediastinum: Heart size is limited on this projection. Bony Thorax: Degenerative changes are noted in the visualized bones. IMPRESSION: 1. Bilateral hilar vascular congestion with perihilar infiltrates may suggest changes secondary to pulmonary edema. The possibility of superimposed pulmonary infection cannot be entirely excluded. 2. Patchy haziness noted in the left lower zone, which may be due to minimal effusion or lung infiltration. Electronically signed by Phillip Samuel 05-08-2025 08:32 AM
[2025-05-08] MEDS: ALBUMIN 5% 250 ML IV ONE (08:33)
--- NOTE | 2025-05-08 08:36 | Electrocardiogram Report ---
Test Reason : Blood Pressure : */* mmHG Vent. Rate : 126 BPM Atrial Rate : 126 BPM P-R Int : 136 ms QRS Dur : 78 ms QT Int : 316 ms P-R-T Axes : 68 114 73 degrees QTcB Int : 457 ms Likely limb lead reversal Sinus tachycardia Right axis deviation Low voltage QRS Abnormal ECG Confirmed by Oh Gilbert ([id number] on 05/08/2025 8:35:39 AM Referred By: Anika Cervantes Confirmed By: Oh Gilbert
[2025-05-08] MEDS: FUROSEMIDE INJ 20 MG/2 ML VIAL IV ONE (08:37)
[2025-05-08 08:48] LABS: iSTAT Art Bld Gas Base Excess -4.0 meg/L (-9-1.8)
[2025-05-08] MEDS: FLUMAZENIL 0.1 MG/1 ML 10 ML VIAL IV STA (08:53)
--- NOTE | 2025-05-08 16:56 | Oncology Consultation ---
Date of Consultation May 08, 2025 Assessment & Plan (1) Anemia: Transfuse to maintain hemoglobin greater than 7 most likely due to chronic alcohol use as well as underlying liver damage recommend comprehensive hematological evaluation as this patient is most likely to be nutritionally deficient given her heavy alcohol use check CBC, CMP, B12, folic acid, iron indicis given that LDH is not elevated it is unlikely to be hemolysis however will recommend checking Antonio test and a reticulocyte count Plan thank you for this interesting hematological consult. Hematology will continue to follow the patient make appropriate recommendations. 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 Hematology has been consulted because this patient was severely anemic with a hemoglobin of 8.1 with severe microcytosis. There are concerns for underlying hemolysis given that her bilirubin is also elevated. She does have a history of interstitial lung disease for which she is on methotrexate also has history of iatrogenic Laya's syndrome. She also drinks alcohol and has been on [facility] protocol. Allergies Allergy/AdvReac Type Severity Reaction Status Date / Time clindamycin Allergy Hives Verified 07/04/24 15:10 Home Medications Medication Instructions Recorded Confirmed Type duloxetine 60 mg capsule,delayed 60 mg PO DAILY 05/28/24 05/04/25 History release folic acid 1 mg tablet 1 mg PO DAILY 05/28/24 05/04/25 History gabapentin 300 mg capsule 600 mg PO TID 05/28/24 05/04/25 History lisinopril 10 mg tablet 10 mg PO DAILY 05/28/24 05/04/25 History lorazepam 0.5 mg tablet 0.5 mg PO DAILY PRN Anxiety 05/28/24 05/04/25 History pantoprazole 40 mg tablet,delayed 40 mg PO QAM 05/28/24 05/04/25 History release ropinirole 1 mg tablet 1 mg PO BID 05/28/24 05/04/25 History cholecalciferol (vitamin D3) 1,250 1,250 mcg PO WK 05/04/25 05/04/25 History mcg (50,000 unit) tablet umeclidinium 62.5 mcg/actuation 1 inh inhalation QAM 05/04/25 05/04/25 History blister powder for inhalation (Incruse Ellipta) zinc sulfate 66 mg tablet 66 mg PO DAILY 05/04/25 05/04/25 History Patient History Medical History Major depressive disorder Anxiety disorder Hypertension Diverticulitis Urinary tract infection HAL (acute kidney injury) Sepsis Neutropenic fever Surgical History History of laparoscopic cholecystectomy Family History Mother Heart disease Cancer Father Heart disease Diabetes Brother Heart disease Social History Smoking Status: Former smoker Tobacco Type: Cigarettes Cigarettes Per Day: 30; Second Hand Exposure: No; Hx Alcohol Use: Yes Alcohol type: hard liquor Hx Substance Use: No Preferred Language: [place] Islander Communication Ability: Effective Aboriginal Liaison Officer Required: No Beliefs That Will Affect Care: None Current Living Situation: Spouse Other Information That Helps Us Care for You: No Feels Safe at Home: Yes Safety Concerns: Feels Safe At This Time Assistive Devices: Oxygen - at Night and Wheelchair Review of Systems Review of Systems: All systems reviewed & are unremarkable except as noted in HPI & below Complete review of system was done pertinent positive mentioned in HPI. Constitutional: as per Subjective / HPI Eyes: as per Subjective / HPI Ear, Nose, Mouth, Throat: as per Subjective / HPI Respiratory: as per Subjective / HPI Cardiovascular: as per Subjective / HPI Gastrointestinal: as per Subjective / HPI Genitourinary: as per Subjective / HPI Musculoskeletal: as per Subjective / HPI Integumentary: as per Subjective / HPI Neurologic: as per Subjective / HPI Psychiatric: as per Subjective / HPI Endocrine: as per Subjective / HPI Hematologic / Lymphatic: as per Subjective / HPI Allergy / Immunological: as per Subjective / HPI Physical Exam Constitutional: WD/WN, vitals as above Eyes: PERRL, conjunctivae normal, anicteric sclerae ENMT: external ear and nose normal, oropharynx normal Neck: trachea midline, no thyromegaly Respiratory: normal respiratory effort, lungs clear to auscultation Cardiovascular: RRR, no murmur, no edema Gastrointestinal (Abdomen): normal bowel sounds, soft, nontender, no hepatosplenomegaly Musculoskeletal: no cyanosis or clubbing, extremities motor strength 5/5 Skin: no rashes, warm and dry Neurologic: patellar DTR's 2+ bilat, sensation intact Results & Data Vital Signs (Past 12 Hours) Vital Signs Temp Pulse Pulse Resp BP BP Pulse Ox 05/08/25 16:31 102/63 05/08/25 16:30 117 H 20 98 05/08/25 16:09 117 H 52 H 96 05/08/25 16:01 101/55 L 05/08/25 15:54 116 H 27 H 95 05/08/25 15:30 119 H 24 100 05/08/25 15:30 92/71 L 05/08/25 15:17 94/68 L 05/08/25 15:16 91/65 L 05/08/25 15:15 36.7 C 115 H 18 94/68 L 99 05/08/25 15:12 115 H 16 100 05/08/25 15:00 116 H 24 99 05/08/25 14:06 113 H 17 98 05/08/25 13:30 113 H 20 99 05/08/25 13:30 78/62 L 05/08/25 13:09 112 H 23 100 05/08/25 13:01 105/69 05/08/25 12:48 116 H 23 100 05/08/25 12:47 104/46 L 05/08/25 12:36 115 H 17 100 05/08/25 12:30 88/57 L 05/08/25 12:15 118 H 15 100 05/08/25 12:15 103/65 05/08/25 12:03 114 H 20 100 05/08/25 11:46 89/62 L 05/08/25 11:36 117 H 19 100 05/08/25 11:31 111/76 05/08/25 11:15 117 H 18 100 05/08/25 11:15 118/77 05/08/25 11:15 118/77 05/08/25 11:07 37.0 C 115 H 19 94/67 L 100 05/08/25 11:02 94/67 L 05/08/25 11:00 114 H 20 100 05/08/25 10:33 116 H 21 91 05/08/25 10:30 91/61 L 05/08/25 10:30 91/61 L 05/08/25 10:30 91/61 L 05/08/25 10:30 91/61 L 05/08/25 10:30 91/61 L 05/08/25 10:21 115 H 21 92 05/08/25 10:15 104/82 05/08/25 10:15 104/82 05/08/25 10:09 115 H 21 92 05/08/25 10:00 116 H 21 94 05/08/25 10:00 87/69 L 05/08/25 09:45 93/69 L 05/08/25 09:39 116 H 21 97 05/08/25 09:30 94/71 L 05/08/25 09:27 115 H 21 92 05/08/25 09:24 114 H 20 94 05/08/25 09:15 95/71 L 05/08/25 09:06 115 H 20 94 05/08/25 09:00 120 H 22 94 05/08/25 09:00 99/74 L 05/08/25 08:45 105/84 05/08/25 08:45 116 H 21 96 05/08/25 08:36 117 H 21 100 05/08/25 08:30 107/75 05/08/25 08:27 117 H 24 99 05/08/25 08:21 115 H 20 99 05/08/25 08:15 98/75 L 05/08/25 08:15 98/75 L 05/08/25 08:06 115 H 20 100 05/08/25 08:00 89/64 L 05/08/25 07:58 116 H 05/08/25 07:58 05/08/25 07:58 05/08/25 07:54 115 H 20 100 05/08/25 07:53 79/67 L 05/08/25 07:45 116 H 22 100 05/08/25 07:45 85/71 L 05/08/25 07:30 116 H 19 100 05/08/25 07:30 87/73 L 05/08/25 07:21 120 H 22 92 05/08/25 07:15 37.6 C H 24 92 05/08/25 07:10 101/78 05/08/25 07:09 123 H 23 93 05/08/25 07:00 122 H 23 98 05/08/25 07:00 99/60 L 05/08/25 06:58 36.8 C 123 H 26 H 97/64 L 99 05/08/25 06:05 37.1 C 126 H 16 106/73 93 Pulse Ox O2 Del Method O2 Del Method O2 Flow Rate 05/08/25 16:31 05/08/25 16:30 05/08/25 16:09 05/08/25 16:01 05/08/25 15:54 05/08/25 15:30 05/08/25 15:30 05/08/25 15:17 05/08/25 15:16 05/08/25 15:15 Nasal Cannula 2.0 05/08/25 15:12 05/08/25 15:00 05/08/25 14:06 05/08/25 13:30 05/08/25 13:30 05/08/25 13:09 05/08/25 13:01 05/08/25 12:48 05/08/25 12:47 05/08/25 12:36 05/08/25 12:30 05/08/25 12:15 05/08/25 12:15 05/08/25 12:03 05/08/25 11:46 05/08/25 11:36 05/08/25 11:31 05/08/25 11:15 05/08/25 11:15 05/08/25 11:15 05/08/25 11:07 Nasal Cannula 2.0 05/08/25 11:02 05/08/25 11:00 05/08/25 10:33 05/08/25 10:30 05/08/25 10:30 05/08/25 10:30 05/08/25 10:30 05/08/25 10:30 05/08/25 10:21 05/08/25 10:15 05/08/25 10:15 05/08/25 10:09 05/08/25 10:00 05/08/25 10:00 05/08/25 09:45 05/08/25 09:39 05/08/25 09:30 05/08/25 09:27 05/08/25 09:24 05/08/25 09:15 05/08/25 09:06 05/08/25 09:00 05/08/25 09:00 05/08/25 08:45 05/08/25 08:45 05/08/25 08:36 05/08/25 08:30 05/08/25 08:27 05/08/25 08:21 05/08/25 08:15 05/08/25 08:15 05/08/25 08:06 05/08/25 08:00 05/08/25 07:58 05/08/25 07:58 Room Air 05/08/25 07:58 93 Room Air 05/08/25 07:54 05/08/25 07:53 05/08/25 07:45 05/08/25 07:45 05/08/25 07:30 05/08/25 07:30 05/08/25 07:21 05/08/25 07:15 Room Air 05/08/25 07:10 05/08/25 07:09 05/08/25 07:00 05/08/25 07:00 05/08/25 06:58 Nasal Cannula 2 05/08/25 06:05 Nasal Cannula 2
[2025-05-08] MEDS ORDERED: GABAPENTIN 600 MG TAB PO SCH (17:30)
[2025-05-09 02:48] LABS: Cdiff Toxin A+B Negative Cdiff Toxin (Negative); Cdiff Toxin B Gene (2yr or >) Positive Cdiff Gene (Neg)
[2025-05-09] MEDS ORDERED: COUGH DROP (SUGAR FREE) LOZ 24 LOZ/1 BOX BUCCAL PRN (03:28)
[2025-05-09 05:09] LABS: Hematocrit (blood only) 23.8 % (37.0-47.0); Hemoglobin 8.1 g/dl (12.0-16.0); Mean Corpuscular Hemoglobin 40.9 pg (25.0-34.0); Mean Corpuscular Volume 120.2 fL (80.0-100.0); Platelet Count 152 K/uL (130-400); RDW Standard Deviation 78.8 fL (36.4-46.3); Red Blood Count 1.98 M/uL (4.20-5.40); White Blood Count 6.76 K/ul (4.8-10.8)
[2025-05-09 05:29] LABS: Alanine Aminotransferase 14.0 U/L (7-52); Albumin Globulin Ratio 1.8 (0.9-2); Alkaline Phosphatase 59.0 U/L (34-104); Anion Gap 8.0 (3-11); Bilirubin,Total 4.4 mg/dl (0.2-1.0); Blood Urea Nitrogen 6.0 mg/dl (6-23); Calcium 9.3 mg/dl (8.6-10.3); Carbon Dioxide 26.0 mmol/L (21-32); Chloride 103.0 mmol/L (98-107); Creatinine Clr Calc Pharmacy 137.0 ml/min; Globulin 2.1 gm/dl (2.5-4.0); Glucose 90.0 mg/dl (70-99(Fasting)); Potassium 3.4 mmol/L (3.5-5.1); Sodium 137.0 mmol/L (136-145); Total Protein 5.9 gm/dl (6.0-8.3)
[2025-05-09] MEDS: POTASSIUM CHLORIDE CRTAB 20 MEQ TABCR PO STA (09:17)
[2025-05-09] MEDS: ERGOCALCIFEROL 1250 MCG (50,000 UNITS) CAP PO SCH (09:17)
--- NOTE | 2025-05-09 12:38 | Hospitalist Progress Note ---
Date of Service May 09, 2025 Assessment & Plan (1) Metabolic encephalopathy: (2) Acute hyponatremia: Plan: Resolved (3) Polymyositis: (4) Major depressive disorder: (5) Anxiety disorder: (6) Cirrhosis: (7) Urinary tract infection: Plan Patient presented with acute encephalopathy, suspect multifactorial most significantly due to hyponatremia. Hyponatremia resolved, due to excess water intake and poor solute intake. Improved with fluid restriction, continue Completing course of antibiotics for UTI Liver functions overall stable Continue therapies Case management pursuing possible placement Hematology consult pending. Suspect anemia due to chronic disease [facility] Admission and Anticipated Discharge Date Admission Date: May 04, 2025 Subjective Overall patient is improved. States she has some chronic issues with swallowing. Attributes this to her polymyositis. Physical Exam Physical Exam: Constitutional: Alert HEENT: Mucous membranes moist. Lungs: Clear to auscultation, decreased, no wheezes rales or rhonchi CV: S1-S2, regular Abdomen: Soft, nontender, nondistended Extremities: Posterior thigh edema Neuro: No focal deficits, generally weak Psych: Cooperative, normal mood Results & Data Results & Data Vital Signs (Past 12 Hours) Vital Signs Temp Pulse Pulse Resp BP Pulse Ox Pulse Ox 05/09/25 11:09 36.9 C 105 H 18 121/83 92 05/09/25 07:49 36.7 C 112 H 20 109/72 97 05/09/25 07:00 107 H 05/09/25 07:00 05/09/25 07:00 96 05/09/25 02:53 36.6 C 108 H 20 100/65 100 O2 Del Method O2 Del Method O2 Flow Rate O2 Flow Rate 05/09/25 11:09 Nasal Cannula 2 05/09/25 07:49 Nasal Cannula 2 05/09/25 07:00 05/09/25 07:00 Nasal Cannula 4 05/09/25 07:00 Nasal Cannula 4 05/09/25 02:53 Nasal Cannula 2.0 Diagnostic Findings Reviewed imaging, laboratory and diagnostic studies. Pertinent findings as below. Hemoglobin 8.1, fluctuating but appears to be overall stable Sodium 137 Potassium 3.4 Reviewed chest x-ray, possibly some pulmonary congestion (7) Urinary tract infection Hematuria presence: without hematuria Urinary tract infection type: site unspecified Qualified Code(s): N39.0 - Urinary tract infection, site not specified
[2025-05-09] MEDS ORDERED: GABAPENTIN 600 MG TAB PO SCH (21:30)
[2025-05-10 07:01] LABS: Alanine Aminotransferase 16.0 U/L (7-52); Albumin Globulin Ratio 1.7 (0.9-2); Alkaline Phosphatase 59.0 U/L (34-104); Anion Gap 9.0 (3-11); Bilirubin,Total 4.2 mg/dl (0.2-1.0); Blood Urea Nitrogen 7.0 mg/dl (6-23); Calcium 9.0 mg/dl (8.6-10.3); Carbon Dioxide 25.0 mmol/L (21-32); Chloride 103.0 mmol/L (98-107); Creatinine Clr Calc Pharmacy 144.6 ml/min; Globulin 2.2 gm/dl (2.5-4.0); Glucose 86.0 mg/dl (70-99(Fasting)); Potassium 3.3 mmol/L (3.5-5.1); Sodium 137.0 mmol/L (136-145); Total Protein 5.9 gm/dl (6.0-8.3)
[2025-05-10 07:24] VITALS: BP 107/70; PULSE 106; RESP 16; TEMP 98.1; O2SAT 98
[2025-05-10 08:39] LABS: Iron 59.0 mcg/dl (35-150); Transferrin 107.0 mg/dl (200-360)
[2025-05-10 09:00] LABS: Ferritin 151.3 ng/ml (8-388)
[2025-05-10] MEDS: POTASSIUM CHLORIDE CRTAB 20 MEQ TABCR PO SCH (09:52)
--- NOTE | 2025-05-10 12:56 | Discharge Summary ---
Discharge Summary Date of Service May 10, 2025 Principal Dx & Hospital Course #1 = Principal Diagnosis (1) Metabolic encephalopathy: (2) Acute hyponatremia: Resolved (3) Polymyositis: (4) Major depressive disorder: (5) Anxiety disorder: (6) Cirrhosis: (7) Urinary tract infection: Plan Patient is a 55-year-old female presented to the emergency room with her family stating that she has altered mental status, more confused and slow to answer any questions. In the emergency room patient was noted to be hyponatremic and elevated ammonia level. Patient was admitted for further care. Patient under went MRI of the brain which showed no acute intracranial abnormalities. Patient was seen by nephrology for her hyponatremia. It was deemed that she was hyponatremic due to excessive water intake and poor solute intake. She was placed on fluid restriction and her sodium levels normalized. Patient also has a history of extensive alcohol use. No evidence of alcohol withdrawal. However she did have evidence of cirrhosis. GI consultation was obtained. She was started on lactulose for treatment of her elevated ammonia level and possibly hepatic encephalopathy contributing to her altered mental status. With these interventions her mental status returned to baseline. She was seen by hematology for her anemia. There was no evidence of hemolysis. Most likely anemia due to chronic medical issues and chronic liver disease. Patient has chronic polymyositis. She is mostly wheelchair-bound even prior to admission, however she was more deconditioned with this acute illness family felt as though she was not able to be cared for at home. Case management involved. They coordinated patient to receive additional rehabilitation at [facility]. On the day of discharge vital signs are stable. Laboratory studies have improved and are stable. She will be able to participate in therapies and be discharged to rehab. 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 Lal), iatrogenic Cushings syndrome, HTN, HLD, depression, chronic anxiety (on ativan prn), neuropathic pain (on gabapentin) who presents for altered mental status. Last visit was in 05/2024 for sepsis 2/2 multifocal CAP. In the ED, noted to have elevated bilirubin, altered, CT head and chest xray unremarkable and grossly unchanged from prior respectively, given fluids and abx, admitted to medicine for further workup. Patient seen and examined at bedside. Daughter who is caregiver and sister prese nt at bedside. Patient alert and orriented x3 but confused/slow to answer. Patient denies nausea, vomiting, diarrhea, pain, other symptoms. Denies SOB, chest pain. Per granddaughter, patient has not been doing well for the few days, worst in the past 24 hours. She states patient has become steadily more confused. Also states her skin coloring has become more yellow/pale in the past 24 hours. Daughter states patient could have taken more medications than normal and she would not know. Daughter states patient has demyelinating lesions on her brain but is unsure the clinical correlation, with a MR brain ordered for further evaluation outpatient. No tobacco use, alcohol use present (per daughter has slowed down significantly past few weeks), no drug use, DNRDNI per discussion with patients caregiver and patient wishes. Admission Exam Per Admitting Provider See H&P Discharge Exam Constitutional: Alert, nontoxic HEENT: Mucous membranes moist. Lungs: Clear to auscultation, decreased, no wheezes rales or rhonchi CV: S1-S2, regular Abdomen: Soft, nontender, nondistended Extremities: No significant edema Neuro: Severe weakness lower extremities Psych: Cooperative, normal mood Updated Medication List Medication Instructions Recorded Confirmed Type gabapentin 300 mg capsule 600 mg PO TID 05/28/24 05/04/25 History lisinopril 10 mg tablet 10 mg PO DAILY 05/28/24 05/04/25 History lorazepam 0.5 mg tablet 0.5 mg PO DAILY PRN Anxiety 05/28/24 05/04/25 History ropinirole 1 mg tablet 1 mg PO BID 05/28/24 05/04/25 History zinc sulfate 66 mg tablet 66 mg PO DAILY 05/04/25 05/04/25 History acetaminophen 325 mg tablet 650 mg (2 x 325 mg) PO Q6H PRN 05/10/25 Rx fever or pain #100 tabs cholecalciferol (vitamin D3) 1,250 1,250 mcg PO WK #30 tabs 05/10/25 Rx mcg (50,000 unit) tablet duloxetine 60 mg capsule,delayed 60 mg PO DAILY #30 caps 05/10/25 Rx release folic acid 1 mg tablet 1 mg PO DAILY #30 tabs 05/10/25 Rx lactulose 10 gram/15 mL oral 20 g (30 mL) PO TID #946 mL 05/10/25 Rx solution pantoprazole 40 mg tablet,delayed 40 mg PO QAM #30 tabs 05/10/25 Rx release potassium chloride 20 mEq 40 meq (2 x 20 mEq) PO DAILY #20 05/10/25 Rx tablet,extended release(part/cryst) tabs umeclidinium 62.5 mcg/actuation 1 inh inhalation QAM #1 ea 05/10/25 Rx blister powder for inhalation (Incruse Ellipta) Hospital Stay Data Consultations 05/04/25 13:25 ED Decision to Admit Stat 05/04/25 15:08 Consult Gastroenterology Routine 05/04/25 15:28 Consult Nephrology Routine 05/08/25 08:22 Consult Skip Miner Stat 05/08/25 15:06 Consult Hematology Routine Diagnostic Imagining Performed 05/04/25 11:49 CT head/brain wo con Stat 05/04/25 15:16 CT angio chest PE protocol Urgent 05/04/25 20:20 CT abd pelvis IV con only Urgent 05/05/25 10:23 MR brain MS wo con Urgent Reviewed imaging, laboratory and diagnostic studies. Pertinent findings as below. WBCs 1.9 Hemoglobin 8.1 Platelets of 152 Sodium 137 Potassium 3.3, repleted prior to discharge Creatinine 0.49 Total bilirubin 4.2 AST, ALT, alk phos within normal ranges Vitamin B12 1152 Folate 21.7 TSH 2.09 MRI of the brain negative for acute ischemia CT of the abdomen pelvis shows cirrhotic liver CTA of the chest negative for PE Pending Results Patient Have Any Pending Studies at Discharge: No Discharge Instructions Given to Patient (Per Discharging Provider) Recommend physical therapy and Occupational Therapy Maintain strict fluid restriction Consider BMP and 10 to 14 days Total Time Total Time Spent Total Time Spent (In Minutes): 39
[2025-05-11] MEDS ORDERED: GABAPENTIN 600 MG TAB PO SCH (09:30)
== END 2025-05-10 15:26 | DRG 441 ==
LOC: ED 11:43 → SUATTDRO 13:30 → 2S 13:30 → 3E 05-06 11:25 → 2E 05-08 06:47 → 3E 05-09 15:23

== ENCOUNTER 2025-05-22 19:05 | Inpatient (IN) ==
[2025-05-22 19:30] LABS: Hematocrit (blood only) 33.0 % (37.0-47.0); Hemoglobin 10.9 g/dl (12.0-16.0); Mean Corpuscular Hemoglobin 40.2 pg (25.0-34.0); Mean Corpuscular Volume 121.8 fL (80.0-100.0); Platelet Count 208 K/uL (130-400); RDW Standard Deviation 76.5 fL (36.4-46.3); Red Blood Count 2.71 M/uL (4.20-5.40); White Blood Count 15.54 K/ul (4.8-10.8)
[2025-05-22 19:47] LABS: Alanine Aminotransferase 24.0 U/L (7-52); Albumin Globulin Ratio 0.8 (0.9-2); Alkaline Phosphatase 81.0 U/L (34-104); Anion Gap 12.0 (3-11); Bilirubin,Total 5.7 mg/dl (0.2-1.0); Blood Urea Nitrogen 11.0 mg/dl (6-23); Calcium 9.0 mg/dl (8.6-10.3); Carbon Dioxide 21.0 mmol/L (21-32); Chloride 102.0 mmol/L (98-107); Creatinine Clr Calc Pharmacy 131.4 ml/min; Globulin 3.2 gm/dl (2.5-4.0); Glucose 105.0 mg/dl (70-99(Fasting)); Lipase 16.0 U/L (11-82); Magnesium 1.5 mg/dl (1.7-2.4); Potassium 3.7 mmol/L (3.5-5.1); Sodium 135.0 mmol/L (136-145); Total Protein 5.9 gm/dl (6.0-8.3)
[2025-05-22 19:48] LABS: Immature Granulocytes # (auto) 0.23 K/uL (0.01-0.20); Immature Granulocytes % (auto) 1.5 %; Macrocytosis Present; Polychromasia 1+
--- NOTE | 2025-05-22 19:51 | Emergency Department Note ---
Impression & Plan Sepsis, Pneumonia, Cirrhosis of liver, Tachycardia, Elevated lactic acid level ED Provider Note NAME: CECILIA KNOX AGE: 55 SEX: F : 1970 ARRIVES VIA: Ambulance INFORMANT: Patient ED PROVIDER(S): Demetri Sadler MD CHIEF COMPLAINT: Confusion, generalized weakness, recent admission for UTI. Cirrhosis. PLAN: Disposition: Admit MEDICAL DECISION MAKING: The patient is a 55-year-old woman with a past medical history of polymyositis and interstitial lung disease, hypertension, hyperlipidemia, anxiety, neuropathy, cirrhosis, prior alcohol use (discontinued 2 months ago per daughter ) who presents to the emergency department via EMS then accompanied by her daughter for generalized weakness and confusion that worsened today in the setting of being admitted to this facility from 05/04-05/10 for confusion secondary to hepatic encephalopathy, hyponatremia and UTI. They deny fevers, chills, cough, congestion. Patient denies vomiting. Patient stools have been loose as she is on lactulose. Patient denies urinary symptoms. The patient had reported upper abdominal pain to her daughter but denies this at this time. On evaluation the patient is acute on chronically- ill appearing but in no acute distress, afebrile with heart of the 130s and vital signs otherwise stable. She appears euvolemic to hypovolemic. Abdomen is nontender. She exhibited rhonchi of bilateral lower lung sawyer. No focal neurologic deficits. No overt asterixis. EKG demonstrates sinus tachycardia versus atrial flutter in the 130s without overt ST elevation or depression. Chest x-ray with suspected bibasilar atelectasis and air beneath the diaphragm which subsequently correlated with air within the colon on CT imaging. WBC 15.5 K with neutrophilia and left shift. H/H10.9/33 increased from prior. Platelets within normal limits. INR 2.0 increased from patient's recent admission. Chemistry without metabolic acidosis. Sodium is 135. Initial lactic acid 7.3 with repeat 6.2 following cautious IV fluid hydration. LFTs elevated with total bili of 5.7, direct bilirubin 2.0 and AST 43. Ammonia is not elevated. Initial high sensitivity troponin 50.2, nonspecific, however similar to prior range of values. Procalcitonin is elevated at 1.26. Lipase is not elevated. TSH within normal limits. UA is suspicious for infection with positive nitrites and 1+ bacteria albeit no WBCs. CTA of the chest and CT abdomen pelvis were performed with finalized reports pending. However, air underneath the right hemidiaphragm is consistent with a air within the colon on CT. No evidence of pneumoperitoneum on CT. Patient was treated with cautious IV hydration given the patient's cirrhosis. 1500 cc of IV fluids ordered. Antibiotic treatment initiated with IV Zosyn given concern for pneumonia with possible aspiration. Heart rate did initially show some improvement but subsequently persisting at 140. Given repeat EKG demonstrating again sinus tachycardia versus atrial flutter in setting of the patient's history of tachycardia where she is on a beta-stella 5 mg of IV Lopressor was ordered. Patient and her daughter agree with plan for admission for further management. Case was discussed with Dr. Ramirez, [facility], who will evaluate the patient for admission. CT reports subsequently finalized. CTA of the chest demonstrates suspected small PE involving the left lower lobe segmental pulmonary artery. Additional note is made of mild to moderate diffuse bronchial wall thickening and diffuse pulmonary interstitial septal thickening which is suspicious for pneumonia given the clinical context. CT of the abdomen pelvis demonstrates known cirrhosis. Dilated small bowel loops suspicious for enteritis. Admitting team aware. Further management per admitting team. Triage Nursing notes reviewed and agree them. Prior/external medical records reviewed Vital Signs: reviewed Differential diagnosis: Infection, dehydration, metabolic abnormality, hypo/hyperglycemia, electrolyte disturbance, anemia, hypoxia, cardiac sources, intracerebral event, toxicologic, neurologic, as well as other pathologies. ER treatment provided: See below. Diagnostics interpreted by me: ECG 1916: Sinus tachycardia versus atrial flutter, 135 bpm, no overt ST elevation or depression, QTc 405, QRS 72. ECG 2: Sinus tachycardia versus atrial flutter, 140 bpm, ST and T wave abnormality, no overt ST elevation or depression, QTc 406, QRS 60. Cardiac Monitoring: An order for continuous cardiac monitoring was placed and demonstrated sinus tachycardia versus atrial flutter, 135 bpm, no ectopy Laboratory studies: See below Imaging studies: See below Consultation(s): Case was discussed with Dr. Ramirez, [facility], who will evaluate the patient for admission. HPI: Per MDM. ROS: See above HPI for pertinent positives & negatives. A total of 10 systems reviewed and were otherwise negative. VITALS:See Below PHYSICAL EXAMINATION: GENERAL: Awake, alert, acute on chronically ill-appearing, in no distress, BMI 20.0. HENT: Normocephalic, atraumatic. Oropharynx mild dry. EYES: Normal conjunctiva. Sclera icteric. EOMI. No nystamgus. PEARRL. NECK: Supple. No nuchal rigidity. FROM. No JVD. RESPIRATORY: Rhonchi bilateral lower lung sawyer. CARDIAC: Tachycardic rate, normal rhythm. Extremities warm and well perfused. Pulses equal. ABDOMEN: Soft, non-distended. No tenderness to palpation. No rebound or guarding. No masses. MUSCULOSKELETAL: Chest examination reveals no tenderness. The back is symmetrical on inspection without obvious abnormality. There is no CVA tenderness to palpation. No joint edema. LOWER EXTREMITIES: Calves are equal size bilaterally and non-tender. No edema. No discoloration. NEURO: Alert and oriented to self, place and situation. Generalized weakness without focal extremity weakness. No asterixis. SKIN: Jaundice present. No rashes. ED COURSE: Critical Care: I have personally spent greater than 35 minutes of critical care time in the direct management of this patient. This includes bedside care, interpretation of diagnostic studies, and testing, discussion with consultants, patient, and family members, and other required patient management activities. This 35 minutes is in excess of all separately billable procedures. Demetri Sadler MD Past Med/Surg History Problem List (Updated 05/23/25 @ 05:23 by Demetri Sadler MD) Severe sepsis Elevated lactic acid level (Acute) Tachycardia (Acute) Cirrhosis of liver (Acute) Pneumonia (Acute) Sepsis (Acute) Anemia Hyperbilirubinemia Hypotension Hyponatremia Cirrhosis Elevated LFTs UTI (urinary tract infection) (Acute) Metabolic encephalopathy Hyperammonemia (Acute) Hypomagnesemia (Acute) Hypokalemia (Acute) Acute alteration in mental status (Acute) Acute hyponatremia (Acute) History of tobacco use Methotrexate, terminal clerk, current use Abnormal CT scan, chest Family history of ischemic heart disease Sinus tachycardia Elevated troponin Multifocal pneumonia Acute hypoxemic respiratory failure Pneumonia (Acute) CHF (congestive heart failure) (Acute) Hypoxia (Acute) Shock Open wound of female genital organ Diarrhea (Acute) Cellulitis (Acute) Acute hypotension (Acute) History of knee surgery History of dental surgery History of carpal tunnel release Polymyositis Medical History Major depressive disorder Anxiety disorder Hypertension Diverticulitis Urinary tract infection HAL (acute kidney injury) Sepsis Neutropenic fever Surgical History History of laparoscopic cholecystectomy Family History Mother Heart disease Cancer Father Heart disease Diabetes Brother Heart disease Social History Smoking Status: Former smoker Tobacco Type: Cigarettes Cigarettes Per Day: 30; Second Hand Exposure: No; Hx Alcohol Use: Yes Alcohol type: hard liquor Hx Substance Use: No Communication Ability: Effective 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 Required: No Beliefs That Will Affect Care: None Current Living Situation: Spouse Other Information That Helps Us Care for You: No Feels Safe at Home: Yes Safety Concerns: Feels Safe At This Time Assistive Devices: Oxygen - at Night and Wheelchair Allergies Allergies Allergy/AdvReac Type Severity Reaction Status Date / Time clindamycin Allergy Hives Verified 07/04/24 15:10 Home Meds Home Medications Medication Instructions Recorded Confirmed acetaminophen 325 mg tablet 650 mg PO Q4 PRN Pain 05/22/25 05/22/25 acetaminophen 325 mg tablet 650 mg PO Q4 PRN temp > 38C OR 05/22/25 05/22/25 100.5F cholecalciferol (vitamin D3) 50 50 mcg PO QAM 05/22/25 05/22/25 mcg (2,000 unit) capsule (Vitamin D3) folic acid 1 mg tablet 1 mg PO QAM 05/22/25 05/22/25 gabapentin 300 mg capsule 600 mg PO TID 05/22/25 05/22/25 lisinopril 10 mg tablet 10 mg PO DAILY 05/22/25 05/22/25 lorazepam 0.5 mg tablet 0.5 mg PO UD PRN Anxiety 05/22/25 05/22/25 methotrexate sodium 2.5 mg tablet 15 mg PO WK 05/22/25 05/22/25 potassium chloride 20 mEq 40 meq PO QAM 05/22/25 05/22/25 tablet,extended release(part/cryst) Previous Rx's Medication Instructions Recorded duloxetine 60 mg capsule,delayed 60 mg PO DAILY #30 caps 05/10/25 release lactulose 10 gram/15 mL oral 20 g (30 mL) PO TID #946 mL 05/10/25 solution pantoprazole 40 mg tablet,delayed 40 mg PO QAM #30 tabs 05/10/25 release umeclidinium 62.5 mcg/actuation 1 inh inhalation QAM #1 ea 05/10/25 blister powder for inhalation (Incruse Ellipta) Results & Data (ED) Vital Signs Vital Signs - 24 hr 05/22/25 18:56 05/22/25 18:56 05/22/25 19:09 Temperature 36.4 C L Temperature Source Oral Pulse Rate 134 H 133 H Pulse Rate from SpO2 Sensor Respiratory Rate 20 20 Blood Pressure 133/84 Blood Pressure Mean 100 Pulse Oximetry 99 98 Oxygen Delivery Method Room Air Room Air Room Air Sepsis Recent Fever Within 48 Hours No Sepsis New/Unexplained Change in Mental Status N/A Sepsis Action Taken by Nursing No Action Required 05/22/25 19:14 05/22/25 19:15 05/22/25 19:21 Temperature Temperature Source Pulse Rate 134 H 135 H 135 H Pulse Rate from SpO2 Sensor 135 H 133 H Respiratory Rate 23 28 H Blood Pressure Blood Pressure Mean Pulse Oximetry 100 95 Oxygen Delivery Method Sepsis Recent Fever Within 48 Hours Sepsis New/Unexplained Change in Mental Status Sepsis Action Taken by Nursing 05/22/25 19:30 05/22/25 19:30 05/22/25 19:30 Temperature Temperature Source Pulse Rate 135 H Pulse Rate from SpO2 Sensor 135 H Respiratory Rate 23 Blood Pressure 148/69 H 148/69 H Blood Pressure Mean 85 85 Pulse Oximetry 97 Oxygen Delivery Method Sepsis Recent Fever Within 48 Hours Sepsis New/Unexplained Change in Mental Status Sepsis Action Taken by Nursing 05/22/25 19:42 05/22/25 19:57 05/22/25 20:00 Temperature Temperature Source Pulse Rate 136 H 138 H 137 H Pulse Rate from SpO2 Sensor 136 H 138 H 138 H Respiratory Rate 22 17 22 Blood Pressure Blood Pressure Mean Pulse Oximetry 96 96 97 Oxygen Delivery Method Sepsis Recent Fever Within 48 Hours Sepsis New/Unexplained Change in Mental Status Sepsis Action Taken by Nursing 05/22/25 20:01 05/22/25 20:01 05/22/25 20:18 Temperature Temperature Source Pulse Rate 138 H Pulse Rate from SpO2 Sensor 138 H Respiratory Rate 23 Blood Pressure 126/96 126/96 Blood Pressure Mean 102 102 Pulse Oximetry 95 Oxygen Delivery Method Sepsis Recent Fever Within 48 Hours Sepsis New/Unexplained Change in Mental Status Sepsis Action Taken by Nursing 05/22/25 20:30 05/22/25 20:30 05/22/25 20:33 Temperature Temperature Source Pulse Rate 135 H Pulse Rate from SpO2 Sensor 139 H Respiratory Rate 18 Blood Pressure 130/75 130/75 Blood Pressure Mean 98 98 Pulse Oximetry 95 Oxygen Delivery Method Sepsis Recent Fever Within 48 Hours Sepsis New/Unexplained Change in Mental Status Sepsis Action Taken by Nursing 05/22/25 20:57 05/22/25 21:00 05/22/25 21:02 Temperature Temperature Source Pulse Rate 129 H Pulse Rate from SpO2 Sensor 129 H Respiratory Rate 19 Blood Pressure 107/62 105/84 Blood Pressure Mean 82 91 Pulse Oximetry 94 Oxygen Delivery Method Sepsis Recent Fever Within 48 Hours Sepsis New/Unexplained Change in Mental Status Sepsis Action Taken by Nursing 05/22/25 21:02 05/22/25 21:06 05/22/25 21:09 Temperature Temperature Source Pulse Rate 131 H 131 H Pulse Rate from SpO2 Sensor 132 H 132 H Respiratory Rate 21 21 Blood Pressure 105/84 Blood Pressure Mean 91 Pulse Oximetry 96 94 Oxygen Delivery Method Sepsis Recent Fever Within 48 Hours Sepsis New/Unexplained Change in Mental Status Sepsis Action Taken by Nursing 05/22/25 21:10 05/22/25 21:10 05/22/25 21:30 Temperature Temperature Source Pulse Rate 138 H Pulse Rate from SpO2 Sensor Respiratory Rate 21 Blood Pressure 122/70 122/70 Blood Pressure Mean 82 82 Pulse Oximetry Oxygen Delivery Method Sepsis Recent Fever Within 48 Hours Sepsis New/Unexplained Change in Mental Status Sepsis Action Taken by Nursing 05/22/25 21:40 05/22/25 21:42 05/22/25 21:51 Temperature Temperature Source Pulse Rate 138 H Pulse Rate from SpO2 Sensor 138 H Respiratory Rate 21 Blood Pressure 116/83 115/70 Blood Pressure Mean 103 79 Pulse Oximetry 92 Oxygen Delivery Method Sepsis Recent Fever Within 48 Hours Sepsis New/Unexplained Change in Mental Status Sepsis Action Taken by Nursing 05/22/25 21:51 05/22/25 21:54 05/22/25 22:01 Temperature Temperature Source Pulse Rate 139 H Pulse Rate from SpO2 Sensor Respiratory Rate 20 Blood Pressure 115/70 112/77 Blood Pressure Mean 79 79 Pulse Oximetry Oxygen Delivery Method Sepsis Recent Fever Within 48 Hours Sepsis New/Unexplained Change in Mental Status Sepsis Action Taken by Nursing 05/22/25 22:10 05/22/25 22:21 05/22/25 22:24 Temperature Temperature Source Pulse Rate 140 H Pulse Rate from SpO2 Sensor Respiratory Rate 17 Blood Pressure 118/88 102/56 L Blood Pressure Mean 93 69 Pulse Oximetry Oxygen Delivery Method Sepsis Recent Fever Within 48 Hours Sepsis New/Unexplained Change in Mental Status Sepsis Action Taken by Nursing 05/22/25 22:33 05/22/25 22:33 05/22/25 22:33 Temperature Temperature Source Pulse Rate Pulse Rate from SpO2 Sensor Respiratory Rate Blood Pressure 91/69 L 91/69 L 91/69 L Blood Pressure Mean 83 83 83 Pulse Oximetry Oxygen Delivery Method Sepsis Recent Fever Within 48 Hours Sepsis New/Unexplained Change in Mental Status Sepsis Action Taken by Nursing 05/22/25 22:36 05/22/25 22:37 05/22/25 22:39 Temperature Temperature Source Pulse Rate 138 H 137 H Pulse Rate from SpO2 Sensor Respiratory Rate 20 32 H Blood Pressure 117/75 Blood Pressure Mean 100 Pulse Oximetry Oxygen Delivery Method Sepsis Recent Fever Within 48 Hours Sepsis New/Unexplained Change in Mental Status Sepsis Action Taken by Nursing 05/22/25 22:40 05/22/25 22:51 05/22/25 22:55 Temperature Temperature Source Pulse Rate Pulse Rate from SpO2 Sensor Respiratory Rate Blood Pressure 102/72 76/53 L 110/75 Blood Pressure Mean 78 63 82 Pulse Oximetry Oxygen Delivery Method Sepsis Recent Fever Within 48 Hours Sepsis New/Unexplained Change in Mental Status Sepsis Action Taken by Nursing 05/22/25 23:01 05/22/25 23:01 05/22/25 23:05 Temperature Temperature Source Pulse Rate Pulse Rate from SpO2 Sensor Respiratory Rate Blood Pressure 112/61 112/61 121/73 Blood Pressure Mean 69 69 85 Pulse Oximetry Oxygen Delivery Method Sepsis Recent Fever Within 48 Hours Sepsis New/Unexplained Change in Mental Status Sepsis Action Taken by Nursing 05/22/25 23:05 05/22/25 23:05 05/22/25 23:08 Temperature Temperature Source Pulse Rate 130 H Pulse Rate from SpO2 Sensor Respiratory Rate Blood Pressure 121/73 121/73 Blood Pressure Mean 85 85 Pulse Oximetry Oxygen Delivery Method Sepsis Recent Fever Within 48 Hours Sepsis New/Unexplained Change in Mental Status Sepsis Action Taken by Nursing 05/22/25 23:09 Temperature Temperature Source Pulse Rate 130 H Pulse Rate from SpO2 Sensor 130 H Respiratory Rate 19 Blood Pressure Blood Pressure Mean Pulse Oximetry 100 Oxygen Delivery Method Sepsis Recent Fever Within 48 Hours Sepsis New/Unexplained Change in Mental Status Sepsis Action Taken by Nursing Laboratory Data Attestation: I reviewed the patient's lab results. 05/22/25 19:19 05/23/25 03:52 Lab Results 05/22/25 05/22/25 05/22/25 Range/Units 19:19 19:34 19:59 WBC 15.54 H (4.8-10.8) K/ul RBC 2.71 L (4.20-5.40) M/uL Hgb 10.9 L (12.0-16.0) g/dl Hct 33.0 L (37.0-47.0) % MCV 121.8 H (80.0-100.0) fL MCH 40.2 H (25.0-34.0) pg MCHC 33.0 (32.0-36.0) g/dL RDW Std Deviation 76.5 H (36.4-46.3) fL RDW Coeff of Kristine 17.1 H (11.5-14.5) % Plt Count 208 (130-400) K/uL MPV 10.3 (9.4-12.4) fL Immature Gran % (Auto) 1.5 % Neut % (Auto) 73.8 % Lymph % (Auto) 15.2 % Bureau % (Auto) 9.3 % Eos % (Auto) 0.0 % Baso % (Auto) 0.2 % Neut # (Auto) 11.48 H (1.40-6.50) K/uL Lymph # (Auto) 2.36 (1.20-3.40) K/uL Bureau # (Auto) 1.44 H (0.11-0.59) K/uL Eos # (Auto) 0.00 (0.00-0.50) K/uL Baso # (Auto) 0.03 (0.00-0.20) K/uL Immature Gran # (Auto) 0.23 H (0.01-0.20) K/uL Polychromasia 1+ Macrocytosis Present PT 20.1 H (9.0-12.0) Seconds INR 2.0 H (0.9-1.1) Sodium 135 L (136-145) mmol/L Potassium 3.7 (3.5-5.1) mmol/L Chloride 102 (98-107) mmol/L Carbon Dioxide 21 (21-32) mmol/L Anion Gap 12 H (3-11) BUN 11 (6-23) mg/dl Creatinine 0.62 (0.6-1.2) mg/dl Est Cr Clr Drug Dosing 131.4 ml/min eGFR 105.10 BUN/Creatinine Ratio 17.7 (10-20) Glucose 105 H (70-99(Fasting)) mg/dl Lactate (0.4-2.0) mmol/L Calcium 9.0 (8.6-10.3) mg/dl Magnesium 1.5 L (1.7-2.4) mg/dl Total Bilirubin 5.7 H (0.2-1.0) mg/dl Direct Bilirubin 2.0 H (0-0.2) mg/dl AST 43 H (13-39) U/L ALT 24 (7-52) U/L Alkaline Phosphatase 81 (34-104) U/L Ammonia 36.0 (18-72) umol/L Troponin I High Sens 50.2 H* (0-14) pg/ml Total Protein 5.9 L (6.0-8.3) gm/dl Albumin 2.7 L (3.4-5.0) gm/dl Globulin 3.2 (2.5-4.0) gm/dl Albumin/Globulin Ratio 0.8 L (0.9-2) Lipase 16 (11-82) U/L Procalcitonin 1.26 H (0-0.5) ng/ml TSH 1.573 (0.300-4.500) uIu/ml Urine Color Urine Appearance (Clear) Urine pH (4.5-7.5) Ur Specific [place] (1.000-1.030) Urine Protein (Negative) Urine Glucose (UA) (Negative) Urine Ketones (Negative) Urine Blood (Negative) Urine Nitrite (Negative) Urine Bilirubin (Negative) Urine Urobilinogen (Negative) Ur Leukocyte Esterase (Negative) Urine RBC (0-2) /hpf Urine WBC (0-5) /hpf Ur Epithelial Cells (0-2) /hpf Urine Bacteria (None Seen) Hyaline Casts (None Presnt) /lpf Urine Mucus (None Prsent) Urine Yeast (None Prsent) Urine Comment Nasal Screen MRSA (PCR) (Negative) Ethyl Alcohol mg/dL < 10.0 (<10.0) mg/dl Adenovirus (PCR) Not Detected (NotDetected) B. pertussis DNA (PCR) Not Detected (NotDetected) B.parapertussis DNA PCR Not Detected (NotDetected) C. pneumoniae DNA (PCR) Not Detected (NotDetected) Coronavirus OC43 (PCR) Not Detected (NotDetected) Coronavirus HKU1 (PCR) Not Detected (NotDetected) Coronavirus 229E (PCR) Not Detected (NotDetected) SARS-CoV-2 (PCR) Not Detected (NotDetected) Coronavirus NL63 (PCR) Not Detected (NotDetected) Human Metapneumovir PCR Not Detected (NotDetected) Influenza Type A (PCR) Not Detected (NotDetected) Influenza Type B (PCR) Not Detected (NotDetected) M. pneumoniae (PCR) Not Detected (NotDetected) Parainfluenza 1 (PCR) Not Detected (NotDetected) Parainfluenza 2 (PCR) Not Detected (NotDetected) Parainfluenza 3 (PCR) Not Detected (NotDetected) Parainfluenza 4 (PCR) Not Detected (NotDetected) RSV (PCR) Not Detected (NotDetected) Entero/Rhino (PCR) Not Detected (NotDetected) 05/22/25 05/22/25 05/22/25 Range/Units 20:06 22:46 22:55 WBC (4.8-10.8) K/ul RBC (4.20-5.40) M/uL Hgb (12.0-16.0) g/dl Hct (37.0-47.0) % MCV (80.0-100.0) fL MCH (25.0-34.0) pg MCHC (32.0-36.0) g/dL RDW Std Deviation (36.4-46.3) fL RDW Coeff of Kristine (11.5-14.5) % Plt Count (130-400) K/uL MPV (9.4-12.4) fL Immature Gran % (Auto) % Neut % (Auto) % Lymph % (Auto) % Bureau % (Auto) % Eos % (Auto) % Baso % (Auto) % Neut # (Auto) (1.40-6.50) K/uL Lymph # (Auto) (1.20-3.40) K/uL Bureau # (Auto) (0.11-0.59) K/uL Eos # (Auto) (0.00-0.50) K/uL Baso # (Auto) (0.00-0.20) K/uL Immature Gran # (Auto) (0.01-0.20) K/uL Polychromasia Macrocytosis PT (9.0-12.0) Seconds INR (0.9-1.1) Sodium (136-145) mmol/L Potassium (3.5-5.1) mmol/L Chloride (98-107) mmol/L Carbon Dioxide (21-32) mmol/L Anion Gap (3-11) BUN (6-23) mg/dl Creatinine (0.6-1.2) mg/dl Est Cr Clr Drug Dosing ml/min eGFR BUN/Creatinine Ratio (10-20) Glucose (70-99(Fasting)) mg/dl Lactate 7.3 H* (0.4-2.0) mmol/L Calcium (8.6-10.3) mg/dl Magnesium (1.7-2.4) mg/dl Total Bilirubin (0.2-1.0) mg/dl Direct Bilirubin (0-0.2) mg/dl AST (13-39) U/L ALT (7-52) U/L Alkaline Phosphatase (34-104) U/L Ammonia (18-72) umol/L Troponin I High Sens (0-14) pg/ml Total Protein (6.0-8.3) gm/dl Albumin (3.4-5.0) gm/dl Globulin (2.5-4.0) gm/dl Albumin/Globulin Ratio (0.9-2) Lipase (11-82) U/L Procalcitonin (0-0.5) ng/ml TSH (0.300-4.500) uIu/ml Urine Color Dark Yellow Urine Appearance Slightly Cloudy (Clear) Urine pH 5.5 (4.5-7.5) Ur Specific [place] 1.025 (1.000-1.030) Urine Protein Negative (Negative) Urine Glucose (UA) Negative (Negative) Urine Ketones Negative (Negative) Urine Blood Trace-intact H (Negative) Urine Nitrite Positive A (Negative) Urine Bilirubin Negative (Negative) Urine Urobilinogen Negative (Negative) Ur Leukocyte Esterase Negative (Negative) Urine RBC 0-2 (0-2) /hpf Urine WBC 0-5 (0-5) /hpf Ur Epithelial Cells 3-5 H (0-2) /hpf Urine Bacteria 1+ H (None Seen) Hyaline Casts P (None Presnt) /lpf Urine Mucus Present A (None Prsent) Urine Yeast Present A (None Prsent) Urine Comment Nasal Screen MRSA (PCR) Negative (Negative) Ethyl Alcohol mg/dL (<10.0) mg/dl Adenovirus (PCR) (NotDetected) B. pertussis DNA (PCR) (NotDetected) B.parapertussis DNA PCR (NotDetected) C. pneumoniae DNA (PCR) (NotDetected) Coronavirus OC43 (PCR) (NotDetected) Coronavirus HKU1 (PCR) (NotDetected) Coronavirus 229E (PCR) (NotDetected) SARS-CoV-2 (PCR) (NotDetected) Coronavirus NL63 (PCR) (NotDetected) Human Metapneumovir PCR (NotDetected) Influenza Type A (PCR) (NotDetected) Influenza Type B (PCR) (NotDetected) M. pneumoniae (PCR) (NotDetected) Parainfluenza 1 (PCR) (NotDetected) Parainfluenza 2 (PCR) (NotDetected) Parainfluenza 3 (PCR) (NotDetected) Parainfluenza 4 (PCR) (NotDetected) RSV (PCR) (NotDetected) Entero/Rhino (PCR) (NotDetected) Administered Medications Sodium Chloride (Nss) 1,000 mls @ 80 mls/hr IV .[id number] BONNIE Stop: 05/26/25 01:29 Last Admin: 05/23/25 01:37 Dose: 80 mls/hr Documented By: OS Discontinued Medications Piperacillin Sod/Tazobactam Sod (Zosyn) 4.5 gm in 100 mls @ 200 mls/hr IV NOW ONE; Protocol Stop: 05/22/25 20:24 Last Infusion: 05/22/25 20:55 Dose: Infused Documented By: Admin: 05/22/25 20:18 Dose: 200 mls/hr Documented By: SARAH Sodium Chloride (Nss) 500 mls @ 999 mls/hr IV .Q31M ONE Stop: 05/22/25 20:25 Last Infusion: 05/22/25 20:55 Dose: Infused Documented By: Admin: 05/22/25 20:18 Dose: 999 mls/hr Documented By: SARAH Magnesium Sulfate/Dextrose (Magnesium Sulfate / D5w) 1 gm in 100 mls @ 100 mls/hr IV NOW STA Stop: 05/22/25 21:42 Last Infusion: 05/22/25 22:47 Dose: Infused Documented By: KMDavid Admin: 05/22/25 20:59 Dose: 100 mls/hr Documented By: SRAAH Sodium Chloride (Nss) 1,000 mls @ 999 mls/hr IV .Q1H1M ONE Stop: 05/22/25 22:49 Last Infusion: 05/23/25 00:24 Dose: Infused Documented By: Admin: 05/22/25 22:25 Dose: 999 mls/hr Documented By: SARAH Sodium Chloride (Nss) 500 mls @ 999 mls/hr IV .Q31M ONE Stop: 05/22/25 23:28 Last Infusion: 05/23/25 00:24 Dose: Infused Documented By: Admin: 05/22/25 23:01 Dose: 999 mls/hr Documented By: SARAH Albumin Human (Albumin 5%) 250 mls @ 500 mls/hr IV ONE STA Stop: 05/22/25 23:43 Last Infusion: 05/23/25 00:22 Dose: Infused Documented By: Admin: 05/22/25 23:30 Dose: 500 mls/hr Documented By: AN Metronidazole (Flagyl) 500 mg in 100 mls @ 100 mls/hr IV NOW STA; Protocol Stop: 05/23/25 00:09 Last Infusion: 05/23/25 01:45 Dose: Infused Documented By: Admin: 05/23/25 00:18 Dose: 100 mls/hr Documented By: EULOGIO Vancomycin HCl 1,750 mg/ (Sodium Chloride) 535 mls @ 200 mls/hr IV ONE STA; Protocol Stop: 05/23/25 01:53 Last Infusion: 08/20/25 03:22 Dose: Infused Documented By: Admin: 05/23/25 00:17 Dose: 200 mls/hr Documented By: AN Doxycycline Hyclate 100 mg/ (Dextrose) 100 mls @ 50 mls/hr IV NOW STA Stop: 05/23/25 01:23 Last Infusion: 05/23/25 03:16 Dose: Infused Documented By: Admin: 05/23/25 01:25 Dose: 50 mls/hr Documented By: OS Magnesium Sulfate/Dextrose (Magnesium Sulfate / D5w) 1 gm in 100 mls @ 50 mls/hr IV ONE STA Stop: 05/23/25 02:01 Last Infusion: 05/23/25 03:25 Dose: Infused Documented By: Admin: 05/23/25 01:25 Dose: 50 mls/hr Documented By: OS Cefepime HCl (Maxipime 2000mg) 2,000 mg in 20 mls @ 5 mls/min IV Q8H BONNIE; Protocol Stop: 06/02/25 03:59 Last Admin: 05/23/25 03:34 Dose: 5 mls/min Documented By: OS Heparin Sodium/Dextrose (Heparin 39093 Unit/500 Ml D5w) 25,000 units in 500 mls @ 17 mls/hr IV .Q24H BONNIE; Protocol Stop: 06/22/25 01:05 Last Titration: 05/23/25 02:17 Dose: Infused Documented By: OS Co-signed By: DM Admin: 05/23/25 02:08 Dose: 850 units/hr, 17 mls/hr Documented By: OS Co-signed By: MARCIA Albumin Human (Albumin 5%) 250 mls @ 500 mls/hr IV ONE ONE Stop: 05/23/25 04:33 Last Infusion: 05/23/25 04:48 Dose: Infused Documented By: Admin: 05/23/25 04:23 Dose: 500 mls/hr Documented By: OS Sodium Chloride (Nss) 500 mls @ 999 mls/hr IV .Q31M ONE Stop: 05/23/25 04:35 Last Infusion: 05/23/25 04:42 Dose: Infused Documented By: Admin: 05/23/25 04:22 Dose: 999 mls/hr Documented By: OS Sodium Chloride (Nss) 500 mls @ 999 mls/hr IV .Q31M ONE Stop: 05/23/25 04:35 Last Admin: 05/23/25 04:26 Dose: Not Given Documented By: MARCIA Ioversol (Optiray 320 125ml) 117 ml IV ONCE ONE Stop: 05/22/25 20:49 Last Admin: 05/22/25 20:48 Dose: 117 ml Documented By: YAHAIRA Metoprolol Tartrate (Metoprolol Tartrate 1 Mg/Ml Vial) 5 mg IV NOW STA Stop: 05/22/25 22:27 Last Admin: 05/22/25 23:28 Dose: Not Given Documented By: AN Imaging Data Radiologist's Impression: Chest X-Ray 05/22/25 19:09 Single frontal view of the chest Comparison made to prior exam dated 05/08/2025 There is an area seen below the right hemidiaphragm suggesting large pneumoperitoneum. CT of the abdomen pelvis recommended for further evaluation. Bibasilar dependent atelectasis. Small bilateral pleural effusions. Electronically signed by Blaine Betancourt 05-22-2025 8:47 PM Abdomen/Pelvis CT 05/22/25 19:57 Exam(s): CT ABDOMEN + PELVIS With Contrast IV Amt: 117ml EXAM: CT Abdomen and Pelvis With Intravenous Contrast CLINICAL HISTORY: Reason for exam: right flank pain. TECHNIQUE: Axial computed tomography images of the abdomen and pelvis with intravenous contrast. CTDI is 63.53 mGy and DLP is 2335.14 mGy-cm. Automated exposure control was utilized for the study. A dose lowering technique was utilized adhering to the principles of ALARA. CONTRAST: Patient received 117ml of IV contrast COMPARISON: 05/04/2025 FINDINGS: Diagnostic image quality is hampered by motion artifact. Lung bases: Bilateral bronchovascular/interstitial opacities/interstitial edema versus infiltrates. Posterior pleural thickening. No consolidation. ABDOMEN: Liver: Subtle contour nodularity of the liver, suggestive of chronic parenchymal disease. No mass. Subdiaphragmatic perihepatic ascites. Gallbladder and bile ducts: Prior cholecystectomy.. No ductal dilation. Pancreas: Mild diffuse pancreatic atrophy. No mass. No ductal dilation. Spleen: No splenomegaly. Trace perisplenic free fluid. Adrenals: Unremarkable. No mass. Kidneys and ureters: Unremarkable. No solid mass. No hydronephrosis. Stomach and bowel: Unremarkable stomach. Fluid/gas-filled up to 2.8 cm dilated small bowel loops seen. There is liquid stool in the ascending colon and rectosigmoid. Hepatodiaphragmatic interposition of the liquid stool filled hepatic flexure/Chilaiditi's sign. No obstruction. In the right lower quadrant demonstrates wall thickening of the cecum/ascending colon and pericecal inflammatory fat stranding, concerning for an acute colitis (series 601 image 44, series 6 image 215) PELVIS: Appendix: Not visualized. Bladder: A 1.5 cm calculus is seen dependently in the left side urinary bladder (series 6 image 333, series 601 image 55). No mass. Reproductive: An incompletely retroverted senile uterus. ABDOMEN and PELVIS: Intraperitoneal space: No free air. No significant fluid collection. Bones/joints: No acute fracture. No dislocation. Osteopenia. L4 vertebral mild anterolisthesis. T9 vertebral compression fracture with loss of 70-80% body height. T12 and L3 vertebral compression with loss of 60-70% body height. Moderate degenerative disc/endplate spondylolysis. Lumbosacral facet osteoarthropathy. Soft tissues: Demonstrates significant bilateral subcutaneous fat strandings of the flanks laterally RT>LT, inflammatory versus contusion. Vasculature: Calcified atherosclerotic plaques. No abdominal aortic aneurysm. Lymph nodes: Multiple small mesenteric lymph nodes. No significantly enlarged lymph nodes.. IMPRESSION: Chronic liver parenchymal disease possibly cirrhosis. Small hepatic/perisplenic ascites. No splenomegaly. Fluid-filled 2.8 cm dilated small bowel loops and liquid stool in the ascending colon/rectosigmoid concerning for acute enteritis/diarrheal process. In the right lower abdominal quadrant was thickening of the cecum/ascending colon and pericecal inflammatory fat stranding demonstrated, suggestive of an acute colitis. Advise clinical correlation. A 1.5 cm calculus is seen dependently in the left side urinary bladder. Laterally along the flanks RT>LT demonstrate extensive subcutaneous fat stranding, inflammatory versus contusion. . Electronically signed by: Brianda Goldberg MD, DABR 05/22/25 22:13 PM Chest CTA 05/22/25 19:57 Exam(s): CTA CHEST IV Amt: 117ml EXAM: CT Angiography Chest With Intravenous Contrast CLINICAL HISTORY: Reason for exam: right flank/cp, r/o PE. TECHNIQUE: Axial computed tomographic angiography images of the chest with intravenous contrast. CTDI is 63.53 mGy and DLP is 2335.14 mGy-cm. Automated exposure control was utilized for the study. A dose lowering technique was utilized adhering to the principles of ALARA. MIP reconstructed images were created and reviewed. COMPARISON: 05/04/2025 FINDINGS: Exam for evaluation of PE is limited due to suboptimal IV contrast bolus/timing and motion artifact. Pulmonary arteries: Suspect small intraluminal filling defects/PE of the left lower lobe segmental/subsegmental arterial branches (series 2 image 50, series 4 image 99). No main/central pulmonary arterial embolism. Aorta: No acute findings. No thoracic aortic aneurysm. Heart: There is a mild/moderate cardiomegaly. No significant pericardial effusion. No evidence of RV dysfunction. Lungs: Central airways are patent. Diffuse mild/moderate bronchial wall thickening. Demonstrates diffuse pulmonary interstitial/septal thickening in both lung sawyer predominantly in both lower lung lobes more posteriorly, likely from chronic interstitial disease versus interstitial edema or infiltrates. No consolidation. Pleural space: Bilateral pleural thickening. No significant effusion. No pneumothorax. An elevated right hemidiaphragm Bones/joints: Multilevel degenerative spondylosis. A T10 vertebral compression fracture with loss of >70% body height. No dislocation. Increased thoracic kyphosis. Soft tissues: Unremarkable. Lymph nodes: Multiple small mediastinal lymph nodes. No lymphadenopathy by CT size criteria. . IMPRESSION: Limited exam due to suboptimal IV contrast bolus/motion artifact. Suspect a small PE involving the left lower lobe subsegmental pulmonary artery. Mild/moderate diffuse bronchial wall thickening. Diffuse bilateral pulmonary interstitial/septal thickening noted predominantly in the lower lung lobes more posteriorly likely from chronic pulmonary interstitial disease versus interstitial edema or infiltrates. Recommend clinical correlation. . Electronically signed by: Brianda Goldberg MD, SHA 05/22/25 23:00 PM Discharge Plan Visit Data Chief Complaint: Weakness Stated Complaint: WEAKNESS, AMS, RECENT UTI ED Provider: Demetri Sadler Discharge Problem: Sepsis, Pneumonia, Cirrhosis of liver, Tachycardia, Elevated lactic acid level Patient Disposition: Admitted As Inpatient Condition: Serious Discharge Instructions Interventions: ED Discharge Assessment Last Done: 05/23/25 00:38 Discharge Problem: Sepsis Qualifiers: Sepsis type: sepsis due to unspecified organism Sepsis acute organ dysfunction status: unspecified Qualified Code(s): A41.9 - Sepsis, unspecified organism Pneumonia Qualifiers: Pneumonia type: due to unspecified organism Laterality: bilateral Lung location: lower lobe of lung Qualified Code(s): J18.9 - Pneumonia, unspecified organism Cirrhosis of liver Qualifiers: Hepatic cirrhosis type: unspecified hepatic cirrhosis Ascites presence: u nspecified Qualified Code(s): K74.60 - Unspecified cirrhosis of liver
[2025-05-22 20:02] LABS: Thyroid Stimulating Hormone 1.573 uIu/ml (0.300-4.500)
[2025-05-22 20:09] LABS: INR 2.0 (0.9-1.1); Prothrombin Time 20.1 Seconds (9.0-12.0)
[2025-05-22] MEDS: SODIUM CHLORIDE 0.9% 500 ML IV ONE ×2 (20:18→23:01)
[2025-05-22] MEDS: PIPERACILLIN/TAZOBACTAM 4.5 GM/100 ML BAG IV ONE (20:18)
[2025-05-22] MEDS: OPTIRAY 320 125ml IV ONE (20:48)
--- NOTE | 2025-05-22 20:48 | XRay Report ---
Single frontal view of the chest Comparison made to prior exam dated 05/08/2025 There is an area seen below the right hemidiaphragm suggesting large pneumoperitoneum. CT of the abdomen pelvis recommended for further evaluation. Bibasilar dependent atelectasis. Small bilateral pleural effusions. Electronically signed by Blaine Betancourt 05-22-2025 8:47 PM
[2025-05-22 20:58] LABS: Chlamydia pneumoniae PCR Not Detected (NotDetected); Coronavirus 229E PCR Not Detected (NotDetected); Coronavirus CoV-2 (COVID19)PCR Not Detected (NotDetected); Coronavirus HKU1 PCR Not Detected (NotDetected); Coronavirus NL63 PCR Not Detected (NotDetected); Coronavirus OC43PCR Not Detected (NotDetected); Human Metapneumovirus PCR Not Detected (NotDetected); Parainfluenza Virus 1 PCR Not Detected (NotDetected); Parainfluenza Virus 2 PCR Not Detected (NotDetected); Parainfluenza Virus 3 PCR Not Detected (NotDetected); Parainfluenza Virus 4 PCR Not Detected (NotDetected); Respiratory Syncytial VirusPCR Not Detected (NotDetected); Rhinovirus/Enterovirus PCR Not Detected (NotDetected)
[2025-05-22] MEDS: MAGNESIUM SULFATE / D5W 1 GM/100 ML BAG IV STA (20:59)
--- NOTE | 2025-05-22 22:14 | CT Scan Report ---
Exam(s): CT ABDOMEN + PELVIS With Contrast IV Amt: 117ml EXAM: CT Abdomen and Pelvis With Intravenous Contrast CLINICAL HISTORY: Reason for exam: right flank pain. TECHNIQUE: Axial computed tomography images of the abdomen and pelvis with intravenous contrast. CTDI is 63.53 mGy and DLP is 2335.14 mGy-cm. Automated exposure control was utilized for the study. A dose lowering technique was utilized adhering to the principles of ALARA. CONTRAST: Patient received 117ml of IV contrast COMPARISON: 05/04/2025 FINDINGS: Diagnostic image quality is hampered by motion artifact. Lung bases: Bilateral bronchovascular/interstitial opacities/interstitial edema versus infiltrates. Posterior pleural thickening. No consolidation. ABDOMEN: Liver: Subtle contour nodularity of the liver, suggestive of chronic parenchymal disease. No mass. Subdiaphragmatic perihepatic ascites. Gallbladder and bile ducts: Prior cholecystectomy.. No ductal dilation. Pancreas: Mild diffuse pancreatic atrophy. No mass. No ductal dilation. Spleen: No splenomegaly. Trace perisplenic free fluid. Adrenals: Unremarkable. No mass. Kidneys and ureters: Unremarkable. No solid mass. No hydronephrosis. Stomach and bowel: Unremarkable stomach. Fluid/gas-filled up to 2.8 cm dilated small bowel loops seen. There is liquid stool in the ascending colon and rectosigmoid. Hepatodiaphragmatic interposition of the liquid stool filled hepatic flexure/Chilaiditi's sign. No obstruction. In the right lower quadrant demonstrates wall thickening of the cecum/ascending colon and pericecal inflammatory fat stranding, concerning for an acute colitis (series 601 image 44, series 6 image 215) PELVIS: Appendix: Not visualized. Bladder: A 1.5 cm calculus is seen dependently in the left side urinary bladder (series 6 image 333, series 601 image 55). No mass. Reproductive: An incompletely retroverted senile uterus. ABDOMEN and PELVIS: Intraperitoneal space: No free air. No significant fluid collection. Bones/joints: No acute fracture. No dislocation. Osteopenia. L4 vertebral mild anterolisthesis. T9 vertebral compression fracture with loss of 70-80% body height. T12 and L3 vertebral compression with loss of 60-70% body height. Moderate degenerative disc/endplate spondylolysis. Lumbosacral facet osteoarthropathy. Soft tissues: Demonstrates significant bilateral subcutaneous fat strandings of the flanks laterally RT>LT, inflammatory versus contusion. Vasculature: Calcified atherosclerotic plaques. No abdominal aortic aneurysm. Lymph nodes: Multiple small mesenteric lymph nodes. No significantly enlarged lymph nodes.. IMPRESSION: Chronic liver parenchymal disease possibly cirrhosis. Small hepatic/perisplenic ascites. No splenomegaly. Fluid-filled 2.8 cm dilated small bowel loops and liquid stool in the ascending colon/rectosigmoid concerning for acute enteritis/diarrheal process. In the right lower abdominal quadrant was thickening of the cecum/ascending colon and pericecal inflammatory fat stranding demonstrated, suggestive of an acute colitis. Advise clinical correlation. A 1.5 cm calculus is seen dependently in the left side urinary bladder. Laterally along the flanks RT>LT demonstrate extensive subcutaneous fat stranding, inflammatory versus contusion. . Electronically signed by: Brianda Goldberg MD, SHA 05/22/25 22:13 PM
[2025-05-22] MEDS: SODIUM CHLORIDE 0.9% 1,000 ML IV ONE (22:25)
--- NOTE | 2025-05-22 23:02 | CT Scan Report ---
Exam(s): CTA CHEST IV Amt: 117ml EXAM: CT Angiography Chest With Intravenous Contrast CLINICAL HISTORY: Reason for exam: right flank/cp, r/o PE. TECHNIQUE: Axial computed tomographic angiography images of the chest with intravenous contrast. CTDI is 63.53 mGy and DLP is 2335.14 mGy-cm. Automated exposure control was utilized for the study. A dose lowering technique was utilized adhering to the principles of ALARA. MIP reconstructed images were created and reviewed. COMPARISON: 05/04/2025 FINDINGS: Exam for evaluation of PE is limited due to suboptimal IV contrast bolus/timing and motion artifact. Pulmonary arteries: Suspect small intraluminal filling defects/PE of the left lower lobe segmental/subsegmental arterial branches (series 2 image 50, series 4 image 99). No main/central pulmonary arterial embolism. Aorta: No acute findings. No thoracic aortic aneurysm. Heart: There is a mild/moderate cardiomegaly. No significant pericardial effusion. No evidence of RV dysfunction. Lungs: Central airways are patent. Diffuse mild/moderate bronchial wall thickening. Demonstrates diffuse pulmonary interstitial/septal thickening in both lung sawyer predominantly in both lower lung lobes more posteriorly, likely from chronic interstitial disease versus interstitial edema or infiltrates. No consolidation. Pleural space: Bilateral pleural thickening. No significant effusion. No pneumothorax. An elevated right hemidiaphragm Bones/joints: Multilevel degenerative spondylosis. A T10 vertebral compression fracture with loss of >70% body height. No dislocation. Increased thoracic kyphosis. Soft tissues: Unremarkable. Lymph nodes: Multiple small mediastinal lymph nodes. No lymphadenopathy by CT size criteria. . IMPRESSION: Limited exam due to suboptimal IV contrast bolus/motion artifact. Suspect a small PE involving the left lower lobe subsegmental pulmonary artery. Mild/moderate diffuse bronchial wall thickening. Diffuse bilateral pulmonary interstitial/septal thickening noted predominantly in the lower lung lobes more posteriorly likely from chronic pulmonary interstitial disease versus interstitial edema or infiltrates. Recommend clinical correlation. . Electronically signed by: Brianda Goldberg MD, SHA 05/22/25 23:00 PM
[2025-05-22] MEDS ORDERED: VANCOMYCIN CONSULT ACTIVE PRN (23:10)
[2025-05-22 23:18] LABS: Appearance Urine Slightly Cloudy (Clear); Glucose Urine UA Negative (Negative)
[2025-05-22] MEDS: METOPROLOL TARTRATE 1 MG/ML VIAL IV STA (23:28)
[2025-05-22] MEDS: ALBUMIN 5% 250 ML IV STA (23:30)
[2025-05-23 00:09] LABS: Creatine Kinase 23.0 U/L (26-192)
[2025-05-23] MEDS: VANCOMYCIN HCL 1,750 MG in SODIUM CHLORIDE 0.9% 500 ML IV STA (00:17)
[2025-05-23] MEDS: metroNIDAZOLE 500 MG/100 ML BAG IV STA (00:18)
[2025-05-23] MEDS ORDERED: ONDANSETRON INJ 2 MG/ML 2 ML VIAL IV PRN (01:06)
[2025-05-23] MEDS ORDERED: Heparin IV Adult Wt-Based Low-Dose *NO* INITIAL Bolus Protocol IV STA (01:06)
[2025-05-23] MEDS: DOXYCYCLINE HYCLATE 100 MG in DEXTROSE 5% MINI-B 100 ML IV STA (01:25)
[2025-05-23] MEDS: MAGNESIUM SULFATE / D5W 1 GM/100 ML BAG IV STA (01:25)
--- NOTE | 2025-05-23 01:31 | History & Physical Report ---
Date of Service May 22, 2025 Assessment & Plan (1) Severe sepsis: Plan: 55-year-old female with past medical history significant for iatrogenic Fountain's syndrome, hyperlipidemia, hypertension, alcoholic cirrhosis of liver without ascites, vitamin D deficiency, polymyositis with myopathy, osteoarthritis, moderate depression who lives at home was brought in because of confusion and complaining of right-sided abdominal pain. Patient was admitted on May 04, 2025 for metabolic encephalopathy and hepatic encephalopathy with sodium of 122. Hyponatremia thought to be excessive water intake and poor solute intakeplaced on fluid restriction and sodium levels normalized. Patient also had history of excessive alcohol use in the past. She was placed on lactulose for treatment of elevated ammonia. Heme-onc saw her because of anemia and thought to be from her chronic medical issues. Was also seen by critical care for hypotension. Her blood pressure improved with IV albumin at that time. She did okay and was discharged to rehab on 05/14/2025. As per daughter she stayed in rehab for only 1 day as she did not like it and came back home. Patient is wheelchair-bound. Mostly lies in the bed. She needs assistance to transfer to the wheelchair as per the daughter.. Patient was getting confused and also having right sided abdominal pain this reason they brought her to the ER. In the ER patient was tachycardic. Blood pressure was soft. WBC 15. Initial lactic acid 7.3. Repeat is 6.2. Magnesium 1.5. Initial troponin 50 and repeat is 67 procalcitonin 1.2. Urinalysis positive. MRSA screen negative. Alcohol levels negative. Respiratory bio fire negative. CT abdomen pelvis showing colitis. CTA chest possible small PE involving left lower lobe and interstitial edema versus infiltrates. On exam patient was alert and oriented x 2. Could not tell current dates. Knows that she in the hospital, could tell her name. Denies any chest pain. Complaints of abdominal pain. Denies nausea. Has some cough. No runny nose or sore throat. Denies any headache. As per daughter patient is having diarrhea but she is using lactulose and she is moving her bowels 4 times a day. She had an episode of vomiting in the ER. Patient states urine is dark color. Patient had transient drop in blood pressure but improved with a fluid bolus. Last alcohol drink 2 months ago as per daughter. Severe sepsis Came with confusion and abdominal pain UTI and colitis Initial lactic is 7.3 and repeat is 6.2 Tachycardic heart rates in 130s Had transient drop in blood pressure but improved with a fluid bolus Elevated procalcitonin 1.2. WBC 15 [address] chest possible infiltrates. CT abdomen pelvis possible colitis UA is positive Will follow urine and blood cultures Will follow stool studies Will follow stool for C. difficile Received Zosyn in the ER. Will continue with IV cefepime and Flagyl and doxycycline Received empiric vancomycin but will hold it for now as MRSA screen came back negative Received aggressive fluids and IV albumin Will continue maintenance fluids at 80 mL/h Follow repeat lactic acid Close monitoring hemodynamics and if not improving will transfer to ICU GI consult in a.m. for further recommendations for CT scan abdomen pelvis findings Closely monitoring telemetry Alcohol liver cirrhosis without ascites Ammonia level 36 Total bilirubin 5.7(chronic elevation) AST 43, ALT 24, alkaline phos 81 Continue lactulose if no diarrhea Not on diuretics Follow repeat LFTs Small PE CTA chest showing suspicion of small PE involving left lower lobe subsegmental pulmonary artery Initially placed on IV heparin but held for now as INR is 2 Will monitor PT/INR will follow dopplers Pulmonary consult for further recommendation and also ct scan findings Elevated troponin Initial troponin 50 repeat 67 Mostly demand ischemia Will follow serial enzymes and echo History of polymyositis History of demyelinating disease History of adrenal insufficiency Will follow random cortisol level-37 Patient is wheelchair-bound Anemia Hemoglobin 10.9 We will follow labs DVT prophylaxis INR is 2 Monitor PT/INR Disposition Telemetry CODE STATUS full code only if there is chance of recovery as per my discussion with the daughter. Addendum: Around 3am code purple was called as patient had unresponsive episode and seemed stiff with hypoxia. Recovered in about a minute. Was alert and oriented when became responsive but kept saying that she didnot . Episode happened after finishing iv cefepime. Stopped cefepime and flagyl.placed on zosyn. As still tachycardic and lactic acid again came back at 7.5 after d/w critical care gave 500cc fluid bolus and 5% albumin. If no improvement in lactic acid or worsening hemodynamics will transfer to ICU.urine output put 50ml/hr for last few hr. c diff gene came back positive but toxin was negative. As Ct sacn showing colitis ordered po vanco. Close monitoring. History of Present Illness Chief Complaint: Altered mental status and sepsis Primary Care Provider: Petey Thrasher DO 55-year-old female with past medical history significant for iatrogenic Fountain's syndrome, hyperlipidemia, hypertension, alcoholic cirrhosis of liver without ascites, vitamin D deficiency, polymyositis with myopathy, osteoarthritis, moderate depression who lives at home was brought in because of confusion and complaining of right-sided abdominal pain. Patient was admitted on May 04, 2025 for metabolic encephalopathy and hepatic encephalopathy with sodium of 122. Hyponatremia thought to be excessive water intake and poor solute intakeplaced on fluid restriction and sodium levels normalized. Patient also had history of excessive alcohol use in the past. She was placed on lactulose for treatment of elevated ammonia. Heme-onc saw her because of anemia and thought to be from her chronic medical issues. Was also seen by critical care for hypotension. Her blood pressure improved with IV albumin at that time. She did okay and was discharged to rehab on 05/14/2025. As per daughter she stayed in rehab for only 1 day as she did not like it and came back home. Patient is wheelchair-bound. Mostly lies in the bed. She needs assistance to transfer to the wheelchair as per the daughter.. Patient was getting confused and also having right sided abdominal pain this reason they brought her to the ER. In the ER patient was tachycardic. Blood pressure was soft. WBC 15. Initial lactic acid 7.3. Repeat is 6.2. Magnesium 1.5. Initial troponin 50 and repeat is 67 procalcitonin 1.2. Urinalysis positive. MRSA screen negative. Alcohol levels negative. Respiratory bio fire negative. CT abdomen pelvis showing colitis. CTA chest possible small PE involving left lower lobe and interstitial edema versus infiltrates. On exam patient was alert and oriented x 2. Could not tell current dates. Knows that she in the hospital, could tell her name. Denies any chest pain. Complaints of abdominal pain. Denies nausea. Has some cough. No runny nose or sore throat. Denies any headache. As per daughter patient is having diarrhea but she is using lactulose and she is moving her bowels 4 times a day. She had an episode of vomiting in the ER. Patient states urine is dark color. Patient had transient drop in blood pressure but improved with a fluid bolus. Last alcohol drink 2 months ago as per daughter. Past medical history. As mentioned above Past surgical history. Carpal tunnel surgery. Dental surgery. Laparoscopic cholecystectomy. Ligation of oviducts. Deep muscle biopsy. Repair of cruciate ligament on the knee. A port placement. Social history. . Smoked 1 pack a day for 20 years. Alcohol 1-2 times a week. Last alcohol drink 2 months ago as per daughter. No drug use. Family history. Mother had arthritis. Leukemia. Valve problem. Father had d iabetes. CAD/CABG. Aunt had cancer. Allergies Allergy/AdvReac Type Severity Reaction Status Date / Time clindamycin Allergy Hives Verified 07/04/24 15:10 Home Medications Medication Instructions Recorded Confirmed Type duloxetine 60 mg capsule,delayed 60 mg PO DAILY #30 caps 05/10/25 05/22/25 Rx release lactulose 10 gram/15 mL oral 20 g (30 mL) PO TID #946 mL 05/10/25 05/22/25 Rx solution pantoprazole 40 mg tablet,delayed 40 mg PO QAM #30 tabs 05/10/25 05/22/25 Rx release umeclidinium 62.5 mcg/actuation 1 inh inhalation QAM #1 ea 05/10/25 05/22/25 Rx blister powder for inhalation (Incruse Ellipta) acetaminophen 325 mg tablet 650 mg PO Q4 PRN Pain 05/22/25 05/22/25 History acetaminophen 325 mg tablet 650 mg PO Q4 PRN temp > 38C OR 05/22/25 05/22/25 History 100.5F cholecalciferol (vitamin D3) 50 50 mcg PO QAM 05/22/25 05/22/25 History mcg (2,000 unit) capsule (Vitamin D3) folic acid 1 mg tablet 1 mg PO QAM 05/22/25 05/22/25 History gabapentin 300 mg capsule 600 mg PO TID 05/22/25 05/22/25 History lisinopril 10 mg tablet 10 mg PO DAILY 05/22/25 05/22/25 History lorazepam 0.5 mg tablet 0.5 mg PO UD PRN Anxiety 05/22/25 05/22/25 History methotrexate sodium 2.5 mg tablet 15 mg PO WK 05/22/25 05/22/25 History potassium chloride 20 mEq 40 meq PO QAM 05/22/25 05/22/25 History tablet,extended release(part/cryst) Past Med/Surg History Problem List (Updated 05/23/25 @ 05:23 by Demetri Sadler MD) Severe sepsis Elevated lactic acid level (Acute) Tachycardia (Acute) Cirrhosis of liver (Acute) Pneumonia (Acute) Sepsis (Acute) Anemia Hyperbilirubinemia Hypotension Hyponatremia Cirrhosis Elevated LFTs UTI (urinary tract infection) (Acute) Metabolic encephalopathy Hyperammonemia (Acute) Hypomagnesemia (Acute) Hypokalemia (Acute) Acute alteration in mental status (Acute) Acute hyponatremia (Acute) History of tobacco use Methotrexate, marine oil terminal superintendent, current use Abnormal CT scan, chest Family history of ischemic heart disease Sinus tachycardia Elevated troponin Multifocal pneumonia Acute hypoxemic respiratory failure Pneumonia (Acute) CHF (congestive heart failure) (Acute) Hypoxia (Acute) Shock Open wound of female genital organ Diarrhea (Acute) Cellulitis (Acute) Acute hypotension (Acute) History of knee surgery History of dental surgery History of carpal tunnel release Polymyositis Medical History Major depressive disorder Anxiety disorder Hypertension Diverticulitis Urinary tract infection HAL (acute kidney injury) Sepsis Neutropenic fever Surgical History History of laparoscopic cholecystectomy Family History Mother Heart disease Cancer Father Heart disease Diabetes Brother Heart disease Social History Smoking Status: Former smoker Tobacco Type: Cigarettes Cigarettes Per Day: 30; Second Hand Exposure: No; Hx Alcohol Use: Yes Alcohol type: hard liquor Hx Substance Use: No Communication Ability: Effective Record Press Supervisor Required: No Beliefs That Will Affect Care: None Current Living Situation: Spouse Other Information That Helps Us Care for You: No Feels Safe at Home: Yes Safety Concerns: Feels Safe At This Time Assistive Devices: Oxygen - at Night and Wheelchair Review of Systems Review of Systems: All systems reviewed & are unremarkable except as noted in HPI & below Physical Exam Physical Exam: General- Not in acute distress Head- atraumatic Eyes- PERRL. ENT- oropharynx clear Neck- supple, no JVD. Lungs- clear to auscultation no wheezing or crackles Heart- regular rhythm;tachycardia no murmur, no gallop. Abdomen- normal bowel sounds, soft, diffuse discomfort more on right side , no distension Extremities- no pretibial edema, no erythema seen Neuro- alert, oriented x 2; PERRL, no facial palsy; no dysarthria; moves extremities Results & Data Results & Data Vital Signs (Past 12 Hours) Vital Signs Temp Pulse Resp BP Pulse Ox O2 Del Method 05/22/25 23:09 130 H 19 100 05/22/25 23:08 130 H 05/22/25 23:05 121/73 05/22/25 23:05 121/73 05/22/25 23:05 121/73 05/22/25 23:01 112/61 05/22/25 23:01 112/61 05/22/25 22:55 110/75 05/22/25 22:51 76/53 L 05/22/25 22:40 102/72 05/22/25 22:39 137 H 32 H 05/22/25 22:37 117/75 05/22/25 22:36 138 H 20 05/22/25 22:33 91/69 L 05/22/25 22:33 91/69 L 05/22/25 22:33 91/69 L 05/22/25 22:24 140 H 17 05/22/25 22:21 102/56 L 05/22/25 22:10 118/88 05/22/25 22:01 112/77 05/22/25 21:54 139 H 20 05/22/25 21:51 115/70 05/22/25 21:51 115/70 05/22/25 21:42 138 H 21 92 05/22/25 21:40 116/83 05/22/25 21:30 138 H 21 05/22/25 21:10 122/70 05/22/25 21:10 122/70 05/22/25 21:09 131 H 21 94 05/22/25 21:06 131 H 21 96 05/22/25 21:02 105/84 05/22/25 21:02 105/84 05/22/25 21:00 107/62 05/22/25 20:57 129 H 19 94 05/22/25 20:33 135 H 18 95 05/22/25 20:30 130/75 05/22/25 20:30 130/75 05/22/25 20:18 138 H 23 95 05/22/25 20:01 126/96 05/22/25 20:01 126/96 05/22/25 20:00 137 H 22 97 05/22/25 19:57 138 H 17 96 05/22/25 19:42 136 H 22 96 05/22/25 19:30 135 H 23 97 05/22/25 19:30 148/69 H 05/22/25 19:30 148/69 H 05/22/25 19:21 135 H 28 H 95 05/22/25 19:15 135 H 23 100 05/22/25 19:14 134 H 05/22/25 19:09 133 H 20 98 Room Air 05/22/25 18:56 Room Air 05/22/25 18:56 36.4 C L 134 H 20 133/84 99 Room Air Diagnostic Findings Laboratory Results WBC 15.54 K/ul (4.8-10.8) H 05/22/25 19:19 RBC 2.71 M/uL (4.20-5.40) L 05/22/25 19:19 Hgb 10.9 g/dl (12.0-16.0) L 05/22/25 19:19 Hct 33.0 % (37.0-47.0) L 05/22/25 19:19 MCV 121.8 fL (80.0-100.0) H 05/22/25 19:19 MCH 40.2 pg (25.0-34.0) H 05/22/25 19:19 MCHC 33.0 g/dL (32.0-36.0) 05/22/25 19:19 RDW Std Deviation 76.5 fL (36.4-46.3) H 05/22/25 19:19 RDW Coeff of Kristine 17.1 % (11.5-14.5) H 05/22/25 19:19 Plt Count 208 K/uL (130-400) 05/22/25 19:19 MPV 10.3 fL (9.4-12.4) 05/22/25 19:19 Immature Gran % (Auto) 1.5 % 05/22/25 19:19 Neut % (Auto) 73.8 % 05/22/25 19:19 Lymph % (Auto) 15.2 % 05/22/25 19:19 [place] % (Auto) 9.3 % 05/22/25 19:19 Eos % (Auto) 0.0 % 05/22/25 19:19 Baso % (Auto) 0.2 % 05/22/25 19:19 Neut # (Auto) 11.48 K/uL (1.40-6.50) H 05/22/25 19:19 Lymph # (Auto) 2.36 K/uL (1.20-3.40) 05/22/25 19:19 [place] # (Auto) 1.44 K/uL (0.11-0.59) H 05/22/25 19:19 Eos # (Auto) 0.00 K/uL (0.00-0.50) 05/22/25 19:19 Baso # (Auto) 0.03 K/uL (0.00-0.20) 05/22/25 19:19 Immature Gran # (Auto) 0.23 K/uL (0.01-0.20) H 05/22/25 19:19 Polychromasia 1+ 05/22/25 19:19 Macrocytosis Present 05/22/25 19:19 PT 20.1 Seconds (9.0-12.0) H 05/22/25 19:19 INR 2.0 (0.9-1.1) H 05/22/25 19:19 Sodium 135 mmol/L (136-145) L 05/22/25 19:19 Potassium 3.7 mmol/L (3.5-5.1) 05/22/25 19:19 Chloride 102 mmol/L (98-107) 05/22/25 19:19 Carbon Dioxide 21 mmol/L (21-32) 05/22/25 19:19 Anion Gap 12 (3-11) H 05/22/25 19:19 BUN 11 mg/dl (6-23) 05/22/25 19:19 Creatinine 0.62 mg/dl (0.6-1.2) 05/22/25 19:19 Est Cr Clr Drug Dosing 131.4 ml/min 05/22/25 19:19 eGFR 105.10 05/22/25 19:19 BUN/Creatinine Ratio 17.7 (10-20) 05/22/25 19:19 Glucose 105 mg/dl (70-99(Fasting)) H 05/22/25 19:19 Lactate 6.2 mmol/L (0.4-2.0) H* 05/22/25 23:35 Calcium 9.0 mg/dl (8.6-10.3) 05/22/25 19:19 Magnesium 1.5 mg/dl (1.7-2.4) L 05/22/25 19:19 Total Bilirubin 5.7 mg/dl (0.2-1.0) H 05/22/25 19:19 Direct Bilirubin 2.0 mg/dl (0-0.2) H 05/22/25 19:19 AST 43 U/L (13-39) H 05/22/25 19:19 ALT 24 U/L (7-52) 05/22/25 19:19 Alkaline Phosphatase 81 U/L (34-104) 05/22/25 19:19 Ammonia 36.0 umol/L (18-72) 05/22/25 19:34 Total Creatine Kinase 23 U/L (26-192) L 05/22/25 23:35 Troponin I High Sens 67.9 pg/ml (0-14) H* D 05/22/25 23:35 Total Protein 5.9 gm/dl (6.0-8.3) L 05/22/25 19:19 Albumin 2.7 gm/dl (3.4-5.0) L 05/22/25 19:19 Globulin 3.2 gm/dl (2.5-4.0) 05/22/25 19:19 Albumin/Globulin Ratio 0.8 (0.9-2) L 05/22/25 19:19 Lipase 16 U/L (11-82) 05/22/25 19:19 Procalcitonin 1.26 ng/ml (0-0.5) H 05/22/25 19:19 TSH 1.573 uIu/ml (0.300-4.500) 05/22/25 19:19 Urine Color Dark Yellow 05/22/25 22:55 Urine Appearance Slightly Cloudy (Clear) 05/22/25 22:55 Urine pH 5.5 (4.5-7.5) 05/22/25 22:55 Ur Specific [place] 1.025 (1.000-1.030) 05/22/25 22:55 Urine Protein Negative (Negative) 05/22/25 22:55 Urine Glucose (UA) Negative (Negative) 05/22/25 22:55 Urine Ketones Negative (Negative) 05/22/25 22:55 Urine Blood Trace-intact (Negative) H 05/22/25 22:55 Urine Nitrite Positive (Negative) A 05/22/25 22:55 Urine Bilirubin Negative (Negative) 05/22/25 22:55 Urine Urobilinogen Negative (Negative) 05/22/25 22:55 Ur Leukocyte Esterase Negative (Negative) 05/22/25 22:55 Urine RBC 0-2 /hpf (0-2) 05/22/25 22:55 Urine WBC 0-5 /hpf (0-5) 05/22/25 22:55 Ur Epithelial Cells 3-5 /hpf (0-2) H 05/22/25 22:55 Urine Bacteria 1+ (None Seen) H 05/22/25 22:55 Hyaline Casts P /lpf (None Presnt) 05/22/25 22:55 Urine Mucus Present (None Prsent) A 05/22/25 22:55 Urine Yeast Present (None Prsent) A 05/22/25 22:55 Urine Comment 05/22/25 22:55 Nasal Screen MRSA (PCR) Negative (Negative) 05/22/25 22:46 Ethyl Alcohol mg/dL < 10.0 mg/dl (<10.0) 05/22/25 19:34 Adenovirus (PCR) Not Detected (NotDetected) 05/22/25 19:59 B. pertussis DNA (PCR) Not Detected (NotDetected) 05/22/25 19:59 B.parapertussis DNA PCR Not Detected (NotDetected) 05/22/25 19:59 C. pneumoniae DNA (PCR) Not Detected (NotDetected) 05/22/25 19:59 Coronavirus OC43 (PCR) Not Detected (NotDetected) 05/22/25 19:59 Coronavirus HKU1 (PCR) Not Detected (NotDetected) 05/22/25 19:59 Coronavirus 229E (PCR) Not Detected (NotDetected) 05/22/25 19:59 SARS-CoV-2 (PCR) Not Detected (NotDetected) 05/22/25 19:59 Coronavirus NL63 (PCR) Not Detected (NotDetected) 05/22/25 19:59 Human Metapneumovir PCR Not Detected (NotDetected) 05/22/25 19:59 Influenza Type A (PCR) Not Detected (NotDetected) 05/22/25 19:59 Influenza Type B (PCR) Not Detected (NotDetected) 05/22/25 19:59 M. pneumoniae (PCR) Not Detected (NotDetected) 05/22/25 19:59 Parainfluenza 1 (PCR) Not Detected (NotDetected) 05/22/25 19:59 Parainfluenza 2 (PCR) Not Detected (NotDetected) 05/22/25 19:59 Parainfluenza 3 (PCR) Not Detected (NotDetected) 05/22/25 19:59 Parainfluenza 4 (PCR) Not Detected (NotDetected) 05/22/25 19:59 RSV (PCR) Not Detected (NotDetected) 05/22/25 19:59 Entero/Rhino (PCR) Not Detected (NotDetected) 05/22/25 19:59 Impressions Chest X-Ray 05/22/25 19:09 Single frontal view of the chest Comparison made to prior exam dated 05/08/2025 There is an area seen below the right hemidiaphragm suggesting large pneumoperitoneum. CT of the abdomen pelvis recommended for further evaluation. Bibasilar dependent atelectasis. Small bilateral pleural effusions. Electronically signed by Blaine Betancuort 05-22-2025 8:47 PM Abdomen/Pelvis CT 05/22/25 19:57 Exam(s): CT ABDOMEN + PELVIS With Contrast IV Amt: 117ml EXAM: CT Abdomen and Pelvis With Intravenous Contrast CLINICAL HISTORY: Reason for exam: right flank pain. TECHNIQUE: Axial computed tomography images of the abdomen and pelvis with intravenous contrast. CTDI is 63.53 mGy and DLP is 2335.14 mGy-cm. Automated exposure control was utilized for the study. A dose lowering technique was utilized adhering to the principles of ALARA. CONTRAST: Patient received 117ml of IV contrast COMPARISON: 05/04/2025 FINDINGS: Diagnostic image quality is hampered by motion artifact. Lung bases: Bilateral bronchovascular/interstitial opacities/interstitial edema versus infiltrates. Posterior pleural thickening. No consolidation. ABDOMEN: Liver: Subtle contour nodularity of the liver, suggestive of chronic parenchymal disease. No mass. Subdiaphragmatic perihepatic ascites. Gallbladder and bile ducts: Prior cholecystectomy.. No ductal dilation. Pancreas: Mild diffuse pancreatic atrophy. No mass. No ductal dilation. Spleen: No splenomegaly. Trace perisplenic free fluid. Adrenals: Unremarkable. No mass. Kidneys and ureters: Unremarkable. No solid mass. No hydronephrosis. Stomach and bowel: Unremarkable stomach. Fluid/gas-filled up to 2.8 cm dilated small bowel loops seen. There is liquid stool in the ascending colon and rectosigmoid. Hepatodiaphragmatic interposition of the liquid stool filled hepatic flexure/Chilaiditi's sign. No obstruction. In the right lower quadrant demonstrates wall thickening of the cecum/ascending colon and pericecal inflammatory fat stranding, concerning for an acute colitis (series 601 image 44, series 6 image 215) PELVIS: Appendix: Not visualized. Bladder: A 1.5 cm calculus is seen dependently in the left side urinary bladder (series 6 image 333, series 601 image 55). No mass. Reproductive: An incompletely retroverted senile uterus. ABDOMEN and PELVIS: Intraperitoneal space: No free air. No significant fluid collection. Bones/joints: No acute fracture. No dislocation. Osteopenia. L4 vertebral mild anterolisthesis. T9 vertebral compression fracture with loss of 70-80% body height. T12 and L3 vertebral compression with loss of 60-70% body height. Moderate degenerative disc/endplate spondylolysis. Lumbosacral facet osteoarthropathy. Soft tissues: Demonstrates significant bilateral subcutaneous fat strandings of the flanks laterally RT>LT, inflammatory versus contusion. Vasculature: Calcified atherosclerotic plaques. No abdominal aortic aneurysm. Lymph nodes: Multiple small mesenteric lymph nodes. No significantly enlarged lymph nodes.. IMPRESSION: Chronic liver parenchymal disease possibly cirrhosis. Small hepatic/perisplenic ascites. No splenomegaly. Fluid-filled 2.8 cm dilated small bowel loops and liquid stool in the ascending colon/rectosigmoid concerning for acute enteritis/diarrheal process. In the right lower abdominal quadrant was thickening of the cecum/ascending colon and pericecal inflammatory fat stranding demonstrated, suggestive of an acute colitis. Advise clinical correlation. A 1.5 cm calculus is seen dependently in the left side urinary bladder. Laterally along the flanks RT>LT demonstrate extensive subcutaneous fat stranding, inflammatory versus contusion. . Electronically signed by: Brianda Goldberg MD, DABR 05/22/25 22:13 PM Chest CTA 05/22/25 19:57 Exam(s): CTA CHEST IV Amt: 117ml EXAM: CT Angiography Chest With Intravenous Contrast CLINICAL HISTORY: Reason for exam: right flank/cp, r/o PE. TECHNIQUE: Axial computed tomographic angiography images of the chest with intravenous contrast. CTDI is 63.53 mGy and DLP is 2335.14 mGy-cm. Automated exposure control was utilized for the study. A dose lowering technique was utilized adhering to the principles of ALARA. MIP reconstructed images were created and reviewed. COMPARISON: 05/04/2025 FINDINGS: Exam for evaluation of PE is limited due to suboptimal IV contrast bolus/timing and motion artifact. Pulmonary arteries: Suspect small intraluminal filling defects/PE of the left lower lobe segmental/subsegmental arterial branches (series 2 image 50, series 4 image 99). No main/central pulmonary arterial embolism. Aorta: No acute findings. No thoracic aortic aneurysm. Heart: There is a mild/moderate cardiomegaly. No significant pericardial effusion. No evidence of RV dysfunction. Lungs: Central airways are patent. Diffuse mild/moderate bronchial wall thickening. Demonstrates diffuse pulmonary interstitial/septal thickening in both lung sawyer predominantly in both lower lung lobes more posteriorly, likely from chronic interstitial disease versus interstitial edema or infiltrates. No consolidation. Pleural space: Bilateral pleural thickening. No significant effusion. No pneumothorax. An elevated right hemidiaphragm Bones/joints: Multilevel degenerative spondylosis. A T10 vertebral compression fracture with loss of >70% body height. No dislocation. Increased thoracic kyphosis. Soft tissues: Unremarkable. Lymph nodes: Multiple small mediastinal lymph nodes. No lymphadenopathy by CT size criteria. . IMPRESSION: Limited exam due to suboptimal IV contrast bolus/motion artifact. Suspect a small PE involving the left lower lobe subsegmental pulmonary artery. Mild/moderate diffuse bronchial wall thickening. Diffuse bilateral pulmonary interstitial/septal thickening noted predominantly in the lower lung lobes more posteriorly likely from chronic pulmonary interstitial disease versus interstitial edema or infiltrates. Recommend clinical correlation. . Electronically signed by: Brianda Goldberg MD, DABR 05/22/25 23:00 PM ECG Additional Comments: ECG. Sinus tach at a rate of 140. ST abnormalities in lateral leads. QTc 406. Code Status & VTE Plan VTE Prophylaxis Plan VTE Prophylaxis will be ordered: Yes
[2025-05-23] MEDS: SODIUM CHLORIDE 0.9% 1,000 ML IV SCH (01:37)
[2025-05-23] MEDS: HEPARIN 25000 UNIT/500 ML D5W 25,000 UNITS/500 ML BAG IV SCH (02:08)
[2025-05-23] MEDS: CEFEPIME 2000MG 2,000 MG/20 ML SYR IV SCH (03:34)
[2025-05-23 04:22] LABS: Creatinine Clr Calc Pharmacy 117.3 ml/min
[2025-05-23] MEDS: SODIUM CHLORIDE 0.9% 500 ML IV ONE ×2 (04:22→04:26)
[2025-05-23] MEDS: ALBUMIN 5% 250 ML IV ONE (04:23)
[2025-05-23 04:34] LABS: INR 2.1 (0.9-1.1); Prothrombin Time 21.2 Seconds (9.0-12.0)
[2025-05-23 04:51] LABS: Adenovirus F 40/41 PCR Not Detected (NotDetected); Campylobacter PCR Not Detected (NotDetected); Enteroaggregative E.coli(EAEC) Not Detected (NotDetected); Shiga-like Toxin E.coli (STEC) Not Detected (NotDetected); Vibrio species PCR Not Detected (NotDetected)
[2025-05-23 05:42] LABS: Cdiff Toxin B Gene (2yr or >) Positive Cdiff Gene (Neg)
[2025-05-23 05:43] LABS: Cdiff Toxin A+B Negative Cdiff Toxin (Negative)
--- NOTE | 2025-05-23 07:08 | Ultrasound Report ---
EXAM: US venous doppler LE BI CLINICAL HISTORY: Pulmonary embolism on CT scan. dvt. TECHNIQUE: Ultrasound examination of bilateral lower extremity veins was performed in real time and duplex. One or more of the following were performed- spectral analysis, resistive index, waveform analysis, and pulsed Doppler. COMPARISON: 04/14/2023. FINDINGS: Normal phasic, non-pulsatile and spontaneous flow is noted in bilateral common femoral, superficial femoral, popliteal and posterior tibial and peroneal veins. Visualized veins of both lower extremities demonstrate normal compressibility. No sonographic evidence of acute deep vein thrombosis (DVT) is detected in the visualized veins of both lower extremities. Compression and Augmentation: All evaluated veins compress fully with applied transducer pressure. Augmentation of venous flow is noted with distal compression. Additional Findings: No evidence of intraluminal thrombus. IMPRESSION: No sonographic evidence of acute DVT detected in bilateral common femoral, superficial femoral, popliteal and posterior tibial and peroneal veins, at the time of examination. Disclaimer: DVT could be missed early in the disease when clot burden is minimal. For patients with moderate and high pretest probability of DVT and negative ultrasound, the [employer] clinical guidelines recommend testing with a D-dimer assay or repeat ultrasound in 5-7 days. If symptoms worsen, the Society of radiologists in ultrasound recommends repeating ultrasound even earlier. Electronically signed by Phillip Samuel 05-23-2025 07:08 AM
[2025-05-23] MEDS ORDERED: VANCOMYCIN HCL 1,250 MG in SODIUM CHLORIDE 0.9% 250 ML IV SCH (08:00)
[2025-05-23] MEDS ORDERED: metroNIDAZOLE 500 MG/100 ML BAG IV SCH (08:00)
--- NOTE | 2025-05-23 08:19 | Pulmonary Consultation ---
Date of Consultation May 23, 2025 Assessment & Plan (1) Pulmonary embolism: CT of the chest with IV contrast PE protocol was obtained on admission. This was a limited contrast study however there is a filling defect in the left lower lobe. This would be a small segmental PE. It is difficult to rank the severity of her PE given her active sepsis however. Her BNP is elevated, troponins are elevated as well as D-dimer. Would recommend initiating therapy for pulmonary embolism with either Eliquis or heparin infusion. This is likely a provoked PE given that the patient was recently hospitalized and immobilized in the past few weeks and she can likely continue therapy for 3 to 6 months. (2) Elevated brain natriuretic peptide (BNP) level: BNP is significantly elevated. Last echocardiogram was in 2023. CT imaging is concerning for pulmonary edema. Would recommend obtaining an echo. Given her septic picture presentation and recent volume resuscitation I would hold off on initiating diuretics at this very time. May require prior to discharge. (3) Abnormal CT of the chest: Patient has underlying interstitial lung disease that was thought to be secondary to polymyositis versus history of methotrexate use. Has followed with pulmonary for this. Her most recent CT scan shows the subsegmental PE as described above however there is also new changes with increased GGO's and significant intralobular septal thickening diffusely. This picture to me appears as though is likely pulmonary edema however flare of underlying ILD has to be considered. ESR is within normal limits however CRP is elevated. Procalcitonin was mildly elevated however patient also has evidence of of colitis and urinary tract infection which could both elevate this. Does not have a classic appearance of focal infiltrates or bacterial pneumonia in my opinion from looking at the CT imaging. Patient is being treated with antibiotics by primary team. Likely needs diuresis when more clinically stable and no longer septic. Depending on clinical course will consider steroids if this is believed to be an ILD exacerbation. (4) Interstitial lung disease: History of polymyositis and previous methotrexate use. Has had CT changes that have progressed over the past few years. Interstitial thickening with scattered and irregular airspace opacities/GGO's, most significant in the lung bases. Previously underwent bronchoscopy with BAL that was unrevealing. At this point do not think that starting steroids immediately is necessary. We will follow her clinically. Depending on her respiratory status and imaging findings we could consider diuresis versus steroids during her hospital stay. She will definitely need repeat imaging in the outpatient setting. (5) Lactic acid acidosis: Patient has significant lactic acidosis. Some of it may be secondary to her underlying cirrhosis. CT imaging was reviewed by our radiologist however and there is concern for pneumatosis and ischemic bowel now. Primary team is aware and are managing this along with additional consultants. (6) Severe sepsis: Evidence of UTI and colitis with now concern for ischemic colitis. On broad- spectrum antibiotics. Primary team is managing this along with additional consultants. Plan CT imaging both from this hospital stay and previous days were reviewed independently. Patient's clinical history was reviewed. This case was discussed with the primary team and consultants. Additionally was discussed with her primary checkroom chief. 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 The patient presented to the hospital in the evening of 05/22/2025 from home with complaints of confusion and right sided abdominal pain. The patient was recently admitted to the hospital and had hyponatremia and hepatic encephalopathy, she was discharged to rehab 05/10/2025 but only stayed in rehab for 1 day and returned back to home. She is wheelchair-bound at baseline. On arrival the patient was tachycardic with mild hypotension. WBCs were 15. Lactic acid was elevated at 7.3 and decreased to 6.2 after 500 cc of crystalloids. Magnesium was 1.5. Troponin was 58 and 67 on repeat. Procalcitonin was 1.2. Urinalysis was indicative of UTI. MRSA screen was negative. Alcohol level was negative. Respiratory BioFire was negative. CT of the abdomen and pelvis was obtained which showed evidence of colitis. CT angio of the chest showed a possible small PE involving the left lower lobe and interstitial edema. The patient was started on Zosyn to cover for UTI and colitis. This was transition to cefepime, Flagyl and doxycycline. After admission the patient had additional episodes of hypotension and received additional crystalloid resuscitation with improvement in her hemodynamics. The patient was not initiated on heparin infusion due to her INR being 2. Pulmonary was consulted for evaluation of left lower lobe subsegmental PE. CT imaging was reviewed by myself independently. There is evidence of intralobular septal thickening with some mild atelectasis present. No effusions are present. Occasional small cysts are also present. Patchy GGO's are appreciated, no evidence of consolidative changes. There is a small filling defect in the subsegmental branches within the left lower lobe. Does not appear as though this was a well-timed contrast study however. Per radiologist they do suspect a small PE in the left lower lobe. I have compared her most recent imaging to the CT angio obtained on 05/04/2025. In her current study there is more prominence of the interlobular septal thickening as well as hazy GGO's and more subtle patchy GGO's. Otherwise similar parenchymal findings. Lower extremity duplex was obtained and did not show any sonographic evidence of DVT. Significant findings this admission: Mild hyponatremia at 135. Lactic acidosis (7.36 0.24.75.0) Hypomagnesemia at 1.5 Hyperbilirubinemia Transaminitis Elevated troponin, non-ACS trending (67.978.3) Mildly elevated procalcitonin at 1.26 Urinalysis with positive nitrates, 1+ bacteria, yeast present. MRSA nares negative. Stool PCR positive for C. difficile gene A, negative toxin Viral PCR is negative Normal ammonia D-dimer 4350 BNP 1036 CRP 10.07 Previous diagnostics/history: History of tobacco use ([id number] history, quit in 2022) History of bronchoscopy in 2023 with neutrophilic BAL (isolated yeast/Michelle), no evidence of malignancy, no mycobacterial infection isolated. Has followed with pulmonology in the outpatient and inpatient setting. Bilateral GGO changes were thought to be related to ILD from polymyositis and/or methotrexate induced alveolar damage. Echocardiogram 2023: Concentric LVH EF 65 to 70%, RV mildly dilated with normal function. Could not assess diastolic function due to tachycardia. On examining the patient today she is resting comfortably bed. She is on room air satting 89%. Heart rate is still mildly elevated. She is encephalopathic and confused, appears jaundiced. Not oriented completely this morning but does know some details of her recent medical history. There is no significant wheezing, crackles or rales on examination today. She is moving good air. N ontachypneic. There is some pitting edema in the hips however lower extremities have minimal edema which is not surprising given that she is mostly bedridden at this time. Some mottling was noted of the skin in the lower extremities. Blood pressure is acceptable, systolic was 140 when I was in the room. There is some suprapubic tenderness and lower quadrant pain to palpation of the abdomen, do not appreciate significant ascites on my exam. No family was at bedside this morning. Of note, after evaluating the patient the primary team has notified me that they asked our radiologist to evaluate the CT and there is concern for ischemic bowel and pneumatosis. Allergies Allergy/AdvReac Type Severity Reaction Status Date / Time clindamycin Allergy Hives Verified 07/04/24 15:10 Home Medications Medication Instructions Recorded Confirmed Type duloxetine 60 mg capsule,delayed 60 mg PO DAILY #30 caps 05/10/25 05/22/25 Rx release lactulose 10 gram/15 mL oral 20 g (30 mL) PO TID #946 mL 05/10/25 05/22/25 Rx solution pantoprazole 40 mg tablet,delayed 40 mg PO QAM #30 tabs 05/10/25 05/22/25 Rx release umeclidinium 62.5 mcg/actuation 1 inh inhalation QAM #1 ea 05/10/25 05/22/25 Rx blister powder for inhalation (Incruse Ellipta) acetaminophen 325 mg tablet 650 mg PO Q4 PRN Pain 05/22/25 05/22/25 History acetaminophen 325 mg tablet 650 mg PO Q4 PRN temp > 38C OR 05/22/25 05/22/25 History 100.5F cholecalciferol (vitamin D3) 50 50 mcg PO QAM 05/22/25 05/22/25 History mcg (2,000 unit) capsule (Vitamin D3) folic acid 1 mg tablet 1 mg PO QAM 05/22/25 05/22/25 History gabapentin 300 mg capsule 600 mg PO TID 05/22/25 05/22/25 History lisinopril 10 mg tablet 10 mg PO DAILY 05/22/25 05/22/25 History lorazepam 0.5 mg tablet 0.5 mg PO UD PRN Anxiety 05/22/25 05/22/25 History methotrexate sodium 2.5 mg tablet 15 mg PO WK 05/22/25 05/22/25 History potassium chloride 20 mEq 40 meq PO QAM 05/22/25 05/22/25 History tablet,extended release(part/cryst) Patient History Medical History Major depressive disorder Anxiety disorder Hypertension Diverticulitis Urinary tract infection HAL (acute kidney injury) Sepsis Neutropenic fever Surgical History History of laparoscopic cholecystectomy Family History Mother Heart disease Cancer Father Heart disease Diabetes Brother Heart disease Social History Smoking Status: Former smoker Tobacco Type: Cigarettes Cigarettes Per Day: 30; Second Hand Exposure: No; Hx Alcohol Use: Yes Alcohol type: hard liquor Hx Substance Use: No Communication Ability: Effective Bottle Machine Operator Required: No Beliefs That Will Affect Care: None Current Living Situation: Spouse Other Information That Helps Us Care for You: No Feels Safe at Home: Yes Safety Concerns: Feels Safe At This Time Assistive Devices: Oxygen - at Night and Wheelchair Review of Systems Review of Systems: Limited review of systems due to inattention and encephalopathy. Denies any active shortness of breath or chest pain. Endorses some scant hemoptysis that started on and off for the past week or 2. Endorses abdominal pain and diarrhea. Denies dysuria or frequency of urination. Physical Exam Physical Exam: Physical examination: General: Appears chronically ill, frail, resting in bed, not in acute distress however. HEENT: Normocephalic, atraumatic. Extraocular movements intact. Evidence of scleral icterus and jaundice appreciated. Skin: Warm and dry. Mottling appreciated in the lower extremities. Cardiovascular: Tachycardic, no murmurs appreciated on my exam. Some pitting edema at the hips. Lungs: Resting comfortably on room air, saturation 89%. Nontachypneic. Not having any active cough during my exam. No wheezing to auscultation. Lung s ounds clear. Abdomen: Mildly distended, pain to palpation of the suprapubic region as well as bilateral lower quadrants. Musculoskeletal: Decreased muscle mass. Neurologic: Awake, moving all extremities. CN II through XII are grossly intact. Inattentive and loses track of conversation. Confused. Psychiatric: Appropriate cooperative during my exam. Encephalopathic. Results & Data Results & Data Vital Signs (Past 12 Hours) Vital Signs Temp Pulse Pulse Resp BP BP BP 05/23/25 07:38 36.5 C 126 H 19 98/72 L 05/23/25 05:07 22 120/52 L 05/23/25 04:35 120 H 101/55 L 05/23/25 03:45 36.6 C 131 H 27 H 93/71 L 05/23/25 03:21 95/59 L 05/23/25 02:41 124 H 111/52 L 05/23/25 02:39 95/69 L 05/23/25 02:22 124 H 18 99/69 L 05/23/25 01:34 127 H 05/23/25 01:06 127 H 05/23/25 01:06 05/23/25 01:06 36.9 C 129 H 24 107/74 05/23/25 01:06 05/23/25 00:30 125 H 20 135/73 05/23/25 00:15 127 H 20 116/76 05/22/25 23:30 131 H 16 133/92 05/22/25 23:09 130 H 19 05/22/25 23:08 130 H 05/22/25 23:05 121/73 05/22/25 23:05 121/73 05/22/25 23:05 121/73 05/22/25 23:01 112/61 05/22/25 23:01 112/61 05/22/25 22:55 110/75 05/22/25 22:51 76/53 L 05/22/25 22:40 102/72 05/22/25 22:39 137 H 32 H 05/22/25 22:37 117/75 05/22/25 22:36 138 H 20 05/22/25 22:33 91/69 L 05/22/25 22:33 91/69 L 05/22/25 22:33 91/69 L 05/22/25 22:24 140 H 17 05/22/25 22:21 102/56 L 05/22/25 22:10 118/88 05/22/25 22:01 112/77 05/22/25 21:54 139 H 20 05/22/25 21:51 115/70 05/22/25 21:51 115/70 05/22/25 21:42 138 H 21 05/22/25 21:40 116/83 05/22/25 21:30 138 H 21 05/22/25 21:10 122/70 05/22/25 21:10 122/70 05/22/25 21:09 131 H 21 05/22/25 21:06 131 H 21 05/22/25 21:02 105/84 05/22/25 21:02 105/84 05/22/25 21:00 107/62 05/22/25 20:57 129 H 19 05/22/25 20:33 135 H 18 05/22/25 20:30 130/75 05/22/25 20:30 130/75 05/22/25 20:18 138 H 23 Pulse Ox Pulse Ox O2 Del Method O2 Del Method O2 Flow Rate O2 Flow Rate 05/23/25 07:38 91 Nasal Cannula 05/23/25 05:07 98 Nasal Cannula 2 05/23/25 04:35 05/23/25 03:45 98 Nasal Cannula 2.0 05/23/25 03:21 05/23/25 02:41 05/23/25 02:39 05/23/25 02:22 05/23/25 01:34 05/23/25 01:06 05/23/25 01:06 Nasal Cannula 3 05/23/25 01:06 95 Nasal Cannula 3 05/23/25 01:06 96 Nasal Cannula 3 05/23/25 00:30 100 Nasal Cannula 3 05/23/25 00:15 99 Nasal Cannula 3 05/22/25 23:30 100 Nasal Cannula 3 05/22/25 23:09 100 05/22/25 23:08 05/22/25 23:05 05/22/25 23:05 05/22/25 23:05 05/22/25 23:01 05/22/25 23:01 05/22/25 22:55 05/22/25 22:51 05/22/25 22:40 05/22/25 22:39 05/22/25 22:37 05/22/25 22:36 05/22/25 22:33 05/22/25 22:33 05/22/25 22:33 05/22/25 22:24 05/22/25 22:21 05/22/25 22:10 05/22/25 22:01 05/22/25 21:54 05/22/25 21:51 05/22/25 21:51 05/22/25 21:42 92 05/22/25 21:40 05/22/25 21:30 05/22/25 21:10 05/22/25 21:10 05/22/25 21:09 94 05/22/25 21:06 96 05/22/25 21:02 05/22/25 21:02 05/22/25 21:00 05/22/25 20:57 94 05/22/25 20:33 95 05/22/25 20:30 05/22/25 20:30 05/22/25 20:18 95 [place] [address] IN/OBS CONSULT LVL 5,80M Patient Type New History Detailed Exam Detailed Medical Decision Making High Complexity Diagnoses Pulmonary embolism I26.99 Elevated brain natriuretic peptide (BNP) level R79.[address] of the chest R93.89 Interstitial lung disease J84.9 Lactic acid acidosis E87.20 Severe sepsis A41.9; R65.20
[2025-05-23] MEDS: VANCOMYCIN HCL 250 MG/5 ML SOLN PO STA (08:31)
[2025-05-23] MEDS: FOLIC ACID 1 MG TAB PO SCH (08:31)
[2025-05-23] MEDS: CHOLECALCIFEROL 25 MCG (1000 UNITS) TAB PO SCH (08:31)
[2025-05-23] MEDS: CHERRY SYRUP 5 ML UDP PO STA (08:31)
[2025-05-23] MEDS: POTASSIUM CHLORIDE CRTAB 20 MEQ TABCR PO SCH ×2 (08:32→13:15)
[2025-05-23] MEDS: PIPERACILLIN/TAZOBACTAM 4.5 GM/100 ML BAG IV SCH (08:32)
[2025-05-23] MEDS: LACTULOSE SYRUP 20 GM/30 ML UDC PO SCH (08:32)
[2025-05-23] MEDS: UMECLIDINIUM BROMIDE 62.5MCG/BLISTER 7 PUFFS/INHALER INH SCH (08:32)
--- NOTE | 2025-05-23 09:30 | CT Scan Report ---
CT head/brain wo con CLINICAL HISTORY: confusion. TECHNIQUE: Multiple axial CT images of the head were obtained without contrast. A dose lowering tech nique was utilized adhering to the principles of ALARA. CT DOSE: 1094.1 mGy.cm COMPARISON: 05/04/2025 FINDINGS: There is motion artifact despite multiple acquisitions. No intracranial hemorrhage seen. No mass effect, midline shift, or hydrocephalus. No skull fracture seen. Visualized paranasal sinuses a nd mastoid air cells are grossly clear. IMPRESSION: Motion limited exam with no acute findings seen. ACT 112: Negative or not required by law. The above report was generated using voice recognition software. It may contain grammatical, syntax o r spelling errors. Electronically signed by: Rodriguez Kirk M.D. 05/23/2025 9:28 AM
[2025-05-23 09:48] LABS: Anion Gap 9.0 (3-11); Blood Urea Nitrogen 10.0 mg/dl (6-23); Calcium 8.5 mg/dl (8.6-10.3); Carbon Dioxide 19.0 mmol/L (21-32); Chloride 109.0 mmol/L (98-107); Creatinine Clr Calc Pharmacy 128.1 ml/min; Glucose 108.0 mg/dl (70-99(Fasting)); Magnesium 2.0 mg/dl (1.7-2.4); Potassium 3.0 mmol/L (3.5-5.1); Sodium 137.0 mmol/L (136-145)
[2025-05-23 09:57] LABS: Hematocrit (blood only) 29.8 % (37.0-47.0); Hemoglobin 9.7 g/dl (12.0-16.0); Mean Corpuscular Hemoglobin 40.1 pg (25.0-34.0); Mean Corpuscular Volume 123.1 fL (80.0-100.0); RDW Standard Deviation 75.8 fL (36.4-46.3); Red Blood Count 2.42 M/uL (4.20-5.40)
[2025-05-23 10:45] LABS: Platelet Count 180 K/uL (130-400); White Blood Count 14.52 K/ul (4.8-10.8)
[2025-05-23 10:46] LABS: Dohle Bodies 1+; Immature Granulocytes # (auto) 0.10 K/uL (0.01-0.20); Immature Granulocytes % (auto) 0.7 %; Toxic Vacuolation 1+
[2025-05-23] MEDS: APIXABAN 5 MG TABLET PO SCH (11:20)
[2025-05-23] MEDS: MIDODRINE HCL 2.5 MG TAB PO SCH (11:22)
[2025-05-23] MEDS: CHERRY SYRUP 5 ML UDP PO SCH (11:22)
[2025-05-23] MEDS: VANCOMYCIN HCL 250 MG/5 ML SOLN PO SCH (11:22)
--- NOTE | 2025-05-23 11:44 | Hospitalist Progress Note ---
Date of Service May 23, 2025 Assessment & Plan (1) Severe sepsis with acute organ dysfunction: Plan: With evidence of early shock (2) Acute ischemic colitis: (3) Acute metabolic encephalopathy: (4) Pulmonary embolism: (5) Pneumonia: (6) Acute on chronic heart failure with preserved ejection fraction: (7) Lactic acid acidosis: (8) Cirrhosis of liver: (9) Interstitial lung disease: (10) Sinus tachycardia: (11) Methotrexate, fdc, current use: Plan Patient 55-year-old female presents with severe sepsis and organ dysfunction due to presumed ischemic colitis, possible pneumonia. Patient's blood pressure intermittently responding to fluid resuscitation and is evidence of early shock. Extensive conversations throughout the day with pulmonary/critical care, gastroenterology and surgery. Initial conversation with surgery, recommended ongoing supportive care, no immediate surgical intervention indicated. Okay with anticoagulation with heparin or Lovenox Communication with pulmonary, agree with antibiotics and ongoing supportive measures Replace electrolytes Communication with GI, they initially raise concern for ischemic bowel and recommended surgical consultation. Extensive conversation with the patient's daughter at bedside and via phone, discussed patient's overall poor prognosis. Patient has fluctuated [id number] between her desires for resuscitative efforts. Currently she is a full code. Daughter will continue conversations with the patient's /her father. Patient currently is encephalopathic and cannot make her own decisions. Also conversation with the patient's sister at the bedside. Patient is getting little bit more irritable and aggressive. They state that this happens when she gets confused. Echocardiogram being updated for LV function, at this time IV fluids are indicated despite some evidence of some volume overload. Continue fluid resuscitation Monitoring electrolytes and laboratory studies Continue broad-spectrum IV antibiotics Anticoagulation with Lovenox for presumed PE and probable bowel emboli as the etiology of her ischemic colitis. Patient did receive 1 dose of Eliquis, this will be held until it is more definitive she will not need surgical intervention. Midodrine for blood pressure support in addition to fluids and a dose of albumin earlier this morning. Patient's condition is critical. She requires hospital level care and interventions with frequent monitoring, IV medications and specialty evaluations 75 minutes spent on care at the bedside, reevaluation throughout the day, communication with specialist, communication with family, interpretation of data, documentation and orders Admission and Anticipated Discharge Date Admission Date: May 22, 2025 Subjective Patient still confused and encephalopathic, however seems to be slightly improved compared to previous. Daughter at bedside she reports that patient started to experience some right upper quadrant pain several days ago. On Wednesday started to get a little bit more confused and was noted to be a little bit more tachycardic and required some oxygen that they have at home. Daughter reports that patient's baseline heart rate is around 110. Physical Exam Physical Exam: Constitutional: Awake, able to answer questions, slow in response HEENT: Mucous membranes moist. Lungs: Decreased breath sounds CV: S1-S2, regular, tachycardic Abdomen: Soft, slightly distended, some diffuse tenderness, decreased bowel sounds Extremities: No significant edema Neuro: Generally weak, oriented to person, year, hospital, however did not know it was [facility], very slow in responses Psych: Cooperative, flat affect Results & Data Results & Data Vital Signs (Past 12 Hours) Vital Signs Temp Pulse Pulse Resp BP BP Pulse Ox 05/23/25 11:32 05/23/25 11:10 36.5 C 124 H 24 103/55 L 97 05/23/25 07:38 36.5 C 126 H 19 98/72 L 91 05/23/25 05:07 22 120/52 L 98 05/23/25 04:35 120 H 101/55 L 05/23/25 03:45 36.6 C 131 H 27 H 93/71 L 98 05/23/25 03:21 95/59 L 05/23/25 02:41 124 H 111/52 L 05/23/25 02:39 95/69 L 05/23/25 02:22 124 H 18 99/69 L 05/23/25 01:34 127 H 05/23/25 01:06 127 H 05/23/25 01:06 05/23/25 01:06 36.9 C 129 H 24 107/74 95 05/23/25 01:06 05/23/25 00:30 125 H 20 135/73 100 05/23/25 00:15 127 H 20 116/76 99 Pulse Ox O2 Del Method O2 Del Method O2 Flow Rate O2 Flow Rate 05/23/25 11:32 Nasal Cannula 1 05/23/25 11:10 Nasal Cannula 05/23/25 07:38 Nasal Cannula 05/23/25 05:07 Nasal Cannula 2 05/23/25 04:35 05/23/25 03:45 Nasal Cannula 2.0 05/23/25 03:21 05/23/25 02:41 05/23/25 02:39 05/23/25 02:22 05/23/25 01:34 05/23/25 01:06 05/23/25 01:06 Nasal Cannula 3 05/23/25 01:06 Nasal Cannula 3 05/23/25 01:06 96 Nasal Cannula 3 05/23/25 00:30 Nasal Cannula 3 05/23/25 00:15 Nasal Cannula 3 Diagnostic Findings Reviewed imaging, laboratory and diagnostic studies. Pertinent findings as below. WBCs 14.5 Hemoglobin 9.7 Platelets of 180 D-dimer 4350 INR 2.1 Lactates reviewed, did decrease from admission slightly Troponin 78.3 BNP 1036 C-reactive protein 10.07 Procalcitonin 1.26 C. difficile toxin negative, gene A positive Head CT no acute findings Ultrasound lower extremity negative for DVT (5) Pneumonia Laterality: bilateral Lung location: lower lobe of lung Pneumonia type: due to unspecified organism Qualified Code(s): J18.9 - Pneumonia, unspecified organism (8) Cirrhosis of liver Ascites presence: unspecified Hepatic cirrhosis type: unspecified hepatic cirrhosis Qualified Code(s): K74.60 - Unspecified cirrhosis of liver
--- NOTE | 2025-05-23 11:47 | Gastrointestinal Consultation ---
Date of Consultation May 23, 2025 Assessment & Plan (1) Ischemic bowel disease: On exam patient had right sided abdominal tenderness and minimal to no bowel sounds. Reviewed CT with radiology given concerns for ischemia particularly with elevated lactic acid. Radiology noted right sided ischemic colitis and pneumatosis on re-read. Would advise immediate surgical consultation. This was communicated to the hospitalist team. Supervising Physician Co-Signing Physician Notes Lactic acidosis. Reviewed with daughter developed right-sided abdominal pain. Progressed over a few days. Clinically her abdomen is soft but there are no bowel sounds. There is question of colitis in the right colon. She has plaque of the mesenteric vasculature. However I am review with radiology does not appear to be any significant stenosis at the origin of the SMA. There were no small bowel issues. However the right colon does appear inflamed thickened with pneumatosis. This is quite concerning for mesenteric or colonic ischemia. Will review with primary. Discussed with family member daughter at the bedside. Likely will need surgical intervention. Patient has received a dose of Eliquis x 1 for pulmonary embolism. Patient does have significant cirrhosis Darlene C at least. Obviously at high risk of surgical intervention though with ischemic colon may not be an option. History of Present Illness Reason for Consultation: Colitis Attending Physician: Santhosh Ortiz DO History of Present Illness Patient is a 55 yo female hospitalized with sepsis. She has been having abdominal pain at home and her daughter brought her back to the hospital. She has had diarrhea, but was taking Lactulose due to cirrhosis/HE. She had CT findings of the abdomen/pelvis that was initially read as enteritis/colitis. Stool PCR was negative. Lactic acid was 7.3 and repeat was 6.2. Troponin was elevated. Procalcitonin elevated. She was placed on IV Cefepime, Flagyl, & Doxycycline. WBC count 14,520. H/H 9.7/29.8. Patient notes discomfort in the right side of her abdomen. She describes it as dull aching continuous pain. D dimer 4350. Allergies Allergy/AdvReac Type Severity Reaction Status Date / Time clindamycin Allergy Hives Verified 07/04/24 15:10 Home Medications Medication Instructions Recorded Confirmed Type duloxetine 60 mg capsule,delayed 60 mg PO DAILY #30 caps 05/10/25 05/22/25 Rx release lactulose 10 gram/15 mL oral 20 g (30 mL) PO TID #946 mL 05/10/25 05/22/25 Rx solution pantoprazole 40 mg tablet,delayed 40 mg PO QAM #30 tabs 05/10/25 05/22/25 Rx release umeclidinium 62.5 mcg/actuation 1 inh inhalation QAM #1 ea 05/10/25 05/22/25 Rx blister powder for inhalation (Incruse Ellipta) acetaminophen 325 mg tablet 650 mg PO Q4 PRN Pain 05/22/25 05/22/25 History acetaminophen 325 mg tablet 650 mg PO Q4 PRN temp > 38C OR 05/22/25 05/22/25 History 100.5F cholecalciferol (vitamin D3) 50 50 mcg PO QAM 05/22/25 05/22/25 History mcg (2,000 unit) capsule (Vitamin D3) folic acid 1 mg tablet 1 mg PO QAM 05/22/25 05/22/25 History gabapentin 300 mg capsule 600 mg PO TID 05/22/25 05/22/25 History lisinopril 10 mg tablet 10 mg PO DAILY 05/22/25 05/22/25 History lorazepam 0.5 mg tablet 0.5 mg PO UD PRN Anxiety 05/22/25 05/22/25 History methotrexate sodium 2.5 mg tablet 15 mg PO WK 05/22/25 05/22/25 History potassium chloride 20 mEq 40 meq PO QAM 05/22/25 05/22/25 History tablet,extended release(part/cryst) Patient History Medical History Major depressive disorder Anxiety disorder Hypertension Diverticulitis Urinary tract infection HAL (acute kidney injury) Sepsis Neutropenic fever Surgical History History of laparoscopic cholecystectomy Family History Mother Heart disease Cancer Father Heart disease Diabetes Brother Heart disease Social History Smoking Status: Former smoker Tobacco Type: Cigarettes Cigarettes Per Day: 30; Second Hand Exposure: No; Hx Alcohol Use: Yes Alcohol type: hard liquor Hx Substance Use: No Communication Ability: Effective Daycare Teacher Required: No Beliefs That Will Affect Care: None Current Living Situation: Spouse Other Information That Helps Us Care for You: No Feels Safe at Home: Yes Safety Concerns: Feels Safe At This Time Assistive Devices: Oxygen - at Night and Wheelchair Review of Systems Constitutional: + chills and + fatigue Respiratory: + dyspnea Cardiovascular: + dyspnea Gastrointestinal: + abdominal pain and + diarrhea/loose st ools; no blood in stools Physical Exam Constitutional: well developed Respiratory: no respiratory distress Cardiovascular: Rate/Rhythm: regular rate Gastrointestinal (Abdomen): Inspection/Auscultation: + abdomen distended and + hypoactive bowel sounds Percussion/Palpation: + abdomen tender Psychiatric: Orientation: alert Results & Data Vital Signs (Past 12 Hours) Vital Signs Temp Pulse Pulse Resp BP BP Pulse Ox 05/23/25 11:32 05/23/25 11:10 36.5 C 124 H 24 103/55 L 97 05/23/25 07:38 36.5 C 126 H 19 98/72 L 91 05/23/25 05:07 22 120/52 L 98 05/23/25 04:35 120 H 101/55 L 05/23/25 03:45 36.6 C 131 H 27 H 93/71 L 98 05/23/25 03:21 95/59 L 05/23/25 02:41 124 H 111/52 L 05/23/25 02:39 95/69 L 05/23/25 02:22 124 H 18 99/69 L 05/23/25 01:34 127 H 05/23/25 01:06 127 H 05/23/25 01:06 05/23/25 01:06 36.9 C 129 H 24 107/74 95 05/23/25 01:06 05/23/25 00:30 125 H 20 135/73 100 05/23/25 00:15 127 H 20 116/76 99 Pulse Ox O2 Del Method O2 Del Method O2 Flow Rate O2 Flow Rate 05/23/25 11:32 Nasal Cannula 1 05/23/25 11:10 Nasal Cannula 05/23/25 07:38 Nasal Cannula 05/23/25 05:07 Nasal Cannula 2 05/23/25 04:35 05/23/25 03:45 Nasal Cannula 2.0 05/23/25 03:21 05/23/25 02:41 05/23/25 02:39 05/23/25 02:22 05/23/25 01:34 05/23/25 01:06 05/23/25 01:06 Nasal Cannula 3 05/23/25 01:06 Nasal Cannula 3 05/23/25 01:06 96 Nasal Cannula 3 05/23/25 00:30 Nasal Cannula 3 05/23/25 00:15 Nasal Cannula 3 PG Care Time/CCT Total # of Minutes Spent Total Time Spent with Patient: Total time spent is greater than 50% in coordination of care (as documented) at patient's floor/unit and/or counseling patient: Coding Level of Care Code 46721 IN/OBS CONSULT LVL 4,60M Diagnoses Ischemic bowel disease K55.9
[2025-05-23 11:51] LABS: Toxic Vacuolation 2+
[2025-05-23 12:02] LABS: Alanine Aminotransferase 18.0 U/L (7-52); Albumin Globulin Ratio 1.4 (0.9-2); Alkaline Phosphatase 59.0 U/L (34-104); Anion Gap 8.0 (3-11); Bilirubin,Total 5.9 mg/dl (0.2-1.0); Blood Urea Nitrogen 10.0 mg/dl (6-23); Calcium 8.5 mg/dl (8.6-10.3); Carbon Dioxide 20.0 mmol/L (21-32); Chloride 109.0 mmol/L (98-107); Creatinine Clr Calc Pharmacy 128.1 ml/min; Globulin 2.1 gm/dl (2.5-4.0); Glucose 113.0 mg/dl (70-99(Fasting)); Potassium 3.0 mmol/L (3.5-5.1); Sodium 137.0 mmol/L (136-145); Total Protein 5.0 gm/dl (6.0-8.3)
[2025-05-23] MEDS: LACTATED RINGER'S 1,000 ML IV SCH (12:31)
--- NOTE | 2025-05-23 13:08 | Surgery Consultation ---
Date of Consultation May 23, 2025 Assessment & Plan (1) Acute ischemic colitis: responding to IVF and IV abx numbers improving making infarction unlikely no pain per patient monitor patient and treat expectantly questionable whether would allow operative intervention if required History of Present Illness Attending Physician: Santhosh Ortiz, DO History of Present Illness This is a 55YO female admitted with sepsis and abdominal pain who had CT scan done yesterday which shows signs of ischemia. Her pain is better according to patient although she is confused. An initial lactic acid was 7.3 but has decreased to 5 after IV resuscitation and IV abx. Her WBC has also responded and down to 14. She is on IV Cefepime, Flagyl, & Doxycycline. Allergies Allergy/AdvReac Type Severity Reaction Status Date / Time clindamycin Allergy Hives Verified 07/04/24 15:10 Home Medications Medication Instructions Recorded Confirmed Type duloxetine 60 mg capsule,delayed 60 mg PO DAILY #30 caps 05/10/25 05/22/25 Rx release lactulose 10 gram/15 mL oral 20 g (30 mL) PO TID #946 mL 05/10/25 05/22/25 Rx solution pantoprazole 40 mg tablet,delayed 40 mg PO QAM #30 tabs 05/10/25 05/22/25 Rx release umeclidinium 62.5 mcg/actuation 1 inh inhalation QAM #1 ea 05/10/25 05/22/25 Rx blister powder for inhalation (Incruse Ellipta) acetaminophen 325 mg tablet 650 mg PO Q4 PRN Pain 05/22/25 05/22/25 History acetaminophen 325 mg tablet 650 mg PO Q4 PRN temp > 38C OR 05/22/25 05/22/25 History 100.5F cholecalciferol (vitamin D3) 50 50 mcg PO QAM 05/22/25 05/22/25 History mcg (2,000 unit) capsule (Vitamin D3) folic acid 1 mg tablet 1 mg PO QAM 05/22/25 05/22/25 History gabapentin 300 mg capsule 600 mg PO TID 05/22/25 05/22/25 History lisinopril 10 mg tablet 10 mg PO DAILY 05/22/25 05/22/25 History lorazepam 0.5 mg tablet 0.5 mg PO UD PRN Anxiety 05/22/25 05/22/25 History methotrexate sodium 2.5 mg tablet 15 mg PO WK 05/22/25 05/22/25 History potassium chloride 20 mEq 40 meq PO QAM 05/22/25 05/22/25 History tablet,extended release(part/cryst) Patient History Medical History Major depressive disorder Anxiety disorder Hypertension Diverticulitis Urinary tract infection HAL (acute kidney injury) Sepsis Neutropenic fever Surgical History History of laparoscopic cholecystectomy Family History Mother Heart disease Cancer Father Heart disease Diabetes Brother Heart disease Social History Smoking Status: Former smoker Tobacco Type: Cigarettes Cigarettes Per Day: 30; Second Hand Exposure: No; Hx Alcohol Use: Yes Alcohol type: hard liquor Hx Substance Use: No Communication Ability: Effective Family Physician Required: No Beliefs That Will Affect Care: None Current Living Situation: Spouse Other Information That Helps Us Care for You: No Feels Safe at Home: Yes Safety Concerns: Feels Safe At This Time Assistive Devices: Oxygen - at Night and Wheelchair Review of Systems Constitutional: no fever and no chills Respiratory: no dyspnea Cardiovascular: no chest pain Gastrointestinal: + diarrhea/loose stools; no abdominal pa in, no nausea and no vomiting Musculoskeletal: no back pain Neurologic: no localized weakness Psychiatric: no behavioral changes Physical Exam Constitutional: WD/WN, vitals as above Eyes: no scleral abnormality Respiratory: normal respiratory effort Cardiovascular: Rate/Rhythm: regular rhythm and + tachycardic Gastrointestinal (Abdomen): Inspection/Auscultation: abdomen normal to inspection; abdomen not distended Percussion/Palpation: abdomen soft; abdomen nontender, no guarding and abdomen not rigid Musculoskeletal: Head/Neck/Chest: normocephalic and head atraumatic Skin: no rashes, warm and dry Results & Data Vital Signs (Past 12 Hours) Vital Signs Temp Pulse Pulse Resp BP BP Pulse Ox 05/23/25 11:32 05/23/25 11:10 36.5 C 124 H 24 103/55 L 97 05/23/25 07:38 36.5 C 126 H 19 98/72 L 91 05/23/25 05:07 22 120/52 L 98 05/23/25 04:35 120 H 101/55 L 05/23/25 03:45 36.6 C 131 H 27 H 93/71 L 98 05/23/25 03:21 95/59 L 05/23/25 02:41 124 H 111/52 L 05/23/25 02:39 95/69 L 05/23/25 02:22 124 H 18 99/69 L 05/23/25 01:34 127 H 05/23/25 01:06 127 H 05/23/25 01:06 05/23/25 01:06 36.9 C 129 H 24 107/74 95 05/23/25 01:06 Pulse Ox O2 Del Method O2 Del Method O2 Flow Rate O2 Flow Rate 05/23/25 11:32 Nasal Cannula 1 05/23/25 11:10 Nasal Cannula 05/23/25 07:38 Nasal Cannula 05/23/25 05:07 Nasal Cannula 2 05/23/25 04:35 05/23/25 03:45 Nasal Cannula 2.0 05/23/25 03:21 05/23/25 02:41 05/23/25 02:39 05/23/25 02:22 05/23/25 01:34 05/23/25 01:06 05/23/25 01:06 Nasal Cannula 3 05/23/25 01:06 Nasal Cannula 3 05/23/25 01:06 96 Nasal Cannula 3
[2025-05-23] MEDS ORDERED: DOXYCYCLINE HYCLATE 100 MG in DEXTROSE 5% MINI-B 100 ML IV SCH (14:00)
[2025-05-23] MEDS: DOXYCYCLINE HYCLATE 100 MG in DEXTROSE 5% MINI-B 100 ML IV SCH (15:33)
[2025-05-23 16:27] LABS: Anion Gap 12.0 (3-11); Calcium 8.7 mg/dl (8.6-10.3); Carbon Dioxide 17.0 mmol/L (21-32); Chloride 107.0 mmol/L (98-107); Potassium 3.1 mmol/L (3.5-5.1); Sodium 136.0 mmol/L (136-145)
[2025-05-23 16:32] LABS: Blood Urea Nitrogen 11.0 mg/dl (6-23); Creatinine Clr Calc Pharmacy 121.5 ml/min
--- NOTE | 2025-05-23 16:48 | Communication Note ---
Date of Service: May 23, 2025 Follow-up rounds. Patient about the same. Quiet abdomen. No iman guarding or rebound. Remains with sinus tachycardia. Concerning his worsening anion gap acidosis and lactate increasing. Reviewed with hospitalist. Will let surgery know.
--- NOTE | 2025-05-23 17:07 | Communication Note ---
Date of Service: May 23, 2025 Went to see patient at bedside. She was sitting up in bed in no acute distress. Sitting with her daughter. She is quite confused. She was very confron tational and refused to answer any of my questions. Refused to allow anybody to examine her. She does not appear to be in any acute distress or extremis. Tachycardic in the 120s. Blood pressure 103/55. Labs were just drawn. This includes a lactate. Attempted to discuss her care with her to see if she would allow me to examine her, however she continued to be adamant about not talking with may. She actually ordered me to leave the room twice. I had a discussion with her daughter about her care. With her multiple medical comorbidities including heart failure, cirrhosis, Darlene class C, PE, she is incredibly high risk for any surgical procedure. As she appears to be improving and does not appear to be an extremis, after discussion with the daughter, we would recommend close observation for now. Her daughter was not convinced that they would even consent to a surgery if it was recommended. After long discussion with the daughter, we will continue to monitor closely, recheck her labs, and we will attempt to examine her later. The daughter is in agreement with the plan and all her questions were answered.
--- NOTE | 2025-05-23 17:45 | Communication Note ---
Date of Service: May 23, 2025 Goals of care discussion greater than 16 minutes. Phone conversation earlier in the day with the daughter updating her on the patient's condition. Discussed again patient's CODE STATUS. Patient reports that she was going to discuss this with her father. I encouraged her to not only discuss CODE STATUS but also to discuss how aggressive they would want to pursue surgical intervention or procedures in light of the patient's chronic comorbidities and overall quality of life. Able to meet with the daughter again this evening. Again had a conversation over the patient's diagnosis and prognosis. We discussed advanced directives. She requested that the patient be made DO NOT INTUBATE and would not want any aggressive mechanical ventilation. Would still want ICU level care with medicines if required. We also then have the opportunity to discuss surgical intervention. Daughter and the realized that the patient has multiple comorbidities that would make surgical intervention extremely high risk for a favorable outcome. They also recognize that the patient has had overall poor quality of life in her mind and in the family's mind over the past several months. She has bed limited mobility has had frequent hospitalizations and has not been able to enjoy life as she had previously. This is also been compounded by multiple episodes of confusion and encephalopathy. Daughter states that if the patient's condition deteriorates to the point where surgery is the only option they would choose to make her comfort care. Conversation ended with the daughter stating that their main goal for the patient and family is that the patient be kept comfortable while continuing to treat her with medicines and evaluating their effectiveness. Updated consultants
[2025-05-23] MEDS: HALOPERIDOL LACTATE 5 MG/ML 1 ML VIAL IV PRN (19:24)
[2025-05-23] MEDS: ENOXAPARIN 80 MG/0.8 ML SYR SQ SCH (19:56)
[2025-05-23] MEDS ORDERED: ENOXAPARIN 1 MG/KG SQ SCH (21:00)
[2025-05-24 05:56] LABS: Hematocrit (blood only) 28.7 % (37.0-47.0); Hemoglobin 9.4 g/dl (12.0-16.0); Mean Corpuscular Hemoglobin 39.8 pg (25.0-34.0); Mean Corpuscular Volume 121.6 fL (80.0-100.0); Platelet Count 186 K/uL (130-400); RDW Standard Deviation 73.2 fL (36.4-46.3); Red Blood Count 2.36 M/uL (4.20-5.40); White Blood Count 15.26 K/ul (4.8-10.8)
[2025-05-24 06:14] LABS: Alanine Aminotransferase 20.0 U/L (7-52); Alkaline Phosphatase 63.0 U/L (34-104); Anion Gap 9.0 (3-11); Bilirubin,Total 6.7 mg/dl (0.2-1.0); Blood Urea Nitrogen 14.0 mg/dl (6-23); Calcium 9.2 mg/dl (8.6-10.3); Carbon Dioxide 20.0 mmol/L (21-32); Chloride 110.0 mmol/L (98-107); Creatinine Clr Calc Pharmacy 97.8 ml/min; Glucose 85.0 mg/dl (70-99(Fasting)); Magnesium 1.9 mg/dl (1.7-2.4); Potassium 3.3 mmol/L (3.5-5.1); Sodium 139.0 mmol/L (136-145); Total Protein 5.2 gm/dl (6.0-8.3)
[2025-05-24] MEDS ORDERED: POTASSIUM PHOS 3 MMOL/1 ML INFUSION IV STA (07:21)
[2025-05-24] MEDS: POTASSIUM PHOSPHATE 24 MMOL in SODIUM CHLORIDE 0.9% 500 ML IV ONE (08:01)
--- NOTE | 2025-05-24 08:12 | Pulmonology Progress Note ---
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 The patient presented to the hospital in the evening of 05/22/2025 from home with complaints of confusion and right sided abdominal pain. Pulmonary consulted for evaluation of left lower lobe subsegmental PE. Patient found to have pneumatosis concerning for ischemic bowel. Subsegmental pulmonary embolism -Patient on therapeutic Lovenox -Cont AC for 3-6 months as PE likely provoked. Abnormal CT scan of Chest -Hold on steroids at this time. Plan for diuresis in am -Will consider initiation of sterids depending on patient's clinical course. Elevated BNP -BNP 05/23/2025 1036 -Will plan to initiate diuresis tomorrow am if hemodynamically stable. Interstitial lung disease -Holding on steroids at this time. -If patient hemodynamically stable and lactate continues to downtrend will plan for diuresis tomorrow am. -Repeat imaging if patient able to discharge from hospital with pulmonary clinic follow up. Lactic acidosis -Lactate remains elevated but downtrending to 4.5 this am. -Continue to monitor. Severe Sepsis Likely from UTI and ischemic bowel. Cont broad spectrum ABX per primary team. Thank you for allowing us to participate in this patient's care. Please feel free to reach out with questions or concerns. 36 minutes is the time spent reviewing the chart, obtaining history, performing the physical exam, updating the patient, primary team, and bedside nurse. Admission and Anticipated Discharge Date Admission Date: May 22, 2025 Supervising Physician Co-Signing Physician Notes Pulmonary has continued follow the case for pulmonary embolism, abnormal CT of the chest and history of ILD. I examined the patient this morning during bedside rounding. Seems more alert today. Actually tried to bite me when I was auscultating her chest, when I asked if she was trying to bite me she said yes. Says she is still coughing but not able to tell me if she is coughing anything up. Was on room air when I evaluated her. Has not been keeping her sat probe on therefore they do not know her current oxygen saturation but she was maintaining well on approximately 1 L earlier in the day. Lungs are grossly clear to auscultation from my brief exam due slight agitation. She is not tachypneic this morning during rounds. Problem list: Subsegmental pulmonary embolism Elevated BNP Abnormal CT of the chest Underlying interstitial lung disease in setting of polymyositis and history of methotrexate use Recommendations/plan: Patient has been started on Lovenox. Agree with anticoagulation for PE. Will need 3 to 6 months of therapy. Repeat echocardiogram showing preserved EF. Imaging of the chest to me looks like pulmonary edema. Would recommend stopping IV fluids now that she is no longer hypotensive. We will consider Lasix tomorrow as long as her blood pressure remains normal. No indication for steroids at this time. She will need repeat imaging in the outpatient setting with CT of the chest in 6 to 8 weeks. Thank you for this consultation. We will follow along with you. Subjective "I have a little pain in my belly." Patient remains encephalopathic this am. SpO2 93% on 1 liter nasal cannula. Goals of care and advanced directives discussed with Hospitalist attending and nemesio's daughter last evening with patient now DNI. Would transition to comfort care if patient worsens or requires surgical intervention. Lactate remains elevated but downtrending and patient is hemodynamically stable. Review of Systems 2 Review of Systems: All systems reviewed & are unremarkable except as noted in HPI & below Physical Exam 2 Physical Exam: VITALS: Reviewed. WEIGHT/BMI reviewed. GEN: Chronically ill appearing, well-developed, NAD. PSYCH: Flat affect and mood. HEENT -Head: NC/AT; -Eyes: PERRL, EOMI. No discharge or redn ess; -Ears: External ears are normal. -Nose: Normal nares. NECK: Supple, with no masses. CV: Tachycardic with regular rhythm. S1/S2 present. No M/R/G. LUNGS: clear in b/l upper lobes. Fine crackles appreciate in lower lobes. Chest rise symmetrical. Breathing nonlabored. ABD: Soft with slight tenderness with palpation. Hypoactive bowels sounds. No masses or organomegaly. : N/A SKIN: Warm, well perfused. No skin rashes or abnormal lesions. MSK: No deformities. EXT: No clubbing, cyanosis, or edema. NEURO: No focal deficits. Results & Data Results & Data Vital Signs (Past 12 Hours) Vital Signs Temp Pulse Pulse Resp BP Pulse Ox O2 Del Method 05/24/25 07:16 36.6 C 130 H 22 116/70 92 Nasal Cannula 05/24/25 05:26 139 H 172/70 H 05/24/25 04:18 05/23/25 22:06 125 H O2 Del Method O2 Flow Rate 05/24/25 07:16 05/24/25 05:26 05/24/25 04:18 Nasal Cannula 1 05/23/25 22:06 Laboratory Results 05/24/25 05:36 05/24/25 05:36 Abnormal Lab Results 05/22/25 05/23/25 05/23/25 19:19 09:03 11:24 WBC 14.52 H RBC 2.42 L Hgb 9.7 L Hct 29.8 L MCV 123.1 H MCH 40.1 H MCHC 32.6 RDW Std Deviation 75.8 H RDW Coeff of Kristine 16.6 H Plt Count 180 MPV 10.5 Immature Gran % (Auto) 0.7 Neut % (Auto) 75.2 Lymph % (Auto) 15.4 Woodward % (Auto) 8.0 Eos % (Auto) 0.3 Baso % (Auto) 0.4 Neut # (Auto) 10.92 H Lymph # (Auto) 2.23 Woodward # (Auto) 1.16 H Eos # (Auto) 0.05 Baso # (Auto) 0.06 Immature Gran # (Auto) 0.10 Absolute Nucleated RBC Nucleated RBC % (auto) Toxic Vacuolation 2+ 1+ Dohle Bodies 1+ ESR 10 D-Dimer 4350 H* Sodium 137 137 Potassium 3.0 L 3.0 L Chloride 109 H 109 H Carbon Dioxide 19 L 20 L Anion Gap 9 8 BUN 10 10 Creatinine 0.55 L 0.55 L Est Cr Clr Drug Dosing 128.1 128.1 eGFR 108.18 108.18 BUN/Creatinine Ratio 18.2 18.2 Glucose 108 H 113 H Fasting Glucose Lactate 5.0 H* Calcium 8.5 L 8.5 L Phosphorus Magnesium 2.0 Total Bilirubin 5.9 H Direct Bilirubin AST 34 ALT 18 Alkaline Phosphatase 59 Ammonia 42.0 C-Reactive Protein 10.07 H B-Natriuretic Peptide 1036 H Total Protein 5.0 L Albumin 2.9 L Globulin 2.1 L Albumin/Globulin Ratio 1.4 Procalcitonin 05/23/25 05/23/25 05/24/25 15:59 17:53 05:36 WBC 15.26 H RBC 2.36 L Hgb 9.4 L Hct 28.7 L MCV 121.6 H MCH 39.8 H MCHC 32.8 RDW Std Deviation 73.2 H RDW Coeff of Kristine 16.6 H Plt Count 186 MPV 10.4 Immature Gran % (Auto) Neut % (Auto) Lymph % (Auto) Woodward % (Auto) Eos % (Auto) Baso % (Auto) Neut # (Auto) Lymph # (Auto) Woodward # (Auto) Eos # (Auto) Baso # (Auto) Immature Gran # (Auto) Absolute Nucleated RBC 0.02 Nucleated RBC % (auto) 0.1 Toxic Vacuolation Dohle Bodies ESR D-Dimer Sodium 136 139 Potassium 3.1 L 3.3 L Chloride 107 110 H Carbon Dioxide 17 L 20 L Anion Gap 12 H 9 BUN 11 14 Creatinine 0.58 L 0.72 Est Cr Clr Drug Dosing 121.5 97.8 eGFR 106.81 98.68 BUN/Creatinine Ratio 19.4 Glucose 85 Fasting Glucose 94 Lactate 5.4 H* 5.1 H* 4.5 H* Calcium 8.7 9.2 Phosphorus 2.2 L Magnesium 1.9 Total Bilirubin 6.7 H Direct Bilirubin 2.4 H AST 42 H ALT 20 Alkaline Phosphatase 63 Ammonia C-Reactive Protein B-Natriuretic Peptide Total Protein 5.2 L Albumin 2.9 L Globulin Albumin/Globulin Ratio Procalcitonin 1.41 H Diagnostic Findings Head CT 05/23/25 07:07 CT head/brain wo con CLINICAL HISTORY: confusion. TECHNIQUE: Multiple axial CT images of the head were obtained without contrast. A dose lowering technique was utilized adhering to the principles of ALARA. CT DOSE: 1094.1 mGy.cm COMPARISON: 05/04/2025 FINDINGS: There is motion artifact despite multiple acquisitions. No intracranial hemorrhage seen. No mass effect, midline shift, or hydrocephalus. No skull fracture seen. Visualized paranasal sinuses and mastoid air cells are grossly clear. IMPRESSION: Motion limited exam with no acute findings seen. ACT 112: Negative or not required by law. The above report was generated using voice recognition software. It may contain grammatical, syntax or spelling errors. Electronically signed by: Rodriguez Kirk M.D. 05/23/2025 9:28 AM PG Care Time/CCT Total # of Minutes Spent Total Time Spent with Patient: Total time spent is greater than 50% in coordination of care (as documented) at patient's floor/unit and/or counseling patient: Coding Level of Care Code 19336 SUB INP/OBS CARE 2/35MIN Diagnoses Pulmonary embolism I26.99 Elevated brain natriuretic peptide (BNP) level R79.[address] of the chest R93.89 Interstitial lung disease J84.9 Lactic acid acidosis E87.20 Severe sepsis A41.9; R65.20
[2025-05-24] MEDS: HALOPERIDOL LACTATE 5 MG/ML 1 ML VIAL IM PRN (10:58)
--- NOTE | 2025-05-24 11:45 | Procedure Note ---
Procedure Note Date of Service May 24, 2025 Coding Additional Codes Date of Service ([facility].[email or web address])
--- NOTE | 2025-05-24 12:19 | Hospitalist Progress Note ---
Date of Service May 24, 2025 Assessment & Plan (1) Severe sepsis with acute organ dysfunction: Plan: With evidence of early shock (2) Acute ischemic colitis: (3) Acute hyperactive delirium due to another medical condition: (4) Acute metabolic encephalopathy: (5) Pulmonary embolism: (6) Pneumonia: (7) Acute on chronic heart failure with preserved ejection fraction: (8) Lactic acid acidosis: (9) Cirrhosis of liver: (10) Interstitial lung disease: (11) Sinus tachycardia: (12) Methotrexate, termite treater, current use: Plan Patient 55-year-old female with multiple comorbidities presents with severe s epsis and acute organ dysfunction due to suspected ischemic colitis, , Possible pneumonia compounded by pulmonary embolism. Patient now significantly delirious encephalopathic due to her medical condition. She is critically ill, requires hospital level care, hospital interventions and monitoring and specialty consultations. Continue current antibiotic regimen Discussed with nurse to use Haldol as ordered to help control behaviors and delirium, minimize use of physical restraints Anticipate if patient continues to respond to antibiotic treatment delirium and encephalopathy may improve with some time No plans for surgical intervention Replace electrolytes Monitor blood and urine cultures Continue Lovenox for anticoagulation, patient's mental status is such that she is not taking her pills and spitting them out. When mental status improves can consider transitioning to Eliquis Anticipate as patient resuscitative efforts continue will eventually need to be diuresed at some point. Will coordinate with pulmonary Updated patient's daughter, Meghan via phone. Admission and Anticipated Discharge Date Admission Date: May 22, 2025 Subjective Events of overnight noted, patient delirious, pulling at medical devices, restraints required. This morning patient very paranoid and suspicious. She denies pain. Physical Exam Physical Exam: Constitutional: Awake, ill but not toxic in appearance HEENT: Mucous membranes moist. Lungs: Decreased breath sounds, crackles at bases CV: S1-S2, regular, tachycardic Abdomen: Slightly distended, no guarding, no rigidity, possibly some mild tenderness Extremities: No significant edema Neuro: Generally weak, nonfocal Psych: Paranoid, delirious, uncooperative Results & Data Results & Data Vital Signs (Past 12 Hours) Vital Signs Temp Pulse Resp BP Pulse Ox O2 Del Method O2 Del Method 05/24/25 08:00 Nasal Cannula 05/24/25 07:16 36.6 C 130 H 22 116/70 92 Nasal Cannula 05/24/25 05:26 139 H 172/70 H 05/24/25 04:18 Nasal Cannula O2 Flow Rate O2 Flow Rate 05/24/25 08:00 1 05/24/25 07:16 05/24/25 05:26 05/24/25 04:18 1 Diagnostic Findings [facility] WBCs 15.2, stable Hemoglobin 9.4 Platelets of 186 Sodium 139 Potassium 3.3 Carbon dioxide 20, slightly improved Creatinine 0.72, improved Lactate 4.5, improved Phosphorus 2.2 LFTs reviewed Procalcitonin 1.41 Echocardiogram showed ejection fraction greater than 70% (6) Pneumonia Laterality: bilateral Lung location: lower lobe of lung Pneumonia type: due to unspecified organism Qualified Code(s): J18.9 - Pneumonia, unspecified organism (9) Cirrhosis of liver Ascites presence: unspecified Hepatic cirrhosis type: unspecified hepatic cirrhosis Qualified Code(s): K74.60 - Unspecified cirrhosis of liver
--- NOTE | 2025-05-24 14:58 | Gastroenterology Progress Note ---
Date of Service May 24, 2025 Assessment & Plan (1) Acute ischemic colitis: Plan: Patient with severe sepsis. Lactate 4.5 today. Will continue to follow patient's clinical course. General surgery on board. Admission and Anticipated Discharge Date Admission Date: May 22, 2025 Supervising Physician Co-Signing Physician Notes Ischemic right colon. Encephalopathy medical delirium. Potentially even component of withdrawal. Remains to have evidence of colon ischemia with leukocytosis elevated lactate and anion gap acidosis. patient not for OR per family wishes. Extremely ghigh risk Subjective Patient is a 55 yo female with severe sepsis with evidence of acute ischemic colitis. Lactate 4.5 today. Patient has worsening encephalopathy. She does demonstrate abdominal tenderness on exam. She does swat me away when I exam her and is screaming for her daughter. Her daughter has determine that she is a DNR/DNI. Condition is guarded. Review of Systems Review of Systems: Unobtainable due to cognitive status Physical Exam Gastrointestinal (Abdomen): Percussion/Palpation: + abdomen tender hypoactive bowel sounds Results & Data Results & Data Vital Signs (Past 12 Hours) Vital Signs Temp Pulse Resp BP Pulse Ox O2 Del Method O2 Del Method 05/24/25 08:00 Nasal Cannula 05/24/25 07:16 36.6 C 130 H 22 116/70 92 Nasal Cannula 05/24/25 05:26 139 H 172/70 H 05/24/25 04:18 Nasal Cannula O2 Flow Rate O2 Flow Rate 05/24/25 08:00 1 05/24/25 07:16 05/24/25 05:26 05/24/25 04:18 1 PG Care Time/CCT Total # of Minutes Spent Total Time Spent with Patient: Total time spent is greater than 50% in coordination of care (as documented) at patient's floor/unit and/or counseling patient: Coding Level of Care Code 70047 SUB INP/OBS CARE 10/28MIN Diagnoses Acute ischemic colitis K55.039
[2025-05-25] MEDS: FUROSEMIDE 40 MG/4 ML VIAL IV ONE ×2 (07:51→14:40)
--- NOTE | 2025-05-25 07:51 | Pulmonology Progress Note ---
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 The patient presented to the hospital in the evening of 05/22/2025 from home with complaints of confusion and right sided abdominal pain. Pulmonary consulted for evaluation of left lower lobe subsegmental PE. Patient found to have pneumatosis concerning for ischemic bowel. Subsegmental pulmonary embolism -Patient on therapeutic Lovenox -Cont AC for 3-6 months as PE likely provoked. Abnormal CT scan of Chest -Hold on steroids at this time. Start Lasix this am. D/C MIVF. -Will consider initiation of sterids depending on patient's clinical course. Elevated BNP -BNP 05/23/2025 1036 -Patient BP stable this am. Start Lasix 40mg this am. Will target a goal of -500 to 1 liter negative over next 24hrs. Interstitial lung disease -Holding on steroids at this time. -Start diuresis. -Repeat imaging if patient able to discharge from hospital with pulmonary clinic follow up. Lactic acidosis -Lactate repeat pending. -Continue to monitor. Severe Sepsis Likely from UTI and ischemic bowel. Cont broad spectrum ABX per primary team. Thank you for allowing us to participate in this patient's care. Please feel free to reach out with questions or concerns. 35 minutes is the time spent reviewing the chart, obtaining history, performing the physical exam, updating the patient, primary team, and bedside nurse. Admission and Anticipated Discharge Date Admission Date: May 22, 2025 Supervising Physician Co-Signing Physician Notes Pulmonary has continued follow the case for pulmonary embolism, abnormal CT of the chest and history of ILD. I examined the patient this morning during bedside rounding. Patient is more appropriate this morning. Cooperative and calm. Answering questions appropriately. Denies shortness of breath. States that she is having some mild abdominal pain but cannot localize the pain. Denies any cough or phlegm production. Problem list: Subsegmental pulmonary embolism Elevated BNP Abnormal CT of the chest Underlying interstitial lung disease in setting of polymyositis and history of methotrexate use Recommendations/plan: Patient has been started on Lovenox. Agree with anticoagulation for PE. Will need 3 to 6 months of therapy. Repeat echocardiogram showing preserved EF. Imaging of the chest to me looks like pulmonary edema. We will initiate Lasix today and stop IV fluids. No indication for steroids at this time. She will need repeat imaging in the outpatient setting with CT of the chest in 6 to 8 weeks. Thank you for this consultation. We will follow along with you. I personally spent 30 minutes of time reviewing the patient's chart, performing a physical examination and review of systems, updating primary team and bedside nursing. Subjective Patient encephalopathy improved this am and able answer exam questions. SpO2 96% on 1.5 liters nasal cannula. Patient blood pressure stable in last 24hrs without need for vasoactive medications. Will start spot dosing Lasix this am with goal of -500ml to -1 liter. Review of Systems 2 Review of Systems: All systems reviewed & are unremarkable except as noted in HPI & below Physical Exam 2 Physical Exam: VITALS: Reviewed. WEIGHT/BMI reviewed. GEN: Chronically ill appearing, well-developed, NAD. PSYCH: Flat affect and mood. HEENT -Head: NC/AT; -Eyes: PERRL, EOMI. No discharge or redn ess; -Ears: External ears are normal. -Nose: Normal nares. NECK: Supple, with no masses. CV: Tachycardic with regular rhythm. S1/S2 present. No M/R/G. LUNGS: Clear in b/l upper lobes. Fine crackles appreciate in lower lobes. Chest rise symmetrical. Breathing nonlabored. ABD: Soft with without guarding this am. Hypoactive bowels sounds. No masses or organomegaly. : N/A SKIN: Warm, well perfused. No skin rashes or abnormal lesions. MSK: No deformities. EXT: No clubbing, cyanosis, truncal and pitting dependent edema noted. NEURO: No focal deficits. Results & Data Results & Data Vital Signs (Past 12 Hours) Vital Signs Temp Pulse Pulse Resp BP Pulse Ox O2 Del Method 05/25/25 07:35 36.9 C 119 H 20 111/77 96 Nasal Cannula 05/25/25 03:18 36.6 C 117 H 20 126/93 95 Nasal Cannula 05/24/25 22:50 36.5 C 119 H 18 125/77 96 Nasal Cannula 05/24/25 21:57 119 H O2 Flow Rate 05/25/25 07:35 1.5 05/25/25 03:18 1.5 05/24/25 22:50 1.5 05/24/25 21:57 Laboratory Results 05/25/25 07:51 05/25/25 07:51 Abnormal Lab Results 05/25/25 05/25/25 07:51 07:58 WBC 16.61 H RBC 2.15 L Hgb 8.5 L Hct 25.8 L MCV 120.0 H MCH 39.5 H MCHC 32.9 RDW Std Deviation 70.1 H RDW Coeff of Kristine 16.0 H Plt Count 177 MPV 10.1 Absolute Nucleated RBC 0.02 Nucleated RBC % (auto) 0.1 Sodium 136 Potassium 3.2 L Chloride 107 Carbon Dioxide 23 Anion Gap 6 BUN 18 Creatinine 0.58 L Est Cr Clr Drug Dosing 123.6 eGFR 106.81 BUN/Creatinine Ratio 31.0 H Glucose 98 Lactate 1.8 Calcium 8.5 L Phosphorus 2.2 L Magnesium 1.6 L Total Bilirubin 7.0 H Direct Bilirubin 2.6 H AST 47 H ALT 21 Alkaline Phosphatase 63 Total Protein 5.3 L Albumin 2.7 L Diagnostic Findings No recent imaging. PG Care Time/CCT Total # of Minutes Spent Total Time Spent with Patient: Total time spent is greater than 50% in coordination of care (as documented) at patient's floor/unit and/or counseling patient: Coding Level of Care Code 00927 SUB INP/OBS CARE 2/35MIN Diagnoses Pulmonary embolism I26.99 Elevated brain natriuretic peptide (BNP) level R79.[address] of the chest R93.89 Interstitial lung disease J84.9 Lactic acid acidosis E87.20 Severe sepsis A41.9; R65.20
[2025-05-25 08:09] LABS: Hematocrit (blood only) 25.8 % (37.0-47.0); Hemoglobin 8.5 g/dl (12.0-16.0); Mean Corpuscular Hemoglobin 39.5 pg (25.0-34.0); Mean Corpuscular Volume 120.0 fL (80.0-100.0); Platelet Count 177 K/uL (130-400); RDW Standard Deviation 70.1 fL (36.4-46.3); Red Blood Count 2.15 M/uL (4.20-5.40); White Blood Count 16.61 K/ul (4.8-10.8)
[2025-05-25 08:29] LABS: Alanine Aminotransferase 21.0 U/L (7-52); Alkaline Phosphatase 63.0 U/L (34-104); Anion Gap 6.0 (3-11); Bilirubin,Total 7.0 mg/dl (0.2-1.0); Blood Urea Nitrogen 18.0 mg/dl (6-23); Calcium 8.5 mg/dl (8.6-10.3); Carbon Dioxide 23.0 mmol/L (21-32); Chloride 107.0 mmol/L (98-107); Creatinine Clr Calc Pharmacy 123.6 ml/min; Glucose 98.0 mg/dl (70-99(Fasting)); Magnesium 1.6 mg/dl (1.7-2.4); Potassium 3.2 mmol/L (3.5-5.1); Sodium 136.0 mmol/L (136-145); Total Protein 5.3 gm/dl (6.0-8.3)
[2025-05-25] MEDS ORDERED: POTASSIUM PHOS 3 MMOL/1 ML INFUSION IV STA (09:22)
[2025-05-25] MEDS: POTASSIUM CHLORIDE / WTR 10 MEQ/100 ML PLCT IV SCH (09:24)
[2025-05-25] MEDS: MAGNESIUM SULFATE / D5W 1 GM/100 ML BAG IV SCH (09:24)
[2025-05-25] MEDS: POTASSIUM PHOSPHATE 30 MMOL in SODIUM CHLORIDE 0.9% 500 ML IV ONE (10:08)
--- NOTE | 2025-05-25 10:50 | Hospitalist Progress Note ---
Date of Service May 25, 2025 Assessment & Plan (1) Severe sepsis with acute organ dysfunction: Plan: With evidence of early shock (2) Acute ischemic colitis: (3) Acute hyperactive delirium due to another medical condition: (4) Acute metabolic encephalopathy: (5) Pulmonary embolism: (6) Pneumonia: (7) Acute on chronic heart failure with preserved ejection fraction: (8) Lactic acid acidosis: (9) Cirrhosis of liver: (10) Interstitial lung disease: (11) Sinus tachycardia: (12) Methotrexate, senior care, current use: Plan Patient presented with severe sepsis suspected due to ischemic colitis and also identified pulmonary embolism Patient seems to be improving, vitals are stabilizing, delirium improving Continue current antibiotics Bilirubin is increasing, suspect component of shock liver associated with the sepsis in the setting of known cirrhosis Replace electrolytes Patient with some third spacing and anasarca of the upper extremities, attempt diuresis, coordinating diuretics and electrolyte replacement with critical care team Continue to monitor laboratory studies Titrate midodrine Transition to Eliquis for treatment of PE now that patient is taking her medications Patient's condition and prognosis overall is is guarded but seems to be slowly improving Can transition to MedSurg Updated patient's daughter via phone, encouraged her to consider having her mom go to skilled rehab facility when she is ready for discharge Admission and Anticipated Discharge Date Admission Date: May 22, 2025 Subjective Patient's delirium is improved this morning. Much more cooperative. Restraints have been discontinued last evening. Did take medications today. States she has some pain in her leg which limit her ability to do therapies Physical Exam Physical Exam: Constitutional: Alert, ill in appearance but not toxic, jaundiced HEENT: Mucous membranes moist. Scleral icterus Lungs: Decreased breath sounds, Rales and crackles at bases CV: S1-S2, regular, tachycardic Abdomen: Soft, nontender, nondistended, no guarding, no rigidity Extremities: Pitting edema upper extremities Neuro: No focal deficits, generalized weakness Psych: Cooperative, delirium significantly improved. Allowing nurses to take care of her, place new IVs took medications. Results & Data Results & Data Vital Signs (Past 12 Hours) Vital Signs Temp Pulse Pulse Resp BP Pulse Ox O2 Del Method 05/25/25 08:00 124 H 05/25/25 08:00 Nasal Cannula 05/25/25 07:35 36.9 C 119 H 20 111/77 96 Nasal Cannula 05/25/25 03:18 36.6 C 117 H 20 126/93 95 Nasal Cannula 05/24/25 22:50 36.5 C 119 H 18 125/77 96 Nasal Cannula O2 Flow Rate 05/25/25 08:00 05/25/25 08:00 1 05/25/25 07:35 1.5 05/25/25 03:18 1.5 05/24/25 22:50 1.5 Diagnostic Findings Reviewed imaging, laboratory and diagnostic studies. Pertinent findings as below. WBC 16.6 Hemoglobin 8.5 Platelets of 177 Potassium 3.2 Creatinine 0.58 Lactate 1.8 Phosphorus 2.2 Magnesium 1.6 Total bilirubin 7.0 Direct bilirubin 2.6 (6) Pneumonia Laterality: bilateral Lung location: lower lobe of lung Pneumonia type: due to unspecified organism Qualified Code(s): J18.9 - Pneumonia, unspecified organism (9) Cirrhosis of liver Ascites presence: unspecified Hepatic cirrhosis type: unspecified hepatic cirrhosis Qualified Code(s): K74.60 - Unspecified cirrhosis of liver
[2025-05-25] MEDS: POTASSIUM CHLORIDE CRTAB 20 MEQ TABCR PO SCH (12:54)
[2025-05-25] MEDS: MIDODRINE HCL 2.5 MG TAB PO SCH (13:14)
[2025-05-25] MEDS: ACETAMINOPHEN 325 MG TAB PO PRN (13:15)
[2025-05-25] MEDS: POTASSIUM CHLORIDE 20 MEQ/15 ML UDC PO SCH (14:47)
--- NOTE | 2025-05-25 17:40 | Communication Note ---
Date of Service: May 25, 2025 Acidosis improving. Lactate normalizing. Condition still guarded though encouraging reversal of acidosis.
[2025-05-25] MEDS: APIXABAN 5 MG TABLET PO SCH (21:07)
[2025-05-26 06:18] LABS: Hematocrit (blood only) 24.3 % (37.0-47.0); Hemoglobin 8.3 g/dl (12.0-16.0); Mean Corpuscular Hemoglobin 40.1 pg (25.0-34.0); Mean Corpuscular Volume 117.4 fL (80.0-100.0); Platelet Count 166 K/uL (130-400); RDW Standard Deviation 65.9 fL (36.4-46.3); Red Blood Count 2.07 M/uL (4.20-5.40); White Blood Count 13.62 K/ul (4.8-10.8)
[2025-05-26 07:30] LABS: Anion Gap 8.0 (3-11); Blood Urea Nitrogen 15.0 mg/dl (6-23); Calcium 8.2 mg/dl (8.6-10.3); Carbon Dioxide 25.0 mmol/L (21-32); Chloride 106.0 mmol/L (98-107); Creatinine Clr Calc Pharmacy 105.5 ml/min; Glucose 113.0 mg/dl (70-99(Fasting)); Magnesium 1.7 mg/dl (1.7-2.4); Potassium 2.7 mmol/L (3.5-5.1); Sodium 139.0 mmol/L (136-145)
[2025-05-26] MEDS: POTASSIUM CHLORIDE / WTR 10 MEQ/100 ML PLCT IV SCH (07:48)
[2025-05-26] MEDS: MAGNESIUM SULFATE / D5W 1 GM/100 ML BAG IV SCH (07:48)
--- NOTE | 2025-05-26 09:21 | Electrocardiogram Report ---
Test Reason : Blood Pressure : */* mmHG Vent. Rate : 140 BPM Atrial Rate : 140 BPM P-R Int : 132 ms QRS Dur : 68 ms QT Int : 266 ms P-R-T Axes : -6 -9 243 degrees QTcB Int : 406 ms Sinus tachycardia Inferior infarct (cited on or before 22-May-2025) Cannot rule out Anterior infarct (cited on or before 22-May-2025) Abnormal ECG When compared with ECG of 22-May-2025 19:16, (unconfirmed) No significant change was found Confirmed by Cale Medrano ([id number]) on 05/26/2025 9:21:05 AM Referred By: REFERRED SELF Confirmed By: Cale Medrano
--- NOTE | 2025-05-26 09:28 | Electrocardiogram Report ---
Test Reason : Blood Pressure : */* mmHG Vent. Rate : 135 BPM Atrial Rate : 135 BPM P-R Int : 134 ms QRS Dur : 72 ms QT Int : 270 ms P-R-T Axes : * -11 183 degrees QTcB Int : 405 ms Sinus tachycardia Inferior infarct , age undetermined Cannot rule out Anterior infarct , age undetermined Abnormal ECG When compared with ECG of 08-May-2025 06:21, QRS axis Shifted left Minimal criteria for Anterior infarct are now Present Inferior infarct is now Present ST now depressed in Lateral leads Nonspecific T wave abnormality now evident in Inferior leads Confirmed by Cale Medrano ([id number]) on 05/26/2025 9:28:16 AM Referred By: REFERRED SELF Confirmed By: Cale Medrano
--- NOTE | 2025-05-26 10:38 | Pulmonology Progress Note ---
Date of Service May 26, 2025 Assessment & Plan (1) Pulmonary embolism: (2) Elevated brain natriuretic peptide (BNP) level: (3) Interstitial lung disease: (4) Acute on chronic heart failure with preserved ejection fraction: Plan Underlying ILD with a history of polymyositis and methotrexate use. CT on admission showed intralobular septal thickening, mild atelectasis, no effusions. Occasional stenosis present. Patchy GGO's without evidence of consolidative changes. Small filling defect in the subsegmental branches of the left lower lobe. Volume overloaded on exam. Received aggressive volume resuscitation due to severe lactic acidosis and bowel ischemia. The patient has been on anticoagulation for subsegmental PE. She did receive Lasix yesterday. Has significant hypokalemia today. Recommendations: Patient has been started on Lovenox. Agree with anticoagulation for PE. Will need 3 to 6 months of therapy. Electrolytes are being replaced by primary team. If possible additional diuretic should be added once electrolytes have been repleted. Would recommend a combination of Lasix and Aldactone given her history of cirrhosis as well. No indication for steroids at this time. She will need repeat imaging in the outpatient setting with CT of the chest in 6 to 8 weeks. She will need to follow-up with her primary reproduction order processor in the outpatient setting. I personally spoken with the hospitalist team and primary nurse and updated them on the recommendations from a pulmonary standpoint. Thank you for this consultation. We will sign off at this time. Please call directly with any questions. Admission and Anticipated Discharge Date Admission Date: May 22, 2025 Subjective Patient seen and examined during bedside rounds this morning. She is more mentally appropriate today. She was asking what the date was. She could remember that she follows with pulmonary outpatient and that she had had a bronchoscopy before. She denies any shortness of breath. Still having a small amount of phlegm production. Denies any chest pain or chest pressure Intake 2295 Output 2925 Net -629 Patient has pretty significant hypokalemia that is being replaced today. Review of Systems Review of Systems: Review of systems obtained, negative except as in HPI. Physical Exam Physical Exam: Physical examination: General: Appears chronically ill, frail, resting in bed, not in acute distress however. HEENT: Normocephalic, atraumatic. Extraocular movements intact. Evidence of scleral icterus and jaundice appreciated. Skin: Warm and dry. Perfusing well. Mottling is absent. Cardiovascular: Tachycardic, no murmurs appreciated on my exam. Some pitting edema at the hips. Lungs: Resting comfortably on nasal cannula. Nontachypneic. Not having any active cough during my exam. No wheezing to auscultation. Lung sounds clear. Abdomen: Mildly distended, pain to palpation of the suprapubic region as well as bilateral lower quadrants. Musculoskeletal: Decreased muscle mass. Neurologic: Awake and alert this morning. More appropriate. CN II through XII are grossly intact. Psychiatric: Appropriate cooperative during my exam. Results & Data Results & Data Vital Signs (Past 12 Hours) Vital Signs Temp Pulse Pulse Resp BP Pulse Ox O2 Del Method 05/26/25 09:01 114 H 05/26/25 07:57 Nasal Cannula 05/26/25 07:30 93 Nasal Cannula 05/26/25 07:19 37.0 C 117 H 18 128/69 Room Air 05/26/25 00:18 Room Air O2 Flow Rate 05/26/25 09:01 05/26/25 07:57 1 05/26/25 07:30 1 05/26/25 07:19 05/26/25 00:18 PG Care Time/CCT Total # of Minutes Spent Total Time Spent with Patient: Total time spent is greater than 50% in coordination of care (as documented) at patient's floor/unit and/or counseling patient: Coding [place] [address] SUB INP/OBS CARE 2/35MIN Patient Type Established History Expanded Problem Focused Exam Expanded Problem Focused Medical Decision Making Moderate Complexity Diagnoses Pulmonary embolism I26.99 Elevated brain natriuretic peptide (BNP) level R79.89 Interstitial lung disease J84.9 Acute on chronic heart failure with preserved ejection fraction I50.33
--- NOTE | 2025-05-26 11:26 | Hospitalist Progress Note ---
Date of Service May 26, 2025 Assessment & Plan (1) Severe sepsis with acute organ dysfunction: Plan: With evidence of early shock (2) Acute ischemic colitis: (3) Acute hyperactive delirium due to another medical condition: (4) Acute metabolic encephalopathy: (5) Pulmonary embolism: (6) Pneumonia: (7) Acute on chronic heart failure with preserved ejection fraction: (8) Lactic acid acidosis: (9) Cirrhosis of liver: (10) Interstitial lung disease: (11) Sinus tachycardia: (12) Methotrexate, automotive project engineer, current use: Plan Patient with severe sepsis due to suspected ischemic colitis. Showing steady improvement. Encephalopathy improving Slowly advanced diet Replace electrolytes Continue attempted diuresis once electrolytes replaced Voltaren gel as needed for some arthritic pains Continue IV antibiotics Continue to monitor laboratory studies Discontinue midodrine, blood pressure has stabilized Therapies as able Communication with pulmonary/critical care. Agrees with electrolyte replacement and additional diuresis as able. Discussed with patient the need for her to most likely go to rehab from the hospital and that she would be too weak for her family to care for her at home immediately. Updated patient's daughter via phone Admission and Anticipated Discharge Date Admission Date: May 22, 2025 Subjective Patient's mentation seems significantly improved today. Nursing reports that she was able to take medications much easier. Does complain of some pain in her knee but no abdominal pain. Interested in potentially eating a little bit more. Physical Exam Physical Exam: Constitutional: Alert, ill in appearance but not toxic HEENT: Mucous membranes moist. Scleral icterus Lungs: Decreased breath sounds, Rales at bases CV: S1-S2, regular, tachycardic Abdomen: Soft, nontender, nondistended Extremities: Continued edema upper extremities, however improved Neuro: No focal deficits, generally weak Psych: Cooperative, normal mood Results & Data Results & Data Vital Signs (Past 12 Hours) Vital Signs Temp Pulse Pulse Resp BP Pulse Ox O2 Del Method 05/26/25 09:01 114 H 05/26/25 07:57 Nasal Cannula 05/26/25 07:30 93 Nasal Cannula 05/26/25 07:19 37.0 C 117 H 18 128/69 Room Air 05/26/25 00:18 Room Air O2 Flow Rate 05/26/25 09:01 05/26/25 07:57 1 05/26/25 07:30 1 05/26/25 07:19 05/26/25 00:18 Diagnostic Findings [facility] WBCs 13.6, improved Hemoglobin 8.3, stable Potassium 2.7 Creatinine 0.68 Phosphorus and magnesium within normal ranges (6) Pneumonia Laterality: bilateral Lung location: lower lobe of lung Pneumonia type: due to unspecified organism Qualified Code(s): J18.9 - Pneumonia, unspecified organism (9) Cirrhosis of liver Ascites presence: unspecified Hepatic cirrhosis type: unspecified hepatic cirrhosis Qualified Code(s): K74.60 - Unspecified cirrhosis of liver
--- NOTE | 2025-05-26 12:06 | History & Physical Report ---
Date of Service May 23, 2025 Assessment & Plan (1) Ischemic bowel disease: Plan: Resolving ischemic colitis. Expected to continue. Will follow from a distance Admission and Anticipated Discharge Date Admission Date: May 22, 2025 History of Present Illness Chief Complaint: Ischemic colitis Patient mated with sepsis and lactic acidosis. CT scan suggestive of right colon ischemia. Patent SMA. Remarkably the patient has shown signs of recovery with decreasing white count improve mentation resolution of acidosis. This is consistent with reestablishment of blood supply to the right colon. Expect to continue. Most ischemic colitis is a 1 and done type of phenomenon. Of course it can recur if the blood supply remains tenuous. An SMA stent would be of no benefit in the absence of an ostial lesion. Primary Care Provider: Petey Thrasher DO As above Allergies Allergy/AdvReac Type Severity Reaction Status Date / Time clindamycin Allergy Hives Verified 07/04/24 15:10 Home Medications Medication Instructions Recorded Confirmed Type duloxetine 60 mg capsule,delayed 60 mg PO DAILY #30 caps 05/10/25 05/22/25 Rx release lactulose 10 gram/15 mL oral 20 g (30 mL) PO TID #946 mL 05/10/25 05/22/25 Rx solution pantoprazole 40 mg tablet,delayed 40 mg PO QAM #30 tabs 05/10/25 05/22/25 Rx release umeclidinium 62.5 mcg/actuation 1 inh inhalation QAM #1 ea 05/10/25 05/22/25 Rx blister powder for inhalation (Incruse Ellipta) acetaminophen 325 mg tablet 650 mg PO Q4 PRN Pain 05/22/25 05/22/25 History acetaminophen 325 mg tablet 650 mg PO Q4 PRN temp > 38C OR 05/22/25 05/22/25 History 100.5F cholecalciferol (vitamin D3) 50 50 mcg PO QAM 05/22/25 05/22/25 History mcg (2,000 unit) capsule (Vitamin D3) folic acid 1 mg tablet 1 mg PO QAM 05/22/25 05/22/25 History gabapentin 300 mg capsule 600 mg PO TID 05/22/25 05/22/25 History lisinopril 10 mg tablet 10 mg PO DAILY 05/22/25 05/22/25 History lorazepam 0.5 mg tablet 0.5 mg PO UD PRN Anxiety 05/22/25 05/22/25 History methotrexate sodium 2.5 mg tablet 15 mg PO WK 05/22/25 05/22/25 History potassium chloride 20 mEq 40 meq PO QAM 05/22/25 05/22/25 History tablet,extended release(part/cryst) Past Med/Surg History Problem List (Updated 05/24/25 @ 12:13 by Santhosh Ortiz DO) Acute hyperactive delirium due to another medical condition Acute on chronic heart failure with preserved ejection fraction Acute ischemic colitis Acute metabolic encephalopathy Severe sepsis with acute organ dysfunction Ischemic bowel disease Lactic acid acidosis Interstitial lung disease Elevated brain natriuretic peptide (BNP) level Abnormal CT of the chest Pulmonary embolism Severe sepsis Elevated lactic acid level (Acute) Tachycardia (Acute) Cirrhosis of liver (Acute) Pneumonia (Acute) Sepsis (Acute) Anemia Hyperbilirubinemia Hypotension Hyponatremia Cirrhosis Elevated LFTs UTI (urinary tract infection) (Acute) Metabolic encephalopathy Hyperammonemia (Acute) Hypomagnesemia (Acute) Hypokalemia (Acute) Acute alteration in mental status (Acute) Acute hyponatremia (Acute) History of tobacco use Methotrexate, [employer], current use Abnormal CT scan, chest Family history of ischemic heart disease Sinus tachycardia Elevated troponin Multifocal pneumonia Acute hypoxemic respiratory failure Pneumonia (Acute) CHF (congestive heart failure) (Acute) Hypoxia (Acute) Shock Open wound of female genital organ Diarrhea (Acute) Cellulitis (Acute) Acute hypotension (Acute) History of knee surgery History of dental surgery History of carpal tunnel release Polymyositis Medical History Major depressive disorder Anxiety disorder Hypertension Diverticulitis Urinary tract infection HAL (acute kidney injury) Sepsis Neutropenic fever Surgical History History of laparoscopic cholecystectomy Family History Mother Heart disease Cancer Father Heart disease Diabetes Brother Heart disease Social History Smoking Status: Former smoker Tobacco Type: Cigarettes Cigarettes Per Day: 30; Second Hand Exposure: No; Hx Alcohol Use: Yes Alcohol type: hard liquor Hx Substance Use: No Communication Ability: Impaired Management Associate Required: No Beliefs That Will Affect Care: None Current Living Situation: Spouse Other Information That Helps Us Care for You: No Feels Safe at Home: Yes Safety Concerns: Feels Safe At This Time Assistive Devices: Wheelchair Physical Exam Physical Exam: Patient seems alert. Able answer questions appropriately. Recognizes family members. Abdomen benign Results & Data Vital Signs (Past 12 Hours) Vital Signs Temp Pulse Pulse Resp BP BP BP 05/23/25 07:38 36.5 C 126 H 19 98/72 L 05/23/25 05:07 22 120/52 L 05/23/25 04:35 120 H 101/55 L 05/23/25 03:45 36.6 C 131 H 27 H 93/71 L 05/23/25 03:21 95/59 L 05/23/25 02:41 124 H 111/52 L 05/23/25 02:39 95/69 L 05/23/25 02:22 124 H 18 99/69 L 05/23/25 01:34 127 H 05/23/25 01:06 127 H 05/23/25 01:06 05/23/25 01:06 36.9 C 129 H 24 107/74 05/23/25 01:06 05/23/25 00:30 125 H 20 135/73 05/23/25 00:15 127 H 20 116/76 05/22/25 23:30 131 H 16 133/92 05/22/25 23:09 130 H 19 05/22/25 23:08 130 H 05/22/25 23:05 121/73 05/22/25 23:05 121/73 05/22/25 23:05 121/73 05/22/25 23:01 112/61 05/22/25 23:01 112/61 05/22/25 22:55 110/75 05/22/25 22:51 76/53 L 05/22/25 22:40 102/72 05/22/25 22:39 137 H 32 H 05/22/25 22:37 117/75 05/22/25 22:36 138 H 20 05/22/25 22:33 91/69 L 05/22/25 22:33 91/69 L 05/22/25 22:33 91/69 L 05/22/25 22:24 140 H 17 05/22/25 22:21 102/56 L 05/22/25 22:10 118/88 05/22/25 22:01 112/77 05/22/25 21:54 139 H 20 05/22/25 21:51 115/70 05/22/25 21:51 115/70 05/22/25 21:42 138 H 21 05/22/25 21:40 116/83 05/22/25 21:30 138 H 21 05/22/25 21:10 122/70 05/22/25 21:10 122/70 05/22/25 21:09 131 H 21 05/22/25 21:06 131 H 21 05/22/25 21:02 105/84 05/22/25 21:02 105/84 05/22/25 21:00 107/62 Pulse Ox Pulse Ox O2 Del Method O2 Del Method O2 Flow Rate O2 Flow Rate 05/23/25 07:38 91 Nasal Cannula 05/23/25 05:07 98 Nasal Cannula 2 05/23/25 04:35 05/23/25 03:45 98 Nasal Cannula 2.0 05/23/25 03:21 05/23/25 02:41 05/23/25 02:39 05/23/25 02:22 05/23/25 01:34 05/23/25 01:06 05/23/25 01:06 Nasal Cannula 3 05/23/25 01:06 95 Nasal Cannula 3 05/23/25 01:06 96 Nasal Cannula 3 05/23/25 00:30 100 Nasal Cannula 3 05/23/25 00:15 99 Nasal Cannula 3 05/22/25 23:30 100 Nasal Cannula 3 05/22/25 23:09 100 05/22/25 23:08 05/22/25 23:05 05/22/25 23:05 05/22/25 23:05 05/22/25 23:01 05/22/25 23:01 05/22/25 22:55 05/22/25 22:51 05/22/25 22:40 05/22/25 22:39 05/22/25 22:37 05/22/25 22:36 05/22/25 22:33 05/22/25 22:33 05/22/25 22:33 05/22/25 22:24 05/22/25 22:21 05/22/25 22:10 05/22/25 22:01 05/22/25 21:54 05/22/25 21:51 05/22/25 21:51 05/22/25 21:42 92 05/22/25 21:40 05/22/25 21:30 05/22/25 21:10 05/22/25 21:10 05/22/25 21:09 94 05/22/25 21:06 96 05/22/25 21:02 05/22/25 21:02 05/22/25 21:00 Code Status & VTE Plan VTE Prophylaxis Plan VTE Prophylaxis will be ordered: Yes Coding Level of Care Code 49289 INT INP/OBS CARE MIN Diagnoses Ischemic bowel disease K55.9
[2025-05-26] MEDS: DICLOFENAC SOD 1% GEL 100 GM TUBE EXT PRN (12:52)
[2025-05-27 06:12] LABS: Hematocrit (blood only) 22.4 % (37.0-47.0); Hemoglobin 7.6 g/dl (12.0-16.0); Mean Corpuscular Hemoglobin 40.0 pg (25.0-34.0); Mean Corpuscular Volume 117.9 fL (80.0-100.0); Platelet Count 153 K/uL (130-400); RDW Standard Deviation 66.0 fL (36.4-46.3); Red Blood Count 1.90 M/uL (4.20-5.40); White Blood Count 14.48 K/ul (4.8-10.8)
[2025-05-27 06:44] LABS: Alanine Aminotransferase 25.0 U/L (7-52); Alkaline Phosphatase 68.0 U/L (34-104); Anion Gap 7.0 (3-11); Bilirubin,Total 5.4 mg/dl (0.2-1.0); Blood Urea Nitrogen 12.0 mg/dl (6-23); Calcium 8.3 mg/dl (8.6-10.3); Carbon Dioxide 23.0 mmol/L (21-32); Chloride 106.0 mmol/L (98-107); Creatinine Clr Calc Pharmacy 123.7 ml/min; Glucose 91.0 mg/dl (70-99(Fasting)); Magnesium 1.8 mg/dl (1.7-2.4); Potassium 3.3 mmol/L (3.5-5.1); Sodium 136.0 mmol/L (136-145); Total Protein 5.0 gm/dl (6.0-8.3)
[2025-05-27] MEDS ORDERED: POTASSIUM PHOS 3 MMOL/1 ML INFUSION IV STA (07:18)
[2025-05-27] MEDS: FUROSEMIDE 40 MG/4 ML VIAL IV ONE (08:07)
[2025-05-27] MEDS: POTASSIUM PHOSPHATE 24 MMOL in SODIUM CHLORIDE 0.9% 500 ML IV ONE (08:21)
--- NOTE | 2025-05-27 12:31 | Hospitalist Progress Note ---
Date of Service May 27, 2025 Assessment & Plan (1) Severe sepsis with acute organ dysfunction: Plan: With evidence of early shock (2) Acute ischemic colitis: (3) Acute hyperactive delirium due to another medical condition: (4) Acute metabolic encephalopathy: (5) Pulmonary embolism: (6) Pneumonia: (7) Acute on chronic heart failure with preserved ejection fraction: (8) Lactic acid acidosis: (9) Cirrhosis of liver: (10) Interstitial lung disease: (11) Sinus tachycardia: (12) Methotrexate, long-term, current use: Plan Patient 55-year-old female with severe sepsis and organ dysfunction due to pr esumed ischemic colitis/ischemic bowel. Seems to be steadily improving. But remains significantly ill requiring hospital level care and monitoring. Liver functions improving. Encephalopathy improving.WBCs slightly increased today will continue to monitor Replace potassium and phosphorus Additional diuretics today, patient volume overloaded in the setting of resuscitation and sepsis Continue therapies as able Communication with speech, anticipating video swallow tomorrow Case management continue to pursue rehab placement Updated patient's daughter via phone Admission and Anticipated Discharge Date Admission Date: May 22, 2025 Subjective Patient sitting up eating breakfast this morning. Denies any pain. Asking when she can go home. Nurse states patient refuses lactulose Physical Exam Physical Exam: Constitutional: Alert, less ill in appearance HEENT: Mucous membranes moist., Scleral icterus Lungs: Decreased breath sounds, crackles and rales at bases CV: S1-S2, regular, tachycardic Abdomen: Soft, nontender, nondistended Extremities: Upper extremity edema slightly improved Derm: Jaundiced Neuro: No focal deficits, generally weak Psych: Cooperative, encephalopathy improving Results & Data Results & Data Vital Signs (Past 12 Hours) Vital Signs Temp Pulse Resp BP Pulse Ox O2 Del Method O2 Flow Rate 05/27/25 07:42 Room Air, Nasal Cannula 05/27/25 07:14 36.6 C 101 H 16 131/86 92 Nasal Cannula 2 Diagnostic Findings Reviewed imaging, laboratory and diagnostic studies. Pertinent findings as below. WBCs 14.4, slightly increased Hemoglobin 7.6 slightly decreased Platelets of 153 Potassium 3.3, improved Creatinine 0.58 Phosphorus 2.4 Total bilirubin 5.4, improved AST 55 ALT 25 Alk phos 68 (6) Pneumonia Laterality: bilateral Lung location: lower lobe of lung Pneumonia type: due to unspecified organism Qualified Code(s): J18.9 - Pneumonia, unspecified organism (9) Cirrhosis of liver Ascites presence: unspecified Hepatic cirrhosis type: unspecified hepatic cirrhosis Qualified Code(s): K74.60 - Unspecified cirrhosis of liver
[2025-05-27 14:28] LABS: Hematocrit (blood only) 26.3 % (37.0-47.0); Hemoglobin 8.6 g/dl (12.0-16.0)
[2025-05-28 06:48] LABS: Hematocrit (blood only) 24.1 % (37.0-47.0); Hemoglobin 7.8 g/dl (12.0-16.0); Mean Corpuscular Hemoglobin 39.0 pg (25.0-34.0); Mean Corpuscular Volume 120.5 fL (80.0-100.0); Platelet Count 153 K/uL (130-400); RDW Standard Deviation 66.5 fL (36.4-46.3); Red Blood Count 2.00 M/uL (4.20-5.40); White Blood Count 18.96 K/ul (4.8-10.8)
[2025-05-28 07:26] LABS: Anion Gap 7.0 (3-11); Blood Urea Nitrogen 11.0 mg/dl (6-23); Calcium 8.4 mg/dl (8.6-10.3); Carbon Dioxide 25.0 mmol/L (21-32); Chloride 106.0 mmol/L (98-107); Creatinine Clr Calc Pharmacy 112.4 ml/min; Glucose 95.0 mg/dl (70-99(Fasting)); Magnesium 1.6 mg/dl (1.7-2.4); Potassium 3.6 mmol/L (3.5-5.1); Sodium 138.0 mmol/L (136-145)
--- NOTE | 2025-05-28 11:35 | Fluoroscopy Report ---
VIDEO SWALLOW STUDY CLINICAL HISTORY: Aspiration. Fluoro time: 1.32 minutes. Ka,r: 12.0 mGy FINDINGS: Fluoroscopic guidance is provided to the Department of speech pathology in performing a vid eo swallow study. The patient consumed barium-impregnated pudding and nectar-thick liquids, as well a s thin barium while the swallowing mechanism was observed in real-time. There was deep pharyngeal pen etration and silent aspiration with the initial swallows of thin barium. There were additional foci o f iman aspiration with cough reflex seen with thin barium. Pharyngeal penetration was seen with nect ar-thick liquids. No aspiration was identified. A tiny Zenker's diverticulum is suggested. No penetra tion or aspiration was seen with the pudding texture. IMPRESSION: 1. There is deep pharyngeal penetration and aspiration with thin barium. 2. Pharyngeal penetration is seen with nectar thick liquids without aspiration. 3. See dedicated speech pathology report for detailed findings and recommendations. Dictated: 05/28/2025 11:07 AM Transcribed: 05/28/2025 11:18 AM Fausto [id number] [email or web address] Electronically signed by: Rivas Stokes M.D. 05/28/2025 11:34 AM
--- NOTE | 2025-05-28 13:31 | Hospitalist Progress Note ---
Date of Service May 28, 2025 Assessment & Plan (1) Severe sepsis with acute organ dysfunction: Plan: With evidence of early shock (2) Acute ischemic colitis: (3) Acute hyperactive delirium due to another medical condition: (4) Acute metabolic encephalopathy: (5) Pulmonary embolism: (6) Pneumonia: (7) Acute on chronic heart failure with preserved ejection fraction: (8) Lactic acid acidosis: (9) Cirrhosis of liver: (10) Interstitial lung disease: (11) Sinus tachycardia: (12) Methotrexate, care home, current use: Plan Patient 55-year-old female with significant cirrhosis presented with sepsis most likely due to ischemic colitis. Clinically the patient is significantly improved when compared to admission Concerning WBCs significantly increased today, patient overall as mention above significantly improved. At this point we will continue IV antibiotics and monitor WBCs Patient is having a couple bloody stools, suspect this is sloughing of the internal mucosa from ischemic colitis. Communication with nurse, stool is loose but does not have a typical C. difficile smell. Patient on lactulose for her hepatic encephalopathy and will have chronically loose stools. With increasing WBCs and use of antibiotics concern for active C. difficile infection, she is a carrier. Will recheck stool for C. difficile for toxin Continue therapies Extensive conversation with the patient about her need for ongoing care when she is ready for discharge. She is agreeable to considering other SNF rehabs other than [facility] Replace magnesium Patient is responding to the Lasix diuresis, weight is still up from admission, good IV Lasix today x 1 dose reevaluate each day for daily dosing and monitoring of electrolytes Updated patient's daughter via phone Admission and Anticipated Discharge Date Admission Date: May 22, 2025 Subjective Patient underwent video swallow this morning. Tolerated well. Sitting up eating her lunch and visiting with her friends. Physical Exam Physical Exam: Constitutional: Alert, significantly less ill in appearance HEENT: Mucous membranes moist. Scleral icterus Lungs: decreased breath sounds, crackles at bases CV: S1-S2, regular Abdomen: Soft, nontender, nondistended Extremities: Third spacing edema upper extremities and hips Derm: Covarrubias jaundice Neuro: No focal deficits, generally weak, encephalopathy improving Psych: Cooperative, normal mood Results & Data Results & Data Vital Signs (Past 12 Hours) Vital Signs Temp Pulse Resp BP Pulse Ox O2 Del Method O2 Flow Rate 05/28/25 12:34 37.0 C 119 H 15 133/82 95 Room Air 05/28/25 10:02 Nasal Cannula 1 05/28/25 08:12 36.7 C 117 H 16 139/85 96 Room Air Diagnostic Findings Reviewed imaging, laboratory and diagnostic studies. Pertinent findings as below. Reviewed video swallow with speech therapist, appropriate diet ordered, chronic risk of aspiration Magnesium 1.6 Creatinine 0.64 Potassium 3.6 Hemoglobin 7.8, overall stable WBCs 18.9, increased (6) Pneumonia Laterality: bilateral Lung location: lower lobe of lung Pneumonia type: due to unspecified organism Qualified Code(s): J18.9 - Pneumonia, unspecified organism (9) Cirrhosis of liver Ascites presence: unspecified Hepatic cirrhosis type: unspecified hepatic cirrhosis Qualified Code(s): K74.60 - Unspecified cirrhosis of liver
[2025-05-28] MEDS: MAGNESIUM SULFATE / D5W 1 GM/100 ML BAG IV SCH (14:41)
[2025-05-28] MEDS: FUROSEMIDE 40 MG/4 ML VIAL IV ONE (14:41)
[2025-05-29 06:18] LABS: Hematocrit (blood only) 22.4 % (37.0-47.0); Hemoglobin 7.4 g/dl (12.0-16.0); Mean Corpuscular Hemoglobin 40.4 pg (25.0-34.0); Mean Corpuscular Volume 122.4 fL (80.0-100.0); Platelet Count 199 K/uL (130-400); RDW Standard Deviation 64.8 fL (36.4-46.3); Red Blood Count 1.83 M/uL (4.20-5.40); White Blood Count 26.91 K/ul (4.8-10.8)
[2025-05-29 06:54] LABS: Alanine Aminotransferase 21.0 U/L (7-52); Alkaline Phosphatase 75.0 U/L (34-104); Anion Gap 9.0 (3-11); Bilirubin,Total 5.4 mg/dl (0.2-1.0); Blood Urea Nitrogen 10.0 mg/dl (6-23); Calcium 8.7 mg/dl (8.6-10.3); Carbon Dioxide 24.0 mmol/L (21-32); Chloride 108.0 mmol/L (98-107); Creatinine Clr Calc Pharmacy 100.6 ml/min; Glucose 96.0 mg/dl (70-99(Fasting)); Magnesium 2.1 mg/dl (1.7-2.4); Potassium 3.9 mmol/L (3.5-5.1); Sodium 141.0 mmol/L (136-145); Total Protein 5.5 gm/dl (6.0-8.3)
[2025-05-29] MEDS: PIPERACILLIN/TAZOBACTAM 4.5 GM/100 ML BAG IV ONE (13:34)
--- NOTE | 2025-05-29 17:37 | Hospitalist Progress Note ---
Date of Service May 29, 2025 Assessment & Plan (1) Severe sepsis with acute organ dysfunction: Plan: With evidence of early shock She missed antibiotics for about 24 hours since early in the morning on and until this morning Her white blood cell count has gone up to 26.91 and hemoglobin low at 7.4 Has been on intravenous Zosyn and will be continued for now Her stool was positive for C. difficile gene a but negative for C. difficile toxin Will start vancomycin p.o. due to continued diarrhea and also increased white count discussed with the family members specially the daughter (2) Acute ischemic colitis: Plan: Has had bloody stool and a suspected ischemic colitis Denies any abdominal pain today Bloody diarrhea has stopped (3) Acute hyperactive delirium due to another medical condition: (4) Acute metabolic encephalopathy: Plan: (5) Pulmonary embolism: Plan: Continue Eliquis 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, jail, current use: Plan Note from prior hospitalist: Patient 55-year-old female with significant cirrhosis presented with sepsis most likely due to ischemic colitis. Clinically the patient is significantly improved when compared to admission Concerning WBCs significantly increased today, patient overall as mention above significantly improved. At this point we will continue IV antibiotics and monitor WBCs Patient is having a couple bloody stools, suspect this is sloughing of the internal mucosa from ischemic colitis. Communication with nurse, stool is loose but does not have a typical C. difficile smell. Patient on lactulose for her hepatic encephalopathy and will have chronically loose stools. With increasing WBCs and use of antibiotics concern for active C. difficile infection, she is a carrier. Will recheck stool for C. difficile for toxin Continue therapies Extensive conversation with the patient about her need for ongoing care when she is ready for discharge. She is agreeable to considering other SNF rehabs other than [facility] Replace magnesium Patient is responding to the Lasix diuresis, weight is still up from admission, good IV Lasix today x 1 dose reevaluate each day for daily dosing and monitoring of electrolytes Updated patient's daughter via phone Admission and Anticipated Discharge Date Admission Date: May 22, 2025 Subjective 05/29/2025 The patient was seen and examined in medical floor in presence of the family members She has been feeling better but her white count has gone up without fever and no chills Denies any abdominal pain, nausea or vomiting and bowel is moving Results & Data Results & Data Vital Signs (Past 12 Hours) Vital Signs Temp Pulse Resp BP Pulse Ox O2 Del Method O2 Flow Rate 05/29/25 15:29 36.7 C 123 H 18 122/77 95 Room Air 05/29/25 08:30 Nasal Cannula 1 05/29/25 07:29 36.8 C 120 H 16 130/81 91 Nasal Cannula (6) Pneumonia Laterality: bilateral Lung location: lower lobe of lung Pneumonia type: due to unspecified organism Qualified Code(s): J18.9 - Pneumonia, unspecified organism (9) Cirrhosis of liver Ascites presence: unspecified Hepatic cirrhosis type: unspecified hepatic cirrhosis Qualified Code(s): K74.60 - Unspecified cirrhosis of liver
[2025-05-29] MEDS: CHERRY SYRUP 5 ML UDP PO SCH (18:39)
[2025-05-29] MEDS: VANCOMYCIN HCL 250 MG/5 ML SOLN PO SCH (18:39)
[2025-05-29] MEDS: PIPERACILLIN/TAZOBACTAM 4.5 GM/100 ML BAG IV SCH (18:40)
[2025-05-30 07:06] LABS: Alanine Aminotransferase 23.0 U/L (7-52); Albumin Globulin Ratio 0.8 (0.9-2); Alkaline Phosphatase 85.0 U/L (34-104); Anion Gap 14.0 (3-11); Bilirubin,Total 6.0 mg/dl (0.2-1.0); Blood Urea Nitrogen 13.0 mg/dl (6-23); Calcium 9.0 mg/dl (8.6-10.3); Carbon Dioxide 22.0 mmol/L (21-32); Chloride 111.0 mmol/L (98-107); Creatinine Clr Calc Pharmacy 75.7 ml/min; Globulin 3.1 gm/dl (2.5-4.0); Glucose 106.0 mg/dl (70-99(Fasting)); Magnesium 2.1 mg/dl (1.7-2.4); Potassium 4.0 mmol/L (3.5-5.1); Sodium 147.0 mmol/L (136-145); Total Protein 5.7 gm/dl (6.0-8.3)
[2025-05-30 08:35] LABS: ALC (manual) 2.70 K/uL (1.2-3.4); ANC (manual) 33.57 K/uL (1.4-6.5); Basophilic Stippling 1+; Hematocrit (blood only) 22.9 % (37.0-47.0); Hemoglobin 7.1 g/dl (12.0-16.0); Macrocytosis Present; Mean Corpuscular Hemoglobin 40.3 pg (25.0-34.0); Mean Corpuscular Volume 130.1 fL (80.0-100.0); Platelet Count 200 K/uL (130-400); Polychromasia 2+; RDW Standard Deviation 74.9 fL (36.4-46.3); Red Blood Count 1.76 M/uL (4.20-5.40); Toxic Granulation 1+; White Blood Count 38.59 K/ul (4.8-10.8)
--- NOTE | 2025-05-30 09:30 | XRay Report ---
XR chest 1V portable HISTORY: 55 years-old Female Pneumonia acute shortness of breath COMPARISON: CTA chest 05/22/2025, chest CT 04/17/2023. TECHNIQUE: AP view of the chest FINDINGS: Cardiomediastinal and hilar silhouettes are unchanged. Lungs are mildly hypoinflated. No pneumothorax , pleural effusion or airspace consolidation. Emphysema with chronic reticular interstitial densities . Bones appear grossly intact. Gaseous distention of the hepatic flexure with right hemidiaphragmatic elevation again noted. IMPRESSION: 1. No airspace consolidation typical for pneumonia. 2. Emphysema with unchanged reticular opacities suggestive of chronic interstitial lung disease. ACT 112: Negative or not required by law. The above report was generated using voice recognition software. It may contain grammatical, syntax o r spelling errors. Electronically signed by: Francisco Rinaldi M.D. 05/30/2025 9:29 AM
[2025-05-30] MEDS ORDERED: SODIUM CHLORIDE 0.9% 100 ML IV PRN (11:45)
[2025-05-30] MEDS: LACTULOSE 200GM/700ML WTR ENEMA PR SCH (12:30)
--- NOTE | 2025-05-30 13:50 | Communication Note ---
Palliative Care Note Patient seen and examined at bedside. Patient alert and oriented to person, place, not time. States she feels confused. Denies pain, nausea, vomiting. Of note, has red blood per rectum noted. Discussed case with next of kin and granddaughter over the phone, discussed code status and resuscitation at length. Given her progressive liver failure, poor functional status and nutritional status, patient is unlikely to survive resuscitation. Family states that patient does not want to be intubated or to suffer. Explained that chest compressions almost certainly require intubation. Family states that they would not want her to suffer and would not want chest compressions or intubation. I recommended DNRDNI in line with patient and family wishes, family in agreement. Gen: A&O 2 NAD, sarcopenia noted HEENT: significant jaundice noted Neck: Supple, full range of motion, no observable masses, No meningeal sign. Lungs: No Respiratory distress. CV: tachycardic, regular rhythm Abdomen: Soft, nondistended, No rebound tenderness. MSK: No joint swelling, no redness. Neuro: Normal Gait, Grossly intact. Psych: confused #Hepatic Encephalopathy #Severe Leukocytosis #Subacute PE #Multiorgan Dysfunction #R/o Acute Ischemic Colitis -patient with multiorgan dysfunction (severe cirrhosis, PE, likely ischemic co litis, HFpEF, ILD, polymyositis, resolving CAP) and poor functional status -MELD Na of 24 points, low albumin with ECOG 4 portends poor prognosis -discussed prognosis with family, likely on scale of weeks to months, pending workup of reactive leukocytosis Plan: -DNRDNI in line with patient wishes (ordered) -family meeting tomorrow at 10 am to discuss goals and values with and granddaughter -stop duloxetine given contraindication in liver failure (ordered) -start rifaxamin (ordered) -avoid anticholinergics or antipsychotics due to mental status, prefer 1 to 1 sitter -medical workup per primary team Date of Service: May 30, 2025
--- NOTE | 2025-05-30 15:18 | Hospitalist Progress Note ---
Date of Service May 30, 2025 Assessment & Plan (1) Severe sepsis with acute organ dysfunction: Plan: With evidence of early shock She missed antibiotics for about 24 hours since early in the morning on and until this morning Her white blood cell count has gone up to 26.91 and hemoglobin low at 7.4 Has been on intravenous Zosyn and will be continued for now Her stool was positive for C. difficile gene a but negative for C. difficile toxin Will start vancomycin p.o. due to continued diarrhea and also increased white count Discussed with the family members specially the daughter Her condition has deteriorated with increasing confusion, weakness and decreasing hemoglobin Discussed with family members and will advise for palliative care input as her condition has not been improving at all (2) Acute ischemic colitis: Plan: Has had bloody stool and a suspected ischemic colitis Denies any abdominal pain today Bloody diarrhea has stopped Complaint minimal pain in the right upper quadrant without tenderness Bowel has not been moving and was given an enema and later on she had a bowel movement with dark-colored and bloody Stool was positive for C. difficile gene but toxin was negative Given increasing white count she was started with oral vancomycin Anemia Secondary to blood loss May be complicated by ischemic colitis Hemoglobin dropped to 7.1 and will give 1 unit of blood transfusion Has been on Eliquis for pulmonary embolism (3) Acute hyperactive delirium due to another medical condition: (4) Acute metabolic encephalopathy: Plan: Likely secondary to hepatic failure Has been getting lactulose and rifaximin is added Prognosis remains guarded Ammonia level remains normal at 29.0 (5) Pulmonary embolism: Plan: Continue Eliquis 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, correction, current use: Plan Note from prior hospitalist: Patient 55-year-old female with significant cirrhosis presented with sepsis most likely due to ischemic colitis. Clinically the patient is significantly improved when compared to admission Concerning WBCs significantly increased today, patient overall as mention above significantly improved. At this point we will continue IV antibiotics and monitor WBCs Patient is having a couple bloody stools, suspect this is sloughing of the internal mucosa from ischemic colitis. Communication with nurse, stool is loose but does not have a typical C. difficile smell. Patient on lactulose for her hepatic encephalopathy and will have chronically loose stools. With increasing WBCs and use of antibiotics concern for active C. difficile infection, she is a carrier. Will recheck stool for C. difficile for toxin Continue therapies Extensive conversation with the patient about her need for ongoing care when she is ready for discharge. She is agreeable to considering other SNF rehabs other than [facility] Replace magnesium Patient is responding to the Lasix diuresis, weight is still up from admission, good IV Lasix today x 1 dose reevaluate each day for daily dosing and monitoring of electrolytes Updated patient's daughter via phone Admission and Anticipated Discharge Date Admission Date: May 22, 2025 Subjective 05/29/2025 The patient was seen and examined in medical floor in presence of the family members She has been feeling better but her white count has gone up without fever and no chills Denies any abdominal pain, nausea or vomiting and bowel is moving 05/30/2025 The patient was seen and examined in medical floor in presence of the family members Her condition has been worse today with increasing drowsiness and mild confusion Denies any significant pain Her prognosis remains guarded Review of Systems Review of Systems: All systems reviewed and are unremarkable except as noted below Physical Exam Physical Exam: Lying in bed without any acute distress Constitutional: well developed, well nourished and + ill appearing Eyes: Has jaundice Neck: trachea midline, no thyromegaly Respiratory: no respiratory distress Auscultation: + diminished lung sounds and + crackles (Bibasilar crackles) Cardiovascular: Rate/Rhythm: regular rate and regular rhythm; not tachycardic Heart Sounds: normal S1 and normal S2; no murmur Extremities: + edema (1+ edema bilaterally) Gastrointestinal (Abdomen): Inspection/Auscultation: normal bowel sounds; abdomen not distended Percussion/Palpation: abdomen soft; abdomen nontender Musculoskeletal: No acute arthritis involving any of the joint Neurologic: + confused Lymphatic: no cervical or axillary lymphadenopathy Results & Data Results & Data Vital Signs (Past 12 Hours) Vital Signs Temp Pulse Pulse Resp BP BP BP 05/30/25 15:07 36.7 C 119 H 20 134/83 05/30/25 14:37 36.4 C L 118 H 16 130/82 05/30/25 14:22 36.6 C 120 H 16 119/59 L 05/30/25 14:21 36.6 C 119 H 16 119/59 L 05/30/25 14:03 36.3 C L 119 H 18 121/81 05/30/25 13:21 36.5 C 125 H 14 118/82 05/30/25 07:53 36.5 C 121 H 15 116/78 05/30/25 07:30 Pulse Ox O2 Del Method O2 Flow Rate 05/30/25 15:07 97 1.0 05/30/25 14:37 98 1 05/30/25 14:22 97 05/30/25 14:21 97 1 05/30/25 14:03 95 1 05/30/25 13:21 98 Nasal Cannula 1 05/30/25 07:53 94 Nasal Cannula 05/30/25 07:30 Nasal Cannula 1 Laboratory Results Short CBC 05/30/25 Range/Units 06:05 WBC 38.59 H* (4.8-10.8) K/ul Hgb 7.1 L (12.0-16.0) g/dl Hct 22.9 L (37.0-47.0) % Plt Count 200 (130-400) K/uL BMP 05/30/25 06:05 Sodium 147 H Potassium 4.0 Chloride 111 H Carbon Dioxide 22 BUN 13 Creatinine 0.93 Glucose 106 H Calcium 9.0 Liver Function 05/30/25 Range/Units 06:05 Total Bilirubin 6.0 H (0.2-1.0) mg/dl AST 50 H (13-39) U/L ALT 23 (7-52) U/L Alkaline Phosphatase 85 (34-104) U/L Albumin 2.6 L (3.4-5.0) gm/dl Medications Administered Current Inpatient Medications Acetaminophen (Acetaminophen 325 Mg Tab) 650 mg PO Q6H PRN PRN Reason: Pain or Fever Stop: 06/24/25 13:03 Last Admin: 05/27/25 18:20 Dose: 650 mg Apixaban (Apixaban 5 Mg Tablet) 10 mg PO BID BONNIE Stop: 06/01/25 09:01 Last Admin: 05/30/25 08:45 Dose: 10 mg Saunders Syrup (Saunders Syrup 5 Ml Udp) 5 ml PO Q6 BONNIE Stop: 06/08/25 17:59 Last Admin: 05/30/25 11:11 Dose: 5 ml Diclofenac Sodium (Diclofenac Sod 1% Gel 100 Gm Tube) 2 gm EXT BID PRN; Protocol PRN Reason: Pain Stop: 06/25/25 20:59 Last Admin: 05/26/25 12:52 Dose: 2 gm Folic Acid (Folic Acid 1 Mg Tab) 1 mg PO QAM [facility] Stop: 06/22/25 08:59 Last Admin: 05/30/25 08:03 Dose: 1 mg Piperacillin Sod/Tazobactam Sod (Zosyn) 4.5 gm in 100 mls @ 25 mls/hr IV Q8H [facility]; Protocol Stop: 06/01/25 23:59 Last Admin: 05/30/25 11:06 Dose: 25 mls/hr Sodium Chloride (Nss) 100 mls @ 15 mls/hr IV .Q6H40M PRN PRN Reason: For Transfusion Duration Stop: 05/30/25 19:45 Lactulose (Lactulose Syrup 20 Gm/30 Ml Udc) 20 gm PO TID [facility] Stop: 06/22/25 08:59 Last Admin: 05/30/25 14:14 Dose: 20 gm Lactulose (Lactulose 200gm/700ml Wtr Enema) 200 gm KS Q8H B[facility]NIE Stop: 06/29/25 11:59 Last Admin: 05/30/25 12:30 Dose: 200 gm Ondansetron HCl (Ondansetron Inj 2 Mg/Ml 2 Ml Vial) 4 mg IV Q6H PRN PRN Reason: Nausea Stop: 06/22/25 01:05 Oxycodone HCl (Oxycodone Hcl Ir 5 Mg Tab (Immediate Release)) 2.5 mg PO Q6H PRN PRN Reason: Pain Stop: 06/08/25 13:04 Last Admin: 05/25/25 21:04 Dose: 2.5 mg Pantoprazole Sodium (Pantoprazole 40 Mg Tab) 40 mg PO QAM [facility] Stop: 06/22/25 08:59 Last Admin: 05/30/25 08:03 Dose: 40 mg Potassium Chloride (Potassium Chloride 20 Meq/15 Ml Udc) 40 meq PO TID [facility] Stop: 06/24/25 13:59 Last Admin: 05/30/25 14:14 Dose: 40 meq Rifaximin (Rifaximin 550 Mg Tablet) 550 mg PO BID B[facility]NIE Stop: 06/29/25 20:59 Umeclidinium Evans (Umeclidinium Evans 62.5mcg/Blister 7 Puffs/Inhaler) 1 puffs INH QAM [facility] Stop: 06/22/25 08:59 Last Admin: 05/30/25 08:04 Dose: 1 puffs Vancomycin HCl (Vancomycin Hcl 125 Mg/2.5ml Soln) 125 mg PO Q6 [facility] Stop: 06/08/25 17:59 Vitamin D (Cholecalciferol 25 Mcg (1000 Units) Tab) 50 mcg PO QAM [facility] Stop: 06/22/25 08:59 Last Admin: 05/30/25 08:03 Dose: 50 mcg (6) Pneumonia Laterality: bilateral Lung location: lower lobe of lung Pneumonia type: due to unspecified organism Qualified Code(s): J18.9 - Pneumonia, unspecified organism (9) Cirrhosis of liver Ascites presence: unspecified Hepatic cirrhosis type: unspecified hepatic cirrhosis Qualified Code(s): K74.60 - Unspecified cirrhosis of liver
[2025-05-30] MEDS: VANCOMYCIN HCL 125 MG/2.5ML SOLN PO SCH (17:38)
[2025-05-30] MEDS: SODIUM CHLORIDE 0.9% 250 ML IV ONE (21:30)
[2025-05-30 22:19] LABS: Hematocrit (blood only) 25.7 % (37.0-47.0); Hemoglobin 8.1 g/dl (12.0-16.0)
[2025-05-31] MEDS: SODIUM CHLORIDE 0.9% 250 ML IV ONE (01:29)
[2025-05-31 08:03] LABS: Hematocrit (blood only) 23.6 % (37.0-47.0); Hemoglobin 7.8 g/dl (12.0-16.0); Mean Corpuscular Hemoglobin 36.6 pg (25.0-34.0); Mean Corpuscular Volume 110.8 fL (80.0-100.0); Platelet Count 145 K/uL (130-400); Red Blood Count 2.13 M/uL (4.20-5.40); White Blood Count 44.29 K/ul (4.8-10.8)
[2025-05-31 08:11] LABS: Anion Gap 10.0 (3-11); Blood Urea Nitrogen 18.0 mg/dl (6-23); Calcium 8.7 mg/dl (8.6-10.3); Carbon Dioxide 22.0 mmol/L (21-32); Chloride 119.0 mmol/L (98-107); Creatinine Clr Calc Pharmacy 54.2 ml/min; Glucose 115.0 mg/dl (70-99(Fasting)); Potassium 4.5 mmol/L (3.5-5.1); Sodium 151.0 mmol/L (136-145)
[2025-05-31 08:30] LABS: Anisocytosis Present; Basophilic Stippling 1+; Immature Granulocytes # (auto) 1.65 K/uL (0.01-0.20); Immature Granulocytes % (auto) 3.7 %; Macrocytosis Present; Polychromasia 2+
--- NOTE | 2025-05-31 12:00 | Communication Note ---
Patient and family discussed case at bedside, including POA and children. Full note incoming, family will pursue hospice on discharge, keep current level of care at this time. Date of Service: May 31, 2025
--- NOTE | 2025-05-31 13:54 | Hospitalist Progress Note ---
Date of Service May 31, 2025 Assessment & Plan (1) Severe sepsis with acute organ dysfunction: Plan: With evidence of early shock She missed antibiotics for about 24 hours since early in the morning on and until this morning Her white blood cell count has gone up to 26.91 and hemoglobin low at 7.4 Has been on intravenous Zosyn and will be continued for now Her stool was positive for C. difficile gene a but negative for C. difficile toxin Will start vancomycin p.o. due to continued diarrhea and also increased white count Discussed with the family members specially the daughter Her condition has deteriorated with increasing confusion, weakness and decreasing hemoglobin, ongoing bloody BM d/w palliative care, pt is aware of guarded prognosis and is looking into facility w/ hospice likely [facility] but until then would like to continue current level of care as able including labs and blood transfusion. (2) Acute ischemic colitis: Plan: Has had bloody stool and a suspected ischemic colitis briefly abd pain and bloody diarrhea had stopped, but it again came back, over night she had multiple bloody BMs, eliquis has been on hold. Complaint minimal pain in the right upper quadrant without tenderness Stool was positive for C. difficile gene but toxin was negative Given increasing white count she was started with oral vancomycin Anemia Secondary to blood loss May be complicated by ischemic colitis Hemoglobin dropped to 7.8 , repeat HnH 3 pm. PRBC if downtrending Hb. Has been on Eliquis for pulmonary embolism, currently on hold d/t ongoing bleeding. HAL and Hypernatremia: Na 147 yesterday upto 151 today, Cr 1.3 today, will start half ns and repeat BMP at 3PM. Low na diet , avoid nephrotoxics. (3) Acute hyperactive delirium due to another medical condition: (4) Acute metabolic encephalopathy: Plan: Likely secondary to hepatic failure Has been getting lactulose and rifaximin is added Prognosis remains guarded Ammonia level remains normal at 29.0 (5) Pulmonary embolism: Plan: Continue Eliquis if HnH is stable and bleeding stops. currently on hold due to multiple bloody BM overnight. 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 Denies any significant pain Her prognosis remains guarded Physical Exam Physical Exam: sitting up in bed without any acute distress Constitutional: well developed, well nourished and + ill appearing Eyes: icterus + Neck: trachea midline, no thyromegaly Respiratory: no respiratory distress Auscultation: + diminished lung sounds and + crackles (Bibasilar crackles) Cardiovascular: Rate/Rhythm: regular rate and regular rhythm; not tachycardic Heart Sounds: normal S1 and normal S2; no murmur Extremities: + edema (1+ edema bilaterally) Gastrointestinal (Abdomen): Inspection/Auscultation: normal bowel sounds; abdomen not distended Percussion/Palpation: + abdomen tender (mild) and abdomen soft Neurologic: + confused Lymphatic: no cervical or axillary lymphadenopathy Results & Data Results & Data Vital Signs (Past 12 Hours) Vital Signs Temp Pulse Resp BP Pulse Ox O2 Del Method 05/31/25 07:30 36.6 C 117 H 20 133/80 94 Room Air (6) Pneumonia Laterality: bilateral Lung location: lower lobe of lung Pneumonia type: due to unspecified organism Qualified Code(s): J18.9 - Pneumonia, unspecified organism (9) Cirrhosis of liver Ascites presence: unspecified Hepatic cirrhosis type: unspecified hepatic cirrhosis Qualified Code(s): K74.60 - Unspecified cirrhosis of liver
[2025-05-31] MEDS: SODIUM CHLORIDE 0.45 % 1,000 ML IV SCH (14:17)
--- NOTE | 2025-05-31 15:09 | Advance Care Plan Prog Note ---
Advanced Care Planning Note Date of Discussion May 31, 2025 ACP Discussion Diagnoses requiring ACP discussion: severe cirrhosis c/b hepatic encephalopathy, acute ischemic colitis, HFpEF, polymyositis, ILD, acute PE A [id number] discussion with the patient, daughter, son, regarding the patient's advanced care planning took place during this hospitalization on the above date. The discussion included the explanation and discussion of advance directives and associated forms/documents, as well as the patient's current code status. We also discussed at length the patient's medical conditions (both acute and chronic), general prognosis, treatment options, and goals of care. The following summarizes the discussion: Meeting began by introducing myself and my role on the care team, and family introduced themselves. Daughter and family were able to verbalize a very strong understanding of the patients conditions, including being critically ill from severe cirrhosis c/b hepatic encephalopathy, acute ischemic colitis, HFpEF, polymyositis, ILD, acute PE. I discussed the patients critical condition, and likely very poor prognosis. Prognosis likely on scale of weeks to months, with possible rapid deterioration given ischemic colitis could change the prognosis to days. Discussed best and worst case scenarios. Best case scenario would be in and out of nursing facilities and the hospital for the rest of her life, worst case scenario is dying in the hospital. Discussed two clinical options, one being time limited trial to see if she improves over the next few days vs. comfort focused care. Family states she would not want to live altered and without any quality of life. They would like to take her home as she would like to go home. They state they do not want her to suffer. Hospice was explained at length. Discussed role of hospice in comfort care. Given patients goals and values, recommended that we keep same level of care at this time and transition home with hospice services once set up. Family states this feels right to them. DPOA-HC/Surrogate Decision Maker -, children Status Resuscitation Status DNR/DNI No Resuscitation Total Time I spent a total of 60 minutes was spent on this discussion, including counseling, answering questions, and completing, if any, pertinent advanced care planning forms/documents.
[2025-05-31 15:23] LABS: Hematocrit (blood only) 24.6 % (37.0-47.0); Hemoglobin 7.7 g/dl (12.0-16.0)
[2025-05-31 15:37] LABS: Anion Gap 13.0 (3-11); Blood Urea Nitrogen 20.0 mg/dl (6-23); Calcium 9.0 mg/dl (8.6-10.3); Carbon Dioxide 19.0 mmol/L (21-32); Chloride 118.0 mmol/L (98-107); Creatinine Clr Calc Pharmacy 50.6 ml/min; Glucose 92.0 mg/dl (70-99(Fasting)); Potassium 4.8 mmol/L (3.5-5.1); Sodium 150.0 mmol/L (136-145)
--- NOTE | 2025-05-31 17:38 | Electrocardiogram Report ---
Test Reason : Blood Pressure : */* mmHG Vent. Rate : 119 BPM Atrial Rate : 119 BPM P-R Int : 126 ms QRS Dur : 70 ms QT Int : 346 ms P-R-T Axes : 39 3 156 degrees QTcB Int : 486 ms Sinus tachycardia Cannot rule out Anterior infarct (cited on or before 22-May-2025) T wave abnormality, consider lateral ischemia Prolonged QT Abnormal ECG When compared with ECG of 22-May-2025 22:22, T wave inversion now evident in Lateral leads QT has lengthened Confirmed by Rigo Coughlin ([id number]) on 05/31/2025 5:38:08 PM Referred By: REFERRED SELF Confirmed By: Rigo Coughlin
[2025-05-31 21:21] LABS: Hematocrit (blood only) 20.2 % (37.0-47.0); Hemoglobin 6.7 g/dl (12.0-16.0)
[2025-05-31] MEDS ORDERED: SODIUM CHLORIDE 0.9% 100 ML IV PRN (21:35)
[2025-06-01 06:14] LABS: Hematocrit (blood only) 28.5 % (37.0-47.0); Hemoglobin 9.3 g/dl (12.0-16.0); Mean Corpuscular Hemoglobin 33.6 pg (25.0-34.0); Mean Corpuscular Volume 102.9 fL (80.0-100.0); Platelet Count 122 K/uL (130-400); RDW Standard Deviation 83.1 fL (36.4-46.3); Red Blood Count 2.77 M/uL (4.20-5.40); White Blood Count 39.29 K/ul (4.8-10.8)
[2025-06-01 06:25] LABS: Anion Gap 9.0 (3-11); Blood Urea Nitrogen 24.0 mg/dl (6-23); Calcium 8.7 mg/dl (8.6-10.3); Carbon Dioxide 21.0 mmol/L (21-32); Chloride 120.0 mmol/L (98-107); Creatinine Clr Calc Pharmacy 45.4 ml/min; Glucose 109.0 mg/dl (70-99(Fasting)); Magnesium 2.2 mg/dl (1.7-2.4); Potassium 5.1 mmol/L (3.5-5.1); Sodium 150.0 mmol/L (136-145)
[2025-06-01 07:39] VITALS: BP 132/85; PULSE 112; RESP 18; TEMP 97.7; O2SAT 98
--- NOTE | 2025-06-01 11:57 | Hospitalist Progress Note ---
Date of Service June 01, 2025 Assessment & Plan (1) Severe sepsis with acute organ dysfunction: Plan: With evidence of early shock She missed antibiotics for about 24 hours since early in the morning on and until this morning Her white blood cell count has gone up to 26.91 and hemoglobin low at 7.4 Has been on intravenous Zosyn and will be continued for now Her stool was positive for C. difficile gene a but negative for C. difficile toxin Will start vancomycin p.o. due to continued diarrhea and also increased white count Discussed with the family members specially the daughter Her condition has deteriorated with increasing confusion, weakness and decreasing hemoglobin, ongoing bloody BM d/w palliative care, pt is aware of guarded prognosis and is looking into facility w/ hospice likely [facility] but until then would like to continue current level of care as able including labs and blood transfusion. Received another unit of blood yesterday and continues to have bloody diarrhea Remains confused and clinically conditional has deteriorated The family members were updated about the critical condition and was told that she will be discharged with hospice care and will be kept comfortable Medications will be continued as needed basis Prognosis remains extremely poor (2) Acute ischemic colitis: Plan: Has had bloody stool and a suspected ischemic colitis briefly abd pain and bloody diarrhea had stopped, but it again came back, over night she had multiple bloody BMs, eliquis has been on hold. Complaint minimal pain in the right upper quadrant without tenderness Stool was positive for C. difficile gene but toxin was negative Given increasing white count she was started with oral vancomycin Anemia Secondary to blood loss May be complicated by ischemic colitis Hemoglobin dropped to 7.8 , repeat HnH 3 pm. PRBC if downtrending Hb. Has been on Eliquis for pulmonary embolism, currently on hold d/t ongoing bleeding. HAL and Hypernatremia: Na 147 yesterday upto 151 today, Cr 1.3 today, will start half ns and repeat BMP at 3PM. Low na diet , avoid nephrotoxics. (3) Acute hyperactive delirium due to another medical condition: (4) Acute metabolic encephalopathy: Plan: Likely secondary to hepatic failure Has been getting lactulose and rifaximin is added Prognosis remains guarded Ammonia level remains normal at 29.0 (5) Pulmonary embolism: Plan: Continue Eliquis if HnH is stable and bleeding stops. currently on hold due to multiple bloody BM overnight. 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, superintendent marine oil terminal, current use: (13) Polymyositis: Admission and Anticipated Discharge Date Admission Date: May 22, 2025 Subjective 05/29/2025 The patient was seen and examined in medical floor in presence of the family members She has been feeling better but her white count has gone up without fever and no chills Denies any abdominal pain, nausea or vomiting and bowel is moving 05/30/2025 The patient was seen and examined in medical floor in presence of the family members Her condition has been worse today with increasing drowsiness and mild confusion Denies any significant pain Her prognosis remains guarded 06/01/2025 The patient was seen and examined in medical floor in presence of the family members She has been critical with distress due to discomfort/pain Looks pale and very lethargic Discussed with the family members that she will be sent home with hospice care and will be kept comfortable Review of Systems Review of Systems: All systems reviewed and are unremarkable except as noted below Physical Exam Physical Exam: Lying in bed without any acute distress Constitutional: well developed, well nourished and + ill appearing Neck: trachea midline, no thyromegaly Respiratory: no respiratory distress Auscultation: + diminished lung sounds and + crackles (Bibasilar crackles) Cardiovascular: Rate/Rhythm: regular rate and regular rhythm; not tachycardic Heart Sounds: normal S1 and normal S2; no murmur Extremities: + edema (1+ edema bilaterally) Gastrointestinal (Abdomen): Inspection/Auscultation: normal bowel sounds; abdomen not distended Percussion/Palpation: abdomen soft; abdomen nontender Neurologic: + confused Lymphatic: no cervical or axillary lymphadenopathy Results & Data Results & Data Vital Signs (Past 12 Hours) Vital Signs Temp Pulse Pulse Resp BP BP Pulse Ox 06/01/25 07:38 36.5 C 112 H 18 132/85 98 06/01/25 04:00 06/01/25 01:30 36.6 C 102 H 20 125/83 97 06/01/25 01:29 36.6 C 102 H 20 125/83 97 06/01/25 00:49 36.5 C 105 H 18 128/81 96 06/01/25 00:24 Pulse Ox O2 Del Method O2 Del Method O2 Flow Rate 06/01/25 07:38 Room Air 06/01/25 04:00 96 Room Air 06/01/25 01:30 0 06/01/25 01:29 06/01/25 00:49 06/01/25 00:24 Room Air (6) Pneumonia Laterality: bilateral Lung location: lower lobe of lung Pneumonia type: due to unspecified organism Qualified Code(s): J18.9 - Pneumonia, unspecified organism (9) Cirrhosis of liver Ascites presence: unspecified Hepatic cirrhosis type: unspecified hepatic cirrhosis Qualified Code(s): K74.60 - Unspecified cirrhosis of liver
--- NOTE | 2025-06-01 17:53 | Discharge Summary ---
Date of Service June 01, 2025 Admission HPI Per Admitting Provider As above Admission Exam Per Admitting Provider Physical Exam: General- Not in acute distress Head- atraumatic Eyes- PERRL. ENT- oropharynx clear Neck- supple, no JVD. Lungs- clear to auscultation no wheezing or crackles Heart- regular rhythm;tachycardia no murmur, no gallop. Abdomen- normal bowel sounds, soft, diffuse discomfort more on right side , no distension Extremities- no pretibial edema, no erythema seen Neuro- alert, oriented x 2; PERRL, no facial palsy; no dysarthria; moves extremities Principal Diagnosis Advanced cirrhosis with hepatic encephalopathy, severe sepsis with acute organ dysfunction Discharge Exam Lying in bed without any acute distress Constitutional well developed, well nourished and + ill appearing Neck trachea midline, no thyromegaly Respiratory no respiratory distress Auscultation: + diminished lung sounds and + crackles (Bibasilar crackles) Cardiovascular Rate/Rhythm: regular rate and regular rhythm; not tachycardic Heart Sounds: normal S1 and normal S2; no murmur Extremities: + edema (1+ edema bilaterally) Gastrointestinal (Abdomen) Inspection/Auscultation: normal bowel sounds; abdomen not distended Percussion/Palpation: abdomen soft; abdomen nontender Neurologic + confused Lymphatic no cervical or axillary lymphadenopathy Discharge Data Allergies Allergy/AdvReac Type Severity Reaction Status Date / Time clindamycin Allergy Hives Verified 07/04/24 15:10 Consultations 05/22/25 21:57 ED Decision to Admit Stat 05/23/25 08:15 Consult Gastroenterology Routine Consult Pulmonology Routine 05/23/25 11:45 Consult General Surgery Stat Ordered Studies 05/22/25 19:57 CT abd pelvis IV con only Stat CT angio chest PE protocol Stat 05/23/25 01:06 US venous doppler LE BI Routine 05/23/25 07:07 CT head/brain wo con Urgent 05/28/25 10:00 FL video swallow Routine Hospital Course (1) Severe sepsis with acute organ dysfunction: With evidence of early shock She missed antibiotics for about 24 hours since early in the morning on and until this morning Her white blood cell count has gone up to 26.91 and hemoglobin low at 7.4 Has been on intravenous Zosyn and will be continued for now Her stool was positive for C. difficile gene a but negative for C. difficile toxin Will start vancomycin p.o. due to continued diarrhea and also increased white count Discussed with the family members specially the daughter Her condition has deteriorated with increasing confusion, weakness and decreasing hemoglobin, ongoing bloody BM d/w palliative care, pt is aware of guarded prognosis and is looking into facility w/ hospice likely [facility] but until then would like to continue current level of care as able including labs and blood transfusion. Received another unit of blood yesterday and continues to have bloody diarrhea Remains confused and clinically conditional has deteriorated The family members were updated about the critical condition and was told that she will be discharged with hospice care and will be kept comfortable Medications will be continued as needed basis Prognosis remains extremely poor (2) Acute ischemic colitis: Has had bloody stool and a suspected ischemic colitis briefly abd pain and bloody diarrhea had stopped, but it again came back, over night she had multiple bloody BMs, eliquis has been on hold. Complaint minimal pain in the right upper quadrant without tenderness Stool was positive for C. difficile gene but toxin was negative Given increasing white count she was started with oral vancomycin Anemia Secondary to blood loss May be complicated by ischemic colitis Hemoglobin dropped to 7.8 , repeat HnH 3 pm. PRBC if downtrending Hb. Has been on Eliquis for pulmonary embolism, currently on hold d/t ongoing bleeding. HAL and Hypernatremia: Na 147 yesterday upto 151 today, Cr 1.3 today, will start half ns and repeat BMP at 3PM. Low na diet , avoid nephrotoxics. (3) Acute hyperactive delirium due to another medical condition: (4) Acute metabolic encephalopathy: Likely secondary to hepatic failure Has been getting lactulose and rifaximin is added Prognosis remains guarded Ammonia level remains normal at 29.0 (5) Pulmonary embolism: Continue Eliquis if HnH is stable and bleeding stops. currently on hold due to multiple bloody BM overnight. 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: Total Time Total Time Spent Total Time Spent (In Minutes): 45 Minutes Discharge Plan Discharge Items Patient Disposition: Hospice - Home Reason For Visit: SEPSIS, CONFUSION Discharge Diagnosis: Advanced cirrhosis with hepatic encephalopathy, severe sepsis with acute organ dysfunction Condition on Discharge: Serious Activity: As commented below Activity Comment: Keep comfortable Non-emergency contact: Primary Care Provider Call non-emergency contact if: you have any medication questions and your symptoms worsen Follow-up/Referrals: Petey Thrasher, [Primary Care Provider] - (As per home hospice) Diet: Regular Diet Comment: Minced and moist and as tolerated Addtl Attending Provider Instructions: Please take precautions to avoid falls Medications will be given for comfort Pending Studies at Discharge: No Stand-Alone Forms: My [facility] Medications and DC Order Prescriptions: New ondansetron 4 mg tablet,disintegrating 4 mg PO Q8H PRN (Reason: nausea and vomiting) 4 Days Qty: 14 0RF lorazepam [Ativan] 0.5 mg tablet 0.5 mg PO Q6H PRN (Reason: anxiety) Qty: 10 0RF scopolamine base 1 mg over 3 days patch 3 day 1 patch transdermal Q3D PRN (Reason: nausea and vomiting) Qty: 4 0RF Rx Instructions: Exessive secretion morphine 20 mg/5 mL (4 mg/mL) solution 2.5 mg PO Q4H PRN (Reason: pain) Qty: 30 0RF Continued pantoprazole 40 mg tablet,delayed release (DR/EC) 40 mg PO QAM Qty: 30 0RF Incruse Ellipta 62.5 mcg/actuation blister with device 1 inh INHALATION QAM Qty: 1 0RF folic acid 1 mg tablet 1 mg PO QAM lorazepam 0.5 mg tablet 0.5 mg PO UD PRN (Reason: Anxiety) Discontinued lactulose 10 gram/15 mL Solution 20 g PO TID Qty: 946 0RF duloxetine 60 mg capsule,delayed release(DR/EC) 60 mg PO DAILY Qty: 30 0RF acetaminophen 325 mg Tablet 650 mg PO Q4 MDD 3G PRN (Reason: Pain) acetaminophen 325 mg tablet 650 mg PO Q4 MDD 3G PRN (Reason: temp > 38C OR 100.5F) potassium chloride 20 mEq tablet,ER particles/crystals 40 meq PO QAM lisinopril 10 mg tablet 10 mg PO DAILY gabapentin 300 mg capsule 600 mg PO TID methotrexate sodium 2.5 mg tablet 15 mg PO WK cholecalciferol (vitamin D3) [Vitamin D3] 50 mcg (2,000 unit) Capsule 50 mcg PO QAM Discharge Orders: Discharge Order (Routine); Ordered 06/01/25 Ordered By: Lonnie Manuel Admission Data Admit Date/Time: 05/22/25 23:14 Attending Provider: Lonnie Manuel Admit Provider: Saturnino Ramirez Primary Care Provider: Petey Thrasher Other Providers: [facility]; Saturnino Ramirez; Luca Villegas; Malaika Becerra; Matt Zhang; [facility]; [facility]; Santhosh Ortiz; Leonard Lovelace Other Interventions: Discharge Summary Assessment (RN) Last Done: 06/01/25 12:19
== END 2025-06-01 12:37 | disposition hospice, home (50) | DRG 871 ==
LOC: ED 19:05 → 2E 23:14 → SUATTDRO 23:14 → 2E 05-23 00:38 → UNDODISIN 05-23 04:10 → 3E 05-26 23:13
DX: K70.30 Alcoholic cirrhosis of liver without ascites; Z66 Do not resuscitate; A41.9 Sepsis, unspecified organism; G93.41 Metabolic encephalopathy; Z51.5 Encounter for palliative care; E87.20 Acidosis, unspecified; E87.1 Hypo-osmolality and hyponatremia; D50.0 Iron deficiency anemia secondary to blood loss (chronic); I26.93 Single subsegmental thrombotic pulmonary embolism without acute cor pulmonale; J98.11 Atelectasis; Z79.899 Other long term (current) drug therapy; J18.9 Pneumonia, unspecified organism; K72.00 Acute and subacute hepatic failure without coma; R65.21 Severe sepsis with septic shock; Z88.1 Allergy status to other antibiotic agents; I24.89 Other forms of acute ischemic heart disease; R41.82 Altered mental status, unspecified; K55.039 Acute (reversible) ischemia of large intestine, extent unspecified; Z87.891 Personal history of nicotine dependence; N39.0 Urinary tract infection, site not specified; K76.82 Hepatic encephalopathy; I50.33 Acute on chronic diastolic (congestive) heart failure; M33.20 Polymyositis, organ involvement unspecified